=== PATIENT | male | born 1945 | race Two or more races ===

== ENCOUNTER → 2024-06-23 | Outpatient (CLI) | payer MEDICARE, BC, SELFPAY ==
[2024-06-23 14:16] LABS: Collection Type, Urine Clean Catch; Squamous Epithelial Cell,Urine 0 /hpf (0-5)
[2024-06-23 14:31] LABS: Basophils # (Auto) 0.1 Thou/mm3 (0.0-0.2); Basophils % (Auto) 1 % (0-2.5); Eosinophils # (Auto) 0.2 Thou/mm3 (0.0-0.5); Eosinophils % (Auto) 1 % (0-10); Hematocrit 34.7 % (41.0-53.0); Hemoglobin 11.5 g/dL (13.5-16.0); Immature Granulocytes % (Auto) 1 % (0-0); Immature Granulocytes Auto 0.07 Thou/mm3 (0.00-0.00); Lymphocytes # (Auto) 3.7 Thou/mm3 (1.0-4.8); Lymphocytes % (Auto) 26 % (10-50); Mean Corpuscular HGB Conc 33.1 g/dl (31.0-37.0); Mean Corpuscular Hemoglobin 30.4 pg (25.0-35.0); Mean Corpuscular Volume 92 fL (80-100); Monocytes # (Auto) 1.1 Thou/mm3 (0.0-0.8); Monocytes % (Auto) 8 % (0-12); Neutrophils # (Auto) 9.2 Thou/mm3 (1.8-7.7); Neutrophils % (Auto) 65 % (37-80); Nucleated Red Blood Cell % 0 /100 WBC (0); Platelet Count 362 Thou/mm3 (140-440); Red Blood Count 3.78 Miln/mm3 (4.50-5.90); White Blood Count 14.3 Thou/mm3 (3.8-10.6)
[2024-06-23 14:34] LABS: Bilirubin,Urine Negative (Negative); Blood,Urine Negative (Negative); Clarity,Urine Clear (Clear/Hazy); Color,Urine Yellow (Lt Yel-Yel); Glucose, Urine Negative (Negative); Ketones,Urine Negative (Negative); Leukocyte Esterase,Urine Negative (Negative); Nitrite,Urine Negative (Negative); Protein,Urine 1+ (Neg - Trace); RBC,Urine 1 /hpf (0-3); Specific Gravity,Urine 1.018 (1.001-1.035); Urobilinogen,Urine Negative mg/dL (0.0-1.0); WBC,Urine < 1 /hpf (0-5)
[2024-06-23 14:42] LABS: Glucose Estimated Average 114 mg/dL (80-131); Hemoglobin A1C 5.6 % Hgb (4.8-6.0)
[2024-06-23 14:45] LABS: Creatinine MALB Rnd Ur 90 mg/dL (30-125); Microalbumin Creat Ratio 183 mg/gCrea (<30); Microalbumin, Random Urine 165 mg/L (0-300)
[2024-06-23 14:49] LABS: Alanine Aminotransferase 14 U/L (10-49); Albumin, Serum 4.1 gm/dL (3.4-4.8); Alkaline Phosphatase 31 U/L (46-116); Anion Gap 9 (7-16); Aspartate Amino Transferase 19 U/L (0-34); BUN/Creatinine Ratio 21 Ratio (12-20); Blood Urea Nitrogen 38 mg/dL (9-23); Calcium 10.2 mg/dL (8.3-10.6); Calcium (Corrected) 10.2 mg/dL (8.5-10.1); Carbon Dioxide 21.2 mMol/L (20.0-31.0); Chloride 106 mMol/L (98-107); Creatinine (Component) 1.8 mg/dL (0.6-1.3); Glucose 111 mg/dL (74-106); Magnesium 1.5 mg/dL (1.6-2.6); Osmolality,Calculated 281 (275-295); Potassium 4.4 mMol/L (3.4-5.1); Sodium 136 mMol/L (136-145); eGFR 38 See Note
[2024-06-23 15:01] LABS: Albumin/Globulin Ratio 1.6 (1.2-2.2); Bilirubin,Direct 0.1 mg/dL (0.0-0.3); Bilirubin,Total 0.2 mg/dL (0.3-1.2); Cardiac Risk Estimate 2.9 RATIO (4.0-6.7); Cholesterol 93 mg/dL (132-200); Globulin 2.6 gm/dL (2.3-3.5); HDL Cholesterol 32 mg/dL (40-60); LDL Cholesterol,Calculated 48 mg/dL (0-130); Thyroid Stimulating Hormone 3.18 uIU/mL (0.55-4.78); Total Protein 6.7 gm/dL (5.7-8.2); Triglycerides 67 mg/dL (30-150)
[2024-06-23 20:42] LABS: Parathyroid Hormone Intact 17.1 pg/ml (18.5-88.0)
== END | disposition home or self-care (01) ==
LOC: COPL 13:41
PROVIDERS: PCP Internal Medicine; Referring Provider Internal Medicine; Visit Provider Internal Medicine
DX: I12.9 Hypertensive chronic kidney disease with stage 1 through stage 4 chronic kidney disease, or unspecified chronic kidney disease (principal); E11.22 Type 2 diabetes mellitus with diabetic chronic kidney disease; N18.30 Chronic kidney disease, stage 3 unspecified; E78.5 Hyperlipidemia, unspecified
CPT/HCPCS: 36415; 80053; 80061; 81001; 82043; 82248; 82570; 83036; 83735; 83970; 84443; 85025

== ENCOUNTER → 2024-07-14 | Outpatient (CLI) | payer MEDICARE, BC, SELFPAY ==
[2024-07-14 14:40] LABS: Urea Breath Test Negative (Negative)
[2024-07-20 08:48] LABS: Immunoglobulin A 255 mg/dL (70-320); Immunoglobulin G 1148 mg/dL (600-1540)
[2024-07-21 07:04] LABS: Immunoglobulin M 57 mg/dL (50-300)
== END | disposition home or self-care (01) ==
LOC: COPL 13:27
PROVIDERS: PCP Internal Medicine; Referring Provider Nurse Practitioner Family; Visit Provider Nurse Practitioner Family
DX: K21.9 Gastro-esophageal reflux disease without esophagitis (principal); R10.13 Epigastric pain
CPT/HCPCS: 36415; 82784; 83013; 83014

== ENCOUNTER → 2024-08-10 | Outpatient (CLI) | payer MEDICARE, BC, SELFPAY ==
[2024-08-17 06:56] LABS: Helicobacter pylori Ag, Stool* NOT DETECTED (NOT DETECTED)
== END | disposition home or self-care (01) ==
LOC: CDIM 13:44 → SLDO 13:44
PROVIDERS: PCP Nurse Practitioner Family; Referring Provider Nurse Practitioner Family; Visit Provider Nurse Practitioner Family
DX: K21.9 Gastro-esophageal reflux disease without esophagitis (principal); R10.13 Epigastric pain
CPT/HCPCS: 87338

== ENCOUNTER 2024-09-24 12:16 | Inpatient (IN) | payer MEDICARE, BC, SELFPAY ==
[2024-09-24] VITALS (99 sets, daily range): BP systolic 0–182; BP diastolic 0–102; PULSE 0–118; RESP 14–44; TEMP 36–36.4; O2SAT 68–100; BMI 23.3
[2024-09-24] MEDS: EPINEPHrine in NS 4 MG IVPB 4 MG/250 ML BAG 14.203 MG IV (12:31)
[2024-09-24] MEDS: AMIODARONE 360 MG IVPB 360 MG/200 ML BAG 33.333 MG IV (12:37)
--- NOTE | 2024-09-24 12:49 | PD.EDCPR ---
ED CPR RME/HPI General Chief Complaint: General Adult/Misc Complain Stated Complaint: CODE BLUE Time Seen by Provider: 09/24/24 13:19 Arrival date/time: 09/24/24 12:16 RME / HPI RME / HPI narrative: 79 year-old male patient with history of CAD with stents, pacemaker, atrial fibrillation, hypertension, diabetes, hyperlipidemia, pulmonary fibrosis presents to the ED BIBA from home CODE BLUE. Per medics report, arrest was witnessed by family approximately 5 minutes prior to their arrival. Report on scene patient pulseless with PEA on monitor. Received 4 rounds of epinephrine via left tibia IO. Last dose of epinephrine administered en route at 12:13 pm per EMS. Patient ventilated via BVM, and CPR in progress on arrival to ED at 12:15 pm. Prehospital BS 136. Related Data Home Medications ?Medication ?Instructions ?Recorded ?Confirmed atorvastatin 40 mg tablet 40 mg PO QDAY 01/17/23 08/14/23 clopidogrel 75 mg tablet 75 mg PO QDAY 01/17/23 08/14/23 losartan 100 mg tablet 50 mg PO QDAY 01/17/23 08/14/23 megestrol 400 mg/10 mL (40 mg/mL) 400 mg PO QDAY 01/17/23 08/14/23 oral suspension mirtazapine 15 mg tablet 15 mg PO HS 01/17/23 08/14/23 pantoprazole 40 mg tablet,delayed 40 mg PO QDAY 01/17/23 08/14/23 release trazodone 50 mg tablet 50 mg PO QDAY 01/17/23 08/14/23 nintedanib 150 mg capsule (Ofev) 150 mg PO Q12H 08/14/23 08/14/23 Previous Rx's ?Medication ?Instructions ?Recorded promethazine-DM 6.25 mg-15 mg/5 mL 5 ml PO Q6H PRN cough #473 mL 01/23/23 oral syrup azithromycin 250 mg tablet 500 mg (2 x 250 mg) PO QDAY #5 tabs 08/15/23 Allergies Allergy/AdvReac Type Severity Reaction Status Date / Time No Known Allergies Allergy Verified 10/04/21 14:55 Review of Systems Review of Systems ROS Unobtainable: other (Unobtainable, patient presented as a code blue with CPR in progress.) Past Medical History Past Medical History CARDIAC: Positive Cardiac Disorders, Cardiac Arrhythmia, Atrial Fibrillation, Coronary Artery Disease, Hypercholesterolemia and Hypertension RESPIRATORY: Positive Pneumonia and Pulmonary Fibrosis GASTROINTESTINAL: Positive Gastrointestinal Disorders and Gall Bladder Disease GENITOURINARY: Positive Genitourinary Disorders and Renal Disease MUSCULOSKELETAL: Positive Musculoskeletal Disorders ENT: Positive Cataracts ENDOCRINE: Positive Endocrine Disorders OTHER HISTORY: Positive Hospitalization Family History FAMILY HISTORY: Positive Family Cardiac Disorders Surgical History SURGICAL: Positive Coronary Stent, Cardiac Catheterization, Pacemaker, Angiogram, Eye Surgery and Abdominal Surgery Social History SMOKING STATUS: Never smoker ED Exam Narrative Physical exam: GENERAL APPEARANCE: Unresponsive, CPR in progress HEENT: Normocephalic, atraumatic; 2mm and minimally reactive NECK: Supple LUNGS: no spontaneous respirations, ventilated via BVM, breath sounds clear bilaterally with ventilation. HEART: no pulse, no cardiac sounds, palpable pulse with chest compressions ABDOMEN: Mildly distended; soft EXTREMITIES:? atraumatic; no edema NEUROLOGIC: Obtunded, unresponsive, no response to painful stimuli SKIN: Cool, cyanotic Course Course Course Narrative: Please refer to nurse's code sheet for medication administrations. 1215: Patient arrived, CPR in progress by medics 1216: Pulse check, PEA, CPR resumed 1218; Pulse check, PEA, CPR resumed 1220: Patient intubated 1221: Pulse check, PEA, CPR resumed 1223: Pulse check, PEA, CPR resumed 1225: BS 195 1225: Pulse check, +ROSC, NSR 1226: VFib, CPR started, defibrillated at 200 joules, CPR resumed 1228: Pulse check, +ROSC, regular rhythm on telemetry 1229: Right femoral triple lumen central line placed 1241: Patients and daughter at bedside 1246: Daughter at bedside and provided additional history 1250: Patient lost pulses, code blue called overhead 1253: Pulse check, +ROSC, 18F OG tube inserted by me. 1259: Sent EKG images to cable installer repairer Dr. Mathis 1301: Supervisory Examiner Dr. Tyler at bedside. 1304: Gelatin Dynamite Packing Operator Dr. Mathis at bedside. 1308: Patient admitted to ICU. Quality Measures none Orders Category Date Time Status Emergency Titration Protocol Stat Care 09/24/24 13:02 Ordered Emergency Titration Protocol Stat Care 09/24/24 13:09 Ordered Severino [Urinary Catheter] X1 Care 09/24/24 12:48 Completed Insert IV NOW Care 09/24/24 13:15 Completed Intubation NOW Care 09/24/24 12:47 Completed Dietary Misc DAILY Diet 09/25/24 09:00 Active ABG [Arterial Blood Gas] Stat Lab 09/24/24 13:15 Completed CBC [CBC] Stat Lab 09/24/24 12:42 Completed CMP [Comprehensive Metabolic Panel] Stat Lab 09/24/24 12:42 Completed Lactate (Lactic Acid) Stat Lab 09/24/24 12:42 Completed Magnesium Stat Lab 09/24/24 12:42 Completed Procalcitonin Stat Lab 09/24/24 12:42 Completed Sputum Culture and Gram Stain Stat Lab 09/24/24 17:07 Completed Troponin I Stat Lab 09/24/24 12:42 Completed Amiodarone 360 mg Ivpb [Nexterone Ivpb] Med 09/24/24 12:38 Discontinued 360 mg in 200 ml IV 33.333 mls/hr EPINEPHrine in NS 4 MG IVPB [Adrenalin/NS 4 MG IVPB] Med 09/24/24 12:34 Discontinued 4 mg in 250 ml IV 0.05 mcg/kg/min Midazolam/Ns 100 mg Ivpb [Versed Pf Inj in Ns Premix] Med 09/24/24 12:49 Discontinued 100 mg in 100 ml IV 1 mg/hr Sodium Chloride Rt Dominique 10% [NS Rt Dominique 10%] Med 09/24/24 12:47 Discontinued 5 ml INH X1 ONE Mechanical [Volume Ventilator] Stat RT 09/24/24 Active Sputum Induction PRN RT 09/24/24 13:00 Ordered Vital Signs Vital signs: Vital Signs Pulse Rate 105 H 09/24/24 12:19 Respiratory Rate 14 09/24/24 12:19 Pulse Oximetry (%) 86 L 09/24/24 12:19 Procedures -ED Intubation Time out performed: No (Performed emergently during code blue ) sedative: none Laryngoscope: Lopez ET Tube Size: 7.5 ET Tube Uncuffed: No Tube Secured Depth (cm): 25 Tube Secured Location: other (gum) Tube Placement Confirmation: visualized tube passing through cords, equal breath sounds bilaterally, no breath sounds over epigastrium and confirmation by capnometry Patient Tolerated Procedure: well and no complications Intubation Complications: none Additional Comments: Also inserted a 18F OG tube Cardiac Arrest / CPR MDM Narrative MDM Narrative:: I, Vidya Roberts, am scribing for and in the presence of Dr. Young. Patient data External records reviewed:: [facility] previous records (I reviewed admission from 08/14/2023 through 08/15/2023 for acute on chronic renal insufficiency ) Clinical information provided by:: patient Social determinants that could affect healthcare access:: none Patient has the following chronic illnesses:: CAD with stents, s/p pacemaker, AFib, hypertension, diabetes, CKD, hyperlipidemia, pulmonary fibrosis How is presenting disease/condition affected by chronic disease/condition?: exacerbated by Evaluation data The following diagnostics were reviewed and interpreted by me:: lab results, radiology exam(s) and EKG tracing(s) (EKG #1 shows sinus rhythm with frequent PVC's. Second EKG was sinus rhythm with ST depression in V2 V3 V4 V5 V6, no reciprocal elevations. EKG #3 is electronically paced rhythm, rate 69. ) Lab and/or radiology exams considered but not ordered:: None Interpretation Summary: Ordering Physician: Martah Young MD Date of Service: 09/24/24 Procedure(s): XR chest 1V portable Accession Number(s): [id number] cc: Fabián Law MD; Martha Young MD; Amalia Pearson MD~ Examination: AP chest single view Technique one AP portable supine chest single view Exam date and time: September 24, 2024 1343 hrs. Comparison August 06, 2023 Indications: Chest pain today. Hypoxic respiratory failure Findings: Diffuse right lung pneumonia Mild to moderate enlargement left ventricle Endotracheal tube tip 4.6 cm above [place]. Orogastric tube tip in the stomach satisfactory position Prominent vascular congestion Prominent osteopenia Transvenous dual-chamber bipolar cardiac leads satisfactory position Impression: Diffuse right lung pneumonia Mild heart failure Dictated By:Fabián Law MD Signed By:<Electronically signed by Fabián Law MD in OV>09/24/24 1409 Medications / Prescriptions Medications or Prescriptions considered but not ordered:: None Medication administrations:: Medication Administration History Discontinued Medications Albuterol (Albuterol Rt 2.5 Mg/3 Ml Nebu) 2.5 mg INH X1 ONE Stop: 09/27/24 07:03 Albuterol (Albuterol Rt 2.5 Mg/0.5 Ml Nebu) 10 mg INH X1 ONE Stop: 09/27/24 07:26 Last Admin: 04/13/25 07:49 Dose: 10 mg Documented By: EV Albuterol/Ipratropium (Albuterol/Ipratropium (Duoneb) Rt Dominique 3 Ml Nebu) 3 ml INH Q4HRRT [facility] Stop: 10/26/24 22:59 Aspirin (Aspirin 81 Mg Chew) 81 mg NG QDAY [facility] Stop: 10/25/24 10:44 Last Admin: 09/25/24 14:22 Dose: Not Given Documented By: ER Non-Admin Reason: Discontinued Aspirin (Aspirin 81 Mg Chew) 81 mg NG QDAY [facility] Stop: 10/25/24 11:29 Last Admin: 09/26/24 11:11 Dose: 81 mg Documented By: Admin: 09/25/24 13:57 Dose: 81 mg Documented By: ER Comments: patient in CT Clopidogrel Bisulfate (Clopidogrel Bisulfate 75 Mg Tablet) 75 mg NG QDAY [facility] Stop: 10/25/24 10:44 Last Admin: 09/25/24 14:22 Dose: Not Given Documented By: ER Non-Admin Reason: Discontinued Dextrose (Dextrose 50%-Water Inj 50 Ml Syringe) 25 ml IV Q15MIN PRN PRN Reason: BG 50-70 responsive npo pt Stop: 10/25/24 10:26 Last Admin: 09/25/24 14:30 Dose: 25 ml Documented By: ER Dextrose (Dextrose 50%-Water Inj 50 Ml Syringe) 50 ml IV Q15MIN PRN PRN Reason: BG <50 OR BG <70 & pt unresponsive Stop: 10/25/24 10:26 Dextrose (Dextrose 50%-Water Inj 50 Ml Syringe) 50 ml IV Q15MIN PRN PRN Reason: if BG below 70 give full amp Stop: 10/25/24 10:26 Last Admin: 09/26/24 23:45 Dose: 50 ml Documented By: Admin: 09/26/24 20:12 Dose: 50 ml Documented By: Admin: 09/26/24 16:23 Dose: 50 ml Documented By: Admin: 09/26/24 12:16 Dose: 50 ml Documented By: Admin: 09/26/24 08:57 Dose: 50 ml Documented By: POLINA(2) Admin: 09/26/24 02:10 Dose: 50 ml Documented By: Admin: 09/25/24 18:38 Dose: 50 ml Documented By: JUAN Dextrose (Dextrose 50%-Water Inj 50 Ml Syringe) 25 ml IV X1 ONE Stop: 09/26/24 14:35 Last Admin: 09/26/24 14:39 Dose: 25 ml Documented By: POLINA Comments: [address] Fagan and Dr. Forbes Dextrose (Dextrose 50%-Water Inj 50 Ml Syringe) 50 ml IV X1 ONE Stop: 09/27/24 07:03 Last Admin: 09/27/24 07:28 Dose: 50 ml Documented By: POLINA Dextrose (Dextrose 50%-Water Inj 50 Ml Syringe) 50 ml IV X1 ONE Stop: 09/27/24 07:03 Last Admin: 09/27/24 10:56 Dose: Not Given Documented By: POLINA Non-Admin Reason: Cancelled by Provider Glucagon (Glucagon Inj 1 Mg Vial) 1 mg IM Q15MIN PRN PRN Reason: BG <70, and no IV access Heparin Sodium (Porcine) (Heparin Sod Inj 5000 Unit/Ml Vial) 2,000 unit IV X1 ONE; Protocol Stop: 09/24/24 13:25 Last Admin: 09/24/24 18:23 Dose: Not Given Documented By: AUGIE Non-Admin Reason: Per MD Tyler Heparin Sodium (Porcine) (Heparin Sod Inj 5000 Unit/Ml Vial) 4,000 unit IV X1 ONE; Protocol Stop: 09/24/24 19:16 Last Admin: 09/24/24 20:30 Dose: Not Given Documented By: EZEKIEL Non-Admin Reason: Discontinued Heparin Sodium (Porcine) (Heparin Sod Inj 5000 Unit/Ml Vial) 2,000 unit IV X1 ONE; Protocol Stop: 09/24/24 19:16 Last Admin: 09/24/24 21:24 Dose: 2,000 unit Documented By: EZEKIEL Co-signed By: Heparin Sodium (Porcine) (Heparin Sod Inj 5000 Unit/Ml Vial) 2,000 unit IV X1 ONE; Protocol Stop: 09/24/24 20:27 Last Admin: 09/24/24 21:29 Dose: Not Given Documented By: EZEKIEL Non-Admin Reason: Duplicate Medication on eMAR Heparin Sodium (Porcine) (Heparin Sod Inj 1000 Unit/Ml Vial 10 Ml) 3,000 unit INDWELLCAT X1 ONE Stop: 09/26/24 06:31 Last Admin: 09/26/24 06:44 Dose: 3,000 unit Documented By: LINDA Co-signed By: CONRAD Heparin Sodium (Porcine) (Heparin Sod Inj 1000 Unit/Ml Vial 10 Ml) 3,000 unit INDWELLCAT PRN PRN PRN Reason: DIALYSIS Stop: 10/10/24 09:03 Last Admin: 09/27/24 06:45 Dose: 3,000 unit Documented By: LINDA Co-signed By: POLINA Heparin Sodium (Porcine) (Heparin Sod Inj 5000 Unit/Ml Vial) 5,000 unit SC Q8HR SUKUMAR Stop: 10/10/24 21:59 Last Admin: 09/27/24 06:24 Dose: 5,000 unit Documented By: LINDA Co-signed By: CONRAD Admin: 09/26/24 21:13 Dose: 5,000 unit Documented By: LINDA Co-signed By: CONRAD Hydrocortisone Sodium Succinate (Hydrocortisone Sod Succ Inj 100 Mg Vial) 50 mg IV Q6HR [facility] Stop: 09/29/24 11:59 Last Admin: 09/27/24 06:23 Dose: 50 mg Documented By: Admin: 09/26/24 23:35 Dose: 50 mg Documented By: Admin: 09/26/24 17:54 Dose: 50 mg Documented By: Admin: 09/26/24 11:52 Dose: 50 mg Documented By: Admin: 09/26/24 05:33 Dose: 50 mg Documented By: Admin: 09/26/24 00:36 Dose: 50 mg Documented By: Admin: 09/25/24 18:38 Dose: 50 mg Documented By: Admin: 09/25/24 13:58 Dose: 50 mg Documented By: ER Comments: Epinephrine/Sodium Chloride (Adrenalin/Ns 4 Mg Ivpb) 4 mg in 250 mls @ 14.203 mls/hr IV .[id number] PRN; Protocol PRN Reason: per protocol Stop: 10/24/24 12:33 Last Titration: 09/24/24 21:40 Dose: 0.72 mcg/kg/min, 204.525 mls/hr Documented By: Titration: 09/24/24 21:35 Dose: 0.7 mcg/kg/min, 198.844 mls/hr Documented By: Titration: 09/24/24 21:30 Dose: 0.68 mcg/kg/min, 193.163 mls/hr Documented By: Titration: 09/24/24 21:25 Dose: 0.66 mcg/kg/min, 187.481 mls/hr Documented By: Titration: 09/24/24 21:20 Dose: 0.64 mcg/kg/min, 181.8 mls/hr Documented By: Titration: 09/24/24 21:15 Dose: 0.62 mcg/kg/min, 176.119 mls/hr Documented By: Titration: 09/24/24 21:10 Dose: 0.6 mcg/kg/min, 170.438 mls/hr Documented By: Admin: 09/24/24 20:43 Dose: 0.58 mcg/kg/min, 164.756 mls/hr Documented By: Titration: 09/24/24 20:43 Dose: Infused Documented By: Titration: 09/24/24 19:50 Dose: 0.58 mcg/kg/min, 164.756 mls/hr Documented By: Admin: 09/24/24 19:44 Dose: 0.56 mcg/kg/min, 159.075 mls/hr Documented By: Titration: 09/24/24 19:44 Dose: Infused Documented By: Titration: 09/24/24 19:40 Dose: 0.54 mcg/kg/min, 153.394 mls/hr Documented By: Titration: 09/24/24 19:35 Dose: 0.52 mcg/kg/min, 147.713 mls/hr Documented By: Titration: 09/24/24 19:30 Dose: 0.5 mcg/kg/min, 142.031 mls/hr Documented By: Titration: 09/24/24 19:24 Dose: 0.48 mcg/kg/min, 136.35 mls/hr Documented By: Titration: 09/24/24 19:02 Dose: 0.46 mcg/kg/min, 130.669 mls/hr Documented By: Titration: 09/24/24 18:45 Dose: 0.44 mcg/kg/min, 124.988 mls/hr Documented By: Titration: 09/24/24 18:29 Dose: 0.42 mcg/kg/min, 119.306 mls/hr Documented By: Titration: 09/24/24 18:00 Dose: 0.4 mcg/kg/min, 113.625 mls/hr Documented By: Titration: 09/24/24 17:57 Dose: 0.4 mcg/kg/min, 113.625 mls/hr Documented By: Admin: 09/24/24 17:31 Dose: 0.25 mcg/kg/min, 71.016 mls/hr Documented By: Titration: 09/24/24 17:31 Dose: Infused Documented By: Titration: 09/24/24 17:00 Dose: 0.25 mcg/kg/min, 71.016 mls/hr Documented By: Titration: 09/24/24 16:31 Dose: 0.35 mcg/kg/min, 99.422 mls/hr Documented By: Titration: 09/24/24 16:10 Dose: 0.45 mcg/kg/min, 127.828 mls/hr Documented By: Titration: 09/24/24 16:00 Dose: 0.55 mcg/kg/min, 156.234 mls/hr Documented By: Titration: 09/24/24 15:39 Dose: 0.75 mcg/kg/min, 213.047 mls/hr Documented By: Admin: 09/24/24 15:36 Dose: 1 mcg/kg/min, 284.063 mls/hr Documented By: Titration: 09/24/24 15:36 Dose: Infused Documented By: Admin: 09/24/24 14:46 Dose: 1 mcg/kg/min, 284.063 mls/hr Documented By: Titration: 09/24/24 14:46 Dose: Infused Documented By: Titration: 09/24/24 14:33 Dose: 1 mcg/kg/min, 284.063 mls/hr Documented By: Admin: 09/24/24 13:58 Dose: 1 mcg/kg/min, 284.063 mls/hr Documented By: Titration: 09/24/24 13:55 Dose: Infused Documented By: Titration: 09/24/24 13:03 Dose: 1 mcg/kg/min, 284.063 mls/hr Documented By: Admin: 09/24/24 12:31 Dose: 0.05 mcg/kg/min, 14.203 mls/hr Documented By: SHARYN Amiodarone HCl/Dextrose (Nexterone Ivpb) 360 mg in 200 mls @ 33.333 mls/hr IV .Q6H ONE Stop: 09/24/24 18:37 Last Infusion: 09/24/24 18:56 Dose: Infused Documented By: Infusion: 09/24/24 14:33 Dose: 33.333 mls/hr Documented By: Admin: 09/24/24 12:37 Dose: 33.333 mls/hr Documented By: SHARYN Midazolam HCl (Versed Pf Inj In Ns Premix) 100 mg in 100 mls @ 1 mls/hr IV .Q24H PRN; Protocol PRN Reason: PER PROTOCOL Stop: 09/29/24 12:48 Last Titration: 09/24/24 16:31 Dose: 0 mg/hr, 0 mls/hr Documented By: Titration: 09/24/24 14:33 Dose: 1 mg/hr, 1 mls/hr Documented By: Admin: 09/24/24 13:32 Dose: 1 mg/hr, 1 mls/hr Documented By: SHARYN Co-signed By: [facility] Vasopressin/Sodium Chloride (Vasostrict/Ns Ivpb) 20 unit in 100 mls @ 9 mls/hr IV .Q11H7M PRN; Protocol PRN Reason: PER PROTOCOL Stop: 10/24/24 13:16 Last Titration: 09/27/24 09:12 Dose: 0 unit/min, 0 mls/hr Documented By: Admin: 09/27/24 02:25 Dose: 0.03 unit/min, 9 mls/hr Documented By: Titration: 09/27/24 00:44 Dose: Infused Documented By: Admin: 09/26/24 13:37 Dose: 0.03 unit/min, 9 mls/hr Documented By: Titration: 09/26/24 12:56 Dose: Infused Documented By: Admin: 09/26/24 01:49 Dose: 0.03 unit/min, 9 mls/hr Documented By: Titration: 09/26/24 00:17 Dose: Infused Documented By: Admin: 09/25/24 13:10 Dose: 0.03 unit/min, 9 mls/hr Documented By: Titration: 09/25/24 12:05 Dose: Infused Documented By: Admin: 09/25/24 00:58 Dose: 0.03 unit/min, 9 mls/hr Documented By: Titration: 09/25/24 00:58 Dose: Infused Documented By: Admin: 09/24/24 17:45 Dose: 0.03 unit/min, 9 mls/hr Documented By: Titration: 09/24/24 17:45 Dose: Infused Documented By: Titration: 09/24/24 14:33 Dose: 0.03 unit/min, 9 mls/hr Documented By: Admin: 09/24/24 13:37 Dose: 0.03 unit/min, 9 mls/hr Documented By: SHARYN Vasopressin/Sodium Chloride (Vasostrict/Ns Ivpb) 20 unit in 100 mls @ 9 mls/hr IV .Q11H7M PRN; Protocol PRN Reason: PER PROTOCOL Stop: 10/24/24 13:16 Heparin Sodium/Dextrose (Heparin In D5w Ivpb) 25,000 unit in 250 mls @ 9.09 mls/hr IV .Q24H SUKUMAR; Protocol Stop: 10/08/24 13:29 Last Admin: 09/24/24 19:25 Dose: Not Given Documented By: EZEKIEL Non-Admin Reason: Discontinued Sodium Bicarbonate 88.23 meq/ (Dextrose) 588.23 mls @ 100 mls/hr IV .Q5H53M SUKUMAR Stop: 10/24/24 20:07 Last Admin: 09/24/24 21:27 Dose: 100 mls/hr Documented By: EZEKIEL Sodium Bicarbonate 88.23 meq/ (Dextrose) 588.23 mls @ 100 mls/hr IV .Q5H53M ONE Stop: 09/24/24 20:07 Last Admin: 09/24/24 15:00 Dose: 100 mls/hr Documented By: AUGIE Norepinephrine/Dextrose (Levophed In D5w 8mg/250ml) 8 mg in 250 mls @ 7.102 mls/hr IV .Q24H PRN; Protocol PRN Reason: PER PROTOCOL Stop: 10/24/24 14:55 Last Titration: 09/24/24 21:08 Dose: 0 mcg/kg/min, 0 mls/hr Documented By: Titration: 09/24/24 21:06 Dose: 0.01 mcg/kg/min, 1.54 mls/hr Documented By: Titration: 09/24/24 21:00 Dose: 1.52 mcg/kg/min, 215.888 mls/hr Documented By: Titration: 09/24/24 20:55 Dose: 1.5 mcg/kg/min, 213.047 mls/hr Documented By: Titration: 09/24/24 20:50 Dose: 1.48 mcg/kg/min, 210.206 mls/hr Documented By: Titration: 09/24/24 20:45 Dose: 1.46 mcg/kg/min, 207.366 mls/hr Documented By: Titration: 09/24/24 20:30 Dose: 1.44 mcg/kg/min, 204.525 mls/hr Documented By: Titration: 09/24/24 20:25 Dose: 1.4 mcg/kg/min, 198.844 mls/hr Documented By: Titration: 09/24/24 20:20 Dose: 1.35 mcg/kg/min, 191.742 mls/hr Documented By: Titration: 09/24/24 20:16 Dose: 1.3 mcg/kg/min, 184.641 mls/hr Documented By: Titration: 09/24/24 20:10 Dose: 1.2 mcg/kg/min, 170.438 mls/hr Documented By: Titration: 09/24/24 20:05 Dose: 1.1 mcg/kg/min, 156.234 mls/hr Documented By: Titration: 09/24/24 20:00 Dose: 1 mcg/kg/min, 142.031 mls/hr Documented By: Admin: 09/24/24 19:58 Dose: 1 mcg/kg/min, 142.031 mls/hr Documented By: Titration: 09/24/24 19:58 Dose: Infused Documented By: Admin: 09/24/24 19:52 Dose: 1 mcg/kg/min, 142.031 mls/hr Documented By: Titration: 09/24/24 19:18 Dose: Infused Documented By: Titration: 09/24/24 19:00 Dose: 1 mcg/kg/min, 142.031 mls/hr Documented By: Titration: 09/24/24 18:00 Dose: 1 mcg/kg/min, 142.031 mls/hr Documented By: Admin: 09/24/24 17:32 Dose: 1 mcg/kg/min, 142.031 mls/hr Documented By: Titration: 09/24/24 17:32 Dose: Infused Documented By: Titration: 09/24/24 17:00 Dose: 1 mcg/kg/min, 142.031 mls/hr Documented By: Titration: 09/24/24 16:31 Dose: 0.75 mcg/kg/min, 106.523 mls/hr Documented By: Titration: 09/24/24 16:10 Dose: 0.55 mcg/kg/min, 78.117 mls/hr Documented By: Titration: 09/24/24 16:00 Dose: 0.45 mcg/kg/min, 63.914 mls/hr Documented By: Titration: 09/24/24 15:39 Dose: 0.25 mcg/kg/min, 35.508 mls/hr Documented By: Admin: 09/24/24 15:00 Dose: 0.05 mcg/kg/min, 7.102 mls/hr Documented By: GE Norepinephrine/Dextrose (Levophed In D5w 8mg/250ml) Confirm Administered Dose 8 mg in 250 mls @ ud IV .STK-MED ONE Stop: 09/24/24 14:49 Last Admin: 09/24/24 16:46 Dose: Not Given Documented By: GE Non-Admin Reason: Duplicate Medication on eMAR Fentanyl Citrate (Sublimaze Inj 2,500 Mcg/250 Ml Bag) 2,500 mcg in 250 mls @ 2.5 mls/hr IV .Q24H PRN; Protocol PRN Reason: PER PROTOCOL Stop: 09/29/24 15:46 Last Titration: 09/25/24 08:00 Dose: 0 mcg/hr, 0 mls/hr Documented By: Titration: 09/25/24 07:00 Dose: 225 mcg/hr, 22.5 mls/hr Documented By: Titration: 09/25/24 06:00 Dose: 175 mcg/hr, 17.5 mls/hr Documented By: Titration: 09/25/24 05:00 Dose: 175 mcg/hr, 17.5 mls/hr Documented By: Titration: 09/25/24 04:00 Dose: 175 mcg/hr, 17.5 mls/hr Documented By: Titration: 09/25/24 03:00 Dose: 175 mcg/hr, 17.5 mls/hr Documented By: Titration: 09/25/24 02:00 Dose: 175 mcg/hr, 17.5 mls/hr Documented By: Titration: 09/25/24 01:00 Dose: 175 mcg/hr, 17.5 mls/hr Documented By: Titration: 09/25/24 00:47 Dose: 175 mcg/hr, 17.5 mls/hr Documented By: Titration: 09/25/24 00:00 Dose: 125 mcg/hr, 12.5 mls/hr Documented By: Titration: 09/24/24 23:00 Dose: 75 mcg/hr, 7.5 mls/hr Documented By: Titration: 09/24/24 22:00 Dose: 75 mcg/hr, 7.5 mls/hr Documented By: Titration: 09/24/24 21:00 Dose: 25 mcg/hr, 2.5 mls/hr Documented By: Titration: 09/24/24 20:00 Dose: 25 mcg/hr, 2.5 mls/hr Documented By: Titration: 09/24/24 19:00 Dose: 25 mcg/hr, 2.5 mls/hr Documented By: Titration: 09/24/24 18:30 Dose: 25 mcg/hr, 2.5 mls/hr Documented By: Titration: 09/24/24 18:00 Dose: 0 mcg/hr, 0 mls/hr Documented By: Admin: 09/24/24 16:32 Dose: 25 mcg/hr, 2.5 mls/hr Documented By: AUGIE Co-signed By: seven Propofol (Diprivan Ivpb) 1,000 mg in 100 mls @ 2.273 mls/hr IV .Q24H PRN; Protocol PRN Reason: PER PROTOCOL Stop: 10/24/24 15:47 Last Titration: 09/24/24 18:00 Dose: 0 mcg/kg/min, 0 mls/hr Documented By: Admin: 09/24/24 16:31 Dose: 5 mcg/kg/min, 2.273 mls/hr Documented By: AUGIE Co-signed By: seven Sodium Chloride (Ns) 500 mls @ 999 mls/hr IV .Q31M ONE Stop: 09/24/24 16:26 Last Infusion: 09/24/24 18:00 Dose: Infused Documented By: Admin: 09/24/24 16:10 Dose: 999 mls/hr Documented By: AUGIE Ceftriaxone Sodium/Dextrose (Rocephin/D5w 1gm Iv Premix) 1 gm in 50 mls @ 100 mls/hr IV QDAY SUKUMAR Stop: 10/01/24 16:51 Last Infusion: 09/26/24 17:19 Dose: Infused Documented By: Admin: 09/26/24 11:11 Dose: 100 mls/hr Documented By: Infusion: 09/25/24 10:00 Dose: Infused Documented By: Admin: 09/25/24 09:30 Dose: 100 mls/hr Documented By: Infusion: 09/24/24 18:00 Dose: Infused Documented By: Admin: 09/24/24 17:09 Dose: 100 mls/hr Documented By: AUGIE Metronidazole (Flagyl 500 Mg Iv) 500 mg in 100 mls @ 200 mls/hr IV Q8HR SUKUMAR Stop: 10/01/24 16:51 Last Admin: 09/27/24 06:24 Dose: 200 mls/hr Documented By: Infusion: 09/26/24 21:42 Dose: Infused Documented By: Admin: 09/26/24 21:12 Dose: 200 mls/hr Documented By: Infusion: 09/26/24 17:19 Dose: Infused Documented By: Admin: 09/26/24 14:52 Dose: 200 mls/hr Documented By: Infusion: 09/26/24 06:03 Dose: Infused Documented By: Admin: 09/26/24 05:33 Dose: 200 mls/hr Documented By: Infusion: 09/25/24 22:21 Dose: Infused Documented By: Admin: 09/25/24 21:51 Dose: 200 mls/hr Documented By: Infusion: 09/25/24 14:27 Dose: Infused Documented By: Admin: 09/25/24 13:57 Dose: 200 mls/hr Documented By: Infusion: 09/25/24 06:15 Dose: Infused Documented By: Admin: 09/25/24 05:45 Dose: 200 mls/hr Documented By: Infusion: 09/24/24 23:22 Dose: Infused Documented By: Admin: 09/24/24 22:52 Dose: 200 mls/hr Documented By: Infusion: 09/24/24 18:00 Dose: Infused Documented By: Admin: 09/24/24 17:09 Dose: 200 mls/hr Documented By: AUGIE Heparin Sodium/Dextrose (Heparin In D5w Ivpb) 25,000 unit in 250 mls @ 9.09 mls/hr IV .Q24H SUKUMAR; Protocol Stop: 10/08/24 19:14 Last Admin: 09/24/24 20:30 Dose: Not Given Documented By: EZEKIEL Non-Admin Reason: Discontinued Epinephrine/Sodium Chloride (Adrenalin/Ns 4 Mg Ivpb) 4 mg in 250 mls @ 14.203 mls/hr IV .[id number] PRN; Protocol PRN Reason: per protocol Stop: 10/24/24 20:20 Last Titration: 09/27/24 09:12 Dose: 0 mcg/kg/min, 0 mls/hr Documented By: Titration: 09/27/24 08:55 Dose: 1 mcg/kg/min, 284.063 mls/hr Documented By: Titration: 09/27/24 08:48 Dose: 0.5 mcg/kg/min, 142.031 mls/hr Documented By: Titration: 09/27/24 08:45 Dose: 0.15 mcg/kg/min, 42.609 mls/hr Documented By: Titration: 09/27/24 08:39 Dose: 0.13 mcg/kg/min, 36.928 mls/hr Documented By: Titration: 09/27/24 08:32 Dose: 0.11 mcg/kg/min, 31.247 mls/hr Documented By: Titration: 09/27/24 08:27 Dose: 0.09 mcg/kg/min, 25.566 mls/hr Documented By: Titration: 09/27/24 08:22 Dose: 0.07 mcg/kg/min, 19.884 mls/hr Documented By: Admin: 09/27/24 08:17 Dose: 0.05 mcg/kg/min, 14.203 mls/hr Documented By: RM Norepinephrine Bitartrate (Levophed In Ns 16mg/250ml) 16 mg in 250 mls @ 3.551 mls/hr IV .Q24H PRN; Protocol PRN Reason: PER protocol Stop: 10/24/24 20:22 Last Titration: 09/27/24 09:12 Dose: Infused Documented By: Titration: 09/27/24 08:32 Dose: 3 mcg/kg/min, 213.047 mls/hr Documented By: Titration: 09/27/24 08:27 Dose: 2.99 mcg/kg/min, 212.337 mls/hr Documented By: Titration: 09/27/24 08:22 Dose: 2.97 mcg/kg/min, 210.916 mls/hr Documented By: Titration: 09/27/24 08:00 Dose: 2.95 mcg/kg/min, 209.496 mls/hr Documented By: Admin: 09/27/24 07:21 Dose: 2.95 mcg/kg/min, 209.496 mls/hr Documented By: Titration: 09/27/24 07:21 Dose: Infused Documented By: Titration: 09/27/24 07:00 Dose: 2.95 mcg/kg/min, 209.496 mls/hr Documented By: Admin: 09/27/24 06:24 Dose: 2.95 mcg/kg/min, 209.496 mls/hr Documented By: Titration: 09/27/24 06:24 Dose: Infused Documented By: Titration: 09/27/24 06:00 Dose: 2.95 mcg/kg/min, 209.496 mls/hr Documented By: Titration: 09/27/24 05:21 Dose: 0.7 mcg/kg/min, 49.711 mls/hr Documented By: Titration: 09/27/24 05:00 Dose: 0.68 mcg/kg/min, 48.291 mls/hr Documented By: Titration: 09/27/24 04:00 Dose: 0.68 mcg/kg/min, 48.291 mls/hr Documented By: Admin: 09/27/24 03:30 Dose: 0.68 mcg/kg/min, 48.291 mls/hr Documented By: Titration: 09/27/24 03:30 Dose: Infused Documented By: Titration: 09/27/24 03:00 Dose: 0.68 mcg/kg/min, 48.291 mls/hr Documented By: Titration: 09/27/24 02:00 Dose: 0.68 mcg/kg/min, 48.291 mls/hr Documented By: Titration: 09/27/24 01:00 Dose: 0.68 mcg/kg/min, 48.291 mls/hr Documented By: Titration: 09/27/24 00:00 Dose: 0.68 mcg/kg/min, 48.291 mls/hr Documented By: Titration: 09/26/24 23:16 Dose: 0.68 mcg/kg/min, 48.291 mls/hr Documented By: Titration: 09/26/24 23:00 Dose: 0.66 mcg/kg/min, 46.87 mls/hr Documented By: Titration: 09/26/24 22:00 Dose: 0.64 mcg/kg/min, 45.45 mls/hr Documented By: Admin: 09/26/24 21:52 Dose: 0.64 mcg/kg/min, 45.45 mls/hr Documented By: Titration: 09/26/24 21:52 Dose: Infused Documented By: Titration: 09/26/24 21:23 Dose: 0.64 mcg/kg/min, 45.45 mls/hr Documented By: Titration: 09/26/24 21:00 Dose: 0.62 mcg/kg/min, 44.03 mls/hr Documented By: Titration: 09/26/24 20:00 Dose: 0.62 mcg/kg/min, 44.03 mls/hr Documented By: Titration: 09/26/24 19:00 Dose: 0.62 mcg/kg/min, 44.03 mls/hr Documented By: Titration: 09/26/24 18:36 Dose: 0.62 mcg/kg/min, 44.03 mls/hr Documented By: Titration: 09/26/24 18:00 Dose: 0.64 mcg/kg/min, 45.45 mls/hr Documented By: Titration: 09/26/24 17:41 Dose: 0.64 mcg/kg/min, 45.45 mls/hr Documented By: Titration: 09/26/24 17:33 Dose: 0.66 mcg/kg/min, 46.87 mls/hr Documented By: Titration: 09/26/24 17:32 Dose: 0.68 mcg/kg/min, 48.291 mls/hr Documented By: Titration: 09/26/24 17:28 Dose: 0.68 mcg/kg/min, 48.291 mls/hr Documented By: Titration: 09/26/24 17:17 Dose: 0.7 mcg/kg/min, 49.711 mls/hr Documented By: Titration: 09/26/24 17:12 Dose: 0.72 mcg/kg/min, 51.131 mls/hr Documented By: Titration: 09/26/24 17:03 Dose: 0.74 mcg/kg/min, 52.552 mls/hr Documented By: Titration: 09/26/24 17:00 Dose: 0.76 mcg/kg/min, 53.972 mls/hr Documented By: Titration: 09/26/24 16:45 Dose: 0.76 mcg/kg/min, 53.972 mls/hr Documented By: Titration: 09/26/24 16:28 Dose: 0.78 mcg/kg/min, 55.392 mls/hr Documented By: Admin: 09/26/24 16:27 Dose: 0.8 mcg/kg/min, 56.813 mls/hr Documented By: Titration: 09/26/24 16:27 Dose: Infused Documented By: Titration: 09/26/24 16:00 Dose: 0.8 mcg/kg/min, 56.813 mls/hr Documented By: Titration: 09/26/24 15:55 Dose: 0.8 mcg/kg/min, 56.813 mls/hr Documented By: Titration: 09/26/24 15:47 Dose: 0.82 mcg/kg/min, 58.233 mls/hr Documented By: Titration: 09/26/24 15:30 Dose: 0.84 mcg/kg/min, 59.653 mls/hr Documented By: Titration: 09/26/24 15:13 Dose: 0.86 mcg/kg/min, 61.073 mls/hr Documented By: Titration: 09/26/24 15:03 Dose: 0.88 mcg/kg/min, 62.494 mls/hr Documented By: Titration: 09/26/24 14:47 Dose: 0.9 mcg/kg/min, 63.914 mls/hr Documented By: Titration: 09/26/24 14:25 Dose: 0.92 mcg/kg/min, 65.334 mls/hr Documented By: Titration: 09/26/24 14:17 Dose: 0.94 mcg/kg/min, 66.755 mls/hr Documented By: Titration: 09/26/24 14:00 Dose: 0.96 mcg/kg/min, 68.175 mls/hr Documented By: Titration: 09/26/24 13:28 Dose: 0.96 mcg/kg/min, 68.175 mls/hr Documented By: Titration: 09/26/24 13:15 Dose: 0.98 mcg/kg/min, 69.595 mls/hr Documented By: Titration: 09/26/24 13:00 Dose: 1 mcg/kg/min, 71.016 mls/hr Documented By: Admin: 09/26/24 12:58 Dose: 1 mcg/kg/min, 71.016 mls/hr Documented By: Titration: 09/26/24 12:56 Dose: Infused Documented By: Titration: 09/26/24 12:55 Dose: 1.38 mcg/kg/min, 98.002 mls/hr Documented By: Titration: 09/26/24 12:53 Dose: 1.4 mcg/kg/min, 99.422 mls/hr Documented By: Titration: 09/26/24 12:40 Dose: 1.42 mcg/kg/min, 100.842 mls/hr Documented By: Titration: 09/26/24 12:32 Dose: 1.44 mcg/kg/min, 102.263 mls/hr Documented By: Titration: 09/26/24 12:04 Dose: 1.46 mcg/kg/min, 103.683 mls/hr Documented By: Titration: 09/26/24 12:00 Dose: 1.48 mcg/kg/min, 105.103 mls/hr Documented By: Titration: 09/26/24 11:42 Dose: 1.48 mcg/kg/min, 105.103 mls/hr Documented By: Titration: 09/26/24 11:00 Dose: 1.5 mcg/kg/min, 106.523 mls/hr Documented By: Titration: 09/26/24 10:57 Dose: 1.5 mcg/kg/min, 106.523 mls/hr Documented By: Titration: 09/26/24 10:55 Dose: 1 mcg/kg/min, 71.016 mls/hr Documented By: Titration: 09/26/24 10:40 Dose: 0.68 mcg/kg/min, 48.291 mls/hr Documented By: Admin: 09/26/24 10:02 Dose: 0.64 mcg/kg/min, 45.45 mls/hr Documented By: Titration: 09/26/24 09:00 Dose: Infused Documented By: Titration: 09/26/24 08:50 Dose: Infused Documented By: POLINA(2) Titration: 09/26/24 07:36 Dose: 0.66 mcg/kg/min, 46.87 mls/hr Documented By: POLINA(2) Titration: 09/26/24 07:21 Dose: 0.68 mcg/kg/min, 48.291 mls/hr Documented By: POLINA(2) Titration: 09/26/24 07:00 Dose: 0.7 mcg/kg/min, 49.711 mls/hr Documented By: Titration: 09/26/24 06:56 Dose: 0.72 mcg/kg/min, 51.131 mls/hr Documented By: Titration: 09/26/24 06:47 Dose: 0.74 mcg/kg/min, 52.552 mls/hr Documented By: Titration: 09/26/24 06:25 Dose: 0.76 mcg/kg/min, 53.972 mls/hr Documented By: Titration: 09/26/24 06:21 Dose: 0.78 mcg/kg/min, 55.392 mls/hr Documented By: Titration: 09/26/24 06:15 Dose: 0.8 mcg/kg/min, 56.813 mls/hr Documented By: Titration: 09/26/24 06:10 Dose: 0.82 mcg/kg/min, 58.233 mls/hr Documented By: Titration: 09/26/24 06:05 Dose: 0.84 mcg/kg/min, 59.653 mls/hr Documented By: Titration: 09/26/24 06:00 Dose: 0.86 mcg/kg/min, 61.073 mls/hr Documented By: Titration: 09/26/24 05:45 Dose: 0.88 mcg/kg/min, 62.494 mls/hr Documented By: Titration: 09/26/24 05:30 Dose: 0.9 mcg/kg/min, 63.914 mls/hr Documented By: Titration: 09/26/24 05:25 Dose: 0.92 mcg/kg/min, 65.334 mls/hr Documented By: Titration: 09/26/24 05:00 Dose: 0.94 mcg/kg/min, 66.755 mls/hr Documented By: Titration: 09/26/24 04:33 Dose: 0.96 mcg/kg/min, 68.175 mls/hr Documented By: Admin: 09/26/24 04:20 Dose: 0.98 mcg/kg/min, 69.595 mls/hr Documented By: Titration: 09/26/24 04:18 Dose: Infused Documented By: Titration: 09/26/24 04:00 Dose: 0.98 mcg/kg/min, 69.595 mls/hr Documented By: Titration: 09/26/24 03:47 Dose: 1 mcg/kg/min, 71.016 mls/hr Documented By: Titration: 09/26/24 03:32 Dose: 1.02 mcg/kg/min, 72.436 mls/hr Documented By: Titration: 09/26/24 03:17 Dose: 1.04 mcg/kg/min, 73.856 mls/hr Documented By: Titration: 09/26/24 03:00 Dose: 1.06 mcg/kg/min, 75.277 mls/hr Documented By: Titration: 09/26/24 02:46 Dose: 1.08 mcg/kg/min, 76.697 mls/hr Documented By: Titration: 09/26/24 02:00 Dose: 1.1 mcg/kg/min, 78.117 mls/hr Documented By: Admin: 09/26/24 01:00 Dose: 1.1 mcg/kg/min, 78.117 mls/hr Documented By: Titration: 09/26/24 01:00 Dose: Infused Documented By: Titration: 09/26/24 00:00 Dose: 1.1 mcg/kg/min, 78.117 mls/hr Documented By: Titration: 09/25/24 23:47 Dose: 1.1 mcg/kg/min, 78.117 mls/hr Documented By: Titration: 09/25/24 23:32 Dose: 1.12 mcg/kg/min, 79.538 mls/hr Documented By: Titration: 09/25/24 23:16 Dose: 1.14 mcg/kg/min, 80.958 mls/hr Documented By: Titration: 09/25/24 23:00 Dose: 1.16 mcg/kg/min, 82.378 mls/hr Documented By: Admin: 09/25/24 22:00 Dose: 1.18 mcg/kg/min, 83.798 mls/hr Documented By: Titration: 09/25/24 21:58 Dose: Infused Documented By: Titration: 09/25/24 21:32 Dose: 1.2 mcg/kg/min, 85.219 mls/hr Documented By: Titration: 09/25/24 21:00 Dose: 1.22 mcg/kg/min, 86.639 mls/hr Documented By: Titration: 09/25/24 20:34 Dose: 1.22 mcg/kg/min, 86.639 mls/hr Documented By: Titration: 09/25/24 20:00 Dose: 1.24 mcg/kg/min, 88.059 mls/hr Documented By: Admin: 09/25/24 19:06 Dose: 1.26 mcg/kg/min, 89.48 mls/hr Documented By: Titration: 09/25/24 19:06 Dose: Infused Documented By: Titration: 09/25/24 19:00 Dose: 1.26 mcg/kg/min, 89.48 mls/hr Documented By: Titration: 09/25/24 18:00 Dose: 1.26 mcg/kg/min, 89.48 mls/hr Documented By: Titration: 09/25/24 17:00 Dose: 1.26 mcg/kg/min, 89.48 mls/hr Documented By: Titration: 09/25/24 16:45 Dose: 1.24 mcg/kg/min, 88.059 mls/hr Documented By: Titration: 09/25/24 16:31 Dose: 1.22 mcg/kg/min, 86.639 mls/hr Documented By: Admin: 09/25/24 16:17 Dose: 1.2 mcg/kg/min, 85.219 mls/hr Documented By: Titration: 09/25/24 16:12 Dose: Infused Documented By: Titration: 09/25/24 15:00 Dose: 1.2 mcg/kg/min, 85.219 mls/hr Documented By: Titration: 09/25/24 14:00 Dose: 1.2 mcg/kg/min, 85.219 mls/hr Documented By: Admin: 09/25/24 13:15 Dose: 1.2 mcg/kg/min, 85.219 mls/hr Documented By: Titration: 09/25/24 13:13 Dose: Infused Documented By: Titration: 09/25/24 13:00 Dose: 1.2 mcg/kg/min, 85.219 mls/hr Documented By: Titration: 09/25/24 12:07 Dose: 1.2 mcg/kg/min, 85.219 mls/hr Documented By: Titration: 09/25/24 12:00 Dose: 1.18 mcg/kg/min, 83.798 mls/hr Documented By: Titration: 09/25/24 11:00 Dose: 1.18 mcg/kg/min, 83.798 mls/hr Documented By: Titration: 09/25/24 10:45 Dose: 1.16 mcg/kg/min, 82.378 mls/hr Documented By: Titration: 09/25/24 10:40 Dose: 1.18 mcg/kg/min, 83.798 mls/hr Documented By: Admin: 09/25/24 10:15 Dose: 1.2 mcg/kg/min, 85.219 mls/hr Documented By: Titration: 09/25/24 10:10 Dose: Infused Documented By: Titration: 09/25/24 10:05 Dose: Infused Documented By: Titration: 09/25/24 10:00 Dose: 1.22 mcg/kg/min, 86.639 mls/hr Documented By: Titration: 09/25/24 09:55 Dose: 1.24 mcg/kg/min, 88.059 mls/hr Documented By: Titration: 09/25/24 09:50 Dose: 1.26 mcg/kg/min, 89.48 mls/hr Documented By: Titration: 09/25/24 09:45 Dose: 1.28 mcg/kg/min, 90.9 mls/hr Documented By: Titration: 09/25/24 09:40 Dose: 1.3 mcg/kg/min, 92.32 mls/hr Documented By: Titration: 09/25/24 09:36 Dose: 1.52 mcg/kg/min, 107.944 mls/hr Documented By: Titration: 09/25/24 09:35 Dose: 1.54 mcg/kg/min, 109.364 mls/hr Documented By: Titration: 09/25/24 09:30 Dose: 1.56 mcg/kg/min, 110.784 mls/hr Documented By: Titration: 09/25/24 09:25 Dose: 1.58 mcg/kg/min, 112.205 mls/hr Documented By: Titration: 09/25/24 09:20 Dose: 1.6 mcg/kg/min, 113.625 mls/hr Documented By: Titration: 09/25/24 09:15 Dose: 1.62 mcg/kg/min, 115.045 mls/hr Documented By: Titration: 09/25/24 09:10 Dose: 1.64 mcg/kg/min, 116.466 mls/hr Documented By: Titration: 09/25/24 09:05 Dose: 1.66 mcg/kg/min, 117.886 mls/hr Documented By: Titration: 09/25/24 09:00 Dose: 1.68 mcg/kg/min, 119.306 mls/hr Documented By: Titration: 09/25/24 08:55 Dose: 1.7 mcg/kg/min, 120.727 mls/hr Documented By: Titration: 09/25/24 08:50 Dose: 1.72 mcg/kg/min, 122.147 mls/hr Documented By: Titration: 09/25/24 08:45 Dose: 1.74 mcg/kg/min, 123.567 mls/hr Documented By: Titration: 09/25/24 08:45 Dose: 1.76 mcg/kg/min, 124.988 mls/hr Documented By: Titration: 09/25/24 08:40 Dose: 1.78 mcg/kg/min, 126.408 mls/hr Documented By: Titration: 09/25/24 08:35 Dose: 1.8 mcg/kg/min, 127.828 mls/hr Documented By: Titration: 09/25/24 08:30 Dose: 1.82 mcg/kg/min, 129.248 mls/hr Documented By: Titration: 09/25/24 08:25 Dose: 1.84 mcg/kg/min, 130.669 mls/hr Documented By: Titration: 09/25/24 08:20 Dose: 1.86 mcg/kg/min, 132.089 mls/hr Documented By: Titration: 09/25/24 08:15 Dose: 1.88 mcg/kg/min, 133.509 mls/hr Documented By: Titration: 09/25/24 08:10 Dose: 1.9 mcg/kg/min, 134.93 mls/hr Documented By: Titration: 09/25/24 08:05 Dose: 1.94 mcg/kg/min, 137.77 mls/hr Documented By: Admin: 09/25/24 07:57 Dose: 1.96 mcg/kg/min, 139.191 mls/hr Documented By: Titration: 09/25/24 07:41 Dose: Infused Documented By: Titration: 09/25/24 07:00 Dose: 1.98 mcg/kg/min, 140.611 mls/hr Documented By: Admin: 09/25/24 05:55 Dose: 2 mcg/kg/min, 142.031 mls/hr Documented By: Titration: 09/25/24 05:48 Dose: Infused Documented By: Admin: 09/25/24 04:02 Dose: 2 mcg/kg/min, 142.031 mls/hr Documented By: Titration: 09/25/24 04:02 Dose: Infused Documented By: Titration: 09/25/24 03:00 Dose: 2 mcg/kg/min, 142.031 mls/hr Documented By: Titration: 09/25/24 03:00 Dose: 2 mcg/kg/min, 142.031 mls/hr Documented By: Admin: 09/25/24 02:16 Dose: 2 mcg/kg/min, 142.031 mls/hr Documented By: Titration: 09/25/24 02:16 Dose: Infused Documented By: Titration: 09/25/24 02:00 Dose: 2 mcg/kg/min, 142.031 mls/hr Documented By: Titration: 09/25/24 01:00 Dose: 2 mcg/kg/min, 142.031 mls/hr Documented By: Admin: 09/25/24 00:30 Dose: 2 mcg/kg/min, 142.031 mls/hr Documented By: Titration: 09/25/24 00:30 Dose: Infused Documented By: Titration: 09/25/24 00:00 Dose: 2 mcg/kg/min, 142.031 mls/hr Documented By: Admin: 09/24/24 23:10 Dose: 2 mcg/kg/min, 142.031 mls/hr Documented By: Titration: 09/24/24 23:10 Dose: Infused Documented By: Titration: 09/24/24 23:00 Dose: 2 mcg/kg/min, 142.031 mls/hr Documented By: Titration: 09/24/24 22:05 Dose: 2 mcg/kg/min, 142.031 mls/hr Documented By: Titration: 09/24/24 21:45 Dose: 2 mcg/kg/min, 142.031 mls/hr Documented By: Admin: 09/24/24 21:08 Dose: 1.54 mcg/kg/min, 109.364 mls/hr Documented By: EZEKIEL Heparin Sodium/Dextrose (Heparin In D5w Ivpb) 25,000 unit in 250 mls @ 9.09 mls/hr IV .Q24H SUKUMAR; Protocol Stop: 10/08/24 20:29 Last Titration: 09/26/24 11:16 Dose: 0 units/kg/hr, 0 mls/hr Documented By: POLINA Co-signed By: Admin: 09/26/24 08:49 Dose: Not Given Documented By: POLINA(2) Non-Admin Reason: bag hanging Titration: 09/26/24 06:45 Dose: 6 units/kg/hr, 4.545 mls/hr Documented By: [email or web address]) Co-signed By: Titration: 09/25/24 23:30 Dose: 6 units/kg/hr, 4.545 mls/hr Documented By: LINDA Co-signed By: CONRAD Titration: 09/25/24 16:00 Dose: 6 units/kg/hr, 4.545 mls/hr Documented By: ER Co-signed By: seven Titration: 09/25/24 13:00 Dose: 0 units/kg/hr, 0 mls/hr Documented By: ER Co-signed By: seven Titration: 09/25/24 12:00 Dose: 0 units/kg/hr, 0 mls/hr Documented By: ER Co-signed By: seven Titration: 09/25/24 05:06 Dose: 9 units/kg/hr, 6.818 mls/hr Documented By: BB Co-signed By: WB Titration: 09/25/24 04:00 Dose: 0 units/kg/hr, 0 mls/hr Documented By: BB Co-signed By: CMN Admin: 09/24/24 21:26 Dose: 12 units/kg/hr, 9.09 mls/hr Documented By: EZEKIEL Co-signed By: Norepinephrine Bitartrate (Levophed In Ns 16mg/250ml) Confirm Administered Dose 16 mg in 250 mls @ ud IV .STK-MED ONE Stop: 09/24/24 20:19 Last Admin: 09/24/24 21:31 Dose: Not Given Documented By: EZEKIEL Non-Admin Reason: Duplicate Medication on eMAR Epinephrine/Sodium Chloride (Adrenalin/Ns 4 Mg Ivpb) Confirm Administered Dose 4 mg in 250 mls @ ud IV .STK-MED ONE Stop: 09/24/24 20:19 Last Admin: 09/24/24 21:28 Dose: Not Given Documented By: EZEKIEL Non-Admin Reason: Duplicate Medication on eMAR Epinephrine HCl 16 mg/ Sodium (Chloride) 250 mls @ 3.551 mls/hr IV .Q24H PRN; Protocol PRN Reason: per protocol Stop: 10/24/24 20:45 Last Titration: 09/26/24 03:17 Dose: 0 mcg/kg/min, 0 mls/hr Documented By: Titration: 09/26/24 03:00 Dose: 0.02 mcg/kg/min, 1.42 mls/hr Documented By: Titration: 09/26/24 02:46 Dose: 0.04 mcg/kg/min, 2.841 mls/hr Documented By: Titration: 09/26/24 02:31 Dose: 0.06 mcg/kg/min, 4.261 mls/hr Documented By: Titration: 09/26/24 02:17 Dose: 0.08 mcg/kg/min, 5.681 mls/hr Documented By: Titration: 09/26/24 02:00 Dose: 0.1 mcg/kg/min, 7.102 mls/hr Documented By: Titration: 09/26/24 01:46 Dose: 0.12 mcg/kg/min, 8.522 mls/hr Documented By: Titration: 09/26/24 01:17 Dose: 0.14 mcg/kg/min, 9.942 mls/hr Documented By: Titration: 09/26/24 01:00 Dose: 0.16 mcg/kg/min, 11.363 mls/hr Documented By: Titration: 09/26/24 00:31 Dose: 0.18 mcg/kg/min, 12.783 mls/hr Documented By: Titration: 09/26/24 00:00 Dose: 0.2 mcg/kg/min, 14.203 mls/hr Documented By: Titration: 09/25/24 23:00 Dose: 0.2 mcg/kg/min, 14.203 mls/hr Documented By: Titration: 09/25/24 22:39 Dose: 0.2 mcg/kg/min, 14.203 mls/hr Documented By: Titration: 09/25/24 22:00 Dose: 0.2 mcg/kg/min, 14.203 mls/hr Documented By: Titration: 09/25/24 21:00 Dose: 0.2 mcg/kg/min, 14.203 mls/hr Documented By: Titration: 09/25/24 20:00 Dose: 0.2 mcg/kg/min, 14.203 mls/hr Documented By: Titration: 09/25/24 19:00 Dose: 0.2 mcg/kg/min, 14.203 mls/hr Documented By: Titration: 09/25/24 18:00 Dose: 0.2 mcg/kg/min, 14.203 mls/hr Documented By: Titration: 09/25/24 17:00 Dose: 0.2 mcg/kg/min, 14.203 mls/hr Documented By: Titration: 09/25/24 16:00 Dose: 0.2 mcg/kg/min, 14.203 mls/hr Documented By: Titration: 09/25/24 15:00 Dose: 0.2 mcg/kg/min, 14.203 mls/hr Documented By: Titration: 09/25/24 14:00 Dose: 0.2 mcg/kg/min, 14.203 mls/hr Documented By: Titration: 09/25/24 13:00 Dose: 0.2 mcg/kg/min, 14.203 mls/hr Documented By: Titration: 09/25/24 12:00 Dose: 0.2 mcg/kg/min, 14.203 mls/hr Documented By: Admin: 09/25/24 11:25 Dose: 0.2 mcg/kg/min, 14.203 mls/hr Documented By: Titration: 09/25/24 11: Dose: Infused Documented By: Titration: 09/25/24 11:00 Dose: 0.2 mcg/kg/min, 14.203 mls/hr Documented By: Titration: 09/25/24 10:50 Dose: 0.2 mcg/kg/min, 14.203 mls/hr Documented By: Titration: 09/25/24 10:45 Dose: 0.22 mcg/kg/min, 15.623 mls/hr Documented By: Titration: 09/25/24 10:40 Dose: 0.24 mcg/kg/min, 17.044 mls/hr Documented By: Titration: 09/25/24 10:30 Dose: 0.26 mcg/kg/min, 18.464 mls/hr Documented By: Titration: 09/25/24 10:05 Dose: 0.28 mcg/kg/min, 19.884 mls/hr Documented By: Titration: 09/25/24 10:00 Dose: 0.3 mcg/kg/min, 21.305 mls/hr Documented By: Titration: 09/25/24 09:45 Dose: 0.32 mcg/kg/min, 22.725 mls/hr Documented By: Titration: 09/25/24 09:40 Dose: 0.34 mcg/kg/min, 24.145 mls/hr Documented By: Titration: 09/25/24 09:30 Dose: 0.36 mcg/kg/min, 25.566 mls/hr Documented By: Titration: 09/25/24 09:25 Dose: 0.38 mcg/kg/min, 26.986 mls/hr Documented By: Titration: 09/25/24 09:05 Dose: 0.4 mcg/kg/min, 28.406 mls/hr Documented By: Titration: 09/25/24 09:00 Dose: 0.42 mcg/kg/min, 29.827 mls/hr Documented By: Titration: 09/25/24 08:55 Dose: 0.44 mcg/kg/min, 31.247 mls/hr Documented By: Titration: 09/25/24 08:50 Dose: 0.46 mcg/kg/min, 32.667 mls/hr Documented By: Titration: 09/25/24 08:45 Dose: 0.48 mcg/kg/min, 34.088 mls/hr Documented By: Titration: 09/25/24 08:40 Dose: 0.5 mcg/kg/min, 35.508 mls/hr Documented By: Titration: 09/25/24 08:35 Dose: 0.52 mcg/kg/min, 36.928 mls/hr Documented By: Titration: 09/25/24 08:30 Dose: 0.54 mcg/kg/min, 38.348 mls/hr Documented By: Titration: 09/25/24 08:25 Dose: 0.56 mcg/kg/min, 39.769 mls/hr Documented By: Titration: 09/25/24 08:20 Dose: 0.58 mcg/kg/min, 41.189 mls/hr Documented By: Titration: 09/25/24 08:15 Dose: 0.6 mcg/kg/min, 42.609 mls/hr Documented By: Titration: 09/25/24 08:10 Dose: 0.62 mcg/kg/min, 44.03 mls/hr Documented By: Titration: 09/25/24 08:05 Dose: 0.64 mcg/kg/min, 45.45 mls/hr Documented By: Titration: 09/25/24 08:00 Dose: 0.66 mcg/kg/min, 46.87 mls/hr Documented By: Titration: 09/25/24 07:05 Dose: 0.68 mcg/kg/min, 48.291 mls/hr Documented By: Titration: 09/25/24 07:00 Dose: 0.7 mcg/kg/min, 49.711 mls/hr Documented By: Titration: 09/25/24 07:00 Dose: 0.72 mcg/kg/min, 51.131 mls/hr Documented By: Titration: 09/25/24 06:41 Dose: 0.74 mcg/kg/min, 52.552 mls/hr Documented By: Titration: 09/25/24 06:30 Dose: 0.76 mcg/kg/min, 53.972 mls/hr Documented By: Titration: 09/25/24 06:22 Dose: 0.78 mcg/kg/min, 55.392 mls/hr Documented By: Titration: 09/25/24 06:15 Dose: 0.8 mcg/kg/min, 56.813 mls/hr Documented By: Titration: 09/25/24 06:05 Dose: 0.82 mcg/kg/min, 58.233 mls/hr Documented By: Admin: 09/25/24 05:22 Dose: 0.84 mcg/kg/min, 59.653 mls/hr Documented By: Titration: 09/25/24 05:16 Dose: Infused Documented By: Titration: 09/25/24 05:00 Dose: 0.86 mcg/kg/min, 61.073 mls/hr Documented By: Titration: 09/25/24 04:16 Dose: 0.88 mcg/kg/min, 62.494 mls/hr Documented By: Titration: 09/25/24 04:05 Dose: 0.9 mcg/kg/min, 63.914 mls/hr Documented By: Titration: 09/25/24 04:00 Dose: 0.92 mcg/kg/min, 65.334 mls/hr Documented By: Titration: 09/25/24 03:00 Dose: 0.94 mcg/kg/min, 66.755 mls/hr Documented By: Titration: 09/25/24 02:00 Dose: 0.94 mcg/kg/min, 66.755 mls/hr Documented By: Admin: 09/25/24 01:26 Dose: 0.94 mcg/kg/min, 66.755 mls/hr Documented By: Titration: 09/25/24 01:26 Dose: Infused Documented By: Titration: 09/25/24 01:00 Dose: 0.96 mcg/kg/min, 68.175 mls/hr Documented By: Titration: 09/25/24 00:00 Dose: 0.98 mcg/kg/min, 69.595 mls/hr Documented By: Titration: 09/24/24 23:00 Dose: 0.98 mcg/kg/min, 69.595 mls/hr Documented By: Titration: 09/24/24 22:55 Dose: 0.1 mcg/kg/min, 7.102 mls/hr Documented By: Titration: 09/24/24 22:50 Dose: 0.98 mcg/kg/min, 69.595 mls/hr Documented By: Titration: 09/24/24 22:45 Dose: 0.96 mcg/kg/min, 68.175 mls/hr Documented By: Titration: 09/24/24 22:40 Dose: 0.94 mcg/kg/min, 66.755 mls/hr Documented By: Titration: 09/24/24 22:35 Dose: 0.92 mcg/kg/min, 65.334 mls/hr Documented By: Titration: 09/24/24 22:30 Dose: 0.9 mcg/kg/min, 63.914 mls/hr Documented By: Titration: 09/24/24 22:25 Dose: 0.88 mcg/kg/min, 62.494 mls/hr Documented By: Titration: 09/24/24 22:20 Dose: 0.86 mcg/kg/min, 61.073 mls/hr Documented By: Titration: 09/24/24 22:15 Dose: 0.84 mcg/kg/min, 59.653 mls/hr Documented By: Titration: 09/24/24 22:10 Dose: 0.82 mcg/kg/min, 58.233 mls/hr Documented By: Titration: 09/24/24 22:05 Dose: 0.8 mcg/kg/min, 56.813 mls/hr Documented By: Titration: 09/24/24 22:00 Dose: 0.78 mcg/kg/min, 55.392 mls/hr Documented By: Titration: 09/24/24 21:55 Dose: 0.76 mcg/kg/min, 53.972 mls/hr Documented By: Admin: 09/24/24 21:50 Dose: 0.74 mcg/kg/min, 52.552 mls/hr Documented By: EZEKIEL Dopamine HCl/Dextrose (Intropin In D5w Ivpb) 400 mg in 250 mls @ 14.203 mls/hr IV .[id number] [facility]; Protocol Stop: 10/24/24 21:20 Last Admin: 09/27/24 01:22 Dose: Not Given Documented By: LINDA Non-Admin Reason: Pt BP currently maintained on Levo and Vaso Comments: Order may need to be changed to PRN Titration: 09/26/24 17:19 Dose: Infused Documented By: Admin: 09/26/24 10:38 Dose: Not Given Documented By: POLINA Non-Admin Reason: not running Titration: 09/25/24 08:40 Dose: 5 mcg/kg/min, 14.203 mls/hr Documented By: Titration: 09/25/24 08:30 Dose: 7 mcg/kg/min, 19.884 mls/hr Documented By: Titration: 09/25/24 08:20 Dose: 9 mcg/kg/min, 25.566 mls/hr Documented By: Titration: 09/25/24 08:10 Dose: 11 mcg/kg/min, 31.247 mls/hr Documented By: Titration: 09/25/24 08:00 Dose: 13 mcg/kg/min, 36.928 mls/hr Documented By: Titration: 09/25/24 07:45 Dose: 15 mcg/kg/min, 42.609 mls/hr Documented By: Titration: 09/25/24 07:30 Dose: 17 mcg/kg/min, 48.291 mls/hr Documented By: Titration: 09/25/24 07:00 Dose: 19 mcg/kg/min, 53.972 mls/hr Documented By: Titration: 09/25/24 06:00 Dose: 19 mcg/kg/min, 53.972 mls/hr Documented By: Titration: 09/25/24 05:00 Dose: 19 mcg/kg/min, 53.972 mls/hr Documented By: Titration: 09/25/24 04:00 Dose: 19 mcg/kg/min, 53.972 mls/hr Documented By: Admin: 09/25/24 03:42 Dose: 19 mcg/kg/min, 53.972 mls/hr Documented By: Titration: 09/25/24 03:24 Dose: Infused Documented By: Titration: 09/25/24 03:00 Dose: 19 mcg/kg/min, 53.972 mls/hr Documented By: Titration: 09/25/24 02:00 Dose: 19 mcg/kg/min, 53.972 mls/hr Documented By: Titration: 09/25/24 01:00 Dose: 19 mcg/kg/min, 53.972 mls/hr Documented By: Titration: 09/25/24 00:00 Dose: 17 mcg/kg/min, 48.291 mls/hr Documented By: Titration: 09/24/24 23:45 Dose: 17 mcg/kg/min, 48.291 mls/hr Documented By: Titration: 09/24/24 23:26 Dose: 15 mcg/kg/min, 42.609 mls/hr Documented By: Titration: 09/24/24 22:57 Dose: 13 mcg/kg/min, 36.928 mls/hr Documented By: Titration: 09/24/24 22:52 Dose: 11 mcg/kg/min, 31.247 mls/hr Documented By: Titration: 09/24/24 22:30 Dose: 9 mcg/kg/min, 25.566 mls/hr Documented By: Titration: 09/24/24 22:00 Dose: 7 mcg/kg/min, 19.884 mls/hr Documented By: Admin: 09/24/24 21:30 Dose: 5 mcg/kg/min, 14.203 mls/hr Documented By: BB Lactated Ringer's (Lactated Ringers) 500 mls @ 999 mls/hr IV .Q31M ONE Stop: 09/24/24 21:58 Last Admin: 09/24/24 21:30 Dose: 999 mls/hr Documented By: EZEKIEL Dopamine HCl/Dextrose (Intropin In D5w Ivpb) Confirm Administered Dose 400 mg in 250 mls @ ud IV .STK-MED ONE Stop: 09/24/24 21:19 Last Admin: 09/24/24 21:32 Dose: Not Given Documented By: BB Non-Admin Reason: Duplicate Medication on eMAR Sodium Bicarbonate 88.23 meq/ (Dextrose) 588.23 mls @ 50 mls/hr IV .[id number] SUKUMAR Stop: 09/25/24 11:10 Last Admin: 09/25/24 14:28 Dose: Not Given Documented By: ER Non-Admin Reason: Discontinued Sodium Bicarbonate 200 meq/ (Dextrose) 700 mls @ 125 mls/hr IV .Q5H36M SUKUMAR Stop: 10/25/24 00:29 Last Admin: 09/25/24 14:22 Dose: Not Given Documented By: ER Non-Admin Reason: Discontinued Sodium Bicarbonate 200 meq/ (Dextrose) 500 mls @ 125 mls/hr IV .Q4H SUKUMAR Stop: 10/25/24 00:32 Last Admin: 09/25/24 09:22 Dose: Not Given Documented By: ER Non-Admin Reason: Discontinued Infusion: 09/25/24 08:00 Dose: 0 mls/hr Documented By: Admin: 09/25/24 06:12 Dose: 125 mls/hr Documented By: Infusion: 09/25/24 04:53 Dose: Infused Documented By: Admin: 09/25/24 00:53 Dose: 125 mls/hr Documented By: VANNESA Sodium Bicarbonate (Sodium Bicarb 8.4% 50ml Vial*) Confirm Administered Dose 100 mls @ ud .ROUTE .STK-MED ONE Stop: 09/25/24 00:30 Last Admin: 09/25/24 00:54 Dose: Not Given Documented By: CMN Non-Admin Reason: Duplicate Medication on eMAR Potassium Chloride (Kcl Ivpb) 20 meq in 100 mls @ 50 mls/hr IV Q2H SUKUMAR Stop: 09/25/24 06:11 Last Admin: 09/25/24 04:16 Dose: 50 mls/hr Documented By: Infusion: 09/25/24 04:16 Dose: Infused Documented By: Admin: 09/25/24 02:27 Dose: 50 mls/hr Documented By: BB Sodium Bicarbonate (Sodium Bicarb 8.4% 50ml Vial*) Confirm Administered Dose 100 mls @ ud .ROUTE .STK-MED ONE Stop: 09/25/24 05:55 Last Admin: 09/25/24 06:12 Dose: Not Given Documented By: BB Non-Admin Reason: Duplicate Medication on eMAR Vancomycin HCl 1,000 mg/ (Sodium Chloride) 250 mls @ 150 mls/hr IV X1 ONE Stop: 09/25/24 10:38 Last Admin: 09/25/24 14:22 Dose: Not Given Documented By: ER Non-Admin Reason: Discontinued Vancomycin/Sodium Chloride (Vancomycin/Ns 1 Gm Ivpb) 200 mls @ 120 mls/hr IV X1 ONE Stop: 09/25/24 10:39 Last Admin: 09/25/24 09:55 Dose: 120 mls/hr Documented By: ER Calcium Gluconate/Sodium Chloride (Calcium Gluc/Ns 1000mg Ivpb) 1,000 mg in 50 mls @ 50 mls/hr IV X1 ONE Stop: 09/25/24 14:08 Last Admin: 09/25/24 13:57 Dose: 50 mls/hr Documented By: JUAN Magnesium Sulfate (Magnesium Sulfate Ivpb) 2 gm in 50 mls @ 25 mls/hr IV X1 ONE Stop: 09/25/24 22:11 Last Infusion: 09/26/24 17:19 Dose: Infused Documented By: Admin: 09/25/24 21:43 Dose: 25 mls/hr Documented By: LINDA Potassium Chloride (Kcl Ivpb) 10 meq in 100 mls @ 100 mls/hr IV Q1H SUKUMAR Stop: 09/25/24 22:22 Last Infusion: 09/26/24 17:19 Dose: Infused Documented By: Admin: 09/25/24 22:39 Dose: 100 mls/hr Documented By: Infusion: 09/25/24 22:39 Dose: Infused Documented By: Admin: 09/25/24 21:45 Dose: 100 mls/hr Documented By: LINDA Sodium Bicarbonate 88.23 meq/ (Dextrose) 588.23 mls @ 100 mls/hr IV .Q5H53M SUKUMAR Stop: 10/26/24 00:09 Last Infusion: 09/26/24 17:19 Dose: Infused Documented By: Admin: 09/26/24 10:38 Dose: Not Given Documented By: POLINA Non-Admin Reason: not running Admin: 09/26/24 09:12 Dose: Not Given Documented By: Non-Admin Reason: per MD Saldaña hold Admin: 09/26/24 00:37 Dose: 100 mls/hr Documented By: LINDA Albumin Human (Albuminar-25 Ivpb) Confirm Administered Dose 25 gm in 100 mls @ ud IV .STK-MED ONE Stop: 09/26/24 10:50 Last Admin: 09/26/24 11:11 Dose: Not Given Documented By: POLINA Non-Admin Reason: Override Medication Albumin Human (Albuminar-25 Ivpb) 25 gm in 100 mls @ 100 mls/hr IV X1 ONE Stop: 09/26/24 12:03 Last Infusion: 09/26/24 17:27 Dose: Infused Documented By: Admin: 09/26/24 10:51 Dose: 100 mls/hr Documented By: POLINA Micafungin Sodium 100 mg/ (Sodium Chloride) 100 mls @ 100 mls/hr IV QDAY SUKUMAR Stop: 10/11/24 11:46 Last Infusion: 09/26/24 17:19 Dose: Infused Documented By: Admin: 09/26/24 12:59 Dose: 100 mls/hr Documented By: POLINA Dextrose (D10w 1000 Ml) 1,000 mls @ 50 mls/hr IV .Q20H SUKUMAR Stop: 09/27/24 08:17 Last Admin: 09/26/24 13:30 Dose: Not Given Documented By: MR Non-Admin Reason: Discontinued Dextrose (D10w 1000 Ml) 1,000 mls @ 50 mls/hr IV .Q20H SUKUMAR Stop: 09/27/24 09:00 Last Admin: 09/26/24 13:30 Dose: Not Given Documented By: Non-Admin Reason: Discontinued Dextrose (D10w) 500 mls @ 50 mls/hr IV .Q10H SUKUMAR Stop: 09/27/24 09:00 Last Admin: 09/26/24 21:14 Dose: Not Given Documented By: LINDA Non-Admin Reason: Pt currently on D20 gtt Admin: 09/26/24 13:29 Dose: 50 mls/hr Documented By: POLINA Co-signed By: MR Dextrose 187.5 ml/ Dextrose 500 mls @ 50 mls/hr IV .Q10H SUKUMAR Stop: 09/27/24 12:57 Last Infusion: 09/27/24 09:12 Dose: 0 mls/hr Documented By: POLINA Co-signed By: AUGIE Admin: 09/27/24 04:22 Dose: 50 mls/hr Documented By: LINDA Co-signed By: VANNESA Infusion: 09/27/24 03:44 Dose: Infused Documented By: LINDA Co-signed By: VANNESA Admin: 09/26/24 17:44 Dose: 50 mls/hr Documented By: POLINA Co-signed By: ANGELA Calcium Gluconate/Sodium Chloride (Calcium Gluc/Ns 1000mg Ivpb) 1,000 mg in 50 mls @ 50 mls/hr IV X1 ONE Stop: 09/27/24 08:01 Last Infusion: 09/27/24 09:00 Dose: Infused Documented By: Admin: 09/27/24 07:28 Dose: 50 mls/hr Documented By: POLINA Epinephrine/Sodium Chloride (Adrenalin/Ns 4 Mg Ivpb) Confirm Administered Dose 4 mg in 250 mls @ ud IV .STK-MED ONE Stop: 09/27/24 08:05 Last Admin: 09/27/24 11:06 Dose: Not Given Documented By: POLINA Non-Admin Reason: Override Medication Lactated Ringer's (Lactated Ringers) 1,000 mls @ 999 mls/hr IV .Q1H1M ONE Stop: 09/27/24 09:22 Lactated Ringer's (Lactated Ringers) 500 mls @ 999 mls/hr IV .Q31M ONE Stop: 09/27/24 08:52 Last Infusion: 09/27/24 09:12 Dose: Infused Documented By: Admin: 09/27/24 08:40 Dose: 999 mls/hr Documented By: POLINA Insulin Human Lispro (Insulin Lispro (Admelog) 1 Unit/0.01 Ml Unit) 0 unit SC Q4HR SUKUMAR; Protocol Stop: 10/25/24 13:59 Last Admin: 09/26/24 09:17 Dose: Not Given Documented By: Non-Admin Reason: bs was 33, D50 given Admin: 09/26/24 05:24 Dose: Not Given Documented By: LINDA Non-Admin Reason: Per Protocol Admin: 09/26/24 02:23 Dose: Not Given Documented By: LINDA Non-Admin Reason: Per Protocol Admin: 09/25/24 21:38 Dose: Not Given Documented By: LINDA Non-Admin Reason: Per Protocol Admin: 09/25/24 18:02 Dose: Not Given Documented By: ER Non-Admin Reason: prior hypoglycemia event Admin: 09/25/24 15:43 Dose: Not Given Documented By: ER Non-Admin Reason: Contraindicated Insulin Human Regular (Insulin Hum Regular 1 Unit/0.01 Ml (Per Unit)) 10 unit IV X1 ONE Stop: 09/27/24 07:03 Last Admin: 09/27/24 07:28 Dose: 10 unit Documented By: POLINA Co-signed By: AUGIE Pantoprazole Sodium (Pantoprazole Inj 40 Mg Vial) 40 mg IV BID [facility] Stop: 10/24/24 20:59 Pantoprazole Sodium (Pantoprazole Inj 40 Mg Vial) 40 mg IVP Q12H SUKUMAR Stop: 10/24/24 19:14 Last Admin: 09/27/24 10:56 Dose: Not Given Documented By: POLINA Non-Admin Reason: patient Admin: 09/26/24 18:18 Dose: 40 mg Documented By: Admin: 09/26/24 11:11 Dose: 40 mg Documented By: Admin: 09/25/24 18:38 Dose: 40 mg Documented By: Admin: 09/25/24 07:59 Dose: 40 mg Documented By: Admin: 09/24/24 21:26 Dose: 40 mg Documented By: EZEKIEL Sodium Bicarbonate (Sodium Bicarb Inj 8.4% Syr 50 Ml Syringe) 50 ml IV X1 ONE Stop: 09/24/24 14:01 Last Admin: 09/24/24 14:11 Dose: 50 ml Documented By: SHARYN Sodium Bicarbonate (Sodium Bicarb Inj 8.4% Syr 50 Ml Syringe) 50 ml IV X1 ONE Stop: 09/24/24 14:01 Last Admin: 09/24/24 14:11 Dose: 50 ml Documented By: SHARYN Sodium Bicarbonate (Sodium Bicarb Inj 8.4% Syr 50 Ml Syringe) 50 ml IV X1 ONE Stop: 09/24/24 14:01 Last Admin: 09/24/24 14:11 Dose: 50 ml Documented By: SHARYN Sodium Bicarbonate (Sodium Bicarb Inj 8.4% Syr 50 Ml Syringe) Confirm Administered Dose 50 ml IV .STK-MED ONE Stop: 09/24/24 20:59 Last Admin: 09/24/24 21:30 Dose: Not Given Documented By: EZEKIEL Non-Admin Reason: Duplicate Medication on eMAR Sodium Bicarbonate (Sodium Bicarb Inj 8.4% Syr 50 Ml Syringe) 50 ml IV X1 ONE Stop: 09/24/24 21:06 Last Admin: 09/24/24 21:05 Dose: 50 ml Documented By: VANNESA Sodium Bicarbonate (Sodium Bicarb Inj 8.4% Syr 50 Ml Syringe) 50 ml IV X1 ONE Stop: 09/24/24 21:30 Last Admin: 09/24/24 21:54 Dose: 50 ml Documented By: EZEKIEL Sodium Bicarbonate (Sodium Bicarb Inj 8.4% Syr 50 Ml Syringe) 50 ml IV X1 ONE Stop: 09/24/24 21:31 Last Admin: 09/24/24 21:46 Dose: 50 ml Documented By: EZEKIEL Sodium Bicarbonate (Sodium Bicarb Inj 8.4% Syr 50 Ml Syringe) 50 ml IV X1 ONE Stop: 09/25/24 00:06 Last Admin: 09/25/24 00:08 Dose: 50 ml Documented By: VANNESA Sodium Bicarbonate (Sodium Bicarb Inj 8.4% Syr 50 Ml Syringe) Confirm Administered Dose 100 ml IV .STK-MED ONE Stop: 09/25/24 05:51 Last Admin: 09/25/24 06:12 Dose: Not Given Documented By: BB Non-Admin Reason: Duplicate Medication on eMAR Sodium Bicarbonate (Sodium Bicarb Inj 8.4% Syr 50 Ml Syringe) 50 ml IV Q4H SUKUMAR Stop: 10/25/24 08:29 Last Admin: 09/25/24 13:58 Dose: 50 ml Documented By: ER Comments: Patient in [place] Admin: 09/25/24 09:30 Dose: 50 ml Documented By: ER Sodium Bicarbonate (Sodium Bicarb Inj 8.4% 1 Meq/Ml 50 Ml Vial) 50 meq IV X1 ONE Stop: 09/26/24 00:04 Last Admin: 09/26/24 14:11 Dose: Not Given Documented By: MR Non-Admin Reason: Discontinued Sodium Bicarbonate (Sodium Bicarb Inj 8.4% Syr 50 Ml Syringe) 50 ml IV X1 ONE Stop: 09/26/24 01:36 Last Admin: 09/26/24 01:49 Dose: 50 ml Documented By: LINDA Sodium Bicarbonate (Sodium Bicarb Inj 8.4% 1 Meq/Ml 50 Ml Vial) 50 meq IV X1 ONE Stop: 09/26/24 03:31 Last Admin: 09/26/24 03:50 Dose: 50 meq Documented By: LINDA Sodium Bicarbonate (Sodium Bicarb Inj 8.4% 1 Meq/Ml 50 Ml Vial) 50 meq IV X1 ONE Stop: 09/26/24 06:49 Last Admin: 09/26/24 09:15 Dose: Not Given Documented By: Non-Admin Reason: Discontinued Sodium Bicarbonate (Sodium Bicarb Inj 8.4% 1 Meq/Ml 50 Ml Vial) 50 meq IV X1 ONE Stop: 09/27/24 00:36 Last Admin: 09/27/24 01:21 Dose: Not Given Documented By: LINDA Non-Admin Reason: As per MD Saldaña Sodium Bicarbonate (Sodium Bicarb Inj 8.4% Syr 50 Ml Syringe) Confirm Administered Dose 100 ml IV .STK-MED ONE Stop: 09/27/24 05:34 Last Admin: 09/27/24 06:19 Dose: Not Given Documented By: LINDA Non-Admin Reason: Duplicate Medication on eMAR Sodium Bicarbonate (Sodium Bicarb Inj 8.4% Syr 50 Ml Syringe) 100 ml IV X1 ONE Stop: 09/27/24 06:02 Last Admin: 09/27/24 06:24 Dose: 100 ml Documented By: LINDA Sodium Bicarbonate (Sodium Bicarb Inj 8.4% Syr 50 Ml Syringe) Confirm Administered Dose 100 ml IV .STK-MED ONE Stop: 09/27/24 05:57 Last Admin: 09/27/24 06:19 Dose: Not Given Documented By: LINDA Non-Admin Reason: Duplicate Medication on eMAR Sodium Bicarbonate (Sodium Bicarb Inj 8.4% Syr 50 Ml Syringe) Confirm Administered Dose 50 ml IV .STK-MED ONE Stop: 09/27/24 08:33 Last Admin: 09/27/24 11:07 Dose: Not Given Documented By: POLINA Non-Admin Reason: Override Medication Sodium Bicarbonate (Sodium Bicarb Inj 8.4% Syr 50 Ml Syringe) Confirm Administered Dose 50 ml IV .STK-MED ONE Stop: 09/27/24 08:42 Last Admin: 09/27/24 11:07 Dose: Not Given Documented By: POLINA Non-Admin Reason: Override Medication Sodium Bicarbonate (Sodium Bicarb Inj 8.4% Syr 50 Ml Syringe) 50 ml IV X1 ONE Stop: 09/27/24 08:36 Last Admin: 09/27/24 08:40 Dose: 50 ml Documented By: POLINA Sodium Bicarbonate (Sodium Bicarb Inj 8.4% Syr 50 Ml Syringe) 50 ml IV X1 ONE Stop: 09/27/24 08:36 Last Admin: 09/27/24 11:06 Dose: Not Given Documented By: POLINA Non-Admin Reason: pt Sodium Bicarbonate (Sodium Bicarb Inj 8.4% Syr 50 Ml Syringe) 50 ml IV X1 ONE Stop: 09/27/24 08:36 Last Admin: 09/27/24 11:06 Dose: Not Given Documented By: POLINA Non-Admin Reason: pt Sodium Chloride (Sodium Chloride Rt 10% 15 Ml Nebu) 5 ml INH X1 ONE Stop: 09/24/24 12:48 Last Admin: 09/24/24 21:27 Dose: Not Given Documented By: EZEKIEL Non-Admin Reason: previous shift See above Consultations Consultation(s) initiated? (list below): Yes Consultation #1 (Physician, Specialty, Details): I spoke with cable installer repairer Dr. Mathis. Discussed todays HPI, ED course, EKG findings. He agrees to consult. Consultation #2 (Physician, Specialty, Details): I spoke with hand icer Dr. Tyler. Discussed patients PMHx, HPI, ED course, exam findings, labs, and radiology results. He accepts the patient for admission. Diagnosis Cardiac arrest differential diagnosis: acute massive pulmonary embolism, acute respiratory failure, acute myocardial infarction and cardiac arrest Most likely diagnosis given after review of the tests above:: Cardiopulmonary arrest Admission Indicated Admission indicated?: indicated Admission Request Was there a request for admission?: Yes Admission Attestation Admission request attestation: Discussed case with [] from Hospitalist service regarding admission. Discussed patients ED course, exam findings, labs, and radiology results. The Hospitalist [agrees,declines] to accept the patient for admission. Disposition Plan Disposition Plan: Admit Critical Care Time Critical Care Time Critical Care Time: Yes Total Critical Care Time (min.): 45 Attestation: The high probability of sudden, clinically significant deterioration in the patient's condition required the highest level of my preparedness to intervene urgently. The services I provided to this patient were to treat and/or prevent clinically significant deterioration. Services included the following: chart data review, reviewing nursing notes and/or old charts, documentation time, platform consultant collaboration regarding findings and treatment options, medication orders and management, direct patient care, vital sign assessments and ordering, interpreting and reviewing diagnostic studies and lab tests. Aggregate critical care time includes only time during which I was engaged in work directly related to the patient's care, as described above, whether at bedside or elsewhere in the Emergency Department. It did not include time spent performing other reported procedures or the services of residents, students, nurses or physician assistants. Discharge Plan Plan Patient Disposition: Admit Acute Care w/in Hospital Problem List Clinical Impression: Cardiopulmonary arrest
--- NOTE | 2024-09-24 12:56 | ESOP_ITS ---
Procedures Procedure Date / Time 09/24/24 1230 Central Line Placement Right Femoral: Indication(s): shock Informed consent obtained: procedure done urgently Time out done, and the following verified: correct patient, side and site, procedure, patient position and implants and/or equipment Patient placed on monitor/pulse ox: Yes Hand Hygiene: scrub, soap & water and alcohol-based hand rub Max Sterile Barrier Techniques used: sterile gown and sterile gloves Central line prep: Povidone-Iodine 1% and Chlorhexidine scrub Ultrasound used for placement: No Sterile Technique if Ultrasound used, including sterile gel: n/a Central line lumen inserted: triple Post procedure: sutured in place, good blood return, all ports aspirated, flushed, capped and sterile dressing applied EBL(ml): 10 Complications: none Procedure comment: Procedure performed under supervision of Dr. Young. Scooby Crowe MD, PGY 2. Disclaimer: This note was dictated by speech recognition. Minor errors in commercial real estate appraiser may be present due to voice recognition software.
[2024-09-24 13:15] LABS: Basophils # (Auto) 0.1 Thou/mm3 (0.0-0.2); Basophils % (Auto) 0 % (0-2.5); Eosinophils # (Auto) 0.2 Thou/mm3 (0.0-0.5); Eosinophils % (Auto) 1 % (0-10); Hematocrit 39.7 % (41.0-53.0); Hemoglobin 12.4 g/dL (13.5-16.0); Immature Granulocytes % (Auto) 4 % (0-0); Immature Granulocytes Auto 0.75 Thou/mm3 (0.00-0.00); Lymphocytes # (Auto) 7.6 Thou/mm3 (1.0-4.8); Lymphocytes % (Auto) 42 % (10-50); Mean Corpuscular HGB Conc 31.2 g/dl (31.0-37.0); Mean Corpuscular Hemoglobin 31.6 pg (25.0-35.0); Mean Corpuscular Volume 101 fL (80-100); Monocytes # (Auto) 0.8 Thou/mm3 (0.0-0.8); Monocytes % (Auto) 4 % (0-12); Neutrophils # (Auto) 8.9 Thou/mm3 (1.8-7.7); Neutrophils % (Auto) 49 % (37-80); Nucleated Red Blood Cell # 0.06 Thou/mm3 (0.00-0.00); Nucleated Red Blood Cell % 0 /100 WBC (0); Platelet Count 277 Thou/mm3 (140-440); RDW Standard Deviation 56.9 fL (35.1-43.9); Red Blood Count 3.92 Miln/mm3 (4.50-5.90); White Blood Count 18.3 Thou/mm3 (3.8-10.6)
[2024-09-24 13:16] LABS: Lactate (Lactic Acid) 7.5 mMol/L (0.4-2.0)
[2024-09-24 13:19] LABS: Base Excess -19 (-3-3); HCO3 13 mEq/L (20-26); Inspired Oxygen, FIO2 100 %; O2 Saturation 97 % (91-98); PCO2 56 mmHg (32.0-48.0); PO2 126 mmHg (83-108)
[2024-09-24 13:22] LABS: Puncture Site Right Radial; pH, Arterial 6.97 (7.35-7.45)
--- NOTE | 2024-09-24 13:22 | XR_ITS ---
Examination: AP chest single view Technique one AP portable supine chest single view Exam date and time: September 24, 2024 1343 hrs. Comparison August 06, 2023 Indications: Chest pain today. Hypoxic respiratory failure Findings: Diffuse right lung pneumonia Mild to moderate enlargement left ventricle Endotracheal tube tip 4.6 cm above [place]. Orogastric tube tip in the stomach satisfactory position Prominent vascular congestion Prominent osteopenia Transvenous dual-chamber bipolar cardiac leads satisfactory position Impression: Diffuse right lung pneumonia Mild heart failure
[2024-09-24 13:23] LABS: Allen Test Not Performed
--- NOTE | 2024-09-24 13:23 | EKG_ITS ---
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
[2024-09-24] MEDS: MIDAZOLAM/NS 100 MG IVPB 100 MG/100 ML BAG IV (13:32)
[2024-09-24] MEDS: VASOPRESSIN IN NS IVPB 20 UNIT/100 ML BAG 9 UNIT IV ×2 (13:37→17:45)
[2024-09-24 13:51] LABS: Alanine Aminotransferase 27 U/L (10-49); Albumin, Serum 3.8 gm/dL (3.4-4.8); Albumin/Globulin Ratio 1.5 (1.2-2.2); Alkaline Phosphatase 36 U/L (46-116); Anion Gap 17 (7-16); Aspartate Amino Transferase 40 U/L (0-34); BUN/Creatinine Ratio 14 Ratio (12-20); Bilirubin,Total 0.2 mg/dL (0.3-1.2); Blood Urea Nitrogen 33 mg/dL (9-23); Calcium 9.4 mg/dL (8.3-10.6); Calcium (Corrected) 9.6 mg/dL (8.5-10.1); Chloride 109 mMol/L (98-107); Creatinine (Component) 2.4 mg/dL (0.6-1.3); Estimated Creatinine Clearance 26.6 mL/min (>60); Globulin 2.6 gm/dL (2.3-3.5); Glucose 199 mg/dL (74-106); Osmolality,Calculated 285 (275-295); Potassium 4.3 mMol/L (3.4-5.1); Sodium 136 mMol/L (136-145); Total Protein 6.4 gm/dL (5.7-8.2); eGFR 27 See Note
[2024-09-24 13:54] LABS: Carbon Dioxide < 10.0 mMol/L (20.0-31.0); Partial Thromboplastin Time 46.9 Seconds (22.0-36.0); Troponin I 0.058 ng/mL (0.0-0.045)
[2024-09-24 13:55] LABS: Procalcitonin 0.24 ng/ml (0.0-0.49)
[2024-09-24] MEDS: EPINEPHrine in NS 4 MG IVPB 4 MG/250 ML BAG 284.063 MG IV ×3 (13:58→15:36)
[2024-09-24 14:02] LABS: Magnesium 1.7 mg/dL (1.6-2.6)
[2024-09-24] MEDS: Sodium Bicarb Inj 8.4% SYR 50 ML SYRINGE IV ×6 (14:11→21:54)
[2024-09-24] MEDS: Norepinephrine/D5W 8mg/250ml 8 MG/250 ML BAG 7.102 MG IV (15:00)
[2024-09-24] MEDS: Sodium Bicarb 8.4% 50ml Vial* 88.23 MEQ in DEXTROSE 5%-WATER 500 ML 100 MEQ IV ×2 (15:00→21:27)
--- NOTE | 2024-09-24 15:52 | XR_ITS ---
Examination: AP chest single view Technique: AP portable semiupright chest single view Exam date and time: September 24, 2024 1612 hrs. Comparison September 24, 2024 1343 hrs. Indications: Post central line placement Findings: Right internal jugular central line tip SVC satisfactory position, no pneumothorax Diffuse right lung pneumonia Mild heart failure Air density beneath right hemidiaphragm which may be in colon but clinical correlation advised Orogastric tube satisfactory position Impression: Interval right internal jugular central line tip SVC satisfactory position Air density beneath right hemidiaphragm, clinical correlation advised Recommend right side up decubitus film to exclude free air as clinically warranted
--- NOTE | 2024-09-24 16:04 | PD.RESPROC ---
Procedures Procedure Date / Time 09/24/24 1604 Procedure Narrative Procedure Narrative: Attending attestation: I was present for entire procedure. Patient Toller procedure well with no immediate complications. Follow-up chest x-ray shows adequate placement of the tip of the catheter with no postprocedural pneumothorax. Central Line Placement Right IJ: Indication(s): shock Informed consent obtained: obtained from surrogate decision maker Time out done, and the following verified: correct patient, side and site, procedure, patient position and implants and/or equipment Patient placed on monitor/pulse ox: Yes Hand Hygiene: soap & water Max Sterile Barrier Techniques used: cap, mask, sterile gown, sterile gloves and sterile full body drape Central line prep: Chlorhexidine scrub Local anesthesia used: lidocaine 2% Amount of anesthesia used (mL): 5 Ultrasound used for placement: Yes Sterile Technique if Ultrasound used, including sterile gel: yes Central line lumen inserted: triple Post procedure: sutured in place, good blood return, all ports aspirated, flushed, capped and sterile dressing applied Post procedure x-ray: tip of catheter in good position and no pneumothorax seen Patient tolerated procedure: well and no complications Procedure comment: The patient was placed in Trendelenburg position. The Right neck was prepped using chlorhexidine scrub and draped in sterile fashion. Using real-time ultrasound, with sterile probe cover and sterile gel, the introducer needle was inserted into the vein under direct ultrasound visualization. Venous blood was withdrawn. The syringe was removed and a guidewire was advanced into the introducer needle. The guidewire was visualized in the appropriate vein by ultrasound. A small incision was made at the skin surface with a scalpel and the introducer needle was exchanged for a dilator over the guidewire. After appropriate dilation was obtained, the dilator was exchanged over the wire for a central venous catheter. The wire was removed and the catheter was sutured in place. A biopatch was placed at the insertion site. A sterile op-site was placed over the catheter and biopatch. The patient tolerated the procedure without any hemodynamic compromise. At time of procedure completion, all ports aspirated and flushed properly. Chest X Ray afterwards, catheter in good position. Patient's care discussed with attending physician, Dr Nayeli Carias MD PGY3
[2024-09-24 16:10] LABS: Reflex Lactate? Y
[2024-09-24] MEDS: SODIUM CHLORIDE 0.9% 500 ML 500 ML 999 ML IV (16:10)
[2024-09-24 16:19] LABS: INR 1.3 (0.9-1.3)
[2024-09-24] MEDS: PROPOFOL 1,000 MG IVPB 1,000 MG/100 ML VIAL 2.273 MG IV (16:31)
[2024-09-24] MEDS: fentaNYL 2,500 MCG/250 ML BAG 2,500 MCG/250 ML BAG IV (16:32)
[2024-09-24] MEDS: cefTRIAXone/D5w 1gm IV premix 1 GM/50 ML BAG IV (17:09)
[2024-09-24] MEDS: metroNIDAZOLE/NS 500 MG IVPB 500 MG/100 ML BAG 200 MG IV ×2 (17:09→22:52)
[2024-09-24] MEDS: EPINEPHrine in NS 4 MG IVPB 4 MG/250 ML BAG 71.016 MG IV (17:31)
[2024-09-24] MEDS: Norepinephrine/D5W 8mg/250ml 8 MG/250 ML BAG 142.031 MG IV ×3 (17:32→19:58)
[2024-09-24 17:36] LABS: Lactic Acid, 3 HR 9.3 mMol/L (0.4-2.0)
--- NOTE | 2024-09-24 17:36 | ESCONSULT_ITS ---
<Statement entered by Steph Mathis MD - 09/26/24 13:31> I personally I personally examined the patient in the emergency room patient was brought to the hospital [id number] cardiac arrest successful resuscitation ROSC was obtained after patient came to the emergency room apparently the family witnessed the arrest initiated CPR quickly ambulance arrived immediately within 11 minutes patient was here patient had a PEA arrest at home and in the emergency room around 1220 had a ventricular fibrillation requiring defibrillation 5 rounds of epi was given ROSC was achieved continue to have hypotension requiring high-dose epinephrine. EKG showed right bundle branch block marked ST depression precordial leads suspicious for LAD ischemia. Patient had multiple PCI stent placement 2021 LAD circumflex artery right coronary artery subsequently apparently had occlusion of the left and descending artery a year later chronically occluded with extensive thrombosis could not have a PCI but RCA was stented again subsequently apparently did well with ejection fraction 50% patient went on to have A-fib ablation and subsequently Watchman device was placed and FACING SLITTER pacemaker was also inserted by Dr. Sanders in [place] Clinically patient is acutely ill critical condition intensive care unit on ventilator support multiple vasopressors possibly suffered NSTEMI with cardiac arrest continue supportive care with ventilator support vasopressors patient also with chronic kidney disease stage III now with no urine output. I evaluated the patient with resident physician I also discussed with family and coordinated with intensive care physician time spent with the patient is more than 2 hours of critical care time during the 24-hour. Manage in the intensive care and as well as advising resident physicians Agree with the treatment plan recommendation as documented by Dr. Indigo Oconnor, PGY 2 HPI Data of Consult Requesting Physician: Eyal Tyler MD Admitting Provider: Eyal Tyler MD Attending Provider: Eyal Tyler MD Primary Care Provider: Amalia Pearson MD Consult Narrative Reason for consult: Cardiac arrest History of present illness: Patient is a 79-year-old male with past medical history of afib s/p ablation and Watchman (not on anticoagulation due to GI bleed), multivessel CAD s/p multiple stents, pacemaker 2022, CKD stage 4, type 2 diabetes, hypertension, hyperlipidemia, and pulmonary fibrosis who was brought in by ambulance to the ED as a CODE BLUE on 09/24/2024 due to cardiopulmonary arrest. Patient apparently was at home coming out of the bathroom and syncopized onto the bed. who witnessed the event started CPR right away. When medics arrived, patient found in PEA, given 4 rounds of epinephrine via left IO line, intubated with i-gel and bagged via BVM, CPR in progress on arrival to ED at 12:15 pm. Patient was intubated by ED physician at 12:20, ROSC was achieved at 12:25. Patient went into Vfib at 12:26, pulse lost and CPR was restarted, patient was then shocked at 200 J. At 12:28 ROSC was achieved again showing sinus rhythm. At 12:50 pulse was lost and again CPR was restarted, ROSC was achieved finally at 12:53. Cardiology was consulted in the setting of cardiopulmonary arrest. Dr. Michaels, [employer] Machine Operator in [place] who follows the patient's care reveals that the patient was recently started on PO antibiotics including amoxicillin and metronidazole for a possible GI infection. Patient also had recent cardiac stents placed in [address] Virgen at [place] and Dr. Travis Staining Machine Operator in [place]. Review of Systems Review of systems unable to be obtained due to patient mental status. cc:: cc: Eyal Tyler MD Past Medical History Past Medical History CARDIAC: Positive Cardiac Disorders, Cardiac Arrhythmia, Atrial Fibrillation, Coronary Artery Disease, Hypercholesterolemia and Hypertension RESPIRATORY: Positive Pneumonia and Pulmonary Fibrosis GASTROINTESTINAL: Positive Gastrointestinal Disorders and Gall Bladder Disease GENITOURINARY: Positive Genitourinary Disorders and Renal Disease MUSCULOSKELETAL: Positive Musculoskeletal Disorders ENT: Positive Cataracts ENDOCRINE: Positive Endocrine Disorders OTHER HISTORY: Positive Hospitalization Family History FAMILY HISTORY: Positive Family Cardiac Disorders Surgical History SURGICAL: Positive Coronary Stent, Cardiac Catheterization, Pacemaker, Angiogram, Eye Surgery and Abdominal Surgery Social History SMOKING STATUS: Never smoker Exam Vital Signs Temp Pulse Resp BP Pulse Ox O2 Del Method FiO2 97.5 F 71 20 141/76 H 100 Mechanical Ventilation 100 09/24/24 13:52 09/24/24 15:36 09/24/24 13:52 09/24/24 15:36 09/24/24 15:06 09/24/24 13:52 09/24/24 15:06 Narrative Exam Physical Exam General: Intubated and sedated. HEENT: Normocephalic, atraumatic, mucous membranes moist. Heart: Regular rate and rhythm, normal S1 and S2, no murmurs. Lungs: Bilateral wheezing on auscultation. Abdomen: Soft, nondistended, nontender, positive bowel sounds. ?No guarding or rebound tenderness. Neurologic: Pupils are equal, about 3 mm and reactive to light. Eyes fixed in upward gaze. Patient noted to have mild head movement when sedation is minimal. Extremities: No edema. Cold lower bilateral extremities. Skin: Chronic venous stasis skin changes bilateral lower extremities. Results Labs 09/24/24 20:34 09/24/24 15:34 Labs: Short CBC 09/24/24 Range/Units 12:42 WBC 18.3 H (3.8-10.6) Thou/mm3 Hgb 12.4 L (13.5-16.0) g/dL Hct 39.7 L (41.0-53.0) % Plt Count 277 (140-440) Thou/mm3 BMP 09/24/24 12:42 Sodium 136 Potassium 4.3 Chloride 109 H Carbon Dioxide < 10.0 L* BUN 33 H Creatinine 2.4 H Glucose 199 H Calcium 9.4 Cardiac Enzymes 09/24/24 Range/Units 12:42 Troponin I 0.058 H* (0.0-0.045) ng/mL Liver Function 09/24/24 Range/Units 12:42 Total Bilirubin 0.2 L (0.3-1.2) mg/dL AST 40 H (0-34) U/L ALT 27 (10-49) U/L Alkaline Phosphatase 36 L (46-116) U/L Albumin 3.8 (3.4-4.8) gm/dL ABG Interpretation ABG results: 09/24/24 13:15 ABG pH 6.97 L* ABG pCO2 56 H ABG pO2 126 H ABG HCO3 13 L ABG O2 Saturation 97 ABG Base Excess -19 L Quality Measures Quality Measures none Advance care planning discussed with:: child and other Medications Home Medications and Allergies Home Medications ?Medication ?Instructions ?Recorded ?Confirmed ?Type atorvastatin 40 mg tablet 40 mg PO QDAY 01/17/2308/14 History clopidogrel 75 mg tablet 75 mg PO QDAY 01/17/2308/14 History losartan 100 mg tablet 50 mg PO QDAY 01/17/2308/14 History megestrol 400 mg/10 mL (40 mg/mL) 400 mg PO QDAY 01/1708/14/23 History oral suspension mirtazapine 15 mg tablet 15 mg PO HS 01/17/23 4 History pantoprazole 40 mg tablet,delayed 40 mg PO QDAY 08/14/23 History release trazodone 50 mg tablet 50 mg PO QDAY 01/17/2308/14 History nintedanib 150 mg capsule (Ofev) 150 mg PO Q12H 08/14/23 History Allergies Allergy/AdvReac Type Severity Reaction Status Date / Time No Known Allergies Allergy Verified 10/04/21 14:55 Visit Medications Epinephrine/Sodium Chloride (Adrenalin/Ns 4 Mg Ivpb) 4 mg in 250 mls @ 14.203 mls/hr IV .[id number] PRN; Protocol PRN Reason: per protocol Stop: 10/24/24 12:33 Last Titration: 09/24/24 17:00 Dose: 0.25 mcg/kg/min, 71.016 mls/hr Amiodarone HCl/Dextrose (Nexterone Ivpb) 360 mg in 200 mls @ 33.333 mls/hr IV .Q6H ONE Stop: 09/24/24 18:37 Last Infusion: 09/24/24 14:33 Dose: 33.333 mls/hr Vasopressin/Sodium Chloride (Vasostrict/Ns Ivpb) 20 unit in 100 mls @ 9 mls/hr IV .Q11H7M PRN; Protocol PRN Reason: PER PROTOCOL Stop: 10/24/24 13:16 Last Titration: 09/24/24 14:33 Dose: 0.03 unit/min, 9 mls/hr Sodium Bicarbonate 88.23 meq/ (Dextrose) 588.23 mls @ 100 mls/hr IV .Q5H53M SUKUMAR Stop: 10/24/24 20:07 Sodium Bicarbonate 88.23 meq/ (Dextrose) 588.23 mls @ 100 mls/hr IV .Q5H53M ONE Stop: 09/24/24 20:07 Last Admin: 09/24/24 15:00 Dose: 100 mls/hr Norepinephrine/Dextrose (Levophed In D5w 8mg/250ml) 8 mg in 250 mls @ 7.102 mls/hr IV .Q24H PRN; Protocol PRN Reason: PER PROTOCOL Stop: 10/24/24 14:55 Last Titration: 09/24/24 17:00 Dose: 1 mcg/kg/min, 142.031 mls/hr Fentanyl Citrate (Sublimaze Inj 2,500 Mcg/250 Ml Bag) 2,500 mcg in 250 mls @ 2.5 mls/hr IV .Q24H PRN; Protocol PRN Reason: PER PROTOCOL Stop: 09/29/24 15:46 Last Admin: 09/24/24 16:32 Dose: 25 mcg/hr, 2.5 mls/hr Propofol (Diprivan Ivpb) 1,000 mg in 100 mls @ 2.273 mls/hr IV .Q24H PRN; Protocol PRN Reason: PER PROTOCOL Stop: 10/24/24 15:47 Last Admin: 09/24/24 16:31 Dose: 5 mcg/kg/min, 2.273 mls/hr Ceftriaxone Sodium/Dextrose (Rocephin/D5w 1gm Iv Premix) 1 gm in 50 mls @ 100 mls/hr IV QDAY SUKUMAR Stop: 10/01/24 16:51 Last Admin: 09/24/24 17:09 Dose: 100 mls/hr Metronidazole (Flagyl 500 Mg Iv) 500 mg in 100 mls @ 200 mls/hr IV Q8HR SUKUMAR Stop: 10/01/24 16:51 Last Admin: 09/24/24 17:09 Dose: 200 mls/hr Discontinued Medications Heparin Sodium (Porcine) (Heparin Sod Inj 5000 Unit/Ml Vial) 2,000 unit IV X1 ONE; Protocol Stop: 09/24/24 13:25 Midazolam HCl (Versed Pf Inj In Ns Premix) 100 mg in 100 mls @ 1 mls/hr IV .Q24H PRN; Protocol PRN Reason: PER PROTOCOL Stop: 09/29/24 12:48 Last Titration: 09/24/24 16:31 Dose: 0 mg/hr, 0 mls/hr Vasopressin/Sodium Chloride (Vasostrict/Ns Ivpb) 20 unit in 100 mls @ 9 mls/hr IV .Q11H7M PRN; Protocol PRN Reason: PER PROTOCOL Stop: 10/24/24 13:16 Heparin Sodium/Dextrose (Heparin In D5w Ivpb) 25,000 unit in 250 mls @ 9.09 mls/hr IV .Q24H SUKUMAR; Protocol Stop: 10/08/24 13:29 Sodium Chloride (Ns) 500 mls @ 999 mls/hr IV .Q31M ONE Stop: 09/24/24 16:26 Last Admin: 09/24/24 16:10 Dose: 999 mls/hr Sodium Bicarbonate (Sodium Bicarb Inj 8.4% Syr 50 Ml Syringe) 50 ml IV X1 ONE Stop: 09/24/24 14:01 Last Admin: 09/24/24 14:11 Dose: 50 ml Sodium Bicarbonate (Sodium Bicarb Inj 8.4% Syr 50 Ml Syringe) 50 ml IV X1 ONE Stop: 09/24/24 14:01 Last Admin: 09/24/24 14:11 Dose: 50 ml Sodium Bicarbonate (Sodium Bicarb Inj 8.4% Syr 50 Ml Syringe) 50 ml IV X1 ONE Stop: 09/24/24 14:01 Last Admin: 09/24/24 14:11 Dose: 50 ml Sodium Chloride (Sodium Chloride Rt 10% 15 Ml Nebu) 5 ml INH X1 ONE Stop: 09/24/24 12:48 Assessment & Plan Plan 79-year-old male with past medical history of afib s/p ablation and Watchman (not on anticoagulation due to GI bleed), multivessel CAD s/p multiple stents, pacemaker 2022, CKD stage 4, type 2 diabetes, hypertension, hyperlipidemia, and pulmonary fibrosis who was brought in by ambulance to the ED as a CODE BLUE on 09/24/2024 due to cardiopulmonary arrest. #Cardiogenic shock s/p cardiac arrest #Likely NSTEMI type 1 #Elevated troponin Patient currently too unstable to undergo cath but if he improves will likely require cardiac catheterization to investigate for obstructive disease contributing to ischemia. Review of the EKGs show ST depressions in the precordial leads V2, V3, V4, V5, and V6. -Trend troponin -Continue resuscitation -Obtain official TTE Rest of conditions to continue current management per primary team: #Acidemia #Anion gap acidosis #Lactic acidosis #Acute hypoxic respiratory failure #Leukocytosis #Anemia of chronic disease #PAMELA on CKD stage 4 #GI infection possible colitis versus gastroenteritis Patient was discussed with the Cardiology attending, Dr. Mathis. Thank you for allowing us to participate in the care of this patient. Shawanda Oconnor, PGY-2
--- NOTE | 2024-09-24 17:46 | PD.RESPROC ---
Procedures Procedure Date / Time 09/24/24 16:04 Procedural Time Out Time out performed: yes Procedure Narrative Procedure Narrative: Attending Attestation: I was present for entire procedure. Minimal blood loss. Patient tolerated procedure well with no immediate complication. Arterial Line Indication(s): frequent arterial line sampling and shock Informed consent obtained: obtained from surrogate decision maker Time out done, and the following verified: correct patient, side and site, procedure, patient position and implants and/or equipment Size (Gauge): 14 Technique used: guide wire technique Post-Procedure: line sutured into place and dry sterile dressing placed Patient tolerated procedure: well EBL(ml): 10 Complications: none Site: right
--- NOTE | 2024-09-24 17:48 | PD.RESHP ---
Documentation for date of: 09/24/24 [facility] History of Present Illness History of present illness: 79-year-old male with past medical history of CKD stage III, DM 2, hypertension, hyperlipidemia, A-fib, CAD status post stents, pacemaker, Watchman, and pulmonary fibrosis was admitted to the ICU on 09/24/2024 after coming to the ED as a CODE BLUE due to PEA. Most of the history was taken from chart review, prior medics, and family. Patient was in his normal state of health this morning when he went to the bathroom and when he was coming back from the bathroom he lost consciousness. At this time per family the patient's did not feel pulse and started CPR while EMS arrived. EMS arrived and the patient was found to have PEA and he was given 4 rounds of epi via left IO line and was intubated with i-gel and bagged via BVM. During the time of transport CPR was continued and when patient arrived ED physician intubated the patient and ROSC was achieved briefly at 12: 25 before patient went into an episode of V-fib and pulse was lost again therefore CPR was restarted. ROSC was achieved again around 12: 53 in ICU was consulted to admit the patient. Per patient's family patient had a fall yesterday where he hit his head on the carpet, but still was hard surface, but he was not taken to the hospital during this time. As per patient's daughter patient he did loose consciousness at this time, but woke up shortly after. Yesterday patient even went to his physical therapy with no problems afterwards. Patient is on aspirin and Plavix as well as Bumex which last dose was given yesterday. ED course: Patient came in cardiac arrest due to PEA. Patient was intubated and right femoral central line was placed in the ED. Patient received epinephrine, sodium bicarb, magnesium, and was placed on amiodarone and Versed drip. Initial labs showed leukocytosis (18.3), low hemoglobin (12.4), metabolic acidosis (bicarb less than 10), azotemia (BUN 33 and creatinine 2.4), lactic acid was 7.5 and up trended to 9.3, troponin EMEA (0.058), and ABG showed pH 6.97, PCO2 of 56, and PO2 of 126. Review of Systems Review of Systems ROS Unobtainable: unobtainable due to medical condition Past Medical History Past Medical History CARDIAC: Positive Cardiac Disorders, Cardiac Arrhythmia, Atrial Fibrillation, Coronary Artery Disease, Hypercholesterolemia and Hypertension RESPIRATORY: Positive Pneumonia and Pulmonary Fibrosis GASTROINTESTINAL: Positive Gastrointestinal Disorders and Gall Bladder Disease GENITOURINARY: Positive Genitourinary Disorders and Renal Disease MUSCULOSKELETAL: Positive Musculoskeletal Disorders ENT: Positive Cataracts ENDOCRINE: Positive Endocrine Disorders OTHER HISTORY: Positive Hospitalization Family History FAMILY HISTORY: Positive Family Cardiac Disorders Surgical History SURGICAL: Positive Coronary Stent, Cardiac Catheterization, Pacemaker, Angiogram, Eye Surgery and Abdominal Surgery Social History SMOKING STATUS: Never smoker Exam Vital Signs Temp Pulse Resp BP Pulse Ox O2 Del Method FiO2 97.5 F 69 20 105/63 100 Mechanical Ventilation 100 09/24/24 13:52 09/24/24 17:32 09/24/24 13:52 09/24/24 17:32 09/24/24 15:06 09/24/24 13:52 09/24/24 15:06 Narrative Exam General: Sedated and mechanically ventilated Eyes: Pupils are still reactive bilateral and patient opens eyes from time to time Ears: No visible ear discharge Nose: No nasal discharge. Mouth/Throat: Dry mucous membranes, no redness, no lesions. Neck: Neck supple, no cervical lymphadenopathy appreciated Lungs: Mechanically ventilated, some mild expiratory wheezing bilaterally appreciated Cardio: Normal S1/S2, regular rhythm, no murmurs, JVD appreciated Abdomen: Soft, but distended, no palpable masses, peristalsis present, no guarding or rebound. Extremities: Symmetrical, no significant deformities, 2+ pitting edema, peripheral pulses cannot be palpated Skin: Bilateral hands and feet cold and mildly cyanotic Neuro: Pupils are still reactive bilaterally, negative Babinski Results: Labs 09/25/24 03:15 09/25/24 03:15 Labs: Short CBC 09/24/24 Range/Units 12:42 WBC 18.3 H (3.8-10.6) Thou/mm3 Hgb 12.4 L (13.5-16.0) g/dL Hct 39.7 L (41.0-53.0) % Plt Count 277 (140-440) Thou/mm3 BMP 09/24/24 12:42 Sodium 136 Potassium 4.3 Chloride 109 H Carbon Dioxide < 10.0 L* BUN 33 H Creatinine 2.4 H Glucose 199 H Calcium 9.4 Cardiac Enzymes 09/24/24 Range/Units 12:42 Troponin I 0.058 H* (0.0-0.045) ng/mL Liver Function 09/24/24 Range/Units 12:42 Total Bilirubin 0.2 L (0.3-1.2) mg/dL AST 40 H (0-34) U/L ALT 27 (10-49) U/L Alkaline Phosphatase 36 L (46-116) U/L Albumin 3.8 (3.4-4.8) gm/dL ABG Interpretation ABG results: 09/24/24 13:15 ABG pH 6.97 L* ABG pCO2 56 H ABG pO2 126 H ABG HCO3 13 L ABG O2 Saturation 97 ABG Base Excess -19 L Quality Measures Quality Measures none Advance care planning discussed with:: child and legal surragate Medications Home Medications and Allergies Home Medications ?Medication ?Instructions ?Recorded ?Confirmed ?Type atorvastatin 40 mg tablet 40 mg PO QDAY 01/17/23 08/14/23 History clopidogrel 75 mg tablet 75 mg PO QDAY 01/17/23 08/14/23 History losartan 100 mg tablet 50 mg PO QDAY 01/17/23 08/14/23 History megestrol 400 mg/10 mL (40 mg/mL) 400 mg PO QDAY 01/17/23 08/14/23 History oral suspension mirtazapine 15 mg tablet 15 mg PO HS 01/17/23 08/14/23 History pantoprazole 40 mg tablet,delayed 40 mg PO QDAY 01/17/23 08/14/23 History release trazodone 50 mg tablet 50 mg PO QDAY 01/17/23 08/14/23 History nintedanib 150 mg capsule (Ofev) 150 mg PO Q12H 08/14/23 08/14/23 History Allergies Allergy/AdvReac Type Severity Reaction Status Date / Time No Known Allergies Allergy Verified 10/04/21 14:55 Visit Medications Epinephrine/Sodium Chloride (Adrenalin/Ns 4 Mg Ivpb) 4 mg in 250 mls @ 14.203 mls/hr IV .B92H82S PRN; Protocol PRN Reason: per protocol Stop: 10/24/24 12:33 Last Admin: 09/24/24 17:31 Dose: 0.25 mcg/kg/min, 71.016 mls/hr Amiodarone HCl/Dextrose (Nexterone Ivpb) 360 mg in 200 mls @ 33.333 mls/hr IV .Q6H ONE Stop: 09/24/24 18:37 Last Infusion: 09/24/24 14:33 Dose: 33.333 mls/hr Vasopressin/Sodium Chloride (Vasostrict/Ns Ivpb) 20 unit in 100 mls @ 9 mls/hr IV .Q11H7M PRN; Protocol PRN Reason: PER PROTOCOL Stop: 10/24/24 13:16 Last Admin: 09/24/24 17:45 Dose: 0.03 unit/min, 9 mls/hr Sodium Bicarbonate 88.23 meq/ (Dextrose) 588.23 mls @ 100 mls/hr IV .Q5H53M SUKUMAR Stop: 10/24/24 20:07 Sodium Bicarbonate 88.23 meq/ (Dextrose) 588.23 mls @ 100 mls/hr IV .Q5H53M ONE Stop: 09/24/24 20:07 Last Admin: 09/24/24 15:00 Dose: 100 mls/hr Norepinephrine/Dextrose (Levophed In D5w 8mg/250ml) 8 mg in 250 mls @ 7.102 mls/hr IV .Q24H PRN; Protocol PRN Reason: PER PROTOCOL Stop: 10/24/24 14:55 Last Admin: 09/24/24 17:32 Dose: 1 mcg/kg/min, 142.031 mls/hr Fentanyl Citrate (Sublimaze Inj 2,500 Mcg/250 Ml Bag) 2,500 mcg in 250 mls @ 2.5 mls/hr IV .Q24H PRN; Protocol PRN Reason: PER PROTOCOL Stop: 09/29/24 15:46 Last Admin: 09/24/24 16:32 Dose: 25 mcg/hr, 2.5 mls/hr Propofol (Diprivan Ivpb) 1,000 mg in 100 mls @ 2.273 mls/hr IV .Q24H PRN; Protocol PRN Reason: PER PROTOCOL Stop: 10/24/24 15:47 Last Admin: 09/24/24 16:31 Dose: 5 mcg/kg/min, 2.273 mls/hr Ceftriaxone Sodium/Dextrose (Rocephin/D5w 1gm Iv Premix) 1 gm in 50 mls @ 100 mls/hr IV QDAY SUKUMAR Stop: 10/01/24 16:51 Last Admin: 09/24/24 17:09 Dose: 100 mls/hr Metronidazole (Flagyl 500 Mg Iv) 500 mg in 100 mls @ 200 mls/hr IV Q8HR SUKUMAR Stop: 10/01/24 16:51 Last Admin: 09/24/24 17:09 Dose: 200 mls/hr Discontinued Medications Heparin Sodium (Porcine) (Heparin Sod Inj 5000 Unit/Ml Vial) 2,000 unit IV X1 ONE; Protocol Stop: 09/24/24 13:25 Midazolam HCl (Versed Pf Inj In Ns Premix) 100 mg in 100 mls @ 1 mls/hr IV .Q24H PRN; Protocol PRN Reason: PER PROTOCOL Stop: 09/29/24 12:48 Last Titration: 09/24/24 16:31 Dose: 0 mg/hr, 0 mls/hr Vasopressin/Sodium Chloride (Vasostrict/Ns Ivpb) 20 unit in 100 mls @ 9 mls/hr IV .Q11H7M PRN; Protocol PRN Reason: PER PROTOCOL Stop: 10/24/24 13:16 Heparin Sodium/Dextrose (Heparin In D5w Ivpb) 25,000 unit in 250 mls @ 9.09 mls/hr IV .Q24H SUKUMAR; Protocol Stop: 10/08/24 13:29 Sodium Chloride (Ns) 500 mls @ 999 mls/hr IV .Q31M ONE Stop: 09/24/24 16:26 Last Admin: 09/24/24 16:10 Dose: 999 mls/hr Sodium Bicarbonate (Sodium Bicarb Inj 8.4% Syr 50 Ml Syringe) 50 ml IV X1 ONE Stop: 09/24/24 14:01 Last Admin: 09/24/24 14:11 Dose: 50 ml Sodium Bicarbonate (Sodium Bicarb Inj 8.4% Syr 50 Ml Syringe) 50 ml IV X1 ONE Stop: 09/24/24 14:01 Last Admin: 09/24/24 14:11 Dose: 50 ml Sodium Bicarbonate (Sodium Bicarb Inj 8.4% Syr 50 Ml Syringe) 50 ml IV X1 ONE Stop: 09/24/24 14:01 Last Admin: 09/24/24 14:11 Dose: 50 ml Sodium Chloride (Sodium Chloride Rt 10% 15 Ml Nebu) 5 ml INH X1 ONE Stop: 09/24/24 12:48 Assessment & Plan Plan 79-year-old male with past medical history of CKD stage III, DM 2, hypertension, hyperlipidemia, A-fib, CAD status post stents, pacemaker, Watchman, and pulmonary fibrosis was admitted to the ICU on 09/24/2024 postcardiac arrest. 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 ROSC was achieved at 1225 before patient went back into V-fib and coded again. ROSC was achieved at 1253. Hypoxia given patient's history of pulmonary fibrosis could have been precipitating factor Will continue vasopressors, currently on Levophed, epinephrine, and vasopressin Will continue sodium bicarb drip and amiodarone CT was ordered to assess for intracranial bleed as possible cause and to assess for cerebral edema #CAD s/p stents, pacemaker, and watchman #Troponinemia Patient has a history of CAD status post stents and was on Plavix and aspirin Per patient's family patient has more than 90% blockage of the LAD Troponins elevated at 0.058 EKG that shows some ST depressions Most likely due to ischemia Will continue to trend troponins Cardiology consulted #Hx of A-fib Continue on amiodarone drip Respiratory: #Acute hypoxic respiratory failure #Mechanically ventilated Secondary to cardiac arrest Patient intubated on 09/24/2024 #Hx of pulmonary fibrosis Patient does have a history of pulmonary fibrosis, but was stable as per patient's family Pulmonary fibrosis could have exacerbated patient's hypoxia which could have precipitated patient's cardiac arrest. Renal: #Hx of CKD stage III Patient came in with creatinine of 2.4 and BUN of 33 Previous creatinine was 1.8 on 06/23/2023 Patient could have an PAMELA given cardiac arrest Avoid nephrotoxic agent Renally dose medications #High anion gap metabolic acidosis #Lactic acidosis Patient came in with lactic acid of 7.5 which up trended to 9.3 Most likely due to ischemia from cardiac arrest Will trend lactic acid GI: #Possible colitis #Abdominal distention Patient's abdomen seems to be distended on physical exam, but is still soft Per patient's family he did have a course of 2 antibiotics in the past including Flagyl Started rocephin anf flagyl Will get abdomen/pelvis CT to see assess for any possible colitis versus perforation. Heme: #Macrocytic normochromic anemia Patient came in with hemoglobin of 12.4 MCV of 101 Patient is baseline hemoglobin is around 11-12 Will transfuse if hemoglobin less than 7 Hospital Maintenance: Diet: NPO DVT ppx: held until imaging comes back GI ppx: Protonix IV lines: PIV, CIV Sanders: sanders cath Code status: Full code Dispo: ICU post cardiac arrest Case disclosed with Attending Dr. Nayeli Castillo PGY1 Attending Provider Attestation/Addendum Patient seen and examined with the above resident, Vernon Castillo MD. I agree with the findings, assessment, and plan of care as documented except for any differences below. Patient post OOH cardiac arrest, Initial rhythm was PEA, able to convert to Vfib with shock delivered and ROSC achieved. Repeat event with PEA while in the ED. Patient with significant history of severe CAD, most recent cath with 98% stenosis of the LAD which was not intervened upon due to multiple comorbidities with preserved LVEF. Patient with advanced pulmonary fibrosis, unchanged per family and remained off of O2. Patient with recent dental infection and abdominal pain- started on augmentin/ flagyl. Suspect GI and loss with diuretics ongoing. Hypotenison lead to collapse after going to bathroom, hx of vasovagal syncope as well. Suspect that this precipitated ischemic event that lead to CV collapse. Patient with GLF the day prior as well but no neurological sequalae. Post arrest off sedation CN intact, responds to pain though some myoclonus jerks noted potentially. Will start on heparin gtt, continue DAPT, and statin therapy based on LFTs. Serial troponin to be followed. 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 Echo at bedside with underfilled LV and global hypokinesis likely stunning form epinepherine during arrest. Cardiology following and agreeable to cardiac catheterization if in future neurologic recovery does occur. 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 Patient with risk of ICH but family understands this risk and were willing to forgo CT at this time though some level of stability achieved with fluids and pressors despite my recommendations. I agree this will still need to be done at a later date to exclude irrecoverable neurologic outcome especially if clinically during SAT he sanchez snot improve. Will stop NaHCO3 gtt once pH begins to recover. Fear he will get volume overloaded overnight with PAMELA on CKD and shock liver likely to complicate his course. Hemoglobin elevated from baseline, consistent with dehydration/ hemoconcentration likely. Expet a decline with volume from resuscitation and supportive care. Continue on rocephin and flagyl for now. Prognosis remaiins guarded. WIll work toward neurologic recovery and elucidating potential underlying etiology of arrest. Maintain normothermia, too high pressor requirements to consider therapeutic hypothermia at this time even with limited data in OOH PEA arrest. Total critical care time: I personally spent 50 minutes for review of physiologic parameters, directing plan of care, coordination of care with other specialists, and counselling patients family at bedside. This is exclusive of time spent teaching housestaff or performing any separate billable procedures. Patient continues to require critical care services for acute respiratory failure, cardiac arrest due to underlying cardiac disease, anoxic encephalopathy, and cardiogenic shock. Patient remains at high risk for further morbidity and mortality warranting close monitoring and care only available in the ICU.
--- NOTE | 2024-09-24 18:22 | PC.NURSE ---
Addendum entered by Elliott Jaramillo RN 09/24/24 18:37: 1254: EPINEPHRINE 0.5MG IV PUSH 1255: EPINEPHRINE 0.5MG IV PUSH 1303: EPINEPHRINE 1MG IV PUSH Original Note: LATE ENTRY: VERBAL ORDERS GIVEN BY DR. CASTELLANOS ONCE ROSC WAS ACHIEVE 1229: EPINEPHRINE 0.5MG IV PUSH 1231: EPINEPHRINE 0.5MG IV PUSH 1232: EPINEPHRINE 0.5MG IV PUSH 1234: EPINEPHRINE 0.5MG IV PUSH 1235: EPINEPHRINE 0.5MG IV PUSH/ 0.5MG ATROPINE IV PUSH 1237: EPINEPHRINE 0.5MG IV PUSH 1243: EPINEPHRINE 0.5MG IV PUSH
[2024-09-24 18:27] LABS: Basophils % (Auto) 0 % (0-2.5); Eosinophils # (Auto) 0.5 Thou/mm3 (0.0-0.5); Eosinophils % (Auto) 3 % (0-10); Hematocrit 35.7 % (41.0-53.0); Hemoglobin 11.4 g/dL (13.5-16.0); Immature Granulocytes % (Auto) 2 % (0-0); Immature Granulocytes Auto 0.27 Thou/mm3 (0.00-0.00); Lymphocytes # (Auto) 2.3 Thou/mm3 (1.0-4.8); Lymphocytes % (Auto) 15 % (10-50); Mean Corpuscular HGB Conc 31.9 g/dl (31.0-37.0); Mean Corpuscular Hemoglobin 31.8 pg (25.0-35.0); Mean Corpuscular Volume 99 fL (80-100); Monocytes # (Auto) 0.8 Thou/mm3 (0.0-0.8); Monocytes % (Auto) 6 % (0-12); Neutrophils # (Auto) 11.4 Thou/mm3 (1.8-7.7); Neutrophils % (Auto) 74 % (37-80); Nucleated Red Blood Cell # 0.02 Thou/mm3 (0.00-0.00); Nucleated Red Blood Cell % 0 /100 WBC (0); Platelet Count 253 Thou/mm3 (140-440); RDW Standard Deviation 56.4 fL (35.1-43.9); Red Blood Count 3.59 Miln/mm3 (4.50-5.90); White Blood Count 15.3 Thou/mm3 (3.8-10.6)
[2024-09-24 18:58] LABS: Alanine Aminotransferase 43 U/L (10-49); Albumin, Serum 2.7 gm/dL (3.4-4.8); Albumin/Globulin Ratio 1.3 (1.2-2.2); Alkaline Phosphatase 55 U/L (46-116); Anion Gap 22 (7-16); Aspartate Amino Transferase 88 U/L (0-34); BUN/Creatinine Ratio 15 Ratio (12-20); Bilirubin,Total 0.4 mg/dL (0.3-1.2); Blood Urea Nitrogen 35 mg/dL (9-23); Calcium 8.2 mg/dL (8.3-10.6); Calcium (Corrected) 9.2 mg/dL (8.5-10.1); Chloride 109 mMol/L (98-107); Creatinine (Component) 2.4 mg/dL (0.6-1.3); Estimated Creatinine Clearance 26.6 mL/min (>60); Globulin 2.1 gm/dL (2.3-3.5); Glucose 217 mg/dL (74-106); Osmolality,Calculated 296 (275-295); Potassium 3.8 mMol/L (3.4-5.1); Sodium 141 mMol/L (136-145); Total Protein 4.8 gm/dL (5.7-8.2); eGFR 27 See Note
[2024-09-24 19:02] LABS: Carbon Dioxide < 10.0 mMol/L (20.0-31.0)
[2024-09-24 19:03] LABS: Troponin I 6.822 ng/mL (0.0-0.045)
[2024-09-24 19:33] LABS: Partial Thromboplastin Time 45.7 Seconds (22.0-36.0)
[2024-09-24] MEDS: EPINEPHrine in NS 4 MG IVPB 4 MG/250 ML BAG 159.075 MG IV (19:44)
[2024-09-24] MEDS: EPINEPHrine in NS 4 MG IVPB 4 MG/250 ML BAG 164.756 MG IV (20:43)
[2024-09-24 20:50] LABS: Hematocrit 37.7 % (41.0-53.0); Hemoglobin 11.5 g/dL (13.5-16.0)
[2024-09-24 21:01] LABS: Base Excess -24 (-3-3); HCO3 7 mEq/L (20-26); Inspired Oxygen, FIO2 21 %; O2 Saturation 93 % (91-98); PCO2 29 mmHg (32.0-48.0); PO2 85 mmHg (83-108)
[2024-09-24 21:02] LABS: Puncture Site Right Radial
[2024-09-24 21:03] LABS: Allen Test Not Performed
[2024-09-24 21:04] LABS: pH, Arterial 6.98 (7.35-7.45)
[2024-09-24] MEDS: Norepinephrine/NS 16mg/250ml 16 MG/250 ML BAG 109.364 MG IV (21:08)
[2024-09-24] MEDS: HEPARIN SOD INJ 5000 UNIT/ML VIAL 2000 UNIT IV (21:24)
[2024-09-24] MEDS: Heparin/D5w 25K 250 ML Ivpb 25,000 UNIT/250 ML BAG 9.09 UNIT IV (21:26)
[2024-09-24] MEDS: PANTOPRAZOLE INJ 40 MG VIAL IVP (21:26)
[2024-09-24] MEDS: RINGERS LACTATED 500 ML 500 ML 999 ML IV (21:30)
[2024-09-24] MEDS: DOPamine/D5w 400 MG IVPB 400 MG/250 ML BAG 14.203 MG IV (21:30)
[2024-09-24] MEDS: EPINEPHrine Inj 16 MG in SODIUM CHLORIDE 0.9% 250 ML 234 ML 52.552 MG IV (21:50)
[2024-09-24 22:17] LABS: Base Excess -18 (-3-3); HCO3 12 mEq/L (20-26); Inspired Oxygen, FIO2 21 %; O2 Saturation 91 % (91-98); PCO2 42 mmHg (32.0-48.0); PO2 71 mmHg (83-108)
[2024-09-24 22:18] LABS: Allen Test Not Performed; Puncture Site Arterial Line
[2024-09-24 22:19] LABS: pH, Arterial 7.06 (7.35-7.45)
[2024-09-24] MEDS: Norepinephrine/NS 16mg/250ml 16 MG/250 ML BAG 142.031 MG IV (23:10)
[2024-09-24 23:43] LABS: Reflex Lactate? Y
[2024-09-25] VITALS (208 sets, daily range): BP systolic 1–276; BP diastolic 0–252; PULSE 51–85; RESP 18–33; TEMP 35.6–36.1; O2SAT 64–100; BMI 26.7; BMI 28.4
[2024-09-25] LABS: Allen Test Not Performed; Base Excess -21 (-3-3); HCO3 9 mEq/L (20-26); Inspired Oxygen, FIO2 50 %; O2 Saturation 99 % (91-98); PCO2 38 mmHg (32.0-48.0); PO2 143 mmHg (83-108); Puncture Site Right Radial
[2024-09-25] MEDS: Sodium Bicarb Inj 8.4% SYR 50 ML SYRINGE IV ×3 (00:08→13:58)
[2024-09-25] MEDS: Norepinephrine/NS 16mg/250ml 16 MG/250 ML BAG 142.031 MG IV ×4 (00:30→05:55)
[2024-09-25 00:49] LABS: Basophils % (Auto) 0 % (0-2.5); Eosinophils % (Auto) 0 % (0-10); Hemoglobin 10.8 g/dL (13.5-16.0); Immature Granulocytes % (Auto) 1 % (0-0); Immature Granulocytes Auto 0.08 Thou/mm3 (0.00-0.00); Lymphocytes # (Auto) 1.3 Thou/mm3 (1.0-4.8); Lymphocytes % (Auto) 11 % (10-50); Mean Corpuscular HGB Conc 30.9 g/dl (31.0-37.0); Mean Corpuscular Hemoglobin 31.7 pg (25.0-35.0); Mean Corpuscular Volume 103 fL (80-100); Monocytes # (Auto) 0.6 Thou/mm3 (0.0-0.8); Monocytes % (Auto) 5 % (0-12); Neutrophils # (Auto) 10.4 Thou/mm3 (1.8-7.7); Neutrophils % (Auto) 83 % (37-80); Nucleated Red Blood Cell # 0.02 Thou/mm3 (0.00-0.00); Nucleated Red Blood Cell % 0 /100 WBC (0); Platelet Count 191 Thou/mm3 (140-440); RDW Standard Deviation 58.7 fL (35.1-43.9); Red Blood Count 3.41 Miln/mm3 (4.50-5.90); White Blood Count 12.4 Thou/mm3 (3.8-10.6)
[2024-09-25] MEDS: DEXTROSE 5% IV ×2 (00:53→06:12)
[2024-09-25] MEDS: WATER IV ×2 (00:53→06:12)
[2024-09-25] MEDS: SODIUM BICARB IV ×2 (00:53→06:12)
[2024-09-25] MEDS: VASOPRESSIN IN NS IVPB 20 UNIT/100 ML BAG 9 UNIT IV ×2 (00:58→13:10)
[2024-09-25 01:13] LABS: Alanine Aminotransferase 442 U/L (10-49); Albumin, Serum 2.5 gm/dL (3.4-4.8); Albumin/Globulin Ratio 1.3 (1.2-2.2); Alkaline Phosphatase 51 U/L (46-116); Anion Gap 28 (7-16); Aspartate Amino Transferase 521 U/L (0-34); BUN/Creatinine Ratio 15 Ratio (12-20); Bilirubin,Total 0.6 mg/dL (0.3-1.2); Blood Urea Nitrogen 37 mg/dL (9-23); Calcium 7.7 mg/dL (8.3-10.6); Calcium (Corrected) 8.9 mg/dL (8.5-10.1); Chloride 107 mMol/L (98-107); Creatine Kinase 678 U/L (34-171); Creatinine (Component) 2.5 mg/dL (0.6-1.3); Estimated Creatinine Clearance 25.5 mL/min (>60); Globulin 1.9 gm/dL (2.3-3.5); Glucose 137 mg/dL (74-106); Osmolality,Calculated 303 (275-295); Phosphorous 7.5 mg/dL (2.4-5.1); Potassium 3.1 mMol/L (3.4-5.1); Sodium 147 mMol/L (136-145); Total Protein 4.4 gm/dL (5.7-8.2); eGFR 25 See Note
[2024-09-25 01:17] LABS: Carbon Dioxide 12.4 mMol/L (20.0-31.0)
[2024-09-25] MEDS: EPINEPHrine Inj 16 MG in SODIUM CHLORIDE 0.9% 250 ML 234 ML 66.755 MG IV (01:26)
[2024-09-25] MEDS: POTASSIUM CHL 20 mEq IVPB 20 MEQ/100 ML BAG 50 MEQ IV ×2 (02:27→04:16)
[2024-09-25 03:35] LABS: Basophils % (Auto) 0 % (0-2.5); Eosinophils % (Auto) 0 % (0-10); Hematocrit 33.7 % (41.0-53.0); Hemoglobin 10.6 g/dL (13.5-16.0); Immature Granulocytes % (Auto) 0 % (0-0); Immature Granulocytes Auto 0.05 Thou/mm3 (0.00-0.00); Lymphocytes # (Auto) 1.2 Thou/mm3 (1.0-4.8); Lymphocytes % (Auto) 11 % (10-50); Mean Corpuscular HGB Conc 31.5 g/dl (31.0-37.0); Mean Corpuscular Hemoglobin 31.6 pg (25.0-35.0); Mean Corpuscular Volume 101 fL (80-100); Monocytes # (Auto) 0.4 Thou/mm3 (0.0-0.8); Monocytes % (Auto) 4 % (0-12); Neutrophils # (Auto) 9.6 Thou/mm3 (1.8-7.7); Neutrophils % (Auto) 85 % (37-80); Nucleated Red Blood Cell # 0.02 Thou/mm3 (0.00-0.00); Nucleated Red Blood Cell % 0 /100 WBC (0); Platelet Count 188 Thou/mm3 (140-440); RDW Standard Deviation 57.2 fL (35.1-43.9); Red Blood Count 3.35 Miln/mm3 (4.50-5.90); White Blood Count 11.3 Thou/mm3 (3.8-10.6)
[2024-09-25 03:40] LABS: Base Excess -16 (-3-3); HCO3 14 mEq/L (20-26); O2 Saturation 94 % (91-98); PCO2 48 mmHg (32.0-48.0); PO2 81 mmHg (83-108)
[2024-09-25 03:41] LABS: Allen Test Not Performed; Inspired Oxygen, FIO2 50 %; Puncture Site Arterial Line
[2024-09-25 03:42] LABS: pH, Arterial 7.06 (7.35-7.45)
[2024-09-25] MEDS: DOPamine/D5w 400 MG IVPB 400 MG/250 ML BAG 53.972 MG IV (03:42)
[2024-09-25 03:53] LABS: Alanine Aminotransferase 1005 U/L (10-49); Albumin, Serum 2.5 gm/dL (3.4-4.8); Albumin/Globulin Ratio 1.4 (1.2-2.2); Alkaline Phosphatase 47 U/L (46-116); Anion Gap 26 (7-16); Aspartate Amino Transferase > 1000 U/L (0-34); BUN/Creatinine Ratio 15 Ratio (12-20); Bilirubin,Total 0.7 mg/dL (0.3-1.2); Blood Urea Nitrogen 39 mg/dL (9-23); Calcium 7.7 mg/dL (8.3-10.6); Calcium (Corrected) 8.9 mg/dL (8.5-10.1); Chloride 107 mMol/L (98-107); Creatinine (Component) 2.6 mg/dL (0.6-1.3); Estimated Creatinine Clearance 24.5 mL/min (>60); Globulin 1.8 gm/dL (2.3-3.5); Glucose 142 mg/dL (74-106); Osmolality,Calculated 303 (275-295); Potassium 3.8 mMol/L (3.4-5.1); Sodium 147 mMol/L (136-145); Total Protein 4.3 gm/dL (5.7-8.2); eGFR 24 See Note
[2024-09-25 03:54] LABS: Carbon Dioxide 13.6 mMol/L (20.0-31.0); Troponin I 11.284 ng/mL (0.0-0.045)
[2024-09-25 03:58] LABS: Partial Thromboplastin Time 138.5 Seconds (22.0-36.0)
[2024-09-25] MEDS: EPINEPHrine Inj 16 MG in SODIUM CHLORIDE 0.9% 250 ML 234 ML 59.653 MG IV (05:22)
[2024-09-25] MEDS: metroNIDAZOLE/NS 500 MG IVPB 500 MG/100 ML BAG 200 MG IV ×3 (05:45→21:51)
[2024-09-25 05:50] LABS: Base Excess -14 (-3-3); HCO3 15 mEq/L (20-26); O2 Saturation 99 % (91-98); PCO2 46 mmHg (32.0-48.0); PO2 137 mmHg (83-108)
[2024-09-25 05:56] LABS: Allen Test Not Performed; Inspired Oxygen, FIO2 50 %; Puncture Site Arterial Line; pH, Arterial 7.12 (7.35-7.45)
--- NOTE | 2024-09-25 06:00 | XR_ITS ---
Exam: Chest 1 view, AP Date and time of exam: 09/25/2024, 5:19 AM Comparison: 09/24/2024 INDICATION: Follow-up exam. Findings: ET, NG and right IJ central venous catheter unchanged in position. Lung volumes are low. Diffuse ill-defined areas of opacification seen bilaterally without significant interval change. No pneumothorax. Impression: Stable tubes and lines. Diffuse bilateral infiltrates.
[2024-09-25 06:23] LABS: Reflex Lactate? Y
[2024-09-25] MEDS: Norepinephrine/NS 16mg/250ml 16 MG/250 ML BAG 139.191 MG IV (07:57)
[2024-09-25] MEDS: PANTOPRAZOLE INJ 40 MG VIAL IVP ×2 (07:59→18:38)
--- NOTE | 2024-09-25 09:09 | ECHO_ITS ---
Transthoracic Echo Report Ht (in): 69 Wt (lb): 192 Exam Location: [facility] Status: Inpatient Dietary Service Aide: JERRY Bryant^^^^ Indications: Procedure Performed: BP: 140 / 68 HR: 70 Technical Quality: Fair MEASUREMENTS (Male / Female) Normal Values 2D ECHO LV Diastolic Diameter PLAX 3.5 cm 4.2 - 5.9 / 3.9 - 5.3 cm LV Systolic Diameter PLAX 2.5 cm IVS Diastolic Thickness 1.1 cm 0.6 - 1.0 / 0.6 - 0.9 cm LVPW Diastolic Thickness 0.9 cm 0.6 - 1.0 / 0.6 - 0.9 cm LV Relative Wall Thickness 0.6 LVOT Diameter 1.7 cm Aortic Root Diameter 3.7 cm LA Systolic Diameter LX 3.7 cm 3.0 - 4.0 / 2.7 - 3.8 cm LA Volume Index 38.3 cm?/m? 16 - 28 cm?/m? Ascending Aorta Diameter 3.4 cm DOPPLER AV Peak Velocity 152.3 cm/s AV Peak Gradient 9.3 mmHg AV Mean Gradient 5.0 mmHg AV Velocity Time Integral 25.1 cm LVOT Peak Velocity 93.8 cm/s LVOT Peak Gradient 3.5 mmHg LVOT Velocity Time Integral 18.0 cm LVOT Cardiac Index 1376.2 cm?/min?m? AV Area Cont Eq vti 1.6 cm? AV Area Cont Eq pk 1.4 cm? MV Area PHT 3.7 cm? MR Peak Velocity 386.0 cm/s MR Peak Gradient 59.6 mmHg Mitral E Point Velocity 63.2 cm/s Mitral A Point Velocity 50.1 cm/s Mitral E to A Ratio 1.3 TR Peak Velocity 307.7 cm/s TR Peak Gradient 37.9 mmHg PV Peak Velocity 102.0 cm/s PV Peak Gradient 4.2 mmHg RVOT Peak Velocity 52.5 cm/s FINDINGS Left Ventricle Regional wall motion abnormalities are present septal and apical hypokinesis . The left ventricular ejection fraction is mildly decreased, estimated at 40-45%. There is grade II diastolic dysfunction of the left ventricle (pseudonormal filling pattern). Right Ventricle The right ventricle is normal in size and systolic function. The estimated right ventricular systolic pressure, 45 mmHg. Left Atrium The left atrial cavity size is mildly increased. Right Atrium The right atrium is normal by two-dimensional imaging, color flow and Doppler imaging with no structural abnormalities, no thrombus formation present. Atrial Septum The interatrial septum appears normal with no evidence of a shunt. Aorta The aorta is normal by two-dimensional, color flow and Doppler interrogation. Mitral Valve [id number] mitral regurgitation. Mild mitral annular calcification. Aortic Valve Aortic valve sclerosis. Diffuse calcification of the aortic valve. Tricuspid Valve There is mild tricuspid valve regurgitation. Pulmonic Valve Trivial pulmonic valve regurgitation. Vessels The pulmonary artery appears normal. The inferior vena cava pulmonary and hepatic veins appear normal. Pericardium The pericardium is normal by two-dimensional imaging. There is no significant pericardial effusion. CONCLUSIONS indication: s/p Cardiac arrest Normal size left ventricle with apical septal hypokinesis LVEF 40-45%. Right atrium and right ventricle normal size with normal function MIldly dilated LA Mild t moderate tricuspid regurgitation with PAP 47 mm Hg est Mild MAC with mild mitral regurgitation Aortic valve sclerosis with no stenosi Yodit Pizarro (Electronically Signed) Final Date: 25 September 2024 11:24
[2024-09-25] MEDS: cefTRIAXone/D5w 1gm IV premix 1 GM/50 ML BAG IV (09:30)
[2024-09-25] MEDS: VANCOMYCIN/NS 1 GM IVPB 200 ML IV (09:55)
--- NOTE | 2024-09-25 10:01 | PD.INTPROG ---
Documentation for date of: 09/25/24 Subjective Subjective Interval history: 79-year-old male with past medical history of CKD stage III, DM 2, hypertension, hyperlipidemia, A-fib, CAD status post stents, pacemaker, Watchman, and pulmonary fibrosis was admitted to the ICU on 09/24/2024 after coming to the ED as a CODE BLUE due to PEA. Most of the history was taken from chart review, prior medics, and family. Patient was in his normal state of health this morning when he went to the bathroom and when he was coming back from the bathroom he lost consciousness. At this time per family the patient's did not feel pulse and started CPR while EMS arrived. EMS arrived and the patient was found to have PEA and he was given 4 rounds of epi via left IO line and was intubated with i-gel and bagged via BVM. During the time of transport CPR was continued and when patient arrived ED physician intubated the patient and ROSC was achieved briefly at 12: 25 before patient went into an episode of V-fib and pulse was lost again therefore CPR was restarted. ROSC was achieved again around 12: 53 in ICU was consulted to admit the patient. Per patient's family patient had a fall yesterday where he hit his head on the carpet, but still was hard surface, but he was not taken to the hospital during this time. As per patient's daughter patient he did loose consciousness at this time, but woke up shortly after. Yesterday patient even went to his physical therapy with no problems afterwards. Patient is on aspirin and Plavix as well as Bumex which last dose was given yesterday. 09/25 - pt is s/p 3 cardiac arrests, overnight started on levo/epi/vaso/dopamine, has been placed on HCO3 gtt and fentanyl gtt, 0 UOP since arrival , afebrile Critical Care Note Critical care time (min.): 55 Exam Vital Signs Temp Pulse Resp BP Pulse Ox O2 Del Method FiO2 97.0 F 68 28 H 128/63 92 L Mechanical Ventilation 50 09/25/24 04:00 09/25/24 09:45 09/25/24 09:45 09/25/24 09:45 09/25/24 09:45 09/24/24 16:00 09/25/24 06:24 Narrative Exam Gen- intubated, sedated, GCS 5T (V1, M1, E3) HEENT- NC/AT, mucosa hydrated, ETT/OGT in place with minimal secretions, pupils R>L dilated and minimally reactive Chest- crackles on post de paz, clear anterior, diminished on R Abd- distended , minimal bowel sounds, no rebound, no palp organomegaly Ext- mottling over b/l knees, feet cold to touch, pedal pulses palp b/l, UE with edema and bruising, L leg with some purplish discoloration near site of IO where epi had been infused Vent AC VC Drips levo vaso epi dopa HCO3 gtt fentanyl gtt Physical Exam Completion Physical Exam Complete?: Yes 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 09/26/24 05:17 09/26/24 05:17 Labs: Laboratory Results - last 24 hr 09/24/24 09/24/24 09/24/24 12:42 13:15 15:34 WBC 18.3 H 15.3 H RBC 3.92 L 3.59 L Hgb 12.4 L 11.4 L Hct 39.7 L 35.7 L MCV 101 H 99 MCH 31.6 31.8 MCHC 31.2 31.9 RDW Std Deviation 56.9 H 56.4 H Plt Count 277 253 Neut % (Auto) 49 74 Lymph % (Auto) 42 15 Banks % (Auto) 4 6 Eos % (Auto) 1 3 Baso % (Auto) 0 0 Neut # (Auto) 8.9 H 11.4 H Lymph # (Auto) 7.6 H 2.3 Banks # (Auto) 0.8 0.8 Eos # (Auto) 0.2 0.5 Baso # (Auto) 0.1 0.0 Immature Gran # (Auto) 0.75 H 0.27 H Absolute Nucleated RBC 0.06 H 0.02 H Immature Gran % 4 H 2 H Nucleated RBC % 0 0 PT 14.0 H INR 1.3 APTT 46.9 H 45.7 H Puncture Site Right Radial ABG pH 6.97 L* ABG pCO2 56 H ABG pO2 126 H ABG HCO3 13 L ABG O2 Saturation 97 ABG Base Excess -19 L FiO2 100 Sodium 136 141 Potassium 4.3 3.8 D Chloride 109 H 109 H Carbon Dioxide < 10.0 L* < 10.0 L* Anion Gap 17 H 22 H BUN 33 H 35 H Creatinine 2.4 H 2.4 H Estim Creat Clear Calc 26.6 L 26.6 L eGFR 27 L 27 L BUN/Creatinine Ratio 14 15 Glucose 199 H 217 H Calculated Osmolality 285 296 H Lactic Acid 7.5 H* Calcium 9.4 8.2 L Corrected Calcium 9.6 9.2 Phosphorus Magnesium 1.7 Total Bilirubin 0.2 L 0.4 AST 40 H 88 H ALT 27 43 Alkaline Phosphatase 36 L 55 D Total Creatine Kinase Troponin I 0.058 H* 6.822 H* D Total Protein 6.4 4.8 L Albumin 3.8 2.7 L D Globulin 2.6 2.1 L Albumin/Globulin Ratio 1.5 1.3 Procalcitonin 0.24 09/24/24 09/24/24 09/24/24 16:41 20:34 20:49 WBC RBC Hgb 11.5 L Hct 37.7 L MCV MCH MCHC RDW Std Deviation Plt Count Neut % (Auto) Lymph % (Auto) Banks % (Auto) Eos % (Auto) Baso % (Auto) Neut # (Auto) Lymph # (Auto) Banks # (Auto) Eos # (Auto) Baso # (Auto) Immature Gran # (Auto) Absolute Nucleated RBC Immature Gran % Nucleated RBC % PT INR APTT Puncture Site Right Radial ABG pH 6.98 L* ABG pCO2 29 L D ABG pO2 85 D ABG HCO3 7 L* ABG O2 Saturation 93 ABG Base Excess -24 L FiO2 21 Sodium Potassium Chloride Carbon Dioxide Anion Gap BUN Creatinine Estim Creat Clear Calc eGFR BUN/Creatinine Ratio Glucose Calculated Osmolality Lactic Acid 9.3 H* 15.0 H* Calcium Corrected Calcium Phosphorus Magnesium Total Bilirubin AST ALT Alkaline Phosphatase Total Creatine Kinase Troponin I Total Protein Albumin Globulin Albumin/Globulin Ratio Procalcitonin 09/24/24 09/24/24 09/24/24 22:07 23:31 23:43 WBC RBC Hgb Hct MCV MCH MCHC RDW Std Deviation Plt Count Neut % (Auto) Lymph % (Auto) Banks % (Auto) Eos % (Auto) Baso % (Auto) Neut # (Auto) Lymph # (Auto) Banks # (Auto) Eos # (Auto) Baso # (Auto) Immature Gran # (Auto) Absolute Nucleated RBC Immature Gran % Nucleated RBC % PT INR APTT Puncture Site Arterial Line Right Radial ABG pH 7.06 L* 7.00 L* ABG pCO2 42 D 38 ABG pO2 71 L 143 H D ABG HCO3 12 L 9 L* ABG O2 Saturation 91 99 H ABG Base Excess -18 L -21 L FiO2 21 50 Sodium Potassium Chloride Carbon Dioxide Anion Gap BUN Creatinine Estim Creat Clear Calc eGFR BUN/Creatinine Ratio Glucose Calculated Osmolality Lactic Acid 18.0 H* Calcium Corrected Calcium Phosphorus Magnesium Total Bilirubin AST ALT Alkaline Phosphatase Total Creatine Kinase Troponin I Total Protein Albumin Globulin Albumin/Globulin Ratio Procalcitonin 09/25/24 09/25/24 09/25/24 00:32 03:15 03:22 WBC 12.4 H 11.3 H RBC 3.41 L 3.35 L Hgb 10.8 L 10.6 L Hct 35.0 L 33.7 L MCV 103 H 101 H MCH 31.7 31.6 MCHC 30.9 L 31.5 RDW Std Deviation 58.7 H 57.2 H Plt Count 191 D 188 Neut % (Auto) 83 H 85 H Lymph % (Auto) 11 11 Banks % (Auto) 5 4 Eos % (Auto) 0 0 Baso % (Auto) 0 0 Neut # (Auto) 10.4 H 9.6 H Lymph # (Auto) 1.3 1.2 Banks # (Auto) 0.6 0.4 Eos # (Auto) 0.0 0.0 Baso # (Auto) 0.0 0.0 Immature Gran # (Auto) 0.08 H 0.05 H Absolute Nucleated RBC 0.02 H 0.02 H Immature Gran % 1 H 0 Nucleated RBC % 0 0 PT INR APTT 138.5 H* D Puncture Site Arterial Line ABG pH 7.06 L* ABG pCO2 48 D ABG pO2 81 L D ABG HCO3 14 L ABG O2 Saturation 94 ABG Base Excess -16 L FiO2 50 Sodium 147 H 147 H Potassium 3.1 L D 3.8 D Chloride 107 107 Carbon Dioxide 12.4 L* 13.6 L* Anion Gap 28 H 26 H BUN 37 H 39 H Creatinine 2.5 H 2.6 H Estim Creat Clear Calc 25.5 L 24.5 L eGFR 25 L 24 L BUN/Creatinine Ratio 15 15 Glucose 137 H D 142 H Calculated Osmolality 303 H 303 H Lactic Acid 17.0 H* Calcium 7.7 L 7.7 L Corrected Calcium 8.9 8.9 Phosphorus 7.5 H Magnesium 2.0 Total Bilirubin 0.6 0.7 AST 521 H* > 1000 H* ALT 442 H 1005 H* Alkaline Phosphatase 51 47 Total Creatine Kinase 678 H Troponin I 12.230 H* D 11.284 H* D Total Protein 4.4 L 4.3 L Albumin 2.5 L 2.5 L Globulin 1.9 L 1.8 L Albumin/Globulin Ratio 1.3 1.4 Procalcitonin 09/25/24 09/25/24 05:41 06:50 WBC RBC Hgb Hct MCV MCH MCHC RDW Std Deviation Plt Count Neut % (Auto) Lymph % (Auto) Banks % (Auto) Eos % (Auto) Baso % (Auto) Neut # (Auto) Lymph # (Auto) Banks # (Auto) Eos # (Auto) Baso # (Auto) Immature Gran # (Auto) Absolute Nucleated RBC Immature Gran % Nucleated RBC % PT INR APTT Puncture Site Arterial Line ABG pH 7.12 L* ABG pCO2 46 ABG pO2 137 H D ABG HCO3 15 L ABG O2 Saturation 99 H ABG Base Excess -14 L FiO2 50 Sodium Potassium Chloride Carbon Dioxide Anion Gap BUN Creatinine Estim Creat Clear Calc eGFR BUN/Creatinine Ratio Glucose Calculated Osmolality Lactic Acid 16.0 H* Calcium Corrected Calcium Phosphorus Magnesium Total Bilirubin AST ALT Alkaline Phosphatase Total Creatine Kinase Troponin I Total Protein Albumin Globulin Albumin/Globulin Ratio Procalcitonin Assessment & Plan Additional Plan Additional Plan: In summary this is a 79yo M admitted to the ICU for refractory shock s/p cardiac arrest with h/o IPF, CKD and CHF 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 Acute encephalopathy- 2/2 anoxic injury, HCT obtained and no acute changes CV PEA and VT arrest- myocardial stunning was noticed yesterday on bedside echo, had 3 episodes of arrest with total downtime of ~20min - maintain euthermia h/o CHF- last known EF of 50% per daughter at bedside and follows with cards as outpt h/o Afib s/p ablation with PPM and watchman device- pacemaker Tropinemia- felt to be 2/2 Type I VA given his extensive coronary hx and known LAD dz - on heparin gtt - bedside echo done this AM and no large WMA immediately noticed , official echo done and read pending - will be started on ASA - cards eval appreciated and recs noted Shock- At this point pt has refractory shock on 4 vasopressors however has a SBP in the 130s and 140s with a MAP of >75. No signs of obstructive etiology and a Cheeta was placed for PLR and does not appear volume responsive therefore no active hypovolemic component. SVR calculated at 1500s this AM on 4 vasopressors. ? cardiogenic component with distributive component, bcx ordered and UA ordered. will fu on procal and SvO2, on abx Resp Acute Resp Failure- currently intubated and on MV, fu with ABG and CXR. - initial Vt of 550 however Pplat was 35-40 this AM therefore changes maded and Vt decreased to 470 with an increase in RR - ABG shows a mixed acidosis with respiratory component present - fu on repeat ABGs IPF- on nintedanib at home - hold for now - on hydrocortisone PNA- on ceftri and flaygly - sputum cx shows GPC - given a dose of Vanc and if MRSA swab is pos will start vanc with pharmacy to follow Renal A/CKD- zero UOP since arrival , sanders in place - avoid nephrotoxins - family has their own medical service technician who is peripherally involved AG Acidosis- both metabolic with LA and respiratory component (expected pCO2 of 30 +/- 2) - LA peaked at 18 overnight -> 16 this AM - currently with shock liver and anuric -> slow to clear - ? if LA coming from bowel ischemia considering his significant vasc dz and 4 vasopressors - now that he is down on vasopressors anticipate improvement in LA HyperNa- minimal, monitor GI Shock liver/ischemic hepatitis- fu on repeat labs, Hypoalbuminemia- POA, will need workup with Upr however currently anuric GI proph- PPI NPO for now Endo DM- SSI FS q4hrs Heme Leukocytosis- in the setting of arrest, reactive v infectious Anemia- chronic and near baseline - no active bleeding noted DVT proph- on heparin gtt ID no clear source of infection ? underlying PNA on abx and cx pending case d/w ICU team and cards d/w family extensively at bedside d/w family friend medical service technician labs, imaging, records reviewed ~55ccmin required for eval, exam, review, intervention, discussion and formulation of POC for this critically ill pt s/p arrest with shock at high risk for further and ongoing decompensation Provider Notation Provider Notation: Although this document has been carefully reviewed, there may still be some phonetic and other typographical errors. These errors are purely grammatical due to imperfections in the software program and should not be construed in any way to compromise the substance of the patient's medical care during this visit. Thank you for the opportunity and privilege in assisting you with this patient's care and management.
[2024-09-25] MEDS: Norepinephrine/NS 16mg/250ml 16 MG/250 ML BAG 85.219 MG IV ×3 (10:15→16:17)
[2024-09-25 10:32] LABS: Base Excess -11 (-3-3); HCO3 16 mEq/L (20-26); Inspired Oxygen, FIO2 45 %; O2 Saturation 90 % (91-98); PCO2 41 mmHg (32.0-48.0); pH, Arterial 7.21 (7.35-7.45)
[2024-09-25 10:36] LABS: Allen Test Not Performed; PO2 59 mmHg (83-108); Puncture Site Site Not Noted
--- NOTE | 2024-09-25 11:21 | XR_ITS ---
Examination: CT chest, without intravenous contrast. CT abdomen, without intravenous contrast. CT pelvis, without intravenous contrast. 2-D sagittal and coronal reconstructions. 3-D reconstructions. Date and time of exam:September 25, 2024 1143 hrs. Indications: Status post cardiopulmonary arrest with abdominal distention CTDI vol (mgy) 27.1 DLP (MGycm)146 Technique: Multiple CT images, 3.0 mm slice thickness, obtained chest, abdomen, pelvis, with the high-resolution 64 slice scanner.. Sagittal and coronal 2-D reconstructions are obtained. 3-D reconstructions Low dose protocols were performed. One or more of the following dose reduction techniques were used; automated exposure control, adjustment of the mA and/or KV according to patient size, use of iterative reconstruction technique. Findings: Calcification thoracic aorta no thoracic aortic aneurysm No paratracheal tracheobronchial or bronchopulmonary adenopathy. Mild enlargement cardiac contour Coronary artery calcification Right internal jugular central line satisfactory position Endotracheal tube tip projects satisfactory position above the felton Orogastric tube in the stomach Mild septal edema Absent gallbladder No focal liver or splenic lesion No hydronephrosis No bowel obstruction Abundant stool in colon No pericecal inflammatory change Aorta is not enlarged Urinary Severino catheter in the bladder Mild free fluid in the pelvis L2 vertebral body fracture which may be subacute Pneumoperitoneum, clinical correlation advised Fractures right sixth and seventh ribs anteriorly without significant displacement Fracture left fifth rib anteriorly as well as left sixth and seventh ribs Impression: Suspicious for mild heart failure with pulmonary edema Mild ascites Pneumoperitoneum, consider bowel perforation, recommend surgical consultation Bilateral acute rib fractures as above
--- NOTE | 2024-09-25 11:21 | XR_ITS ---
Examination: CT brain head without contrast. 2-D sagittal coronal reconstructions Date and time of exam:09/25/2024, 11:40 AM Patient: Cardiac arrest CTDI: vol (mGy):55.3 DLP: (mGycm):1200 COMPARISON: August 14, 2023 Technique: Multiple CT axial sections of the brain have been obtained, 5 mm slice thickness. Contrast has not been administered. 2-D sagittal, coronal reconstructions have been obtained Low dose protocols were performed. One or more of the following dose reduction techniques were used; automated exposure control, adjustment of the mA and/or KV according to patient size, use of iterative reconstruction technique. Findings: Moderate symmetric ventricular enlargement and cortical atrophy consistent with age. Periventricular low density white matter changes consistent with chronic small vessel disease. Intra-axial or extra-axial hemorrhage density is not seen. No mass effect or midline shift Basal cisterns are not remarkable. Fourth ventricle is midline. Cranial vault intact. Impression: Negative for acute hemorrhage, mass effect or midline shift. No significant interval change noted.
[2024-09-25] MEDS: EPINEPHrine Inj 16 MG in SODIUM CHLORIDE 0.9% 250 ML 234 ML 14.203 MG IV (11:25)
[2024-09-25 11:53] LABS: Procalcitonin 71.02 ng/ml (0.0-0.49)
[2024-09-25 11:55] LABS: Partial Thromboplastin Time > 139.0 Seconds (22.0-36.0)
[2024-09-25 12:12] LABS: Troponin I 9.975 ng/mL (0.0-0.045)
[2024-09-25 12:20] LABS: Base Excess, Venous -12 (-3-3); O2 Saturation, Venous 75 % (96-97); PCO2, Venous 52 mmHg (36-56); PO2, Venous 45 mmHg (15-58); pH, Venous 7.12 (7.33-7.66)
[2024-09-25 12:40] LABS: Base Excess -12 (-3-3); HCO3 15 mEq/L (20-26); Inspired Oxygen, FIO2 50 %; O2 Saturation 94 % (91-98); PCO2 37 mmHg (32.0-48.0); PO2 73 mmHg (83-108); pH, Arterial 7.21 (7.35-7.45)
[2024-09-25 12:41] LABS: Allen Test Not Performed; Puncture Site Arterial Line
[2024-09-25 13:05] LABS: Alanine Aminotransferase > 3300 U/L (10-49); Albumin, Serum 2.5 gm/dL (3.4-4.8); Albumin/Globulin Ratio 1.3 (1.2-2.2); Alkaline Phosphatase 52 U/L (46-116); Anion Gap 25 (7-16); Aspartate Amino Transferase 5100 U/L (0-34); BUN/Creatinine Ratio 16 Ratio (12-20); Bilirubin,Total 0.6 mg/dL (0.3-1.2); Blood Urea Nitrogen 42 mg/dL (9-23); Carbon Dioxide 17.5 mMol/L (20.0-31.0); Chloride 108 mMol/L (98-107); Creatinine (Component) 2.6 mg/dL (0.6-1.3); Estimated Creatinine Clearance 25.2 mL/min (>60); Globulin 1.9 gm/dL (2.3-3.5); Glucose 78 mg/dL (74-106); Magnesium 1.7 mg/dL (1.6-2.6); Osmolality,Calculated 307 (275-295); Potassium 3.2 mMol/L (3.4-5.1); Sodium 150 mMol/L (136-145); Total Protein 4.4 gm/dL (5.7-8.2); eGFR 24 See Note
[2024-09-25 13:06] LABS: Calcium 6.8 mg/dL (8.3-10.6)
--- NOTE | 2024-09-25 13:11 | ESPR_ITS ---
Documentation for date of: 09/25/24 Subjective Subjective Interval history: Dopamine gtt started overnight apparently for bradycardia, epinephrine and levophed majorly titrated up as well. Fentanyl gtt started. Patient's pupils are dilated and nonreactive overnight. Last normal pupillary exam charted at 0400. Exam Vital Signs Temp Pulse Resp BP Pulse Ox O2 Del Method FiO2 97.0 F 71 31 H 113/55 L 96 Mechanical Ventilation 45 09/25/24 04:00 09/25/24 10:50 09/25/24 10:50 09/25/24 10:50 09/25/24 10:50 09/24/24 16:00 09/25/24 12:00 Constitutional Constitutional: obese, chronically ill appearing and obtunded Routine HEENT Exam Head: Present normocephalic and atraumatic Eye: Absent EOMI or PERRL (pupils dilated and not resposive) ENT: Present oropharynx clear and nares patent Routine Neck Exam Neck: Present trachea midline; Absent JVD Routine Respiratory Exam Respiratory: Present crackles (posterior lung de paz) and patient mechanically ventilated Routine Cardiovascular Exam Cardiovascular: Present irregularly irregular; Absent JVD Routine Abdominal Exam Abdominal: Present distended and firm Routine Extremities Exam Extremities: Present edema and pulses intact Routine Skin Exam Skin: Present dry; Absent warm Routine Neurological Exam Comments: opens eyes to noxious stimuli. hands twitch to painful stimuli upon nailbed pressure Objective Labs 09/25/24 03:15 09/25/24 12:05 Labs: Laboratory Results - last 24 hr 09/24/24 09/24/24 09/24/24 12:42 13:15 15:34 WBC 18.3 H 15.3 H RBC 3.92 L 3.59 L Hgb 12.4 L 11.4 L Hct 39.7 L 35.7 L MCV 101 H 99 MCH 31.6 31.8 MCHC 31.2 31.9 RDW Std Deviation 56.9 H 56.4 H Plt Count 277 253 Neut % (Auto) 49 74 Lymph % (Auto) 42 15 [place] % (Auto) 4 6 Eos % (Auto) 1 3 Baso % (Auto) 0 0 Neut # (Auto) 8.9 H 11.4 H Lymph # (Auto) 7.6 H 2.3 [place] # (Auto) 0.8 0.8 Eos # (Auto) 0.2 0.5 Baso # (Auto) 0.1 0.0 Immature Gran # (Auto) 0.75 H 0.27 H Absolute Nucleated RBC 0.06 H 0.02 H Immature Gran % 4 H 2 H Nucleated RBC % 0 0 PT 14.0 H INR 1.3 APTT 46.9 H 45.7 H Puncture Site Right Radial ABG pH 6.97 L* ABG pCO2 56 H ABG pO2 126 H ABG HCO3 13 L ABG O2 Saturation 97 ABG Base Excess -19 L VBG pH VBG pCO2 VBG pO2 VBG O2 Sat (Haresh) VBG Base Excess FiO2 100 Sodium 136 141 Potassium 4.3 3.8 D Chloride 109 H 109 H Carbon Dioxide < 10.0 L* < 10.0 L* Anion Gap 17 H 22 H BUN 33 H 35 H Creatinine 2.4 H 2.4 H Estim Creat Clear Calc 26.6 L 26.6 L eGFR 27 L 27 L BUN/Creatinine Ratio 14 15 Glucose 199 H 217 H Calculated Osmolality 285 296 H Lactic Acid 7.5 H* Calcium 9.4 8.2 L Corrected Calcium 9.6 9.2 Phosphorus Magnesium 1.7 Total Bilirubin 0.2 L 0.4 AST 40 H 88 H ALT 27 43 Alkaline Phosphatase 36 L 55 D Total Creatine Kinase Troponin I 0.058 H* 6.822 H* D Total Protein 6.4 4.8 L Albumin 3.8 2.7 L D Globulin 2.6 2.1 L Albumin/Globulin Ratio 1.5 1.3 Procalcitonin 0.24 09/24/24 09/24/24 09/24/24 16:41 20:34 20:49 WBC RBC Hgb 11.5 L Hct 37.7 L MCV MCH MCHC RDW Std Deviation Plt Count Neut % (Auto) Lymph % (Auto) [place] % (Auto) Eos % (Auto) Baso % (Auto) Neut # (Auto) Lymph # (Auto) [place] # (Auto) Eos # (Auto) Baso # (Auto) Immature Gran # (Auto) Absolute Nucleated RBC Immature Gran % Nucleated RBC % PT INR APTT Puncture Site Right Radial ABG pH 6.98 L* ABG pCO2 29 L D ABG pO2 85 D ABG HCO3 7 L* ABG O2 Saturation 93 ABG Base Excess -24 L VBG pH VBG pCO2 VBG pO2 VBG O2 Sat (Haresh) VBG Base Excess FiO2 21 Sodium Potassium Chloride Carbon Dioxide Anion Gap BUN Creatinine Estim Creat Clear Calc eGFR BUN/Creatinine Ratio Glucose Calculated Osmolality Lactic Acid 9.3 H* 15.0 H* Calcium Corrected Calcium Phosphorus Magnesium Total Bilirubin AST ALT Alkaline Phosphatase Total Creatine Kinase Troponin I Total Protein Albumin Globulin Albumin/Globulin Ratio Procalcitonin 09/24/24 09/24/24 09/24/24 22:07 23:31 23:43 WBC RBC Hgb Hct MCV MCH MCHC RDW Std Deviation Plt Count Neut % (Auto) Lymph % (Auto) [place] % (Auto) Eos % (Auto) Baso % (Auto) Neut # (Auto) Lymph # (Auto) [place] # (Auto) Eos # (Auto) Baso # (Auto) Immature Gran # (Auto) Absolute Nucleated RBC Immature Gran % Nucleated RBC % PT INR APTT Puncture Site Arterial Line Right Radial ABG pH 7.06 L* 7.00 L* ABG pCO2 42 D 38 ABG pO2 71 L 143 H D ABG HCO3 12 L 9 L* ABG O2 Saturation 91 99 H ABG Base Excess -18 L -21 L VBG pH VBG pCO2 VBG pO2 VBG O2 Sat (Haresh) VBG Base Excess FiO2 21 50 Sodium Potassium Chloride Carbon Dioxide Anion Gap BUN Creatinine Estim Creat Clear Calc eGFR BUN/Creatinine Ratio Glucose Calculated Osmolality Lactic Acid 18.0 H* Calcium Corrected Calcium Phosphorus Magnesium Total Bilirubin AST ALT Alkaline Phosphatase Total Creatine Kinase Troponin I Total Protein Albumin Globulin Albumin/Globulin Ratio Procalcitonin 09/25/24 09/25/24 09/25/24 00:32 03:15 03:22 WBC 12.4 H 11.3 H RBC 3.41 L 3.35 L Hgb 10.8 L 10.6 L Hct 35.0 L 33.7 L MCV 103 H 101 H MCH 31.7 31.6 MCHC 30.9 L 31.5 RDW Std Deviation 58.7 H 57.2 H Plt Count 191 D 188 Neut % (Auto) 83 H 85 H Lymph % (Auto) 11 11 [place] % (Auto) 5 4 Eos % (Auto) 0 0 Baso % (Auto) 0 0 Neut # (Auto) 10.4 H 9.6 H Lymph # (Auto) 1.3 1.2 [place] # (Auto) 0.6 0.4 Eos # (Auto) 0.0 0.0 Baso # (Auto) 0.0 0.0 Immature Gran # (Auto) 0.08 H 0.05 H Absolute Nucleated RBC 0.02 H 0.02 H Immature Gran % 1 H 0 Nucleated RBC % 0 0 PT INR APTT 138.5 H* D Puncture Site Arterial Line ABG pH 7.06 L* ABG pCO2 48 D ABG pO2 81 L D ABG HCO3 14 L ABG O2 Saturation 94 ABG Base Excess -16 L VBG pH VBG pCO2 VBG pO2 VBG O2 Sat (Haresh) VBG Base Excess FiO2 50 Sodium 147 H 147 H Potassium 3.1 L D 3.8 D Chloride 107 107 Carbon Dioxide 12.4 L* 13.6 L* Anion Gap 28 H 26 H BUN 37 H 39 H Creatinine 2.5 H 2.6 H Estim Creat Clear Calc 25.5 L 24.5 L eGFR 25 L 24 L BUN/Creatinine Ratio 15 15 Glucose 137 H D 142 H Calculated Osmolality 303 H 303 H Lactic Acid 17.0 H* Calcium 7.7 L 7.7 L Corrected Calcium 8.9 8.9 Phosphorus 7.5 H Magnesium 2.0 Total Bilirubin 0.6 0.7 AST 521 H* > 1000 H* ALT 442 H 1005 H* Alkaline Phosphatase 51 47 Total Creatine Kinase 678 H Troponin I 12.230 H* D 11.284 H* D Total Protein 4.4 L 4.3 L Albumin 2.5 L 2.5 L Globulin 1.9 L 1.8 L Albumin/Globulin Ratio 1.3 1.4 Procalcitonin 09/25/24 09/25/24 09/25/24 05:41 06:50 10:24 WBC RBC Hgb Hct MCV MCH MCHC RDW Std Deviation Plt Count Neut % (Auto) Lymph % (Auto) [place] % (Auto) Eos % (Auto) Baso % (Auto) Neut # (Auto) Lymph # (Auto) [place] # (Auto) Eos # (Auto) Baso # (Auto) Immature Gran # (Auto) Absolute Nucleated RBC Immature Gran % Nucleated RBC % PT INR APTT Puncture Site Arterial Line Site Not Noted ABG pH 7.12 L* 7.21 L ABG pCO2 46 41 ABG pO2 137 H D 59 L* D ABG HCO3 15 L 16 L ABG O2 Saturation 99 H 90 L ABG Base Excess -14 L -11 L VBG pH VBG pCO2 VBG pO2 VBG O2 Sat (Haresh) VBG Base Excess FiO2 50 45 Sodium Potassium Chloride Carbon Dioxide Anion Gap BUN Creatinine Estim Creat Clear Calc eGFR BUN/Creatinine Ratio Glucose Calculated Osmolality Lactic Acid 16.0 H* Calcium Corrected Calcium Phosphorus Magnesium Total Bilirubin AST ALT Alkaline Phosphatase Total Creatine Kinase Troponin I Total Protein Albumin Globulin Albumin/Globulin Ratio Procalcitonin 09/25/24 09/25/24 09/25/24 10:55 12:05 12:34 WBC RBC Hgb Hct MCV MCH MCHC RDW Std Deviation Plt Count Neut % (Auto) Lymph % (Auto) [place] % (Auto) Eos % (Auto) Baso % (Auto) Neut # (Auto) Lymph # (Auto) [place] # (Auto) Eos # (Auto) Baso # (Auto) Immature Gran # (Auto) Absolute Nucleated RBC Immature Gran % Nucleated RBC % PT INR APTT > 139.0 H* Puncture Site Arterial Line ABG pH 7.21 L ABG pCO2 37 ABG pO2 73 L ABG HCO3 15 L ABG O2 Saturation 94 ABG Base Excess -12 L VBG pH 7.12 L VBG pCO2 52 VBG pO2 45 VBG O2 Sat (Haresh) 75 L VBG Base Excess -12 L FiO2 50 Sodium 150 H Potassium 3.2 L D Chloride 108 H Carbon Dioxide 17.5 L Anion Gap 25 H BUN 42 H Creatinine 2.6 H Estim Creat Clear Calc 25.2 L eGFR 24 L BUN/Creatinine Ratio 16 Glucose 78 D Calculated Osmolality 307 H Lactic Acid 15.0 H* Calcium 6.8 L* Corrected Calcium 8.0 L Phosphorus Magnesium 1.7 Total Bilirubin 0.6 AST 5100 H* ALT > 3300 H* Alkaline Phosphatase 52 Total Creatine Kinase Troponin I 9.975 H* D Total Protein 4.4 L Albumin 2.5 L Globulin 1.9 L Albumin/Globulin Ratio 1.3 Procalcitonin 71.02 H ABG Interpretation ABG results: 09/24/24 09/24/24 09/24/24 13:15 20:49 22:07 ABG pH 6.97 L* 6.98 L* 7.06 L* ABG pCO2 56 H 29 L D 42 D ABG pO2 126 H 85 D 71 L ABG HCO3 13 L 7 L* 12 L ABG O2 Saturation 97 93 91 ABG Base Excess -19 L -24 L -18 L VBG pH VBG pCO2 VBG pO2 VBG Base Excess 09/24/24 09/25/24 09/25/24 23:31 03:22 05:41 ABG pH 7.00 L* 7.06 L* 7.12 L* ABG pCO2 38 48 D 46 ABG pO2 143 H D 81 L D 137 H D ABG HCO3 9 L* 14 L 15 L ABG O2 Saturation 99 H 94 99 H ABG Base Excess -21 L -16 L -14 L VBG pH VBG pCO2 VBG pO2 VBG Base Excess 09/25/24 09/25/24 09/25/24 10:24 12:05 12:34 ABG pH 7.21 L 7.21 L ABG pCO2 41 37 ABG pO2 59 L* D 73 L ABG HCO3 16 L 15 L ABG O2 Saturation 90 L 94 ABG Base Excess -11 L -12 L VBG pH 7.12 L VBG pCO2 52 VBG pO2 45 VBG Base Excess -12 L Quality Measures Quality Measures none Advance care planning discussed with:: child Assessment & Plan Assessment Current Active Medications: Generic Name Dose Route Start Last Admin Trade Name Freq PRN Reason Stop Dose Admin Aspirin 81 mg 09/25/24 11:30 Aspirin 81 Mg Chew NG 10/25/24 11:29 QDAY SUKUMAR Dextrose 25 ml 09/25/24 10:27 Dextrose 50%-Water Inj 50 Ml Syringe IV 10/25/24 10:26 Q15MIN PRN BG 50-70 responsive npo pt Dextrose 50 ml 09/25/24 10:27 Dextrose 50%-Water Inj 50 Ml Syringe IV 10/25/24 10:26 Q15MIN PRN BG <50 OR BG <70 & pt unresponsive Glucagon 1 mg 09/25/24 10:27 Glucagon Inj 1 Mg Vial IM Q15MIN PRN BG <70, and no IV access Hydrocortisone Sodium Succinate 50 mg 09/25/24 12:00 Hydrocortisone Sod Succ Inj 100 Mg Vial IV 09/29/24 11:59 Q6HR SUKUMAR Vasopressin/Sodium Chloride 20 unit in 100 mls @ 9 mls/hr 09/24/24 13:17 09/25/24 00:58 Vasostrict/Ns Ivpb IV 10/24/24 13:16 0.03 unit/min .Q11H7M PRN 9 mls/hr PER PROTOCOL Administration Protocol 0.03 UNIT/MIN Fentanyl Citrate 2,500 mcg in 250 mls @ 2.5 mls/hr 09/24/24 15:47 09/25/24 08:00 Sublimaze Inj 2,500 Mcg/250 Ml Bag IV 09/29/24 15:46 0 mcg/hr .Q24H PRN 0 mls/hr PER PROTOCOL Titration Protocol 25 MCG/HR Propofol 1,000 mg in 100 mls @ 2.273 mls/hr 09/24/24 15:48 09/24/24 18:00 Diprivan Ivpb IV 10/24/24 15:47 0 mcg/kg/min .Q24H PRN 0 mls/hr PER PROTOCOL Titration Protocol 5 MCG/KG/MIN Ceftriaxone Sodium/Dextrose 1 gm in 50 mls @ 100 mls/hr 09/24/24 16:52 09/25/24 09:30 Rocephin/D5w 1gm Iv Premix IV 10/01/24 16:51 100 mls/hr QDAY SUKUMAR Administration Metronidazole 500 mg in 100 mls @ 200 mls/hr 09/24/24 16:52 09/25/24 05:45 Flagyl 500 Mg Iv IV 10/01/24 16:51 200 mls/hr Q8HR SUKUMAR Administration Epinephrine/Sodium Chloride 4 mg in 250 mls @ 14.203 mls/hr 09/24/24 20:21 Adrenalin/Ns 4 Mg Ivpb IV 10/24/24 20:20 .[id number] PRN per protocol Protocol 0.05 MCG/KG/MIN Norepinephrine Bitartrate 16 mg in 250 mls @ 3.551 mls/hr 09/24/24 20:23 09/25/24 10:45 Levophed In Ns 16mg/250ml IV 10/24/24 20:22 1.16 mcg/kg/min .Q24H PRN 82.378 mls/hr PER protocol Titration Protocol 0.05 MCG/KG/MIN Heparin Sodium/Dextrose 25,000 unit in 250 mls @ 9.09 mls/hr 09/24/24 20:30 09/25/24 05:06 Heparin In D5w Ivpb IV 10/08/24 20:29 9 units/kg/hr .Q24H SUKUMAR 6.818 mls/hr Titration Protocol 12 UNITS/KG/HR Epinephrine HCl 16 mg/ Sodium 250 mls @ 3.551 mls/hr 09/24/24 20:46 09/25/24 10:50 Chloride IV 10/24/24 20:45 0.2 mcg/kg/min .Q24H PRN 14.203 mls/hr per protocol Titration Protocol 0.05 MCG/KG/MIN Dopamine HCl/Dextrose 400 mg in 250 mls @ 14.203 mls/hr 09/24/24 21:21 09/25/24 08:40 Intropin In D5w Ivpb IV 10/24/24 21:20 5 mcg/kg/min .[id number] SUKUMAR 14.203 mls/hr Titration Protocol 5 MCG/KG/MIN Calcium Chloride 10 ml/ Sodium 110 mls @ 110 mls/hr 09/25/24 13:09 Chloride IV 09/25/24 13:10 X1 ONE Insulin Human Lispro 0 unit 09/25/24 14:00 Insulin Lispro (Admelog) 1 Unit/0.01 Ml Unit SC 10/25/24 13:59 Q4HR SUKUMAR Protocol Pantoprazole Sodium 40 mg 09/24/24 19:15 09/25/24 07:59 Pantoprazole Inj 40 Mg Vial IVP 10/24/24 19:14 40 mg Q12H SUKUMAR Administration Sodium Bicarbonate 50 ml 09/25/24 08:30 09/25/24 09:30 Sodium Bicarb Inj 8.4% Syr 50 Ml Syringe IV 10/25/24 08:29 50 ml Q4H SUKUMAR Administration Plan 79-year-old male with past medical history of CKD stage III, DM 2, hypertension, hyperlipidemia, A-fib s/p ablation, Watchman, and pacemaker, CAD status post stents, and pulmonary fibrosis was admitted to the ICU on 09/24/2024 postcardiac arrest. Patient on high dose vasopressor and intrope therapy. 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 No improvement in neurologic status. Opens eyes to painful stimuli and will very slightly move fingers to painful stimuli, no purposeful movements Pupils became dilated this morning at unknown time, last charted reactive pupils were at 0400 however when we arrived at 0645, pupils were dilated CVS: #s/p cardiac arrest #s/p PEA #s/p Ventricullar fibrillation #Hx Afib #Shock Patient came in via EMS and was found to have PEA by EMS staff. Was administed 4mg of epinephrine through left tibial IO. ROSC ultimately obtained however patient converted back into v-fib and was shocked. Total code time around 30 minutes. Patient was on Levophed at 2mcg/kg/min, epinephrine at .72mcg/kg/min, dopamine at .19mcg/kg/min, and vasopressin 0.03U/min, MAPs in high 70s-low 80s - Dopamine apparently for bradycardia overnight, will titrate dopamine off first and titrate other pressors to a MAP goal of 60 Bicarbonate drip discontinued, will proceed with bicarbonate pushes as needed until CRRT can begin - TTE revealed EF 40-45%, no focal hypokinesis. Shock- Unlikey to be obstructive 2/2 imaging findings, patient non responsive to PLR unlikely hypovolemic. He is on large dose vasopressor therapy, suspect some cardiogenic contribution and likely distributive from infectious source. SVR 1500. #CAD s/p stents, pacemaker, and watchman #Troponinemia Patient has a history of CAD status post stents and was on Plavix and aspirin, however was apparently held due to suspected GI bleed Per patient's family patient has more than 90% blockage of the LAD Troponin peaked at 12.2 at midnight 09/25/24 Cardiology consulted - Restart [id number] per NG tube - Recommended heparin gtt for acute LA, will continue with heparin gtt protocol Respiratory: #Acute hypoxic respiratory failure #Mechanically ventilated Secondary to cardiac arrest Patient intubated on 09/24/2024 Initial ventilator settings were TV550, PEEP 5, FiO2 45%, adjusted to more lung protective settings with TV 470, PEEP 5, FiO2 45%, RR 22 ABG with these settings 7.21/37/73/15 - which is an improvement from overnight gasses in terms of acid-base status. Oxygenation is worsening #Pneumonia Currently being treated with vancomycin, Rocephin, and Flagyl. Will discontinue vancomycin if MRSA nares is negative, otherwise will continue #Hx of IPF On nintedanib at home, hold for now Start hydrocortisone 50mg q6hr Renal: #Hx of CKD stage III #High anion gap metabolic acidosis 2/2 lactic acidosis Patient came in with creatinine of 2.4 and BUN of 33 Will check CK Patient has been anuric since admission to ICU Avoid nephrotoxic agent Renally dose medications Lactate remains elevated around 16. Patient will need CRRT to clear lactate Nephrology (Dr. Pearson) consulted and ordered CRRT R femoral line placed in ED during code was placed in non-sterile conditions. Line to be removed L IJ TriFlow line placed for CRRT GI: #Shock liver #Pneumoperitoneum AST/ALT severely elevated consistent with shock liver Patient was on Flagyl outpatient for suspected GI infxn CT today revealed moderate free air in abdomen Surgery (Dr. Yusuf) consulted, nothing to do from a surgical standpoint given patient's current vasopressor requirements Endo: #Hx DM2 ISS with q4hr BS checks Heme/ID #Macrocytic normochromic anemia Patient came in with hemoglobin of 12.4 MCV of 101 Patient is baseline hemoglobin is around 11-12 Will transfuse if hemoglobin less than 7 - Blood cultures collected today 09/25 - UCx to be collected if patient produces urine - Broad spectrum therapy with vancomycin, Rocephin, Flagyl, pending nasal MRSA screen with vanc to be dc'd if negative Hospital Maintenance: Diet: NPO DVT ppx: therapeutic heparin gtt GI ppx: Protonix IV IV lines: PIV, CIV Sanders: sanders cath Code status: Full code Dispo: ICU post cardiac arrest
--- NOTE | 2024-09-25 13:24 | PRELIM_ITS ---
CT scan of the head without intravenous contrast (axial sections with sagittal and coronal reformats) September 25, 2024 1140 hours Clinical history: s/p cardiac arrest, cerebral edema assessment No prior study is available for comparison. Findings: There is no evidence of intracranial hemorrhage, mass effect or midline shift. There are periventricular white matter hypodensities, compatible with chronic small vessel ischemia. The CSF spaces are prominent consistent with volume loss. The calvarium is unremarkable. There is mild mucosal thickening in the bilateral ethmoid sinuses. The mastoid air cells and the visualized paranasal sinuses are clear. There are age indeterminate bilateral nasal bone fractures. There is a 8 x 3 mm lipoma in the midline occipital scalp. Impression: No evidence of intracranial hemorrhage, mass effect or midline shift. Chronic small vessel ischemia and volume loss. Other findings as described above. Report Electronically Signed By: Chencho Horn 09/25/2024 1:23:37 PM [EST]
--- NOTE | 2024-09-25 13:32 | ESPR_ITS ---
<Statement entered by Steph Mathis MD - 09/26/24 13:28> I personally examined the patient in intensive care unit spent more than 2 hours evaluated the patient and management of critical care because of multiple complex medical issues patient was in cardiogenic shock left ventricle function improved to 45% but patient has severe metabolic acidosis secondary to lactic acidosis due to many factors including liver disease shock liver from prolonged hypotension and also due to possible intra-abdominal pathology patient has free air pneumoperitoneum seen by general surgery Dr. Yusuf and also Dr. Albert progressive assembler and fitter who also felt that the patient has free air possibly perforation from duodenal ulcer more likely but there is no rebound tenderness and no other findings of acute abdomen. Patient is critically ill not responsive on still multiple vasopressors including norepinephrine and epinephrine as well as vasopressin still on the ventilator. The patient remains deeply comatose not responding appears to have severe hypoxic encephalopathy there is also some metabolic component. At this point is felt is too risky for the patient to be taken to the operating room after prolonged discussion and consultation with multiple specialties we decided to continue sled dialysis overnight and the metabolic acidosis does not improve we will consider reevaluation the morning. Patient also has severe hypoxic encephalopathy which will be assessed tomorrow again possibly neurology consult. Condition remain critical prognosis poor spent more than 120 minutes critical care time I evaluated the patient with resident physician agree with assessment treatment plan recommendations as documented by PGY 2 Dr. Indigo Oconnor MD Documentation for date of: 09/25/24 Subjective Subjective Interval history: Patient continues to remain on pressor support and required dopamine overnight but had been weaned off as of this morning, remains on 3 pressors, norepi, epi, and vaso. He has improvement of acidemia with pH on ABG up to 7.21 but continues to have high lactic acidosis at 16.0, peaked at 18.0 overnight. CRRT dialysis was started. CT chest/abdomen/pelvis revealed a pneumoperitoneum and surgery was consulted, case was discussed with Dr. Yusuf who felt that the patient is too unstable to undergo surgical exploration at this time and would likely not survive. Goal is to have acidemia corrected or improved first hopefully with CRRT and continued resuscitation. If it does not improve then there is likely a bowel source. Troponin peaked at 12.230 last night. Echo showed fairly good EF of 40-45% despite apical hypokinesis. Patient remains on heparin drip and aspirin 81 mg qday was recommended as well. No current clinical signs of bleeding. Neurological status seems guarded as the patient's pupils have become fixed. Review of systems otherwise negative except what is mentioned above. Exam Vital Signs Temp Pulse Resp BP Pulse Ox O2 Del Method FiO2 97.0 F 70 31 H 103/57 L 99 Mechanical Ventilation 45 09/25/24 04:00 09/25/24 13:16 09/25/24 13:16 09/25/24 13:16 09/25/24 13:16 09/24/24 16:00 09/25/24 12:00 Narrative Exam Physical Exam General: Intubated and sedated. HEENT: Normocephalic, atraumatic, ET tube in place. Pupils are 4 mm and fixed, eyes in upward gaze. Heart: Regular rate and rhythm, normal S1 and S2, no murmurs. No JVD seen. Lungs: Clear to auscultation bilaterally. Abdomen: Diffusely distended abdomen, slightly firm, no bowel sounds heard. No guarding. Unable to assess for tenderness. Neurologic: Unable to fully assess. Patient is non-reactive to painful stimuli. Extremities: No edema. Cold lower bilateral extremities. Capillary refill 5 sec. Skin: Chronic venous stasis skin changes bilateral lower extremities. Objective Labs 09/25/24 22:10 09/25/24 22:10 Labs: Laboratory Results - last 24 hr 09/24/24 09/24/24 09/24/24 12:42 15:34 16:41 WBC 15.3 H RBC 3.59 L Hgb 11.4 L Hct 35.7 L MCV 99 MCH 31.8 MCHC 31.9 RDW Std Deviation 56.4 H Plt Count 253 Neut % (Auto) 74 Lymph % (Auto) 15 Calloway % (Auto) 6 Eos % (Auto) 3 Baso % (Auto) 0 Neut # (Auto) 11.4 H Lymph # (Auto) 2.3 Calloway # (Auto) 0.8 Eos # (Auto) 0.5 Baso # (Auto) 0.0 Immature Gran # (Auto) 0.27 H Absolute Nucleated RBC 0.02 H Immature Gran % 2 H Nucleated RBC % 0 PT 14.0 H INR 1.3 APTT 46.9 H 45.7 H Puncture Site ABG pH ABG pCO2 ABG pO2 ABG HCO3 ABG O2 Saturation ABG Base Excess VBG pH VBG pCO2 VBG pO2 VBG O2 Sat (Haresh) VBG Base Excess FiO2 Sodium 136 141 Potassium 4.3 3.8 D Chloride 109 H 109 H Carbon Dioxide < 10.0 L* < 10.0 L* Anion Gap 17 H 22 H BUN 33 H 35 H Creatinine 2.4 H 2.4 H Estim Creat Clear Calc 26.6 L 26.6 L eGFR 27 L 27 L BUN/Creatinine Ratio 14 15 Glucose 199 H 217 H Calculated Osmolality 285 296 H Lactic Acid 9.3 H* Calcium 9.4 8.2 L Corrected Calcium 9.6 9.2 Phosphorus Magnesium 1.7 Total Bilirubin 0.2 L 0.4 AST 40 H 88 H ALT 27 43 Alkaline Phosphatase 36 L 55 D Total Creatine Kinase Troponin I 0.058 H* 6.822 H* D Total Protein 6.4 4.8 L Albumin 3.8 2.7 L D Globulin 2.6 2.1 L Albumin/Globulin Ratio 1.5 1.3 Procalcitonin 0.24 09/24/24 09/24/24 09/24/24 20:34 20:49 22:07 WBC RBC Hgb 11.5 L Hct 37.7 L MCV MCH MCHC RDW Std Deviation Plt Count Neut % (Auto) Lymph % (Auto) Calloway % (Auto) Eos % (Auto) Baso % (Auto) Neut # (Auto) Lymph # (Auto) Calloway # (Auto) Eos # (Auto) Baso # (Auto) Immature Gran # (Auto) Absolute Nucleated RBC Immature Gran % Nucleated RBC % PT INR APTT Puncture Site Right Radial Arterial Line ABG pH 6.98 L* 7.06 L* ABG pCO2 29 L D 42 D ABG pO2 85 D 71 L ABG HCO3 7 L* 12 L ABG O2 Saturation 93 91 ABG Base Excess -24 L -18 L VBG pH VBG pCO2 VBG pO2 VBG O2 Sat (Haresh) VBG Base Excess FiO2 21 21 Sodium Potassium Chloride Carbon Dioxide Anion Gap BUN Creatinine Estim Creat Clear Calc eGFR BUN/Creatinine Ratio Glucose Calculated Osmolality Lactic Acid 15.0 H* Calcium Corrected Calcium Phosphorus Magnesium Total Bilirubin AST ALT Alkaline Phosphatase Total Creatine Kinase Troponin I Total Protein Albumin Globulin Albumin/Globulin Ratio Procalcitonin 09/24/24 09/24/24 09/25/24 23:31 23:43 00:32 WBC 12.4 H RBC 3.41 L Hgb 10.8 L Hct 35.0 L MCV 103 H MCH 31.7 MCHC 30.9 L RDW Std Deviation 58.7 H Plt Count 191 D Neut % (Auto) 83 H Lymph % (Auto) 11 Calloway % (Auto) 5 Eos % (Auto) 0 Baso % (Auto) 0 Neut # (Auto) 10.4 H Lymph # (Auto) 1.3 Calloway # (Auto) 0.6 Eos # (Auto) 0.0 Baso # (Auto) 0.0 Immature Gran # (Auto) 0.08 H Absolute Nucleated RBC 0.02 H Immature Gran % 1 H Nucleated RBC % 0 PT INR APTT Puncture Site Right Radial ABG pH 7.00 L* ABG pCO2 38 ABG pO2 143 H D ABG HCO3 9 L* ABG O2 Saturation 99 H ABG Base Excess -21 L VBG pH VBG pCO2 VBG pO2 VBG O2 Sat (Haresh) VBG Base Excess FiO2 50 Sodium 147 H Potassium 3.1 L D Chloride 107 Carbon Dioxide 12.4 L* Anion Gap 28 H BUN 37 H Creatinine 2.5 H Estim Creat Clear Calc 25.5 L eGFR 25 L BUN/Creatinine Ratio 15 Glucose 137 H D Calculated Osmolality 303 H Lactic Acid 18.0 H* Calcium 7.7 L Corrected Calcium 8.9 Phosphorus 7.5 H Magnesium 2.0 Total Bilirubin 0.6 AST 521 H* ALT 442 H Alkaline Phosphatase 51 Total Creatine Kinase 678 H Troponin I 12.230 H* D Total Protein 4.4 L Albumin 2.5 L Globulin 1.9 L Albumin/Globulin Ratio 1.3 Procalcitonin 09/25/24 09/25/24 09/25/24 03:15 03:22 05:41 WBC 11.3 H RBC 3.35 L Hgb 10.6 L Hct 33.7 L MCV 101 H MCH 31.6 MCHC 31.5 RDW Std Deviation 57.2 H Plt Count 188 Neut % (Auto) 85 H Lymph % (Auto) 11 Calloway % (Auto) 4 Eos % (Auto) 0 Baso % (Auto) 0 Neut # (Auto) 9.6 H Lymph # (Auto) 1.2 Calloway # (Auto) 0.4 Eos # (Auto) 0.0 Baso # (Auto) 0.0 Immature Gran # (Auto) 0.05 H Absolute Nucleated RBC 0.02 H Immature Gran % 0 Nucleated RBC % 0 PT INR APTT 138.5 H* D Puncture Site Arterial Line Arterial Line ABG pH 7.06 L* 7.12 L* ABG pCO2 48 D 46 ABG pO2 81 L D 137 H D ABG HCO3 14 L 15 L ABG O2 Saturation 94 99 H ABG Base Excess -16 L -14 L VBG pH VBG pCO2 VBG pO2 VBG O2 Sat (Haresh) VBG Base Excess FiO2 50 50 Sodium 147 H Potassium 3.8 D Chloride 107 Carbon Dioxide 13.6 L* Anion Gap 26 H BUN 39 H Creatinine 2.6 H Estim Creat Clear Calc 24.5 L eGFR 24 L BUN/Creatinine Ratio 15 Glucose 142 H Calculated Osmolality 303 H Lactic Acid 17.0 H* Calcium 7.7 L Corrected Calcium 8.9 Phosphorus Magnesium Total Bilirubin 0.7 AST > 1000 H* ALT 1005 H* Alkaline Phosphatase 47 Total Creatine Kinase Troponin I 11.284 H* D Total Protein 4.3 L Albumin 2.5 L Globulin 1.8 L Albumin/Globulin Ratio 1.4 Procalcitonin 09/25/24 09/25/24 09/25/24 06:50 10:24 10:55 WBC RBC Hgb Hct MCV MCH MCHC RDW Std Deviation Plt Count Neut % (Auto) Lymph % (Auto) Calloway % (Auto) Eos % (Auto) Baso % (Auto) Neut # (Auto) Lymph # (Auto) Calloway # (Auto) Eos # (Auto) Baso # (Auto) Immature Gran # (Auto) Absolute Nucleated RBC Immature Gran % Nucleated RBC % PT INR APTT > 139.0 H* Puncture Site Site Not Noted ABG pH 7.21 L ABG pCO2 41 ABG pO2 59 L* D ABG HCO3 16 L ABG O2 Saturation 90 L ABG Base Excess -11 L VBG pH VBG pCO2 VBG pO2 VBG O2 Sat (Haresh) VBG Base Excess FiO2 45 Sodium Potassium Chloride Carbon Dioxide Anion Gap BUN Creatinine Estim Creat Clear Calc eGFR BUN/Creatinine Ratio Glucose Calculated Osmolality Lactic Acid 16.0 H* Calcium Corrected Calcium Phosphorus Magnesium Total Bilirubin AST ALT Alkaline Phosphatase Total Creatine Kinase Troponin I 9.975 H* D Total Protein Albumin Globulin Albumin/Globulin Ratio Procalcitonin 71.02 H 09/25/24 09/25/24 12:05 12:34 WBC RBC Hgb Hct MCV MCH MCHC RDW Std Deviation Plt Count Neut % (Auto) Lymph % (Auto) Calloway % (Auto) Eos % (Auto) Baso % (Auto) Neut # (Auto) Lymph # (Auto) Calloway # (Auto) Eos # (Auto) Baso # (Auto) Immature Gran # (Auto) Absolute Nucleated RBC Immature Gran % Nucleated RBC % PT INR APTT Puncture Site Arterial Line ABG pH 7.21 L ABG pCO2 37 ABG pO2 73 L ABG HCO3 15 L ABG O2 Saturation 94 ABG Base Excess -12 L VBG pH 7.12 L VBG pCO2 52 VBG pO2 45 VBG O2 Sat (Haresh) 75 L VBG Base Excess -12 L FiO2 50 Sodium 150 H Potassium 3.2 L D Chloride 108 H Carbon Dioxide 17.5 L Anion Gap 25 H BUN 42 H Creatinine 2.6 H Estim Creat Clear Calc 25.2 L eGFR 24 L BUN/Creatinine Ratio 16 Glucose 78 D Calculated Osmolality 307 H Lactic Acid 15.0 H* Calcium 6.8 L* Corrected Calcium 8.0 L Phosphorus Magnesium 1.7 Total Bilirubin 0.6 AST 5100 H* ALT > 3300 H* Alkaline Phosphatase 52 Total Creatine Kinase Troponin I Total Protein 4.4 L Albumin 2.5 L Globulin 1.9 L Albumin/Globulin Ratio 1.3 Procalcitonin ABG Interpretation ABG results: 09/24/24 09/24/24 09/24/24 13:15 20:49 22:07 ABG pH 6.97 L* 6.98 L* 7.06 L* ABG pCO2 56 H 29 L D 42 D ABG pO2 126 H 85 D 71 L ABG HCO3 13 L 7 L* 12 L ABG O2 Saturation 97 93 91 ABG Base Excess -19 L -24 L -18 L VBG pH VBG pCO2 VBG pO2 VBG Base Excess 09/24/24 09/25/24 09/25/24 23:31 03:22 05:41 ABG pH 7.00 L* 7.06 L* 7.12 L* ABG pCO2 38 48 D 46 ABG pO2 143 H D 81 L D 137 H D ABG HCO3 9 L* 14 L 15 L ABG O2 Saturation 99 H 94 99 H ABG Base Excess -21 L -16 L -14 L VBG pH VBG pCO2 VBG pO2 VBG Base Excess 09/25/24 09/25/24 09/25/24 10:24 12:05 12:34 ABG pH 7.21 L 7.21 L ABG pCO2 41 37 ABG pO2 59 L* D 73 L ABG HCO3 16 L 15 L ABG O2 Saturation 90 L 94 ABG Base Excess -11 L -12 L VBG pH 7.12 L VBG pCO2 52 VBG pO2 45 VBG Base Excess -12 L Quality Measures Quality Measures none Advance care planning discussed with:: patient Assessment & Plan Assessment Current Active Medications: Generic Name Dose Route Start Last Admin Trade Name Freq PRN Reason Stop Dose Admin Aspirin 81 mg 09/25/24 11:30 Aspirin 81 Mg Chew NG 10/25/24 11:29 QDAY SUKUMAR Dextrose 25 ml 09/25/24 10:27 Dextrose 50%-Water Inj 50 Ml Syringe IV 10/25/24 10:26 Q15MIN PRN BG 50-70 responsive npo pt Dextrose 50 ml 09/25/24 10:27 Dextrose 50%-Water Inj 50 Ml Syringe IV 10/25/24 10:26 Q15MIN PRN BG <50 OR BG <70 & pt unresponsive Glucagon 1 mg 09/25/24 10:27 Glucagon Inj 1 Mg Vial IM Q15MIN PRN BG <70, and no IV access Hydrocortisone Sodium Succinate 50 mg 09/25/24 12:00 Hydrocortisone Sod Succ Inj 100 Mg Vial IV 09/29/24 11:59 Q6HR SUKUMAR Vasopressin/Sodium Chloride 20 unit in 100 mls @ 9 mls/hr 09/24/24 13:17 09/25/24 13:10 Vasostrict/Ns Ivpb IV 10/24/24 13:16 0.03 unit/min .[id number] PRN 9 mls/hr PER PROTOCOL Administration Protocol 0.03 UNIT/MIN Fentanyl Citrate 2,500 mcg in 250 mls @ 2.5 mls/hr 09/24/24 15:47 09/25/24 08:00 Sublimaze Inj 2,500 Mcg/250 Ml Bag IV 09/29/24 15:46 0 mcg/hr .Q24H PRN 0 mls/hr PER PROTOCOL Titration Protocol 25 MCG/HR Propofol 1,000 mg in 100 mls @ 2.273 mls/hr 09/24/24 15:48 09/24/24 18:00 Diprivan Ivpb IV 10/24/24 15:47 0 mcg/kg/min .Q24H PRN 0 mls/hr PER PROTOCOL Titration Protocol 5 MCG/KG/MIN Ceftriaxone Sodium/Dextrose 1 gm in 50 mls @ 100 mls/hr 09/24/24 16:52 09/25/24 09:30 Rocephin/D5w 1gm Iv Premix IV 10/01/24 16:51 100 mls/hr QDAY SUKUMAR Administration Metronidazole 500 mg in 100 mls @ 200 mls/hr 09/24/24 16:52 09/25/24 05:45 Flagyl 500 Mg Iv IV 10/01/24 16:51 200 mls/hr Q8HR SUKUMAR Administration Epinephrine/Sodium Chloride 4 mg in 250 mls @ 14.203 mls/hr 09/24/24 20:21 Adrenalin/Ns 4 Mg Ivpb IV 10/24/24 20:20 .[id number] PRN per protocol Protocol 0.05 MCG/KG/MIN Norepinephrine Bitartrate 16 mg in 250 mls @ 3.551 mls/hr 09/24/24 20:23 09/25/24 13:15 Levophed In Ns 16mg/250ml IV 10/24/24 20:22 1.2 mcg/kg/min .Q24H PRN 85.219 mls/hr PER protocol Administration Protocol 0.05 MCG/KG/MIN Heparin Sodium/Dextrose 25,000 unit in 250 mls @ 9.09 mls/hr 09/24/24 20:30 09/25/24 13:00 Heparin In D5w Ivpb IV 10/08/24 20:29 0 units/kg/hr .Q24H SUKUMAR 0 mls/hr Titration Protocol 12 UNITS/KG/HR Epinephrine HCl 16 mg/ Sodium 250 mls @ 3.551 mls/hr 09/24/24 20:46 09/25/24 13:00 Chloride IV 10/24/24 20:45 0.2 mcg/kg/min .Q24H PRN 14.203 mls/hr per protocol Titration Protocol 0.05 MCG/KG/MIN Dopamine HCl/Dextrose 400 mg in 250 mls @ 14.203 mls/hr 09/24/24 21:21 09/25/24 08:40 Intropin In D5w Ivpb IV 10/24/24 21:20 5 mcg/kg/min .[id number] SUKUMAR 14.203 mls/hr Titration Protocol 5 MCG/KG/MIN Calcium Gluconate/Sodium Chloride 1,000 mg in 50 mls @ 50 mls/hr 09/25/24 13:09 Calcium Gluc/Ns 1000mg Ivpb IV 09/25/24 14:08 X1 ONE Insulin Human Lispro 0 unit 09/25/24 14:00 Insulin Lispro (Admelog) 1 Unit/0.01 Ml Unit SC 10/25/24 13:59 Q4HR SUKUMAR Protocol Pantoprazole Sodium 40 mg 09/24/24 19:15 09/25/24 07:59 Pantoprazole Inj 40 Mg Vial IVP 10/24/24 19:14 40 mg Q12H SUKUMAR Administration Sodium Bicarbonate 50 ml 09/25/24 08:30 09/25/24 09:30 Sodium Bicarb Inj 8.4% Syr 50 Ml Syringe IV 10/25/24 08:29 50 ml Q4H SUKUMAR Administration Plan 79-year-old male with past medical history of afib s/p ablation and Watchman (not on anticoagulation due to GI bleed), multivessel CAD s/p multiple stents, pacemaker 2022, CKD stage 4, type 2 diabetes, hypertension, hyperlipidemia, and pulmonary fibrosis who was brought in by ambulance to the ED as a CODE BLUE on 09/24/2024 due to cardiopulmonary arrest. #Cardiogenic shock s/p cardiac arrest #Likely NSTEMI type 1 #History of multivessel CAD s/p stents #History of afib s/p ablation and Watchman #Elevated troponin - peaked Patient currently too unstable to undergo cath but if he improves will likely require cardiac catheterization to investigate for obstructive disease contributing to ischemia. Review of the EKGs show ST depressions in the precordial leads V2, V3, V4, V5, and V6. Troponin level peaked at 12.230. 09/25/2024 Echo showed normal size left ventricle with apical septal hypokinesis, LVEF 40-45%. Right atrium and right ventricle normal size with normal function Mildly dilated LA Mild to moderate tricuspid regurgitation with PAP 47 mm Hg est Mild MAC with mild mitral regurgitation Aortic valve sclerosis with no stenosis -Continue resuscitation, attempt to wean pressor support -No need to continue trending troponin -Continue with PIRRT/CRRT for acidemia -Continue heparin IV drip ACS protocol -Continue aspirin 81 mg via NG qday -Continuous reassessment of neurologic status Rest of conditions to continue current management per primary team: #Acidemia #Anion gap acidosis #Lactic acidosis #Acute hypoxic respiratory failure #Leukocytosis #Anemia of chronic disease #PAMELA on CKD stage 4 #GI infection possible colitis versus gastroenteritis #Pneumoperitoneum #History of gastric ulcers and GI bleed #Shock liver #Electrolyte imbalance Cardiology will continue to follow. Patient was discussed with the attending, Dr. Mathis. Thank you for allowing us to participate in the care of this patient. Shawanda Oconnor, PGY-2
--- NOTE | 2024-09-25 13:48 | PRELIM_ITS ---
Radiograph of the chest (single view). September 25, 2024 0519 hours Clinical history: mechanical ventilation Comparison: No prior study is available for comparison at the time of interpretation Findings: The aorta is ectatic with atheromatous calcification of the aortic arch. The heart size is within normal limits. A cardiac pacemaker is identified in the left chest wall with its lead tips in the right atrium and ventricle respectively. Prominent interstitial lung markings are noted. There are small bi lateral pleural effusions with underlying atelectasis/consolidation. Degenerative changes are identified in the spine. There is a right internal jugular central venous catheter with its tip in the right atrium. An endotracheal tube is in satisfactory position with its tip 2.3 cm above the felton. An endogastric catheter is seen with its tip below the diaphragm but not included in the field of view, side hole is distal to the gastroesophageal junction. Impression: Small bilateral pleural effusions with underlying atelectasis/consolidation. Interstitial pulmonary edema. Lines and tubes as described. Report Electronically Signed By: Chencho Horn 09/25/2024 1:47:30 PM [EST]
[2024-09-25] MEDS: ASPIRIN 81 MG CHEW NG (13:57)
[2024-09-25] MEDS: CALCIUM GLUC/NS 1000MG IVPB 1,000 MG/50 ML BAG 50 MG IV (13:57)
[2024-09-25] MEDS: HYDROCORTISONE SOD SUCC INJ 100 MG VIAL 50 MG IV ×2 (13:58→18:38)
--- NOTE | 2024-09-25 14:14 | ESCONSULT_ITS ---
HPI Data of Consult Consult date: 09/25/24 Requesting Physician: Fe Saldaña MD Admitting Provider: Eyal Tyler MD Attending Provider: Fe Saldaña MD Primary Care Provider: Amalia Pearson MD Consult Narrative Reason for consult: PAMELA, intractable metabolic acidosis History of present illness: Patient currently intubated-chart review done. Mr. Rapp is a 79-year-old male with a medical history of CKD stage III, type 2 diabetes, hypertension, hyperlipidemia, atrial fibrillation, coronary artery disease status post stents, pacemaker, Watchman, and pulmonary fibrosis, was admitted to the ICU on 09/24/2024 following a CODE BLUE in the ED due to PEA. The patient was in his usual state of health this morning but lost consciousness after returning from the bathroom. His started CPR, and EMS arrived to find PEA. Four rounds of epinephrine were administered via left IO line, and he was intubated. CPR continued en route, and ROSC was achieved briefly at 12:25 PM, followed by V-fib and loss of pulse again. ROSC was regained at 12:53 PM upon arrival to the ICU. The patient's family reported a fall yesterday with a brief loss of consciousness but no subsequent medical evaluation. The patient had a physical therapy session yesterday with no issues. The patient is on aspirin, Plavix, and Bumex, with the last dose of Bumex given yesterday. In the ED, he received epinephrine, sodium bicarb, magnesium, and was placed on amiodarone and Versed drip. Labs showed leukocytosis, low hemoglobin, metabolic acidosis, azotemia, elevated lactic acid, and elevated troponin. The patient is sedated, mechanically ventilated, and continues on vasopressors. A CT is being done to evaluate for possible intracranial bleed. Elevated creatinine and BUN, possible acute kidney injury due to cardiac arrest. Nephrology consult was requested for evaluation and potential hemodialysis, given concerns about worsening renal function and the risk of fluid overload due to the patient?s CKD. Currently on 3 VASOPRESSORS, MAP 61. Afebrile, HR 70s, RR 31, on mechanical ventilation. Labs showing sodium 150, potassium 3.2, chloride 108, CO2 17.5, anion gap 25, BUN 42, CR 2.6, EGFR 24, GLUCOSE 78, serum osmole 307, lactic acid 15, calcium corrected 8.0, AST 5100, ALT greater than 3300, ALBUMIN 2.5. WBC 11.3, Hgb 10.6, PLT 188. aPTT greater than 139. ABG showing pH 7.21, pCO2 37, PaO2 73, bicarb 15. Head CT was negative for acute hemorrhage, mass effect or midline shift. CT Pending final read. Echo showed apical septal hypokinesis with LVEF 40-45%, among other findings. Blood cultures are pending. Nephrology was consulted for CCRT. Recommendations as below. cc:: cc: Fe Saldaña MD Review of Systems Review of Systems ROS Unobtainable: due to endotracheal tube Exam Vital Signs Temp Pulse Resp BP Pulse Ox O2 Del Method FiO2 97.0 F 70 31 H 103/57 L 99 Mechanical Ventilation 45 09/25/24 04:00 09/25/24 13:16 09/25/24 13:16 09/25/24 13:16 09/25/24 13:16 09/24/24 16:00 09/25/24 12:00 Narrative Exam General: Sedated and mechanically ventilated. Eyes: Pupils reactive bilaterally; patient intermittently opens eyes. Ears: No visible discharge noted. Nose: No nasal discharge. Mouth/Throat: Dry mucous membranes, no redness or lesions observed. Neck: Neck supple; no cervical lymphadenopathy detected. Lungs: Mechanically ventilated; mild expiratory wheezing noted bilaterally. Cardiovascular: Normal S1/S2, regular rhythm, no murmurs, jugular venous distension (JVD) present. Abdomen: Soft but distended, no palpable masses, peristalsis present, no guarding or rebound tenderness. Extremities: Symmetrical, no significant deformities, 2+ pitting edema, peripheral pulses not palpable. Skin: Bilateral hands and feet are cold and mildly cyanotic. Neurological: Pupils reactive bilaterally, negative Babinski reflex. Results Labs 09/26/24 05:17 09/26/24 05:17 Labs: Short CBC 09/24/24 09/24/24 09/25/24 Range/Units 15:34 20:34 00:32 WBC 15.3 H 12.4 H (3.8-10.6) Thou/mm3 Hgb 11.4 L 11.5 L 10.8 L (13.5-16.0) g/dL Hct 35.7 L 37.7 L 35.0 L (41.0-53.0) % Plt Count 253 191 D (140-440) Thou/mm3 09/25/24 Range/Units 03:15 WBC 11.3 H (3.8-10.6) Thou/mm3 Hgb 10.6 L (13.5-16.0) g/dL Hct 33.7 L (41.0-53.0) % Plt Count 188 (140-440) Thou/mm3 BMP 09/24/24 09/25/24 09/25/24 15:34 00:32 03:15 Sodium 141 147 H 147 H Potassium 3.8 D 3.1 L D 3.8 D Chloride 109 H 107 107 Carbon Dioxide < 10.0 L* 12.4 L* 13.6 L* BUN 35 H 37 H 39 H Creatinine 2.4 H 2.5 H 2.6 H Glucose 217 H 137 H D 142 H Calcium 8.2 L 7.7 L 7.7 L 09/25/24 12:05 Sodium 150 H Potassium 3.2 L D Chloride 108 H Carbon Dioxide 17.5 L BUN 42 H Creatinine 2.6 H Glucose 78 D Calcium 6.8 L* Cardiac Enzymes 09/24/24 09/25/24 09/25/24 Range/Units 15:34 00:32 03:15 Total Creatine Kinase 678 H (34-171) U/L Troponin I 6.822 H* D 12.230 H* D 11.284 H* D (0.0-0.045) ng/mL 09/25/24 Range/Units 10:55 Total Creatine Kinase (34-171) U/L Troponin I 9.975 H* D (0.0-0.045) ng/mL Liver Function 09/24/24 09/25/24 09/25/24 Range/Units 15:34 00:32 03:15 Total Bilirubin 0.4 0.6 0.7 (0.3-1.2) mg/dL AST 88 H 521 H* > 1000 H* (0-34) U/L ALT 43 442 H 1005 H* (10-49) U/L Alkaline Phosphatase 55 D 51 47 (46-116) U/L Albumin 2.7 L D 2.5 L 2.5 L (3.4-4.8) gm/dL 09/25/24 Range/Units 12:05 Total Bilirubin 0.6 (0.3-1.2) mg/dL AST 5100 H* (0-34) U/L ALT > 3300 H* (10-49) U/L Alkaline Phosphatase 52 (46-116) U/L Albumin 2.5 L (3.4-4.8) gm/dL ABG Interpretation ABG results: 09/24/24 09/24/24 09/24/24 13:15 20:49 22:07 ABG pH 6.97 L* 6.98 L* 7.06 L* ABG pCO2 56 H 29 L D 42 D ABG pO2 126 H 85 D 71 L ABG HCO3 13 L 7 L* 12 L ABG O2 Saturation 97 93 91 ABG Base Excess -19 L -24 L -18 L VBG pH VBG pCO2 VBG pO2 VBG Base Excess 09/24/24 09/25/24 09/25/24 23:31 03:22 05:41 ABG pH 7.00 L* 7.06 L* 7.12 L* ABG pCO2 38 48 D 46 ABG pO2 143 H D 81 L D 137 H D ABG HCO3 9 L* 14 L 15 L ABG O2 Saturation 99 H 94 99 H ABG Base Excess -21 L -16 L -14 L VBG pH VBG pCO2 VBG pO2 VBG Base Excess 09/25/24 09/25/24 09/25/24 10:24 12:05 12:34 ABG pH 7.21 L 7.21 L ABG pCO2 41 37 ABG pO2 59 L* D 73 L ABG HCO3 16 L 15 L ABG O2 Saturation 90 L 94 ABG Base Excess -11 L -12 L VBG pH 7.12 L VBG pCO2 52 VBG pO2 45 VBG Base Excess -12 L Quality Measures Quality Measures none Advance care planning discussed with:: patient Medications Home Medications and Allergies Home Medications ?Medication ?Instructions ?Recorded ?Confirmed ?Type atorvastatin 40 mg tablet 40 mg PO QDAY 01/17/2308/14 History clopidogrel 75 mg tablet 75 mg PO QDAY 01/17/2308/14 History losartan 100 mg tablet 50 mg PO QDAY 01/17/2308/14 History megestrol 400 mg/10 mL (40 mg/mL) 400 mg PO QDAY 01/1708/14/23 History oral suspension mirtazapine 15 mg tablet 15 mg PO HS 01/17/23 4 History pantoprazole 40 mg tablet,delayed 40 mg PO QDAY 08/14/23 History release trazodone 50 mg tablet 50 mg PO QDAY 01/17/2308/14 History nintedanib 150 mg capsule (Ofev) 150 mg PO Q12H 08/14/23 History Allergies Allergy/AdvReac Type Severity Reaction Status Date / Time No Known Allergies Allergy Verified 10/04/21 14:55 Visit Medications Aspirin (Aspirin 81 Mg Chew) 81 mg NG QDAY [facility] Stop: 10/25/24 11:29 Last Admin: 09/25/24 13:57 Dose: 81 mg Dextrose (Dextrose 50%-Water Inj 50 Ml Syringe) 25 ml IV Q15MIN PRN PRN Reason: BG 50-70 responsive npo pt Stop: 10/25/24 10:26 Dextrose (Dextrose 50%-Water Inj 50 Ml Syringe) 50 ml IV Q15MIN PRN PRN Reason: BG <50 OR BG <70 & pt unresponsive Stop: 10/25/24 10:26 Glucagon (Glucagon Inj 1 Mg Vial) 1 mg IM Q15MIN PRN PRN Reason: BG <70, and no IV access Hydrocortisone Sodium Succinate (Hydrocortisone Sod Succ Inj 100 Mg Vial) 50 mg IV Q6HR [facility] Stop: 09/29/24 11:59 Last Admin: 09/25/24 13:58 Dose: 50 mg Vasopressin/Sodium Chloride (Vasostrict/Ns Ivpb) 20 unit in 100 mls @ 9 mls/hr IV .Q11H7M PRN; Protocol PRN Reason: PER PROTOCOL Stop: 10/24/24 13:16 Last Admin: 09/25/24 13:10 Dose: 0.03 unit/min, 9 mls/hr Fentanyl Citrate (Sublimaze Inj 2,500 Mcg/250 Ml Bag) 2,500 mcg in 250 mls @ 2.5 mls/hr IV .Q24H PRN; Protocol PRN Reason: PER PROTOCOL Stop: 09/29/24 15:46 Last Titration: 09/25/24 08:00 Dose: 0 mcg/hr, 0 mls/hr Propofol (Diprivan Ivpb) 1,000 mg in 100 mls @ 2.273 mls/hr IV .Q24H PRN; Protocol PRN Reason: PER PROTOCOL Stop: 10/24/24 15:47 Last Titration: 09/24/24 18:00 Dose: 0 mcg/kg/min, 0 mls/hr Ceftriaxone Sodium/Dextrose (Rocephin/D5w 1gm Iv Premix) 1 gm in 50 mls @ 100 mls/hr IV QDAY SUKUMAR Stop: 10/01/24 16:51 Last Admin: 09/25/24 09:30 Dose: 100 mls/hr Metronidazole (Flagyl 500 Mg Iv) 500 mg in 100 mls @ 200 mls/hr IV Q8HR [facility] Stop: 10/01/24 16:51 Last Admin: 09/25/24 13:57 Dose: 200 mls/hr Epinephrine/Sodium Chloride (Adrenalin/Ns 4 Mg Ivpb) 4 mg in 250 mls @ 14.203 mls/hr IV .[id number] PRN; Protocol PRN Reason: per protocol Stop: 10/24/24 20:20 Norepinephrine Bitartrate (Levophed In Ns 16mg/250ml) 16 mg in 250 mls @ 3.551 mls/hr IV .Q24H PRN; Protocol PRN Reason: PER protocol Stop: 10/24/24 20:22 Last Admin: 09/25/24 13:15 Dose: 1.2 mcg/kg/min, 85.219 mls/hr Heparin Sodium/Dextrose (Heparin In D5w Ivpb) 25,000 unit in 250 mls @ 9.09 mls/hr IV .Q24H SUKUMAR; Protocol Stop: 10/08/24 20:29 Last Titration: 09/25/24 13:00 Dose: 0 units/kg/hr, 0 mls/hr Epinephrine HCl 16 mg/ Sodium (Chloride) 250 mls @ 3.551 mls/hr IV .Q24H PRN; Protocol PRN Reason: per protocol Stop: 10/24/24 20:45 Last Titration: 09/25/24 13:00 Dose: 0.2 mcg/kg/min, 14.203 mls/hr Dopamine HCl/Dextrose (Intropin In D5w Ivpb) 400 mg in 250 mls @ 14.203 mls/hr IV .[id number] SUKUMAR; Protocol Stop: 10/24/24 21:20 Last Titration: 09/25/24 08:40 Dose: 5 mcg/kg/min, 14.203 mls/hr Insulin Human Lispro (Insulin Lispro (Admelog) 1 Unit/0.01 Ml Unit) 0 unit SC Q4HR [facility]; Protocol Stop: 10/25/24 13:59 Pantoprazole Sodium (Pantoprazole Inj 40 Mg Vial) 40 mg IVP Q12H [facility] Stop: 10/24/24 19:14 Last Admin: 09/25/24 07:59 Dose: 40 mg Sodium Bicarbonate (Sodium Bicarb Inj 8.4% Syr 50 Ml Syringe) 50 ml IV Q4H [facility] Stop: 10/25/24 08:29 Last Admin: 09/25/24 13:58 Dose: 50 ml Discontinued Medications Aspirin (Aspirin 81 Mg Chew) 81 mg NG QDAY [facility] Stop: 10/25/24 10:44 Clopidogrel Bisulfate (Clopidogrel Bisulfate 75 Mg Tablet) 75 mg NG QDAY [facility] Stop: 10/25/24 10:44 Heparin Sodium (Porcine) (Heparin Sod Inj 5000 Unit/Ml Vial) 2,000 unit IV X1 ONE; Protocol Stop: 09/24/24 13:25 Last Admin: 09/24/24 18:23 Dose: Not Given Heparin Sodium (Porcine) (Heparin Sod Inj 5000 Unit/Ml Vial) 4,000 unit IV X1 ONE; Protocol Stop: 09/24/24 19:16 Last Admin: 09/24/24 20:30 Dose: Not Given Heparin Sodium (Porcine) (Heparin Sod Inj 5000 Unit/Ml Vial) 2,000 unit IV X1 ONE; Protocol Stop: 09/24/24 19:16 Last Admin: 09/24/24 21:24 Dose: 2,000 unit Heparin Sodium (Porcine) (Heparin Sod Inj 5000 Unit/Ml Vial) 2,000 unit IV X1 ONE; Protocol Stop: 09/24/24 20:27 Last Admin: 09/24/24 21:29 Dose: Not Given Epinephrine/Sodium Chloride (Adrenalin/Ns 4 Mg Ivpb) 4 mg in 250 mls @ 14.203 mls/hr IV .[id number] PRN; Protocol PRN Reason: per protocol Stop: 10/24/24 12:33 Last Titration: 09/24/24 21:40 Dose: 0.72 mcg/kg/min, 204.525 mls/hr Amiodarone HCl/Dextrose (Nexterone Ivpb) 360 mg in 200 mls @ 33.333 mls/hr IV .Q6H ONE Stop: 09/24/24 18:37 Last Infusion: 09/24/24 18:56 Dose: Infused Midazolam HCl (Versed Pf Inj In Ns Premix) 100 mg in 100 mls @ 1 mls/hr IV .Q24H PRN; Protocol PRN Reason: PER PROTOCOL Stop: 09/29/24 12:48 Last Titration: 09/24/24 16:31 Dose: 0 mg/hr, 0 mls/hr Vasopressin/Sodium Chloride (Vasostrict/Ns Ivpb) 20 unit in 100 mls @ 9 mls/hr IV .Q11H7M PRN; Protocol PRN Reason: PER PROTOCOL Stop: 10/24/24 13:16 Heparin Sodium/Dextrose (Heparin In D5w Ivpb) 25,000 unit in 250 mls @ 9.09 mls/hr IV .Q24H SUKUMAR; Protocol Stop: 10/08/24 13:29 Last Admin: 09/24/24 19:25 Dose: Not Given Sodium Bicarbonate 88.23 meq/ (Dextrose) 588.23 mls @ 100 mls/hr IV .Q5H53M SUKUMAR Stop: 10/24/24 20:07 Last Admin: 09/24/24 21:27 Dose: 100 mls/hr Sodium Bicarbonate 88.23 meq/ (Dextrose) 588.23 mls @ 100 mls/hr IV .Q5H53M ONE Stop: 09/24/24 20:07 Last Admin: 09/24/24 15:00 Dose: 100 mls/hr Norepinephrine/Dextrose (Levophed In D5w 8mg/250ml) 8 mg in 250 mls @ 7.102 mls/hr IV .Q24H PRN; Protocol PRN Reason: PER PROTOCOL Stop: 10/24/24 14:55 Last Titration: 09/24/24 21:08 Dose: 0 mcg/kg/min, 0 mls/hr Sodium Chloride (Ns) 500 mls @ 999 mls/hr IV .Q31M ONE Stop: 09/24/24 16:26 Last Infusion: 09/24/24 18:00 Dose: Infused Heparin Sodium/Dextrose (Heparin In D5w Ivpb) 25,000 unit in 250 mls @ 9.09 mls/hr IV .Q24H [facility]; Protocol Stop: 10/08/24 19:14 Last Admin: 09/24/24 20:30 Dose: Not Given Lactated Ringer's (Lactated Ringers) 500 mls @ 999 mls/hr IV .Q31M ONE Stop: 09/24/24 21:58 Last Admin: 09/24/24 21:30 Dose: 999 mls/hr Sodium Bicarbonate 88.23 meq/ (Dextrose) 588.23 mls @ 50 mls/hr IV .[id number] [facility] Stop: 09/25/24 11:10 Sodium Bicarbonate 200 meq/ (Dextrose) 700 mls @ 125 mls/hr IV .Q5H36M [facility] Stop: 10/25/24 00:29 Sodium Bicarbonate 200 meq/ (Dextrose) 500 mls @ 125 mls/hr IV .Q4H [facility] Stop: 10/25/24 00:32 Last Admin: 09/25/24 09:22 Dose: Not Given Potassium Chloride (Kcl Ivpb) 20 meq in 100 mls @ 50 mls/hr IV Q2H [facility] Stop: 09/25/24 06:11 Last Admin: 09/25/24 04:16 Dose: 50 mls/hr Vancomycin HCl 1,000 mg/ (Sodium Chloride) 250 mls @ 150 mls/hr IV X1 ONE Stop: 09/25/24 10:38 Vancomycin/Sodium Chloride (Vancomycin/Ns 1 Gm Ivpb) 200 mls @ 120 mls/hr IV X1 ONE Stop: 09/25/24 10:39 Last Admin: 09/25/24 09:55 Dose: 120 mls/hr Calcium Gluconate/Sodium Chloride (Calcium Gluc/Ns 1000mg Ivpb) 1,000 mg in 50 mls @ 50 mls/hr IV X1 ONE Stop: 09/25/24 14:08 Last Admin: 09/25/24 13:57 Dose: 50 mls/hr Pantoprazole Sodium (Pantoprazole Inj 40 Mg Vial) 40 mg IV BID [facility] Stop: 10/24/24 20:59 Sodium Bicarbonate (Sodium Bicarb Inj 8.4% Syr 50 Ml Syringe) 50 ml IV X1 ONE Stop: 09/24/24 14:01 Last Admin: 09/24/24 14:11 Dose: 50 ml Sodium Bicarbonate (Sodium Bicarb Inj 8.4% Syr 50 Ml Syringe) 50 ml IV X1 ONE Stop: 09/24/24 14:01 Last Admin: 09/24/24 14:11 Dose: 50 ml Sodium Bicarbonate (Sodium Bicarb Inj 8.4% Syr 50 Ml Syringe) 50 ml IV X1 ONE Stop: 09/24/24 14:01 Last Admin: 09/24/24 14:11 Dose: 50 ml Sodium Bicarbonate (Sodium Bicarb Inj 8.4% Syr 50 Ml Syringe) 50 ml IV X1 ONE Stop: 09/24/24 21:06 Last Admin: 09/24/24 21:05 Dose: 50 ml Sodium Bicarbonate (Sodium Bicarb Inj 8.4% Syr 50 Ml Syringe) 50 ml IV X1 ONE Stop: 09/24/24 21:30 Last Admin: 09/24/24 21:54 Dose: 50 ml Sodium Bicarbonate (Sodium Bicarb Inj 8.4% Syr 50 Ml Syringe) 50 ml IV X1 ONE Stop: 09/24/24 21:31 Last Admin: 09/24/24 21:46 Dose: 50 ml Sodium Bicarbonate (Sodium Bicarb Inj 8.4% Syr 50 Ml Syringe) 50 ml IV X1 ONE Stop: 09/25/24 00:06 Last Admin: 09/25/24 00:08 Dose: 50 ml Sodium Chloride (Sodium Chloride Rt 10% 15 Ml Nebu) 5 ml INH X1 ONE Stop: 09/24/24 12:48 Last Admin: 09/24/24 21:27 Dose: Not Given Assessment & Plan Plan In summary: 75-year-old male with PMHx of CKD stage III, DM 2, HTN, HLD, A-fib, CAD s/p stents, pacemaker, watchman, and PAF, s/p cardiac arrest on. Currently in ICU, sedated and mechanically ventilated, on multiple pressors. Nephrology was consulted for CRRT. S/p cardiac arrest PEA Anion gap metabolic acidosis Lactic acidosis CKD stage III Mulitple electrolyte abnormalities PAMELA on CKD II insetting of cardiac arrest. Labs showing: sodium 150, potassium 3.2, chloride 108, CO2 17.5, anion gap 25, BUN 42, CR 2.6, EGFR 24, GLUCOSE 78, serum osmole 307, lactic acid 15, calcium corrected 8.0. ABG showing pH 7.21, pCO2 37, PaO2 73, bicarb 15. Fluid balance 7.5L positive, urine output 0. Will proceed with CCRT as long BP tolerates ? CCRT without fluid removal ? Renal panel Q6H Remainder medical problems are managed by survey manager team: #Syncopal episode #Sedated #Cardiac arrest #PEA #CAD s/p stents, pacemaker, and watchman #Troponinemia #Hx of A-fib #Acute hypoxic respiratory failure #Mechanically ventilated #Hx of pulmonary fibrosis #Hx of CKD stage III #High anion gap metabolic acidosis #Lactic acidosis #Possible colitis #Abdominal distention Thank you for the opportunity to participate in the patient's care. Case was discussed with attending, Dr. Pearson. Guille Ortgea DO PGYI Attending Provider Attestation/Addendum Patient seen and examined with resident physician Dr. Han. Note reviewed, agree with findings and recommendations. Patient currently seen in ICU. Well-known to me from my clinic for the last few years. Admitted with cardiac arrest. S/p resuscitation. Noted to have PAMELA, electrolyte imbalance with intractable metabolic acidosis. Entire family at bedside. Agreed to continue with all aggressive measures including dialysis. Spoke to his chemical processing technician Dr. Michaels, Dr. Pizarro-decided to proceed with CRRT. CRRT for 12 hours, QB 100-150, Qd 100, saline flush 50, Citrasate, ultrafiltration none, 2K, 3.5 calcium, 35 bicarbonate Renal panel every 6 hours while on CRRT. Plan of care discussed with Dr. Saldaña. Critical care time spent more than 45 minutes regarding plan of care and disease management. Thank you Dr. Saldaña for allowing me to participate in the care of Mr. Tierney.
--- NOTE | 2024-09-25 14:26 | XR_ITS ---
Examination: Chest, AP, portable, single view post procedure. Technique: Chest, AP upright, portable, single view Date and time: 09/25/2024, 2:33 PM COMPARISON: Earlier today INDICATION: Status post left IJ placement. FINDINGS: Interval placement of left IJ central venous catheter with distal tip at the junction of the brachiocephalic veins and SVC. Tubes and lines are otherwise unchanged. No pneumothorax. Bilateral infiltrates persist without significant interval change. IMPRESSION: Interval placement of left IJ central venous catheter. No pneumothorax. Persistent bilateral infiltrates.
--- NOTE | 2024-09-25 14:28 | PRELIM_ITS ---
CT scan of the chest, abdomen and pelvis without intravenous contrast (axial sections with sagittal and coronal reformats) September 25, 2024 1143 hours Clinical History: abdominal distention, s/p cardiac arrest Comparison: No prior study is available for comparison at the time of interpretation Findings: There are small bilateral pleural effusions with underlying atelectasis. There is bibasilar dependent consolidation. There is diffuse interstitial septal thickening.There is no pneumothorax. The thoracic aorta demonstrates atheromatous calcification without evidence of aneurysm. No evidence of medias tinal mass or lymphadenopathy. There is mild cardiomegaly. There is no pericardial effusion. Coronary artery calcification is noted. There is a right internal jugular central venous catheter with its tip in the superior vena cava. Endotracheal tube and nasogastric catheter are in expected location. A cardiac pacemaker is identified in the left chest wall with its lead tips in the right atrium and ventricle respectively. The gallbladder is surgically absent. The liver, spleen, pancreas, adrenals and kidneys are unremarkable on this noncontrast study. No evidence of bowel obstruction. There is fecal loading of colon. There is diffuse circumferential wall thickening of the small and large bowel loops. The appendix is not visualized. The abdominal aorta and its branches demonstrate atheromatous calcification without evidence of aneurysm. Right femoral catheter is noted. A Severino catheter is seen in the urinary bladder. There is mild ascites. There is pneumoperitoneum. Degenerative changes are identified in the spine. There is age indeterminate wedge compression fracture of the superior endplate of L2 vertebra. There are acute non-displaced fractures of right 6th and 7th ribs anteriorly. There is acute mildly displaced fracture of left fifth rib anteriorly. There are acute non-displaced fractures of left 6th and 7th ribs anteriorly. Impression: Small bilateral pleural effusions. Bibasilar dependent consolidation of concern for aspiration pneumonia. Recommend clinical correlation. Mild interstitial pulmonary edema. Diffuse circumferential wall thickening of small or large bowel loops suggestive of enterocolitis. No evidence of bowel obstruction. Mild ascites and pneumoperitoneum of concern for bowel perforation. The exact site of perforation is unclear. Age indeterminate wedge compression fracture of the superior endplate of L2 vertebra. Recommend further evaluation with MRI, as clinically indicated. Acute non-displaced fractures of right 6th and 7th ribs anteriorly. Acute mildly displaced fracture of left fifth rib anteriorly. Acute non-displaced fractures of left 6th and 7th ribs anteriorly. Other findings as described above. Discussion Details: Results discussed with Charles Brittan, RN at 17.21 PM ET on 09/25/2024. A call back number is provided to facilitate direct Physician to Physician communication Report Electronically Signed By: Chencho Horn 09/25/2024 2:27:27 PM [EST]
[2024-09-25] MEDS: DEXTROSE 50%-WATER INJ 50 ML SYRINGE 25 ML IV (14:30)
--- NOTE | 2024-09-25 14:38 | PD.RESPROC ---
Procedures Procedure Date / Time 09/25/24 1438 Procedural Time Out Time out performed: 1415 Arterial Line Size (Gauge): 14 Central Line Placement Left IJ: Indication(s): other (acute HD) Informed consent obtained: obtained from surrogate decision maker Time out done, and the following verified: correct patient, side and site, procedure, patient position and implants and/or equipment Patient placed on monitor/pulse ox: Yes Hand Hygiene: scrub, soap & water and alcohol-based hand rub Max Sterile Barrier Techniques used: cap, mask, sterile gown, sterile gloves and sterile full body drape Central line prep: Chlorhexidine scrub and sterile drapes applied Local anesthesia used: lidocaine 1% Amount of anesthesia used (mL): 2 Ultrasound used for placement: Yes Sterile Technique if Ultrasound used, including sterile gel: yes Central line lumen inserted: triple Post procedure: sutured in place, good blood return (no return from middle port), all ports aspirated, flushed, capped and sterile dressing applied Post procedure x-ray: tip of catheter in good position and no pneumothorax seen Patient tolerated procedure: well EBL(ml): 10 (patient on heparin gtt) Complications: none Procedure comment: Attending note: I was present for procedure and assisted in langley aspects. L IJ placed for HD
--- NOTE | 2024-09-25 15:05 | PC.SS ---
CARPENTRY INSTRUCTOR conducted bedside contact with the patient conduct initial assessment.? Patient admitted to ICU after coming to the ED as a Code Blue due to PEA.? Assessment information obtained from the patient?s daughter, Jose Rapp .? Patient currently on mechanical ventilation.? Patient does not utilize DME to assist with a ambulation. Patient does not use home oxygen. ?Patient independent with ambulation.? Patient?s medical surrogate decision maker is daughter, Jose Rapp.? In addition, daughter possesses POA medical on behalf of the patient.? Patient?s PCP is Dr. Pearson. ?Patient does not participate with dialysis. Patient?s flight surveyor is Layne Schreiber. ?director of medical services will discuss discharge needs at an appropriate future time.? No further intervention required at this time, psychologist social will be available to address any further concerns.? Next of Kin: Jose Rapp D/C Plan: Pending
--- NOTE | 2024-09-25 15:27 | PC.SS ---
Patient receiving emergent dialysis today.
[2024-09-25 15:49] LABS: Reflex Lactate? Y
--- NOTE | 2024-09-25 16:02 | PD.SURCONS ---
HPI Consult details Consult date: 09/25/24 Reason for consultation narrative: Pneumoperitoneum History of present illness: Patient is intubated and sedated. History is obtained from medical record and patient's family. This is a 79-year-old male with history of hypertension, hypercholesterolemia, chronic kidney disease, CAD status post multiple stent placement on Plavix was admitted with cardiac arrest due to PEA. Patient has remained hypotensive requiring high-dose pressors. He has significant lactic acidosis, worsening renal function, extreme elevation of transaminases and cardiac enzymes. He has history of gastric ulcers requiring EGD and he has had colonoscopy in 2019 that revealed diverticular disease. A CT scan of chest abdomen pelvis revealed significant pneumoperitoneum and I was asked to evaluate. Meds Home Medications and Allergies Home Medications ?Medication ?Instructions ?Recorded ?Confirmed ?Type atorvastatin 40 mg tablet 40 mg PO QDAY 01/17/23 08/14/23 History clopidogrel 75 mg tablet 75 mg PO QDAY 01/17/23 08/14/23 History losartan 100 mg tablet 50 mg PO QDAY 01/17/23 08/14/23 History megestrol 400 mg/10 mL (40 mg/mL) 400 mg PO QDAY 01/17/23 08/14/23 History oral suspension mirtazapine 15 mg tablet 15 mg PO HS 01/17/23 08/14/23 History pantoprazole 40 mg tablet,delayed 40 mg PO QDAY 01/17/23 08/14/23 History release trazodone 50 mg tablet 50 mg PO QDAY 01/17/23 08/14/23 History nintedanib 150 mg capsule (Ofev) 150 mg PO Q12H 08/14/23 08/14/23 History Allergies Allergy/AdvReac Type Severity Reaction Status Date / Time No Known Allergies Allergy Verified 10/04/21 14:55 Exam Vital Signs Temp Pulse Resp BP Pulse Ox O2 Del Method FiO2 96.0 F L 75 31 H 109/54 L 99 Mechanical Ventilation 40 09/25/24 15:45 09/25/24 15:46 09/25/24 15:46 09/25/24 15:46 09/25/24 15:46 09/24/24 16:00 09/25/24 15:45 Constitutional Constitutional: no acute distress Routine Abdominal Exam Abdominal: Present firm Results Results: Laboratory Laboratory results: results reviewed Results: Imaging Imaging narrative: CT scan of chest, abdomen and pelvis images reviewed, radiologist interpretation pending Assessment & Plan Additional Assessment Additional comments: Pneumoperitoneum. Patient has significant lactic acidosis, worsening renal function, significantly elevated transaminases and cardiac enzymes, hypercoagulable and on high-dose pressors Plan I had a lengthy discussion with patient's family and explained to them that patient is not a candidate for surgical intervention at this time. I also explained to them that because of his pneumoperitoneum his clinical course may continue to deteriorate. Family wishes to continue with medical management and dialysis in hopes that his clinical course improve
--- NOTE | 2024-09-25 16:06 | PC.DIETICIAN ---
Nutrition prescription If vasopressor needs decrease, consider: Trophic feeds of Vital 1.2 at 20 ml/hr via OG tube. Water flushes of 30ml every 4hrs. Once more stable: Advance 10 ml every 8 hrs to goal rate of 65ml/hr x 24 hrs. If no IV fluids, water flushes of 25 ml/hr (or per MD).
[2024-09-25 16:25] LABS: Creatine Kinase 1077 U/L (34-171)
[2024-09-25] MEDS: DEXTROSE 50%-WATER INJ 50 ML SYRINGE IV (18:38)
[2024-09-25] MEDS: Norepinephrine/NS 16mg/250ml 16 MG/250 ML BAG 89.48 MG IV (19:06)
--- NOTE | 2024-09-25 20:58 | PD.IMCONS ---
HPI Data of Consult Requesting Physician: Fe Saldaña MD Primary Care Provider: Amalia Pearson MD Consult Narrative Reason for consult: Pneumoperitoneum History of present illness: 79 years old male I been asked by Dr. Sruthi Mathis to evaluate him in the ICU Patient had a sudden cardiac arrest resuscitated and dropped to the hospital after epinephrine endotracheal intubation and mechanical ventilation CT scan imaging of the Abdomen pelvis showed pneumoperitoneum Patient is also having lactic acidosis with a lactic acid level at 16.0 and a CO2 of 17.5 Patient has a history of atrial fibrillation hypertension diabetes mellitus hyperlipidemia pulmonary fibrosis coronary artery disease status post multiple stents as well as placement of a permanent cardiac pacemaker cc:: cc: Fe Saldaña MD Review of Systems Review of Systems ROS Unobtainable: unobtainable due to medical condition Past Medical History Surgical History OTHER SURGICAL HX: As in the history of present illness Meds Home Medications and Allergies Home Medications ?Medication ?Instructions ?Recorded ?Confirmed ?Type atorvastatin 40 mg tablet 40 mg PO QDAY 01/17/23 08/14/23 History clopidogrel 75 mg tablet 75 mg PO QDAY 01/17/23 08/14/23 History losartan 100 mg tablet 50 mg PO QDAY 01/17/23 08/14/23 History megestrol 400 mg/10 mL (40 mg/mL) 400 mg PO QDAY 01/17/23 08/14/23 History oral suspension mirtazapine 15 mg tablet 15 mg PO HS 01/17/23 08/14/23 History pantoprazole 40 mg tablet,delayed 40 mg PO QDAY 01/17/23 08/14/23 History release trazodone 50 mg tablet 50 mg PO QDAY 01/17/23 08/14/23 History nintedanib 150 mg capsule (Ofev) 150 mg PO Q12H 08/14/23 08/14/23 History Allergies Allergy/AdvReac Type Severity Reaction Status Date / Time No Known Allergies Allergy Verified 10/04/21 14:55 Exam Vital Signs Temp Pulse Resp BP Pulse Ox O2 Del Method FiO2 96.0 F L 73 31 H 118/69 100 Mechanical Ventilation 50 09/25/24 18:01 09/25/24 20:45 09/25/24 19:30 09/25/24 20:45 09/25/24 19:30 09/25/24 18:01 09/25/24 20:00 Routine Respiratory Exam Comments: Mechanically ventilated Routine Abdominal Exam Comments: Somewhat distended tender no bowel sounds Results Labs 09/25/24 03:15 09/25/24 12:05 Labs: Short CBC 09/25/24 09/25/24 Range/Units 00:32 03:15 WBC 12.4 H 11.3 H (3.8-10.6) Thou/mm3 Hgb 10.8 L 10.6 L (13.5-16.0) g/dL Hct 35.0 L 33.7 L (41.0-53.0) % Plt Count 191 D 188 (140-440) Thou/mm3 BMP 09/25/24 09/25/24 09/25/24 00:32 03:15 12:05 Sodium 147 H 147 H 150 H Potassium 3.1 L D 3.8 D 3.2 L D Chloride 107 107 108 H Carbon Dioxide 12.4 L* 13.6 L* 17.5 L BUN 37 H 39 H 42 H Creatinine 2.5 H 2.6 H 2.6 H Glucose 137 H D 142 H 78 D Calcium 7.7 L 7.7 L 6.8 L* Cardiac Enzymes 09/25/24 09/25/24 09/25/24 Range/Units 00:32 03:15 10:55 Total Creatine Kinase 678 H (34-171) U/L Troponin I 12.230 H* D 11.284 H* D 9.975 H* D (0.0-0.045) ng/mL 09/25/24 Range/Units 12:05 Total Creatine Kinase 1077 H D (34-171) U/L Troponin I (0.0-0.045) ng/mL Liver Function 09/25/24 09/25/24 09/25/24 Range/Units 00:32 03:15 12:05 Total Bilirubin 0.6 0.7 0.6 (0.3-1.2) mg/dL AST 521 H* > 1000 H* 5100 H* (0-34) U/L ALT 442 H 1005 H* > 3300 H* (10-49) U/L Alkaline Phosphatase 51 47 52 (46-116) U/L Albumin 2.5 L 2.5 L 2.5 L (3.4-4.8) gm/dL ABG Interpretation ABG results: 09/24/24 09/24/24 09/24/24 13:15 20:49 22:07 ABG pH 6.97 L* 6.98 L* 7.06 L* ABG pCO2 56 H 29 L D 42 D ABG pO2 126 H 85 D 71 L ABG HCO3 13 L 7 L* 12 L ABG O2 Saturation 97 93 91 ABG Base Excess -19 L -24 L -18 L VBG pH VBG pCO2 VBG pO2 VBG Base Excess 09/24/24 09/25/24 09/25/24 23:31 03:22 05:41 ABG pH 7.00 L* 7.06 L* 7.12 L* ABG pCO2 38 48 D 46 ABG pO2 143 H D 81 L D 137 H D ABG HCO3 9 L* 14 L 15 L ABG O2 Saturation 99 H 94 99 H ABG Base Excess -21 L -16 L -14 L VBG pH VBG pCO2 VBG pO2 VBG Base Excess 09/25/24 09/25/24 09/25/24 10:24 12:05 12:34 ABG pH 7.21 L 7.21 L ABG pCO2 41 37 ABG pO2 59 L* D 73 L ABG HCO3 16 L 15 L ABG O2 Saturation 90 L 94 ABG Base Excess -11 L -12 L VBG pH 7.12 L VBG pCO2 52 VBG pO2 45 VBG Base Excess -12 L Assessment and Plan Additional Assessment & Plan Additional Plan: Pneumoperitoneum most likely either microperforation of the duodenal bulb ulcer the patient has history of all may be diverticular source Other possibilities include ischemic bowel and perforation however patient has multiple pressors And not a candidate at the moment for surgical intervention I had a long discussion with Dr. Sruthi Mathis the manager medicare marketing present at the time of my consultation along with the patient's daughter Yessica Will give him 24 hours and reevaluate At this moment I recommend conservative management Thank you very much for the opportunity to participate in care of this patient Procedures Arterial Line Size (Gauge): 14
[2024-09-25] MEDS: Magnesium Sulfate 2 GM Ivpb 2 GM/50 ML BAG IV (21:43)
[2024-09-25] MEDS: POTASSIUM CHL 10 mEq IVPB 10 MEQ/100 ML BAG 100 MEQ IV ×2 (21:45→22:39)
[2024-09-25] MEDS: Norepinephrine/NS 16mg/250ml 16 MG/250 ML BAG 83.798 MG IV (22:00)
[2024-09-25 22:31] LABS: Basophils % (Auto) 0 % (0-2.5); Eosinophils % (Auto) 0 % (0-10); Hematocrit 32.1 % (41.0-53.0); Hemoglobin 10.1 g/dL (13.5-16.0); Immature Granulocytes % (Auto) 2 % (0-0); Immature Granulocytes Auto 0.22 Thou/mm3 (0.00-0.00); Lymphocytes # (Auto) 1.2 Thou/mm3 (1.0-4.8); Lymphocytes % (Auto) 9 % (10-50); Mean Corpuscular HGB Conc 31.5 g/dl (31.0-37.0); Mean Corpuscular Hemoglobin 31.9 pg (25.0-35.0); Mean Corpuscular Volume 101 fL (80-100); Monocytes # (Auto) 0.7 Thou/mm3 (0.0-0.8); Monocytes % (Auto) 5 % (0-12); Neutrophils # (Auto) 11.1 Thou/mm3 (1.8-7.7); Neutrophils % (Auto) 84 % (37-80); Nucleated Red Blood Cell # 0.04 Thou/mm3 (0.00-0.00); Nucleated Red Blood Cell % 0 /100 WBC (0); Platelet Count 93 Thou/mm3 (140-440); Red Blood Count 3.17 Miln/mm3 (4.50-5.90); White Blood Count 13.3 Thou/mm3 (3.8-10.6)
[2024-09-25 23:11] LABS: Partial Thromboplastin Time 66.3 Seconds (22.0-36.0)
[2024-09-25 23:22] LABS: Alanine Aminotransferase > 3300 U/L (10-49); Albumin, Serum 2.5 gm/dL (3.4-4.8); Albumin/Globulin Ratio 1.5 (1.2-2.2); Alkaline Phosphatase 62 U/L (46-116); Anion Gap 28 (7-16); Aspartate Amino Transferase > 6000 U/L (0-34); BUN/Creatinine Ratio 16 Ratio (12-20); Bilirubin,Total 0.8 mg/dL (0.3-1.2); Blood Urea Nitrogen 46 mg/dL (9-23); Calcium (Corrected) 7.8 mg/dL (8.5-10.1); Chloride 110 mMol/L (98-107); Creatinine (Component) 2.8 mg/dL (0.6-1.3); Globulin 1.7 gm/dL (2.3-3.5); Glucose 70 mg/dL (74-106); Osmolality,Calculated 304 (275-295); Phosphorous 7.4 mg/dL (2.4-5.1); Potassium 4.3 mMol/L (3.4-5.1); Sodium 148 mMol/L (136-145); Total Protein 4.2 gm/dL (5.7-8.2); eGFR 22 See Note
[2024-09-25 23:34] LABS: Calcium 6.6 mg/dL (8.3-10.6); Carbon Dioxide < 10.0 mMol/L (20.0-31.0)
[2024-09-26] VITALS (187 sets, daily range): BP systolic 51–189; BP diastolic 34–105; PULSE 57–87; RESP 12–34; TEMP 35.3–36.3; O2SAT 54–100
[2024-09-26] MEDS: HYDROCORTISONE SOD SUCC INJ 100 MG VIAL 50 MG IV ×5 (00:36→23:35)
[2024-09-26] MEDS: Sodium Bicarb 8.4% 50ml Vial* 88.23 MEQ in DEXTROSE 5%-WATER 500 ML 100 MEQ IV (00:37)
[2024-09-26] MEDS: Norepinephrine/NS 16mg/250ml 16 MG/250 ML BAG 78.117 MG IV (01:00)
[2024-09-26] MEDS: VASOPRESSIN IN NS IVPB 20 UNIT/100 ML BAG 9 UNIT IV ×2 (01:49→13:37)
[2024-09-26] MEDS: Sodium Bicarb Inj 8.4% SYR 50 ML SYRINGE IV (01:49)
[2024-09-26 01:51] LABS: Base Excess -18 (-3-3); HCO3 10 mEq/L (20-26); Inspired Oxygen, FIO2 50 %; O2 Saturation 99 % (91-98); PCO2 28 mmHg (32.0-48.0); PO2 133 mmHg (83-108)
[2024-09-26 01:53] LABS: Collection Type, Urine Catheter
[2024-09-26 01:55] LABS: pH, Arterial 7.15 (7.35-7.45)
[2024-09-26 01:56] LABS: Allen Test Not Performed; Puncture Site Arterial Line
[2024-09-26 02:01] LABS: Bilirubin,Urine Negative (Negative); Blood,Urine Negative (Negative); Clarity,Urine Clear (Clear/Hazy); Color,Urine Colorless (Lt Yel-Yel); Culture Indicated,Urine Not Indicated; Glucose, Urine Negative (Negative); Ketones,Urine Negative (Negative); Leukocyte Esterase,Urine Negative (Negative); Nitrite,Urine Negative (Negative); Protein,Urine Negative (Neg - Trace); RBC,Urine 1 /hpf (0-3); Specific Gravity,Urine 1.005 (1.001-1.035); Squamous Epithelial Cell,Urine < 1 /hpf (0-5); Urobilinogen,Urine Negative mg/dL (0.0-1.0); WBC,Urine < 1 /hpf (0-5)
[2024-09-26] MEDS: DEXTROSE 50%-WATER INJ 50 ML SYRINGE IV ×6 (02:10→23:45)
[2024-09-26 02:23] LABS: Reflex Lactate? Y
[2024-09-26] MEDS: SODIUM BICARB INJ 8.4% 1 mEq/ML 50 ML VIAL 50 MEQ IV (03:50)
[2024-09-26] MEDS: Norepinephrine/NS 16mg/250ml 16 MG/250 ML BAG 69.595 MG IV (04:20)
[2024-09-26 04:28] LABS: Base Excess -13 (-3-3); HCO3 13 mEq/L (20-26); Inspired Oxygen, FIO2 50 %; O2 Saturation 99 % (91-98); PCO2 30 mmHg (32.0-48.0); PO2 125 mmHg (83-108); pH, Arterial 7.24 (7.35-7.45)
[2024-09-26 04:34] LABS: Allen Test Not Performed; Puncture Site Arterial Line
[2024-09-26 05:33] LABS: Basophils # (Auto) 0.1 Thou/mm3 (0.0-0.2); Basophils % (Auto) 0 % (0-2.5); Eosinophils % (Auto) 0 % (0-10); Hematocrit 32.1 % (41.0-53.0); Hemoglobin 10.5 g/dL (13.5-16.0); Immature Granulocytes % (Auto) 4 % (0-0); Immature Granulocytes Auto 0.64 Thou/mm3 (0.00-0.00); Lymphocytes # (Auto) 0.8 Thou/mm3 (1.0-4.8); Lymphocytes % (Auto) 5 % (10-50); Mean Corpuscular HGB Conc 32.7 g/dl (31.0-37.0); Mean Corpuscular Hemoglobin 32.9 pg (25.0-35.0); Mean Corpuscular Volume 101 fL (80-100); Monocytes # (Auto) 0.6 Thou/mm3 (0.0-0.8); Monocytes % (Auto) 3 % (0-12); Neutrophils # (Auto) 15.9 Thou/mm3 (1.8-7.7); Neutrophils % (Auto) 88 % (37-80); Nucleated Red Blood Cell # 0.08 Thou/mm3 (0.00-0.00); Nucleated Red Blood Cell % 0 /100 WBC (0); Platelet Count 100 Thou/mm3 (140-440); RDW Standard Deviation 57.9 fL (35.1-43.9); Red Blood Count 3.19 Miln/mm3 (4.50-5.90)
[2024-09-26] MEDS: metroNIDAZOLE/NS 500 MG IVPB 500 MG/100 ML BAG 200 MG IV ×3 (05:33→21:12)
--- NOTE | 2024-09-26 06:00 | XR_ITS ---
Examination: AP chest single view Technique AP portable semiupright chest single view Exam date and time: September 26, 2024 0546 hrs. Comparison September 25, 2024 Indications: Hypoxic respiratory failure, postintubation, pneumonia or heart failure on earlier chest imaging Findings: Mild enlargement cardiac contour Moderate vascular congestion Bibasilar pneumonia Right internal jugular central line tip SVC satisfactory position Tracheal tube tip 4.1 above felton Orogastric tube in stomach, the tip is below the level film Impression: Bilateral perihilar bibasilar pneumonia Tracheal tube tip 4.1 (of Suspicious for mild associated heart failure
[2024-09-26 06:22] LABS: Alanine Aminotransferase > 3300 U/L (10-49); Albumin, Serum 2.4 gm/dL (3.4-4.8); Albumin/Globulin Ratio 1.3 (1.2-2.2); Alkaline Phosphatase 80 U/L (46-116); Anion Gap 30 (7-16); Aspartate Amino Transferase > 6000 U/L (0-34); BUN/Creatinine Ratio 16 Ratio (12-20); Bilirubin,Total 1.1 mg/dL (0.3-1.2); Blood Urea Nitrogen 49 mg/dL (9-23); Calcium (Corrected) 7.8 mg/dL (8.5-10.1); Chloride 107 mMol/L (98-107); Estimated Creatinine Clearance 22.3 mL/min (>60); Globulin 1.8 gm/dL (2.3-3.5); Glucose 100 mg/dL (74-106); Magnesium 1.9 mg/dL (1.6-2.6); Osmolality,Calculated 311 (275-295); Phosphorous 8.1 mg/dL (2.4-5.1); Potassium 4.7 mMol/L (3.4-5.1); Sodium 150 mMol/L (136-145); Total Protein 4.2 gm/dL (5.7-8.2); eGFR 20 See Note
[2024-09-26 06:25] LABS: Calcium 6.5 mg/dL (8.3-10.6); Carbon Dioxide 12.9 mMol/L (20.0-31.0)
[2024-09-26 06:27] LABS: INR 3.1 (0.9-1.3)
[2024-09-26] MEDS: HEPARIN SOD INJ 1000 UNIT/ML VIAL 10 ML 3000 UNIT INDWELLCAT (06:44)
[2024-09-26 06:50] LABS: Prothrombin Time 31.2 Seconds (9.0-12.2)
--- NOTE | 2024-09-26 08:37 | ESPR_ITS ---
Documentation for date of: 09/26/24 Subjective Subjective Interval history: 79-year-old male with past medical history of CKD stage III, DM 2, hypertension, hyperlipidemia, A-fib, CAD status post stents, pacemaker, Watchman, and pulmonary fibrosis was admitted to the ICU on 09/24/2024 after coming to the ED as a CODE BLUE due to PEA. Most of the history was taken from chart review, prior medics, and family. Patient was in his normal state of health this morning when he went to the bathroom and when he was coming back from the bathroom he lost consciousness. At this time per family the patient's did not feel pulse and started CPR while EMS arrived. EMS arrived and the patient was found to have PEA and he was given 4 rounds of epi via left IO line and was intubated with i-gel and bagged via BVM. During the time of transport CPR was continued and when patient arrived ED physician intubated the patient and ROSC was achieved briefly at 12: 25 before patient went into an episode of V-fib and pulse was lost again therefore CPR was restarted. ROSC was achieved again around 12: 53 in ICU was consulted to admit the patient. Per patient's family patient had a fall yesterday where he hit his head on the carpet, but still was hard surface, but he was not taken to the hospital during this time. As per patient's daughter patient he did loose consciousness at this time, but woke up shortly after. Yesterday patient even went to his physical therapy with no problems afterwards. Patient is on aspirin and Plavix as well as Bumex which last dose was given yesterday. 09/25 - pt is s/p 3 cardiac arrests, overnight started on levo/epi/vaso/dopamine, has been placed on HCO3 gtt and fentanyl gtt, 0 UOP since arrival , afebrile 09/26- yesterday pt had CT chest/abd/pelvis done which showed pneumoperitoneum and both GI and surgery were consulted. pt was started on CRRT for assistance with LA clearance, minimal neuro recovery as of yet. does open eyes spontaneously but does not track or follow commands. he was hypothermic overnight and started on a bare hugger Critical Care Note Critical care time (min.): 50 Exam Vital Signs Temp Pulse Resp BP Pulse Ox O2 Del Method FiO2 97.1 F 82 31 H 144/67 H 100 Mechanical Ventilation 50 09/26/24 04:01 09/26/24 06:17 09/26/24 06:10 09/26/24 06:10 09/26/24 06:17 09/25/24 18:01 09/26/24 06:17 Narrative Exam Gen- intubated, off sedation since yesterday morning, GCS 6T (M1, V1, E4) HEENT- NC/AT, mucosa hydrated, sclera anicteric, PERRL ~3mm, ETT/OGT in place Chest- crackles post field, clear anterior, HRRR, no increase in WOB Abd- distended, firm, absent bowel sounds, no palp organomegaly Ext- min edema of LE and significant edema of b/l UE, mottling over b/l knees and dusky toes, increasing size of ischemic lesion on LLE at IO site, pedal pulses palp, Vent AC VC Drips levo vaso heparin Physical Exam Completion Physical Exam Complete?: Yes 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 09/26/24 09:30 09/26/24 05:17 Labs: Laboratory Results - last 24 hr 09/25/24 09/25/24 09/25/24 10:24 10:55 12:05 WBC RBC Hgb Hct MCV MCH MCHC RDW Std Deviation Plt Count Neut % (Auto) Lymph % (Auto) [place] % (Auto) Eos % (Auto) Baso % (Auto) Neut # (Auto) Lymph # (Auto) [place] # (Auto) Eos # (Auto) Baso # (Auto) Immature Gran # (Auto) Absolute Nucleated RBC Immature Gran % Nucleated RBC % PT INR APTT > 139.0 H* Puncture Site Site Not Noted ABG pH 7.21 L ABG pCO2 41 ABG pO2 59 L* D ABG HCO3 16 L ABG O2 Saturation 90 L ABG Base Excess -11 L VBG pH 7.12 L VBG pCO2 52 VBG pO2 45 VBG O2 Sat (Haresh) 75 L VBG Base Excess -12 L FiO2 45 Sodium 150 H Potassium 3.2 L D Chloride 108 H Carbon Dioxide 17.5 L Anion Gap 25 H BUN 42 H Creatinine 2.6 H Estim Creat Clear Calc 25.2 L eGFR 24 L BUN/Creatinine Ratio 16 Glucose 78 D Calculated Osmolality 307 H Lactic Acid 15.0 H* Calcium 6.8 L* Corrected Calcium 8.0 L Phosphorus Magnesium 1.7 Total Bilirubin 0.6 AST 5100 H* ALT > 3300 H* Alkaline Phosphatase 52 Total Creatine Kinase 1077 H D Troponin I 9.975 H* D Total Protein 4.4 L Albumin 2.5 L Globulin 1.9 L Albumin/Globulin Ratio 1.3 Procalcitonin 71.02 H Ur Collection Type Urine Color Urine Clarity Urine pH Ur Specific [place] Urine Protein Urine Glucose (UA) Urine Ketones Urine Blood Urine Nitrite Urine Bilirubin Urine Urobilinogen (Auto) Ur Leukocyte Esterase Urine RBC Urine WBC Ur Squamous Epith Cells Urine Bacteria Ur Culture Indicated? 09/25/24 09/25/24 09/25/24 12:34 16:03 22:10 WBC 13.3 H RBC 3.17 L Hgb 10.1 L Hct 32.1 L MCV 101 H MCH 31.9 MCHC 31.5 RDW Std Deviation 58.0 H Plt Count 93 L D Neut % (Auto) 84 H Lymph % (Auto) 9 L [place] % (Auto) 5 Eos % (Auto) 0 Baso % (Auto) 0 Neut # (Auto) 11.1 H Lymph # (Auto) 1.2 [place] # (Auto) 0.7 Eos # (Auto) 0.0 Baso # (Auto) 0.0 Immature Gran # (Auto) 0.22 H Absolute Nucleated RBC 0.04 H Immature Gran % 2 H Nucleated RBC % 0 PT INR APTT 66.3 H D Puncture Site Arterial Line ABG pH 7.21 L ABG pCO2 37 ABG pO2 73 L ABG HCO3 15 L ABG O2 Saturation 94 ABG Base Excess -12 L VBG pH VBG pCO2 VBG pO2 VBG O2 Sat (Haresh) VBG Base Excess FiO2 50 Sodium 148 H Potassium 4.3 D Chloride 110 H Carbon Dioxide < 10.0 L* Anion Gap 28 H BUN 46 H Creatinine 2.8 H Estim Creat Clear Calc 23.0 L eGFR 22 L BUN/Creatinine Ratio 16 Glucose 70 L Calculated Osmolality 304 H Lactic Acid 16.0 H* Calcium 6.6 L* Corrected Calcium 7.8 L Phosphorus 7.4 H Magnesium Total Bilirubin 0.8 AST > 6000 H* ALT > 3300 H* Alkaline Phosphatase 62 Total Creatine Kinase Troponin I Total Protein 4.2 L Albumin 2.5 L Globulin 1.7 L Albumin/Globulin Ratio 1.5 Procalcitonin Ur Collection Type Urine Color Urine Clarity Urine pH Ur Specific [place] Urine Protein Urine Glucose (UA) Urine Ketones Urine Blood Urine Nitrite Urine Bilirubin Urine Urobilinogen (Auto) Ur Leukocyte Esterase Urine RBC Urine WBC Ur Squamous Epith Cells Urine Bacteria Ur Culture Indicated? 09/25/24 09/26/24 09/26/24 23:00 01:35 01:40 WBC RBC Hgb Hct MCV MCH MCHC RDW Std Deviation Plt Count Neut % (Auto) Lymph % (Auto) [place] % (Auto) Eos % (Auto) Baso % (Auto) Neut # (Auto) Lymph # (Auto) [place] # (Auto) Eos # (Auto) Baso # (Auto) Immature Gran # (Auto) Absolute Nucleated RBC Immature Gran % Nucleated RBC % PT INR APTT Puncture Site Arterial Line ABG pH 7.15 L* ABG pCO2 28 L ABG pO2 133 H D ABG HCO3 10 L ABG O2 Saturation 99 H ABG Base Excess -18 L VBG pH VBG pCO2 VBG pO2 VBG O2 Sat (Haresh) VBG Base Excess FiO2 50 Sodium Potassium Chloride Carbon Dioxide Anion Gap BUN Creatinine Estim Creat Clear Calc eGFR BUN/Creatinine Ratio Glucose Calculated Osmolality Lactic Acid 18.0 H* Calcium Corrected Calcium Phosphorus Magnesium Total Bilirubin AST ALT Alkaline Phosphatase Total Creatine Kinase Troponin I Total Protein Albumin Globulin Albumin/Globulin Ratio Procalcitonin Ur Collection Type Catheter Urine Color Colorless A Urine Clarity Clear Urine pH 5.0 Ur Specific [place] 1.005 Urine Protein Negative Urine Glucose (UA) Negative Urine Ketones Negative Urine Blood Negative Urine Nitrite Negative Urine Bilirubin Negative Urine Urobilinogen (Auto) Negative Ur Leukocyte Esterase Negative Urine RBC 1 Urine WBC < 1 Ur Squamous Epith Cells < 1 Urine Bacteria None Ur Culture Indicated? Not Indicated 09/26/24 09/26/24 04:18 05:17 WBC 18.0 H RBC 3.19 L Hgb 10.5 L Hct 32.1 L MCV 101 H MCH 32.9 MCHC 32.7 RDW Std Deviation 57.9 H Plt Count 100 L Neut % (Auto) 88 H Lymph % (Auto) 5 L [place] % (Auto) 3 Eos % (Auto) 0 Baso % (Auto) 0 Neut # (Auto) 15.9 H Lymph # (Auto) 0.8 L [place] # (Auto) 0.6 Eos # (Auto) 0.0 Baso # (Auto) 0.1 Immature Gran # (Auto) 0.64 H Absolute Nucleated RBC 0.08 H Immature Gran % 4 H Nucleated RBC % 0 PT 31.2 H* D INR 3.1 H APTT 64.0 H Puncture Site Arterial Line ABG pH 7.24 L ABG pCO2 30 L ABG pO2 125 H ABG HCO3 13 L ABG O2 Saturation 99 H ABG Base Excess -13 L VBG pH VBG pCO2 VBG pO2 VBG O2 Sat (Haresh) VBG Base Excess FiO2 50 Sodium 150 H Potassium 4.7 Chloride 107 Carbon Dioxide 12.9 L* Anion Gap 30 H BUN 49 H Creatinine 3.0 H Estim Creat Clear Calc 22.3 L eGFR 20 L BUN/Creatinine Ratio 16 Glucose 100 Calculated Osmolality 311 H Lactic Acid 19.0 H* Calcium 6.5 L* Corrected Calcium 7.8 L Phosphorus 8.1 H Magnesium 1.9 Total Bilirubin 1.1 AST > 6000 H* ALT > 3300 H* Alkaline Phosphatase 80 D Total Creatine Kinase Troponin I Total Protein 4.2 L Albumin 2.4 L Globulin 1.8 L Albumin/Globulin Ratio 1.3 Procalcitonin Ur Collection Type Urine Color Urine Clarity Urine pH Ur Specific [place] Urine Protein Urine Glucose (UA) Urine Ketones Urine Blood Urine Nitrite Urine Bilirubin Urine Urobilinogen (Auto) Ur Leukocyte Esterase Urine RBC Urine WBC Ur Squamous Epith Cells Urine Bacteria Ur Culture Indicated? 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 Acute encephalopathy- 2/2 anoxic injury, HCT obtained and no acute changes - GCS of 6T today without significant improvement - has h/o dementia at baseline - neurology consulted and EEG ordered by cards CV PEA and VT arrest- myocardial stunning was noticed yesterday on bedside echo, had 3 episodes of arrest with total downtime of ~20min - maintain euthermia - not a candidate for cath h/o CHF- last known EF of 50% per daughter at bedside and follows with cards as outpt - signs of volume overload today h/o Afib s/p ablation with PPM and watchman device- pacemaker Tropinemia- felt to be 2/2 Type I IL given his extensive coronary hx and known LAD dz - on heparin gtt-> d/w cards and ok to stop today - bedside echo done this AM and no large WMA immediately noticed , official echo done and read appreciated - on ASA - cards eval appreciated and recs noted Shock- At this point pt has refractory shock on 4 vasopressors however has a SBP in the 130s and 140s with a MAP of >75. No signs of obstructive etiology and a [place] was placed for PLR and does not appear volume responsive therefore no active hypovolemic component. SVR calculated at 1500s this AM on 4 vasopressors. ? cardiogenic component with distributive component, bcx ordered and UA ordered. will fu on procal and SvO2, on abx - has improved today 09/26 and is on 2 vasopressors - on hydrocortisone - at this time being driven by intraabdominal source - will add on micafungin Resp Acute Resp Failure- currently intubated and on MV, fu with ABG and CXR. - initial Vt of 550 however Pplat was 35-40 this AM therefore changes maded and Vt decreased to 470 with an increase in RR - ABG shows a mixed acidosis with respiratory component present - fu on repeat ABGs - today respiratory component has improved but still present - Ve of 14 IPF- on nintedanib at home - hold for now - on hydrocortisone PNA- on ceftri and flaygly - sputum cx shows GPC - given a dose of Vanc and if MRSA swab is pos will start vanc with pharmacy to follow -> MRSA neg and will not cont vanc Rib Fx- mult and due to CPR Renal A/CKD- remains anuric - sanders in place - avoid nephrotoxins - 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 - pt started on CRRT - Nephrology consulted in house and recs appreciated AG Acidosis- both metabolic with LA and respiratory component (expected pCO2 of 27 +/- 2) - LA peaked at 18 overnight -> 16 this AM - currently with shock liver and anuric -> slow to clear - felt to have bowel ischemia - ongoing vasopressor use will not improve bowel ischemia - restarted on CRRT this AM HyperNa- minimal, monitor HypoCa- replete GI Shock liver/ischemic hepatitis- fu on repeat labs, - #s cont to worsen - coagulopathic today - hypoglycemic and given D50 Hypoalbuminemia- POA, will need workup with Upr however currently anuric GI proph- PPI NPO for now Pneumoperitoneum- 2/2 bowel perf - noted on CT - surgery consulted and recs appreciated - not a surgical candidate at this time - GI consulted and no intervention indicated - likely underlying bowel ischemia present Endo DM- SSI FS q4hrs Heme Leukocytosis- in the setting of arrest, reactive v infectious Anemia- chronic and near baseline - no active bleeding noted DVT proph- on heparin gtt ID Sepsis- 2/2 intra abdominal source, on abx, cx NTD case d/w ICU team, cards, nephrology d/w family extensively at bedside GOC discussion held and at this time they would like to continue with full code and fu with EEG, neuro and GI labs, imaging, records reviewed ~50ccmin required for eval, exam, review, intervention, discussion and formulation of POC for this critically ill pt s/p arrest with shock at high risk for further and ongoing decompensation Provider Notation Provider Notation: Although this document has been carefully reviewed, there may still be some phonetic and other typographical errors. These errors are purely grammatical due to imperfections in the software program and should not be construed in any way to compromise the substance of the patient's medical care during this visit. Thank you for the opportunity and privilege in assisting you with this patient's care and management.
[2024-09-26 09:52] LABS: Basophils # (Auto) 0.1 Thou/mm3 (0.0-0.2); Basophils % (Auto) 0 % (0-2.5); Eosinophils # (Auto) 0.6 Thou/mm3 (0.0-0.5); Eosinophils % (Auto) 3 % (0-10); Hematocrit 30.8 % (41.0-53.0); Hemoglobin 9.9 g/dL (13.5-16.0); Immature Granulocytes % (Auto) 7 % (0-0); Immature Granulocytes Auto 1.39 Thou/mm3 (0.00-0.00); Lymphocytes # (Auto) 0.9 Thou/mm3 (1.0-4.8); Lymphocytes % (Auto) 4 % (10-50); Mean Corpuscular HGB Conc 32.1 g/dl (31.0-37.0); Mean Corpuscular Hemoglobin 31.9 pg (25.0-35.0); Mean Corpuscular Volume 99 fL (80-100); Monocytes # (Auto) 0.8 Thou/mm3 (0.0-0.8); Monocytes % (Auto) 4 % (0-12); Neutrophils # (Auto) 17.5 Thou/mm3 (1.8-7.7); Neutrophils % (Auto) 83 % (37-80); Nucleated Red Blood Cell # 0.16 Thou/mm3 (0.00-0.00); Nucleated Red Blood Cell % 1 /100 WBC (0); Platelet Count 81 Thou/mm3 (140-440); RDW Standard Deviation 58.7 fL (35.1-43.9); White Blood Count 21.2 Thou/mm3 (3.8-10.6)
[2024-09-26] MEDS: Norepinephrine/NS 16mg/250ml 16 MG/250 ML BAG 45.45 MG IV ×2 (10:02→21:52)
[2024-09-26 10:20] LABS: D-Dimer 3580 ng/mL (<600)
--- NOTE | 2024-09-26 10:26 | PD.RESPRO ---
Documentation for date of: 09/26/24 Subjective Subjective Interval history: 79-year-old male with past medical history of CKD stage III, DM 2, hypertension, hyperlipidemia, A-fib, CAD status post stents, pacemaker, Watchman, and pulmonary fibrosis was admitted to the ICU on 09/24/2024 after coming to the ED as a CODE BLUE due to PEA. Most of the history was taken from chart review, prior medics, and family. Patient was in his normal state of health this morning when he went to the bathroom and when he was coming back from the bathroom he lost consciousness. At this time per family the patient's did not feel pulse and started CPR while EMS arrived. EMS arrived and the patient was found to have PEA and he was given 4 rounds of epi via left IO line and was intubated with i-gel and bagged via BVM. During the time of transport CPR was continued and when patient arrived ED physician intubated the patient and ROSC was achieved briefly at 12: 25 before patient went into an episode of V-fib and pulse was lost again therefore CPR was restarted. ROSC was achieved again around 12: 53 in ICU was consulted to admit the patient. Per patient's family patient had a fall yesterday where he hit his head on the carpet, but still was hard surface, but he was not taken to the hospital during this time. As per patient's daughter patient he did loose consciousness at this time, but woke up shortly after. Yesterday patient even went to his physical therapy with no problems afterwards. Patient is on aspirin and Plavix as well as Bumex which last dose was given yesterday. 09/25/2024: Dopamine gtt started overnight apparently for bradycardia, epinephrine and levophed majorly titrated up as well. Fentanyl gtt started. Patient's pupils are dilated and nonreactive overnight. Last normal pupillary exam charted at 0400. 09/26/2024: Patient was seen and examined at bedside this morning. Overnight patient got 3 episodes bicarb and then was placed on bicarb drip after bicarb on, she was less than 10. Patient underwent CRRT yesterday for lactic acid clearance without any fluid removal, but lactic acid increased today to 19. Overnight patient became hypothermic and he was placed on a Sea hugger. Today his pupils were nondilated and were reactive to light, even though there was a large. GCS of 6 today, but no significant neurological changes other than spontaneous eye opening, but unable to trace. Yesterday patient had a chest/abdomen/pelvis CT which did show some pneumoperitoneum for which surgery was consulted as well as GI, but patient is not a surgical candidate at this time. Spoke with mechanical engineering technician who stated that it was okay to start heparin as patient read 48 hours of heparin drip as per ACS protocol. Patient will go hemodialysis today with fluid removal. Patient is currently off sedation and will getting hemodialysis his Levophed had to go up to 1.5. Will get EEG and neuroconsult. Exam Vital Signs Temp Pulse Resp BP Pulse Ox O2 Del Method FiO2 97.3 F 72 31 H 83/55 L 100 Mechanical Ventilation 50 09/26/24 10:18 09/26/24 10:21 09/26/24 10:18 09/26/24 10:18 09/26/24 10:21 09/25/24 18:01 09/26/24 10:21 Narrative Exam General: Mechanically ventilated, GCS 6 Eyes: Pupils are reactive today, but are sluggish more on the left than on the right Ears: No visible ear discharge Nose: No nasal discharge. Mouth/Throat: Dry mucous membranes, no redness, no lesions. Neck: Neck supple, no cervical lymphadenopathy appreciated Lungs: Mechanically ventilated, clearer today, with no increased work of breathing Cardio: Normal S1/S2, regular rhythm, no murmurs, JVD appreciated Abdomen: Firmer today, but distended, no palpable masses, peristalsis present, no guarding or rebound. Extremities: Symmetrical, no significant deformities, 1+ pitting edema, edema of bilateral lower extremities, ecchymosis below left knee, pedal pulses present Skin: Bilateral hands and feet cold and mildly cyanotic Neuro: Pupils are still reactive bilaterally, negative Babinski Objective Labs 09/26/24 14:13 09/26/24 17:25 Labs: Laboratory Results - last 24 hr 09/25/24 09/25/24 09/25/24 10:24 10:55 12:05 WBC RBC Hgb Hct MCV MCH MCHC RDW Std Deviation Plt Count Neut % (Auto) Lymph % (Auto) [place] % (Auto) Eos % (Auto) Baso % (Auto) Neut # (Auto) Lymph # (Auto) [place] # (Auto) Eos # (Auto) Baso # (Auto) Immature Gran # (Auto) Absolute Nucleated RBC Immature Gran % Nucleated RBC % PT INR APTT > 139.0 H* D-Dimer Puncture Site Site Not Noted ABG pH 7.21 L ABG pCO2 41 ABG pO2 59 L* D ABG HCO3 16 L ABG O2 Saturation 90 L ABG Base Excess -11 L VBG pH 7.12 L VBG pCO2 52 VBG pO2 45 VBG O2 Sat (Haresh) 75 L VBG Base Excess -12 L FiO2 45 Sodium 150 H Potassium 3.2 L D Chloride 108 H Carbon Dioxide 17.5 L Anion Gap 25 H BUN 42 H Creatinine 2.6 H Estim Creat Clear Calc 25.2 L eGFR 24 L BUN/Creatinine Ratio 16 Glucose 78 D Calculated Osmolality 307 H Lactic Acid 15.0 H* Calcium 6.8 L* Corrected Calcium 8.0 L Phosphorus Magnesium 1.7 Total Bilirubin 0.6 AST 5100 H* ALT > 3300 H* Alkaline Phosphatase 52 Total Creatine Kinase 1077 H D Troponin I 9.975 H* D Total Protein 4.4 L Albumin 2.5 L Globulin 1.9 L Albumin/Globulin Ratio 1.3 Procalcitonin 71.02 H Ur Collection Type Urine Color Urine Clarity Urine pH Ur Specific [place] Urine Protein Urine Glucose (UA) Urine Ketones Urine Blood Urine Nitrite Urine Bilirubin Urine Urobilinogen (Auto) Ur Leukocyte Esterase Urine RBC Urine WBC Ur Squamous Epith Cells Urine Bacteria Ur Culture Indicated? 09/25/24 09/25/24 09/25/24 12:34 16:03 22:10 WBC 13.3 H RBC 3.17 L Hgb 10.1 L Hct 32.1 L MCV 101 H MCH 31.9 MCHC 31.5 RDW Std Deviation 58.0 H Plt Count 93 L D Neut % (Auto) 84 H Lymph % (Auto) 9 L [place] % (Auto) 5 Eos % (Auto) 0 Baso % (Auto) 0 Neut # (Auto) 11.1 H Lymph # (Auto) 1.2 [place] # (Auto) 0.7 Eos # (Auto) 0.0 Baso # (Auto) 0.0 Immature Gran # (Auto) 0.22 H Absolute Nucleated RBC 0.04 H Immature Gran % 2 H Nucleated RBC % 0 PT INR APTT 66.3 H D D-Dimer Puncture Site Arterial Line ABG pH 7.21 L ABG pCO2 37 ABG pO2 73 L ABG HCO3 15 L ABG O2 Saturation 94 ABG Base Excess -12 L VBG pH VBG pCO2 VBG pO2 VBG O2 Sat (Haresh) VBG Base Excess FiO2 50 Sodium 148 H Potassium 4.3 D Chloride 110 H Carbon Dioxide < 10.0 L* Anion Gap 28 H BUN 46 H Creatinine 2.8 H Estim Creat Clear Calc 23.0 L eGFR 22 L BUN/Creatinine Ratio 16 Glucose 70 L Calculated Osmolality 304 H Lactic Acid 16.0 H* Calcium 6.6 L* Corrected Calcium 7.8 L Phosphorus 7.4 H Magnesium Total Bilirubin 0.8 AST > 6000 H* ALT > 3300 H* Alkaline Phosphatase 62 Total Creatine Kinase Troponin I Total Protein 4.2 L Albumin 2.5 L Globulin 1.7 L Albumin/Globulin Ratio 1.5 Procalcitonin Ur Collection Type Urine Color Urine Clarity Urine pH Ur Specific [place] Urine Protein Urine Glucose (UA) Urine Ketones Urine Blood Urine Nitrite Urine Bilirubin Urine Urobilinogen (Auto) Ur Leukocyte Esterase Urine RBC Urine WBC Ur Squamous Epith Cells Urine Bacteria Ur Culture Indicated? 09/25/24 09/26/24 09/26/24 23:00 01:35 01:40 WBC RBC Hgb Hct MCV MCH MCHC RDW Std Deviation Plt Count Neut % (Auto) Lymph % (Auto) [place] % (Auto) Eos % (Auto) Baso % (Auto) Neut # (Auto) Lymph # (Auto) [place] # (Auto) Eos # (Auto) Baso # (Auto) Immature Gran # (Auto) Absolute Nucleated RBC Immature Gran % Nucleated RBC % PT INR APTT D-Dimer Puncture Site Arterial Line ABG pH 7.15 L* ABG pCO2 28 L ABG pO2 133 H D ABG HCO3 10 L ABG O2 Saturation 99 H ABG Base Excess -18 L VBG pH VBG pCO2 VBG pO2 VBG O2 Sat (Haresh) VBG Base Excess FiO2 50 Sodium Potassium Chloride Carbon Dioxide Anion Gap BUN Creatinine Estim Creat Clear Calc eGFR BUN/Creatinine Ratio Glucose Calculated Osmolality Lactic Acid 18.0 H* Calcium Corrected Calcium Phosphorus Magnesium Total Bilirubin AST ALT Alkaline Phosphatase Total Creatine Kinase Troponin I Total Protein Albumin Globulin Albumin/Globulin Ratio Procalcitonin Ur Collection Type Catheter Urine Color Colorless A Urine Clarity Clear Urine pH 5.0 Ur Specific [place] 1.005 Urine Protein Negative Urine Glucose (UA) Negative Urine Ketones Negative Urine Blood Negative Urine Nitrite Negative Urine Bilirubin Negative Urine Urobilinogen (Auto) Negative Ur Leukocyte Esterase Negative Urine RBC 1 Urine WBC < 1 Ur Squamous Epith Cells < 1 Urine Bacteria None Ur Culture Indicated? Not Indicated 09/26/24 09/26/24 09/26/24 04:18 05:17 09:30 WBC 18.0 H 21.2 H RBC 3.19 L 3.10 L Hgb 10.5 L 9.9 L Hct 32.1 L 30.8 L MCV 101 H 99 MCH 32.9 31.9 MCHC 32.7 32.1 RDW Std Deviation 57.9 H 58.7 H Plt Count 100 L 81 L Neut % (Auto) 88 H 83 H Lymph % (Auto) 5 L 4 L [place] % (Auto) 3 4 Eos % (Auto) 0 3 Baso % (Auto) 0 0 Neut # (Auto) 15.9 H 17.5 H Lymph # (Auto) 0.8 L 0.9 L [place] # (Auto) 0.6 0.8 Eos # (Auto) 0.0 0.6 H Baso # (Auto) 0.1 0.1 Immature Gran # (Auto) 0.64 H 1.39 H Absolute Nucleated RBC 0.08 H 0.16 H Immature Gran % 4 H 7 H Nucleated RBC % 0 1 H PT 31.2 H* D INR 3.1 H APTT 64.0 H D-Dimer 3580 H Puncture Site Arterial Line ABG pH 7.24 L ABG pCO2 30 L ABG pO2 125 H ABG HCO3 13 L ABG O2 Saturation 99 H ABG Base Excess -13 L VBG pH VBG pCO2 VBG pO2 VBG O2 Sat (Haresh) VBG Base Excess FiO2 50 Sodium 150 H Potassium 4.7 Chloride 107 Carbon Dioxide 12.9 L* Anion Gap 30 H BUN 49 H Creatinine 3.0 H Estim Creat Clear Calc 22.3 L eGFR 20 L BUN/Creatinine Ratio 16 Glucose 100 Calculated Osmolality 311 H Lactic Acid 19.0 H* Calcium 6.5 L* Corrected Calcium 7.8 L Phosphorus 8.1 H Magnesium 1.9 Total Bilirubin 1.1 AST > 6000 H* ALT > 3300 H* Alkaline Phosphatase 80 D Total Creatine Kinase Troponin I Total Protein 4.2 L Albumin 2.4 L Globulin 1.8 L Albumin/Globulin Ratio 1.3 Procalcitonin Ur Collection Type Urine Color Urine Clarity Urine pH Ur Specific [place] Urine Protein Urine Glucose (UA) Urine Ketones Urine Blood Urine Nitrite Urine Bilirubin Urine Urobilinogen (Auto) Ur Leukocyte Esterase Urine RBC Urine WBC Ur Squamous Epith Cells Urine Bacteria Ur Culture Indicated? ABG Interpretation ABG results: 09/24/24 09/24/24 09/24/24 13:15 20:49 22:07 ABG pH 6.97 L* 6.98 L* 7.06 L* ABG pCO2 56 H 29 L D 42 D ABG pO2 126 H 85 D 71 L ABG HCO3 13 L 7 L* 12 L ABG O2 Saturation 97 93 91 ABG Base Excess -19 L -24 L -18 L VBG pH VBG pCO2 VBG pO2 VBG Base Excess 09/24/24 09/25/24 09/25/24 23:31 03:22 05:41 ABG pH 7.00 L* 7.06 L* 7.12 L* ABG pCO2 38 48 D 46 ABG pO2 143 H D 81 L D 137 H D ABG HCO3 9 L* 14 L 15 L ABG O2 Saturation 99 H 94 99 H ABG Base Excess -21 L -16 L -14 L VBG pH VBG pCO2 VBG pO2 VBG Base Excess 09/25/24 09/25/24 09/25/24 10:24 12:05 12:34 ABG pH 7.21 L 7.21 L ABG pCO2 41 37 ABG pO2 59 L* D 73 L ABG HCO3 16 L 15 L ABG O2 Saturation 90 L 94 ABG Base Excess -11 L -12 L VBG pH 7.12 L VBG pCO2 52 VBG pO2 45 VBG Base Excess -12 L 09/26/24 09/26/24 01:35 04:18 ABG pH 7.15 L* 7.24 L ABG pCO2 28 L 30 L ABG pO2 133 H D 125 H ABG HCO3 10 L 13 L ABG O2 Saturation 99 H 99 H ABG Base Excess -18 L -13 L VBG pH VBG pCO2 VBG pO2 VBG Base Excess Quality Measures Quality Measures none Advance care planning discussed with:: child and legal surragate Assessment & Plan Assessment Current Active Medications: Generic Name Dose Route Start Last Admin Trade Name Freq PRN Reason Stop Dose Admin Aspirin 81 mg 09/25/24 11:30 04/11/25 13:57 Aspirin 81 Mg Chew NG 10/25/24 11:29 81 mg QDAY SUKUMAR Administration Dextrose 50 ml 09/25/24 18:30 09/26/24 08:57 Dextrose 50%-Water Inj 50 Ml Syringe IV 10/25/24 10:26 50 ml Q15MIN PRN Administration if BG below 70 give full amp Glucagon 1 mg 09/25/24 10:27 Glucagon Inj 1 Mg Vial IM Q15MIN PRN BG <70, and no IV access Heparin Sodium (Porcine) 3,000 unit 09/26/24 09:04 Heparin Sod Inj 1000 Unit/Ml Vial 10 Ml INDWELLCAT 10/10/24 09:03 PRN PRN DIALYSIS Hydrocortisone Sodium Succinate 50 mg 09/25/24 12:00 09/26/24 05:33 Hydrocortisone Sod Succ Inj 100 Mg Vial IV 09/29/24 11:59 50 mg Q6HR SUKUMAR Administration Vasopressin/Sodium Chloride 20 unit in 100 mls @ 9 mls/hr 09/24/24 13:17 09/26/24 01:49 Vasostrict/Ns Ivpb IV 10/24/24 13:16 0.03 unit/min .Q11H7M PRN 9 mls/hr PER PROTOCOL Administration Protocol 0.03 UNIT/MIN Fentanyl Citrate 2,500 mcg in 250 mls @ 2.5 mls/hr 09/24/24 15:47 09/25/24 08:00 Sublimaze Inj 2,500 Mcg/250 Ml Bag IV 09/29/24 15:46 0 mcg/hr .Q24H PRN 0 mls/hr PER PROTOCOL Titration Protocol 25 MCG/HR Propofol 1,000 mg in 100 mls @ 2.273 mls/hr 09/24/24 15:48 09/24/24 18:00 Diprivan Ivpb IV 10/24/24 15:47 0 mcg/kg/min .Q24H PRN 0 mls/hr PER PROTOCOL Titration Protocol 5 MCG/KG/MIN Ceftriaxone Sodium/Dextrose 1 gm in 50 mls @ 100 mls/hr 09/24/24 16:52 09/25/24 09:30 Rocephin/D5w 1gm Iv Premix IV 10/01/24 16:51 100 mls/hr QDAY SUKUMAR Administration Metronidazole 500 mg in 100 mls @ 200 mls/hr 09/24/24 16:52 09/26/24 05:33 Flagyl 500 Mg Iv IV 10/01/24 16:51 200 mls/hr Q8HR SUKUMAR Administration Epinephrine/Sodium Chloride 4 mg in 250 mls @ 14.203 mls/hr 09/24/24 20:21 Adrenalin/Ns 4 Mg Ivpb IV 10/24/24 20:20 .[id number] PRN per protocol Protocol 0.05 MCG/KG/MIN Norepinephrine Bitartrate 16 mg in 250 mls @ 3.551 mls/hr 09/24/24 20:23 09/26/24 09:00 Levophed In Ns 16mg/250ml IV 10/24/24 20:22 Infused .Q24H PRN Titration PER protocol Protocol 0.05 MCG/KG/MIN Heparin Sodium/Dextrose 25,000 unit in 250 mls @ 9.09 mls/hr 09/24/24 20:30 09/26/24 08:49 Heparin In D5w Ivpb IV 10/08/24 20:29 Not Given .Q24H SUKUMAR Protocol 12 UNITS/KG/HR Epinephrine HCl 16 mg/ Sodium 250 mls @ 3.551 mls/hr 09/24/24 20:46 09/26/24 03:17 Chloride IV 10/24/24 20:45 0 mcg/kg/min .Q24H PRN 0 mls/hr per protocol Titration Protocol 0.05 MCG/KG/MIN Dopamine HCl/Dextrose 400 mg in 250 mls @ 14.203 mls/hr 09/24/24 21:21 09/25/24 08:40 Intropin In D5w Ivpb IV 10/24/24 21:20 5 mcg/kg/min .[id number] SUKUMAR 14.203 mls/hr Titration Protocol 5 MCG/KG/MIN Sodium Bicarbonate 88.23 meq/ 588.23 mls @ 100 mls/hr 09/26/24 00:10 09/26/24 09:12 Dextrose IV 10/26/24 00:09 Not Given .Q5H53M SUKUMAR Insulin Human Lispro 0 unit 09/25/24 14:00 09/26/24 09:17 Insulin Lispro (Admelog) 1 Unit/0.01 Ml Unit SC 10/25/24 13:59 Not Given Q4HR SUKUMAR Protocol Pantoprazole Sodium 40 mg 09/24/24 19:15 09/25/24 18:38 Pantoprazole Inj 40 Mg Vial IVP 10/24/24 19:14 40 mg Q12H SUKUMAR Administration Plan 79-year-old male with past medical history of CKD stage III, DM 2, hypertension, hyperlipidemia, A-fib s/p ablation, Watchman, and pacemaker, CAD status post stents, and pulmonary fibrosis was admitted to the ICU on 09/24/2024 postcardiac arrest. Patient on high dose vasopressor and intrope therapy. 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 Consider goal-directed medical therapy (beta-adriano, MRA, SGLT2, MELLISSA or ARB) once patient is more stable Will take out 1 L fluid with hemodialysis today if blood pressure allows Respiratory: #Acute hypoxic respiratory failure #Mechanically ventilated Secondary to cardiac arrest Patient intubated on 09/24/2024 ABG this morning was pH 7.24, PCO2 of 30, and PO2 of 125 Still some respiratory acidosis component present given Guerrier formula showed expected pCO2 of 26-29 Will follow-up on ABG #Pneumonia Continue Rocephin, and Flagyl. MRSA nares was negative therefore will discontinue vancomycin #Hx of IPF On nintedanib at home, currently holding Continue hydrocortisone 50mg q6hr Renal: #Hx of CKD stage III #High anion gap metabolic acidosis 2/2 lactic acidosis Patient came in with creatinine of 2.4 and BUN of 33 #Mild most likely in the setting of lactic acidosis with respiratory component suspected pCO2 of 26-29 Patient has been anuric since admission to ICU Avoid nephrotoxic agent Renally dose medications Lactate remain elevated today at 19 this a.m. even after CRRT was done yesterday. Patient will undergo hemodialysis today with fluid removal. Will continue to trend lactic acid GI: #Shock liver #Pneumoperitoneum SCLC still in the thousands CT abdomen/pelvis on 09/25/2024 revealed moderate free air in abdomen Surgery was consulted, and deemed that patient was not a surgical candidate GI was consulted overnight by mechanical engineering technician and also stated patient not a surgical candidate at this time We will continue with Flagyl and Rocephin and added micafungin as well Endo: #Hx DM2 #Hypoglycemia Patient became hypoglycemic today most likely a component of shock liver Start D10 at 50 cc Blood sugar checks every 2 hours Heme #Macrocytic normochromic anemia Patient came in with hemoglobin of 12.4 MCV of 101 Patient is baseline hemoglobin is around 11-12 Will transfuse if hemoglobin less than 7 Blood cultures collected 09/25 ID: #Sepsis likely secondary to intra-abdominal source versus pneumonia #Pneumoperitoneum #Pneumonia Will continue with Rocephin and Flagyl for now Blood cultures have been negative since 09/25/2024 Sputum cultures have been negative since 09/24/2024 Hospital Maintenance: Diet: NPO DVT ppx: Heparin subcu GI ppx: Protonix IV IV lines: PIV, CIV Sanders: sanders cath Code status: Full code Dispo: ICU post cardiac arrest Case disclosed with Attending Dr. Piotr Castillo PGY1
[2024-09-26 10:29] LABS: Fibrinogen 174 mg/dL (175-375); INR 3.2 (0.9-1.3); Partial Thromboplastin Time 76.3 Seconds (22.0-36.0)
[2024-09-26 10:37] LABS: Prothrombin Time 32.2 Seconds (9.0-12.2)
[2024-09-26] MEDS: ALBUMIN HUMAN 25% IVPB 25 GM/100 ML BTL IV (10:51)
[2024-09-26] MEDS: cefTRIAXone/D5w 1gm IV premix 1 GM/50 ML BAG IV (11:11)
[2024-09-26] MEDS: PANTOPRAZOLE INJ 40 MG VIAL IVP ×2 (11:11→18:18)
[2024-09-26] MEDS: ASPIRIN 81 MG CHEW NG (11:11)
[2024-09-26] MEDS: Norepinephrine/NS 16mg/250ml 16 MG/250 ML BAG 71.016 MG IV (12:58)
[2024-09-26] MEDS: MICAFUNGIN SODIUM INJ 100 MG in SODIUM CHLORIDE 0.9% 100 ML IV (12:59)
--- NOTE | 2024-09-26 13:15 | ESOP_ITS ---
Procedures Procedure Date / Time 09/26/24 12:51 Procedural Time Out Time out performed: yes Procedure Narrative Procedure Narrative: A time out was performed. My hands were washed immediately prior to the procedure. I wore a surgical cap, mask, sterile gown and sterile gloves throughout the procedure.The Left groin was prepped using chlorhexidine scrub and draped in sterile fashion. The femoral pulse was identified and the Left leg was positioned in the usual fashion. The guide needle was inserted into the femoral artery. Arterial blood was seen to pulsate in the flash chamber. The internal guidewire was advanced easily into the femoral artery. The catheter was then advanced over the wire and the needle and wire were withdrawn. The catheter was sutured in place. A sterile opsite was placed over the catheter at the insertion site. The patient tolerated the procedure without any hemodynamic compromise. At the time of procedure completion, the catheter was connected to the community recreation programmer and calibrated. Appropriate waveform and blood pressure tracing was observed. Case discussed and supervised by attending Dr. Piotr Castillo MD PGY1 Arterial Line Indication(s): frequent arterial line sampling and shock Informed consent obtained: obtained from surrogate decision maker Time out done, and the following verified: correct patient, side and site, procedure, patient position and implants and/or equipment Size (Gauge): 16 Technique used: direct puncture technique Post-Procedure: line sutured into place and dry sterile dressing placed Patient tolerated procedure: well EBL(ml): 8 Complications: none Site: left and femoral
[2024-09-26] MEDS: DEXTROSE 10%-WATER 500 ML 50 ML IV (13:29)
--- NOTE | 2024-09-26 14:03 | PD.RESPRO ---
Documentation for date of: 09/26/24 Subjective Subjective Interval history: Mr. Rapp is a 79-year-old male with a medical history of CKD stage III, type 2 diabetes, hypertension, hyperlipidemia, atrial fibrillation, coronary artery disease status post stents, pacemaker, Watchman, and pulmonary fibrosis, was admitted to the ICU on 09/24/2024 following a CODE BLUE in the ED due to PEA. The patient was in his usual state of health this morning but lost consciousness after returning from the bathroom. His started CPR, and EMS arrived to find PEA. Four rounds of epinephrine were administered via left IO line, and he was intubated. CPR continued en route, and ROSC was achieved briefly at 12:25 PM, followed by V-fib and loss of pulse again. ROSC was regained at 12:53 PM upon arrival to the ICU. The patient's family reported a fall yesterday with a brief loss of consciousness but no subsequent medical evaluation. The patient had a physical therapy session yesterday with no issues. The patient is on aspirin, Plavix, and Bumex, with the last dose of Bumex given yesterday. In the ED, he received epinephrine, sodium bicarb, magnesium, and was placed on amiodarone and Versed drip. Labs showed leukocytosis, low hemoglobin, metabolic acidosis, azotemia, elevated lactic acid, and elevated troponin. The patient is sedated, mechanically ventilated, and continues on vasopressors. A CT is being done to evaluate for possible intracranial bleed. Elevated creatinine and BUN, possible acute kidney injury due to cardiac arrest. Nephrology consult was requested for evaluation and potential hemodialysis, given concerns about worsening renal function and the risk of fluid overload due to the patient?s CKD. Currently on 3 VASOPRESSORS, MAP 61. Afebrile, HR 70s, RR 31, on mechanical ventilation. Labs showing sodium 150, potassium 3.2, chloride 108, CO2 17.5, anion gap 25, BUN 42, CR 2.6, EGFR 24, GLUCOSE 78, serum osmole 307, lactic acid 15, calcium corrected 8.0, AST 5100, ALT greater than 3300, ALBUMIN 2.5. WBC 11.3, Hgb 10.6, PLT 188. aPTT greater than 139. ABG showing pH 7.21, pCO2 37, PaO2 73, bicarb 15. Head CT was negative for acute hemorrhage, mass effect or midline shift. CT Pending final read. Echo showed apical septal hypokinesis with LVEF 40-45%, among other findings. Blood cultures are pending. Nephrology was consulted for CCRT. Recommendations as below. 09/26/2024 examined at bedside, in ICU. Sedated and mechanically ventilated. Appears comfortable. No signs of agitation. Overall no significant improvement in GCS. CCRT was done yesterday. A.m. labs today showing sodium 150, potassium 4.7, CO2 12.9, gap 30, BUN 49, CR 3.0, EGFR 20, GLUCOSE 100, lactic acid 19.0, calcium 6.5, phosphorus 8.1, AST >6K, ALT >3.3K, ALBUMIN 2.4, WBC 21.2, Hgb 9.9, PLT 81. ABGs from this morning 4 AM showing pH 7.24, pCO2 30, pO2 125, bicarb 13. 24-hour blood culture no growth. Exam Vital Signs Temp Pulse Resp BP Pulse Ox O2 Del Method FiO2 97.3 F 69 31 H 132/52 H 100 Mechanical Ventilation 50 09/26/24 10:18 09/26/24 14:00 09/26/24 10:18 09/26/24 14:00 09/26/24 10:21 09/25/24 18:01 09/26/24 10:21 Narrative Exam General: Sedated and mechanically ventilated. Eyes: Pupils reactive bilaterally; patient intermittently opens eyes. Ears: No visible discharge noted. Nose: No nasal discharge. Mouth/Throat: Dry mucous membranes, no redness or lesions observed. Neck: Neck supple; no cervical lymphadenopathy detected. Lungs: Mechanically ventilated; mild expiratory wheezing noted bilaterally. Cardiovascular: Normal S1/S2, regular rhythm, no murmurs, jugular venous distension (JVD) present. Abdomen: Soft but distended, no palpable masses, peristalsis present, no guarding or rebound tenderness. Extremities: Symmetrical, no significant deformities, 2+ pitting edema, peripheral pulses not palpable. Skin: Bilateral hands and feet are cold and mildly cyanotic. Mottling over bilateral knees noted. Neurological: Pupils reactive bilaterally, negative Babinski reflex. Objective Labs 09/27/24 05:54 09/27/24 08:36 Labs: Laboratory Results - last 24 hr 09/25/24 09/25/24 09/25/24 12:05 16:03 22:10 WBC 13.3 H RBC 3.17 L Hgb 10.1 L Hct 32.1 L MCV 101 H MCH 31.9 MCHC 31.5 RDW Std Deviation 58.0 H Plt Count 93 L D Neut % (Auto) 84 H Lymph % (Auto) 9 L [place] % (Auto) 5 Eos % (Auto) 0 Baso % (Auto) 0 Neut # (Auto) 11.1 H Lymph # (Auto) 1.2 [place] # (Auto) 0.7 Eos # (Auto) 0.0 Baso # (Auto) 0.0 Immature Gran # (Auto) 0.22 H Absolute Nucleated RBC 0.04 H Immature Gran % 2 H Nucleated RBC % 0 PT INR APTT 66.3 H D Fibrinogen D-Dimer Puncture Site ABG pH ABG pCO2 ABG pO2 ABG HCO3 ABG O2 Saturation ABG Base Excess FiO2 Sodium 148 H Potassium 4.3 D Chloride 110 H Carbon Dioxide < 10.0 L* Anion Gap 28 H BUN 46 H Creatinine 2.8 H Estim Creat Clear Calc 23.0 L eGFR 22 L BUN/Creatinine Ratio 16 Glucose 70 L Calculated Osmolality 304 H Lactic Acid 16.0 H* Calcium 6.6 L* Corrected Calcium 7.8 L Phosphorus 7.4 H Magnesium Total Bilirubin 0.8 AST > 6000 H* ALT > 3300 H* Alkaline Phosphatase 62 Total Creatine Kinase 1077 H D Total Protein 4.2 L Albumin 2.5 L Globulin 1.7 L Albumin/Globulin Ratio 1.5 Ur Collection Type Urine Color Urine Clarity Urine pH Ur Specific [place] Urine Protein Urine Glucose (UA) Urine Ketones Urine Blood Urine Nitrite Urine Bilirubin Urine Urobilinogen (Auto) Ur Leukocyte Esterase Urine RBC Urine WBC Ur Squamous Epith Cells Urine Bacteria Ur Culture Indicated? 09/25/24 09/26/24 09/26/24 23:00 01:35 01:40 WBC RBC Hgb Hct MCV MCH MCHC RDW Std Deviation Plt Count Neut % (Auto) Lymph % (Auto) [place] % (Auto) Eos % (Auto) Baso % (Auto) Neut # (Auto) Lymph # (Auto) [place] # (Auto) Eos # (Auto) Baso # (Auto) Immature Gran # (Auto) Absolute Nucleated RBC Immature Gran % Nucleated RBC % PT INR APTT Fibrinogen D-Dimer Puncture Site Arterial Line ABG pH 7.15 L* ABG pCO2 28 L ABG pO2 133 H D ABG HCO3 10 L ABG O2 Saturation 99 H ABG Base Excess -18 L FiO2 50 Sodium Potassium Chloride Carbon Dioxide Anion Gap BUN Creatinine Estim Creat Clear Calc eGFR BUN/Creatinine Ratio Glucose Calculated Osmolality Lactic Acid 18.0 H* Calcium Corrected Calcium Phosphorus Magnesium Total Bilirubin AST ALT Alkaline Phosphatase Total Creatine Kinase Total Protein Albumin Globulin Albumin/Globulin Ratio Ur Collection Type Catheter Urine Color Colorless A Urine Clarity Clear Urine pH 5.0 Ur Specific [place] 1.005 Urine Protein Negative Urine Glucose (UA) Negative Urine Ketones Negative Urine Blood Negative Urine Nitrite Negative Urine Bilirubin Negative Urine Urobilinogen (Auto) Negative Ur Leukocyte Esterase Negative Urine RBC 1 Urine WBC < 1 Ur Squamous Epith Cells < 1 Urine Bacteria None Ur Culture Indicated? Not Indicated 09/26/24 09/26/24 09/26/24 04:18 05:17 09:30 WBC 18.0 H 21.2 H RBC 3.19 L 3.10 L Hgb 10.5 L 9.9 L Hct 32.1 L 30.8 L MCV 101 H 99 MCH 32.9 31.9 MCHC 32.7 32.1 RDW Std Deviation 57.9 H 58.7 H Plt Count 100 L 81 L Neut % (Auto) 88 H 83 H Lymph % (Auto) 5 L 4 L [place] % (Auto) 3 4 Eos % (Auto) 0 3 Baso % (Auto) 0 0 Neut # (Auto) 15.9 H 17.5 H Lymph # (Auto) 0.8 L 0.9 L [place] # (Auto) 0.6 0.8 Eos # (Auto) 0.0 0.6 H Baso # (Auto) 0.1 0.1 Immature Gran # (Auto) 0.64 H 1.39 H Absolute Nucleated RBC 0.08 H 0.16 H Immature Gran % 4 H 7 H Nucleated RBC % 0 1 H PT 31.2 H* D 32.2 H* INR 3.1 H 3.2 H APTT 64.0 H 76.3 H D Fibrinogen 174 L D-Dimer 3580 H Puncture Site Arterial Line ABG pH 7.24 L ABG pCO2 30 L ABG pO2 125 H ABG HCO3 13 L ABG O2 Saturation 99 H ABG Base Excess -13 L FiO2 50 Sodium 150 H Potassium 4.7 Chloride 107 Carbon Dioxide 12.9 L* Anion Gap 30 H BUN 49 H Creatinine 3.0 H Estim Creat Clear Calc 22.3 L eGFR 20 L BUN/Creatinine Ratio 16 Glucose 100 Calculated Osmolality 311 H Lactic Acid 19.0 H* Calcium 6.5 L* Corrected Calcium 7.8 L Phosphorus 8.1 H Magnesium 1.9 Total Bilirubin 1.1 AST > 6000 H* ALT > 3300 H* Alkaline Phosphatase 80 D Total Creatine Kinase Total Protein 4.2 L Albumin 2.4 L Globulin 1.8 L Albumin/Globulin Ratio 1.3 Ur Collection Type Urine Color Urine Clarity Urine pH Ur Specific [place] Urine Protein Urine Glucose (UA) Urine Ketones Urine Blood Urine Nitrite Urine Bilirubin Urine Urobilinogen (Auto) Ur Leukocyte Esterase Urine RBC Urine WBC Ur Squamous Epith Cells Urine Bacteria Ur Culture Indicated? 09/26/24 11:20 WBC RBC Hgb Hct MCV MCH MCHC RDW Std Deviation Plt Count Neut % (Auto) Lymph % (Auto) [place] % (Auto) Eos % (Auto) Baso % (Auto) Neut # (Auto) Lymph # (Auto) [place] # (Auto) Eos # (Auto) Baso # (Auto) Immature Gran # (Auto) Absolute Nucleated RBC Immature Gran % Nucleated RBC % PT INR APTT 78.0 H Fibrinogen D-Dimer Puncture Site ABG pH ABG pCO2 ABG pO2 ABG HCO3 ABG O2 Saturation ABG Base Excess FiO2 Sodium Potassium Chloride Carbon Dioxide Anion Gap BUN Creatinine Estim Creat Clear Calc eGFR BUN/Creatinine Ratio Glucose Calculated Osmolality Lactic Acid Calcium Corrected Calcium Phosphorus Magnesium Total Bilirubin AST ALT Alkaline Phosphatase Total Creatine Kinase Total Protein Albumin Globulin Albumin/Globulin Ratio Ur Collection Type Urine Color Urine Clarity Urine pH Ur Specific [place] Urine Protein Urine Glucose (UA) Urine Ketones Urine Blood Urine Nitrite Urine Bilirubin Urine Urobilinogen (Auto) Ur Leukocyte Esterase Urine RBC Urine WBC Ur Squamous Epith Cells Urine Bacteria Ur Culture Indicated? ABG Interpretation ABG results: 09/24/24 09/24/24 09/24/24 13:15 20:49 22:07 ABG pH 6.97 L* 6.98 L* 7.06 L* ABG pCO2 56 H 29 L D 42 D ABG pO2 126 H 85 D 71 L ABG HCO3 13 L 7 L* 12 L ABG O2 Saturation 97 93 91 ABG Base Excess -19 L -24 L -18 L VBG pH VBG pCO2 VBG pO2 VBG Base Excess 09/24/24 09/25/2409/25/25 23:31 03:22 05:41 ABG pH 7.00 L* 7.06 L* 7.12 L* ABG pCO2 38 48 D 46 ABG pO2 143 H D 81 L D 137 H D ABG HCO3 9 L* 14 L 15 L ABG O2 Saturation 99 H 94 99 H ABG Base Excess -21 L -16 L -14 L VBG pH VBG pCO2 VBG pO2 VBG Base Excess 09/25/24 09/25/24 09/25/24 10:24 12:05 12:34 ABG pH 7.21 L 7.21 L ABG pCO2 41 37 ABG pO2 59 L* D 73 L ABG HCO3 16 L 15 L ABG O2 Saturation 90 L 94 ABG Base Excess -11 L -12 L VBG pH 7.12 L VBG pCO2 52 VBG pO2 45 VBG Base Excess -12 L 09/26/24 09/26/24 01:35 04:18 ABG pH 7.15 L* 7.24 L ABG pCO2 28 L 30 L ABG pO2 133 H D 125 H ABG HCO3 10 L 13 L ABG O2 Saturation 99 H 99 H ABG Base Excess -18 L -13 L VBG pH VBG pCO2 VBG pO2 VBG Base Excess Quality Measures Quality Measures none Advance care planning discussed with:: patient Assessment & Plan Assessment Current Active Medications: Generic Name Dose Route Start Last Admin Trade Name Freq PRN Reason Stop Dose Admin Aspirin 81 mg 09/25/24 11:30 09/26/24 11:11 Aspirin 81 Mg Chew NG 10/25/24 11:29 81 mg QDAY SUKUMAR Administration Dextrose 50 ml 09/25/24 18:30 09/26/24 12:16 Dextrose 50%-Water Inj 50 Ml Syringe IV 10/25/24 10:26 50 ml Q15MIN PRN Administration if BG below 70 give full amp Glucagon 1 mg 09/25/24 10:27 Glucagon Inj 1 Mg Vial IM Q15MIN PRN BG <70, and no IV access Heparin Sodium (Porcine) 3,000 unit 09/26/24 09:04 Heparin Sod Inj 1000 Unit/Ml Vial 10 Ml INDWELLCAT 10/10/24 09:03 PRN PRN DIALYSIS Hydrocortisone Sodium Succinate 50 mg 09/25/24 12:00 09/26/24 11:52 Hydrocortisone Sod Succ Inj 100 Mg Vial IV 09/29/24 11:59 50 mg Q6HR SUKUMAR Administration Vasopressin/Sodium Chloride 20 unit in 100 mls @ 9 mls/hr 09/24/24 13:17 09/26/24 13:37 Vasostrict/Ns Ivpb IV 10/24/24 13:16 0.03 unit/min .Q11H7M PRN 9 mls/hr PER PROTOCOL Administration Protocol 0.03 UNIT/MIN Fentanyl Citrate 2,500 mcg in 250 mls @ 2.5 mls/hr 09/24/24 15:47 09/25/24 08:00 Sublimaze Inj 2,500 Mcg/250 Ml Bag IV 09/29/24 15:46 0 mcg/hr .Q24H PRN 0 mls/hr PER PROTOCOL Titration Protocol 25 MCG/HR Propofol 1,000 mg in 100 mls @ 2.273 mls/hr 09/24/24 15:48 09/24/24 18:00 Diprivan Ivpb IV 10/24/24 15:47 0 mcg/kg/min .Q24H PRN 0 mls/hr PER PROTOCOL Titration Protocol 5 MCG/KG/MIN Ceftriaxone Sodium/Dextrose 1 gm in 50 mls @ 100 mls/hr 09/24/24 16:52 09/26/24 11:11 Rocephin/D5w 1gm Iv Premix IV 10/01/24 16:51 100 mls/hr QDAY SUKUMAR Administration Metronidazole 500 mg in 100 mls @ 200 mls/hr 09/24/24 16:52 09/26/24 05:33 Flagyl 500 Mg Iv IV 10/01/24 16:51 200 mls/hr Q8HR SUKUMAR Administration Epinephrine/Sodium Chloride 4 mg in 250 mls @ 14.203 mls/hr 09/24/24 20:21 Adrenalin/Ns 4 Mg Ivpb IV 10/24/24 20:20 .[id number] PRN per protocol Protocol 0.05 MCG/KG/MIN Norepinephrine Bitartrate 16 mg in 250 mls @ 3.551 mls/hr 09/24/24 20:23 09/26/24 13:28 Levophed In Ns 16mg/250ml IV 10/24/24 20:22 0.96 mcg/kg/min .Q24H PRN 68.175 mls/hr PER protocol Titration Protocol 0.05 MCG/KG/MIN Epinephrine HCl 16 mg/ Sodium 250 mls @ 3.551 mls/hr 09/24/24 20:46 09/26/24 03:17 Chloride IV 10/24/24 20:45 0 mcg/kg/min .Q24H PRN 0 mls/hr per protocol Titration Protocol 0.05 MCG/KG/MIN Dopamine HCl/Dextrose 400 mg in 250 mls @ 14.203 mls/hr 09/24/24 21:21 09/26/24 10:38 Intropin In D5w Ivpb IV 10/24/24 21:20 Not Given .[id number] SUKUMAR Protocol 5 MCG/KG/MIN Micafungin Sodium 100 mg/ 100 mls @ 100 mls/hr 09/26/24 11:47 09/26/24 12:59 Sodium Chloride IV 10/11/24 11:46 100 mls/hr QDAY SUKUMAR Administration Dextrose 500 mls @ 50 mls/hr 09/26/24 13:30 09/26/24 13:29 D10w IV 09/27/24 09:00 50 mls/hr .Q10H SUKUMAR Administration Pantoprazole Sodium 40 mg 09/24/24 19:15 09/26/24 11:11 Pantoprazole Inj 40 Mg Vial IVP 10/24/24 19:14 40 mg Q12H SUKUMAR Administration Plan In summary: 75-year-old male with PMHx of CKD stage III, DM 2, HTN, HLD, A-fib, CAD s/p stents, pacemaker, watchman, and PAF, s/p cardiac arrest on. Currently in ICU, sedated and mechanically ventilated, on multiple pressors. Nephrology was consulted for CRRT. S/p cardiac arrest PEA Anion gap metabolic acidosis Lactic acidosis CKD stage III Mulitple electrolyte abnormalities PAMELA on CKD II insetting of cardiac arrest. Completed CRRT yesterday. Labs showing: sodium 150, potassium 4.7, CO2 12.9, gap 30, BUN 49, CR 3.0, EGFR 20, GLUCOSE 100, lactic acid 19.0, calcium 6.5, phosphorus 8.1, AST >6K, ALT >3.3K. Total urine output 30 cc, balance 2.4 L. Currently on 2 pressors, with adequate MAP. Will proceed with CCRT as long BP tolerates. ? CCRT today, plan to remove 1 L ? Renal panel Q6H Acute encephalopathy PEA and VT arrest CHF Afib s/p ablation with PPM and watchman device Tropinemia Shock Acute Resp Failure IPF PNA Rib Fracture PAMELA A/CKD- remains anuric AG Combined Acidosis Shock liver/ischemic hepatitis Pneumoperitoneum DM Leukocytosis Anemia Sepsis ? Managed by air hoist operator team Thank you for the opportunity to participate in the patient's care. Case was discussed with attending, Dr. Pearson. Guille Ortega DO PGYI Attending Provider Attestation/Addendum Patient seen and examined with resident physician Dr. Han. Note reviewed, agree with findings and recommendations. Patient currently seen in ICU. Well-known to me from my clinic for the last few years. Admitted with cardiac arrest. S/p resuscitation. Noted to have PAMELA, electrolyte imbalance with intractable metabolic acidosis. Entire family at bedside. Agreed to continue with all aggressive measures including dialysis. Care coordinated with his food service assistant Dr. Michaels over the phone. Dr. Pizarro. Patient in multisystem organ failure with poor prognosis. However family still undecided and requesting all aggressive measures including dialysis. Decided to proceed with continuous dialysis. Currently on 2 pressors. Also noted to have ischemic bowel with a significant lactic acidosis, hyperkalemia and unable to do surgery due to hemodynamic instability-Dr Yusuf on the case. Patient being supported by multiple disciplines. CRRT for 12 hours, QB 100-150, Qd 100, saline flush 50, Citrasate, ultrafiltration none, 2K, 3.5 calcium, 35 bicarbonate Renal panel, ABG every 4-6 hours while on CRRT. Plan of care discussed with Dr. Saldaña. Critical care time spent more than 45 minutes regarding plan of care and disease management. Today I had made several rounds and multiple phone calls made regarding dialysis prescription changes.
[2024-09-26 14:12] LABS: Inspired Oxygen, FIO2 100 %
[2024-09-26 14:13] LABS: Base Excess -14 (-3-3); HCO3 12 mEq/L (20-26); O2 Saturation 100 % (91-98); PCO2 27 mmHg (32.0-48.0); PO2 288 mmHg (83-108); pH, Arterial 7.24 (7.35-7.45)
[2024-09-26 14:14] LABS: Allen Test Not Performed; Puncture Site Left Femoral
[2024-09-26] MEDS: DEXTROSE 50%-WATER INJ 50 ML SYRINGE 25 ML IV (14:39)
[2024-09-26 14:45] LABS: Basophils # (Auto) 0.1 Thou/mm3 (0.0-0.2); Basophils % (Auto) 1 % (0-2.5); Eosinophils % (Auto) 0 % (0-10); Hematocrit 30.3 % (41.0-53.0); Hemoglobin 9.9 g/dL (13.5-16.0); Immature Granulocytes % (Auto) 8 % (0-0); Lymphocytes # (Auto) 1.2 Thou/mm3 (1.0-4.8); Lymphocytes % (Auto) 5 % (10-50); Mean Corpuscular HGB Conc 32.7 g/dl (31.0-37.0); Mean Corpuscular Volume 98 fL (80-100); Monocytes # (Auto) 0.9 Thou/mm3 (0.0-0.8); Monocytes % (Auto) 4 % (0-12); Neutrophils # (Auto) 20.1 Thou/mm3 (1.8-7.7); Neutrophils % (Auto) 83 % (37-80); Nucleated Red Blood Cell # 0.38 Thou/mm3 (0.00-0.00); Nucleated Red Blood Cell % 2 /100 WBC (0); RDW Standard Deviation 59.4 fL (35.1-43.9); Red Blood Count 3.09 Miln/mm3 (4.50-5.90); White Blood Count 24.2 Thou/mm3 (3.8-10.6)
[2024-09-26 14:50] LABS: Platelet Count 53 Thou/mm3 (140-440)
[2024-09-26 15:15] LABS: Alanine Aminotransferase > 3300 U/L (10-49); Albumin/Globulin Ratio 1.7 (1.2-2.2); Alkaline Phosphatase 148 U/L (46-116); Anion Gap 25 (7-16); Aspartate Amino Transferase > 1000 U/L (0-34); BUN/Creatinine Ratio 14 Ratio (12-20); Bilirubin,Total 1.7 mg/dL (0.3-1.2); Blood Urea Nitrogen 33 mg/dL (9-23); Calcium (Corrected) 7.8 mg/dL (8.5-10.1); Chloride 106 mMol/L (98-107); Creatinine (Component) 2.3 mg/dL (0.6-1.3); Estimated Creatinine Clearance 29.1 mL/min (>60); Globulin 1.8 gm/dL (2.3-3.5); Glucose 65 mg/dL (74-106); Osmolality,Calculated 288 (275-295); Sodium 142 mMol/L (136-145); Total Protein 4.8 gm/dL (5.7-8.2); eGFR 28 See Note
[2024-09-26 15:17] LABS: Carbon Dioxide 10.7 mMol/L (20.0-31.0); Potassium 6.5 mMol/L (3.4-5.1)
[2024-09-26 15:25] LABS: Path Review Blood Smear Sent to Pathologist; Slide Review Platelets confirmed
[2024-09-26] MEDS: Norepinephrine/NS 16mg/250ml 16 MG/250 ML BAG 56.813 MG IV (16:27)
[2024-09-26 16:53] LABS: Creatine Kinase 6840 U/L (34-171)
--- NOTE | 2024-09-26 17:27 | ESPR_ITS ---
<Statement entered by Steph Mathis MD - 09/27/24 16:29> I personally examined the patient evaluated the patient spent more than 90 minutes critical care time in the ICU with the patient coordination of care with nursing staff as well as family members coordinated between the teams patient is critically ill appears to have definitely intra-abdominal pathology with possible duodenal ulcer perforation or visceral perforation and possible ischemic bowel causing severe metabolic acidosis tolerated the slow slightly dialysis reasonably well but still on vasopressors. Neurological status definitely not improving discussed with the neurologist EEG performed showed diffuse slowing consistent with hypoxic encephalopathy GCS scale is still between 5 and 6 quite unresponsive to painful stimuli minimal reflexes. Discussed x-rays with the family her CODE STATUS at this time like to keep him full code but again explained the patient is not expected to survive this episode considering the patient may have intra-abdominal pathology too risky to operate this patient also possibly futility. Evaluated patient and monitor the patient closely critical care unit I and I agree with the treatment plan recommendation as documented by Indigo Oconnor MD, PGY 2 will continue to monitor the patient closely possibly discuss CODE STATUS tomorrow after 72 hours from admission. I explained to the family about extremely poor prognosis at this point Documentation for date of: 09/26/24 Subjective Subjective Interval history: Overnight, the patient completed 12 hours of CRRT, tolerated well. He was able to come off of epi and 2 remaining pressors norepi and vaso are being weaned down today. Despite this, lactic acidosis persists, 19.0 this morning. ABG showed pH 7.24 which was a slight improvement. Because of the persisting lactic acidosis there is concern for bowel ischemia. General surgery and GI are following closely but the patient is not a candidate for procedure at this time. Neurologically, the patient has been completely off sedation and there appears to be some movement of the eyes but not purposeful. He is not able to follow any commands. Heparin was stopped today. Telemetry was reviewed and the patient has maintained paced rhythm at 70. Exam Vital Signs Temp Pulse Resp BP Pulse Ox O2 Del Method FiO2 96.3 F L 70 31 H 146/72 H 97 Mechanical Ventilation 100 09/26/24 16:00 09/26/24 17:15 09/26/24 17:10 09/26/24 17:15 09/26/24 16:40 09/25/24 18:01 09/26/24 16:00 Narrative Exam Physical Exam General: Intubated and sedated. Patient is under a Sea Hugger. HEENT: Normocephalic, atraumatic, ET tube in place. Pupils are 3 mm, reactive to light. Heart: Regular rate and rhythm, normal S1 and S2, no murmurs. No JVD seen. Lungs: Clear to auscultation bilaterally. Abdomen: Diffusely distended abdomen, slightly firm, no bowel sounds heard. No guarding. Unable to assess for tenderness. Neurologic: Unable to fully assess. Patient is non-reactive to painful stimuli. Extremities: No edema. Warm lower bilateral extremities. Capillary refill 3 sec. Skin: Chronic venous stasis skin changes bilateral lower extremities. Objective Labs 09/26/24 14:13 09/26/24 20:20 Labs: Laboratory Results - last 24 hr 09/25/24 09/25/24 09/26/24 22:10 23:00 01:35 WBC 13.3 H RBC 3.17 L Hgb 10.1 L Hct 32.1 L MCV 101 H MCH 31.9 MCHC 31.5 RDW Std Deviation 58.0 H Plt Count 93 L D Neut % (Auto) 84 H Lymph % (Auto) 9 L [place] % (Auto) 5 Eos % (Auto) 0 Baso % (Auto) 0 Neut # (Auto) 11.1 H Lymph # (Auto) 1.2 [place] # (Auto) 0.7 Eos # (Auto) 0.0 Baso # (Auto) 0.0 Immature Gran # (Auto) 0.22 H Absolute Nucleated RBC 0.04 H Immature Gran % 2 H Nucleated RBC % 0 Smear Path Review PT INR APTT 66.3 H D Fibrinogen D-Dimer Puncture Site Arterial Line ABG pH 7.15 L* ABG pCO2 28 L ABG pO2 133 H D ABG HCO3 10 L ABG O2 Saturation 99 H ABG Base Excess -18 L FiO2 50 Sodium 148 H Potassium 4.3 D Chloride 110 H Carbon Dioxide < 10.0 L* Anion Gap 28 H BUN 46 H Creatinine 2.8 H Estim Creat Clear Calc 23.0 L eGFR 22 L BUN/Creatinine Ratio 16 Glucose 70 L Calculated Osmolality 304 H Lactic Acid 18.0 H* Calcium 6.6 L* Corrected Calcium 7.8 L Phosphorus 7.4 H Magnesium Total Bilirubin 0.8 AST > 6000 H* ALT > 3300 H* Alkaline Phosphatase 62 Total Creatine Kinase Total Protein 4.2 L Albumin 2.5 L Globulin 1.7 L Albumin/Globulin Ratio 1.5 Ur Collection Type Urine Color Urine Clarity Urine pH Ur Specific [place] Urine Protein Urine Glucose (UA) Urine Ketones Urine Blood Urine Nitrite Urine Bilirubin Urine Urobilinogen (Auto) Ur Leukocyte Esterase Urine RBC Urine WBC Ur Squamous Epith Cells Urine Bacteria Ur Culture Indicated? Misc Test Result 09/26/24 09/26/24 09/26/24 01:40 04:18 05:17 WBC 18.0 H RBC 3.19 L Hgb 10.5 L Hct 32.1 L MCV 101 H MCH 32.9 MCHC 32.7 RDW Std Deviation 57.9 H Plt Count 100 L Neut % (Auto) 88 H Lymph % (Auto) 5 L [place] % (Auto) 3 Eos % (Auto) 0 Baso % (Auto) 0 Neut # (Auto) 15.9 H Lymph # (Auto) 0.8 L [place] # (Auto) 0.6 Eos # (Auto) 0.0 Baso # (Auto) 0.1 Immature Gran # (Auto) 0.64 H Absolute Nucleated RBC 0.08 H Immature Gran % 4 H Nucleated RBC % 0 Smear Path Review PT 31.2 H* D INR 3.1 H APTT 64.0 H Fibrinogen D-Dimer Puncture Site Arterial Line ABG pH 7.24 L ABG pCO2 30 L ABG pO2 125 H ABG HCO3 13 L ABG O2 Saturation 99 H ABG Base Excess -13 L FiO2 50 Sodium 150 H Potassium 4.7 Chloride 107 Carbon Dioxide 12.9 L* Anion Gap 30 H BUN 49 H Creatinine 3.0 H Estim Creat Clear Calc 22.3 L eGFR 20 L BUN/Creatinine Ratio 16 Glucose 100 Calculated Osmolality 311 H Lactic Acid 19.0 H* Calcium 6.5 L* Corrected Calcium 7.8 L Phosphorus 8.1 H Magnesium 1.9 Total Bilirubin 1.1 AST > 6000 H* ALT > 3300 H* Alkaline Phosphatase 80 D Total Creatine Kinase Total Protein 4.2 L Albumin 2.4 L Globulin 1.8 L Albumin/Globulin Ratio 1.3 Ur Collection Type Catheter Urine Color Colorless A Urine Clarity Clear Urine pH 5.0 Ur Specific [place] 1.005 Urine Protein Negative Urine Glucose (UA) Negative Urine Ketones Negative Urine Blood Negative Urine Nitrite Negative Urine Bilirubin Negative Urine Urobilinogen (Auto) Negative Ur Leukocyte Esterase Negative Urine RBC 1 Urine WBC < 1 Ur Squamous Epith Cells < 1 Urine Bacteria None Ur Culture Indicated? Not Indicated Misc Test Result 09/26/24 09/26/24 09/26/24 09:30 11:20 14:06 WBC 21.2 H RBC 3.10 L Hgb 9.9 L Hct 30.8 L MCV 99 MCH 31.9 MCHC 32.1 RDW Std Deviation 58.7 H Plt Count 81 L Neut % (Auto) 83 H Lymph % (Auto) 4 L [place] % (Auto) 4 Eos % (Auto) 3 Baso % (Auto) 0 Neut # (Auto) 17.5 H Lymph # (Auto) 0.9 L [place] # (Auto) 0.8 Eos # (Auto) 0.6 H Baso # (Auto) 0.1 Immature Gran # (Auto) 1.39 H Absolute Nucleated RBC 0.16 H Immature Gran % 7 H Nucleated RBC % 1 H Smear Path Review PT 32.2 H* INR 3.2 H APTT 76.3 H D 78.0 H Fibrinogen 174 L D-Dimer 3580 H Puncture Site Left Femoral ABG pH 7.24 L ABG pCO2 27 L ABG pO2 288 H D ABG HCO3 12 L ABG O2 Saturation 100 H ABG Base Excess -14 L FiO2 100 Sodium Potassium Chloride Carbon Dioxide Anion Gap BUN Creatinine Estim Creat Clear Calc eGFR BUN/Creatinine Ratio Glucose Calculated Osmolality Lactic Acid Calcium Corrected Calcium Phosphorus Magnesium Total Bilirubin AST ALT Alkaline Phosphatase Total Creatine Kinase Total Protein Albumin Globulin Albumin/Globulin Ratio Ur Collection Type Urine Color Urine Clarity Urine pH Ur Specific [place] Urine Protein Urine Glucose (UA) Urine Ketones Urine Blood Urine Nitrite Urine Bilirubin Urine Urobilinogen (Auto) Ur Leukocyte Esterase Urine RBC Urine WBC Ur Squamous Epith Cells Urine Bacteria Ur Culture Indicated? Misc Test Result 09/26/24 14:13 WBC 24.2 H RBC 3.09 L Hgb 9.9 L Hct 30.3 L MCV 98 MCH 32.0 MCHC 32.7 RDW Std Deviation 59.4 H Plt Count 53 L D Neut % (Auto) 83 H Lymph % (Auto) 5 L [place] % (Auto) 4 Eos % (Auto) 0 Baso % (Auto) 1 Neut # (Auto) 20.1 H Lymph # (Auto) 1.2 [place] # (Auto) 0.9 H Eos # (Auto) 0.0 Baso # (Auto) 0.1 Immature Gran # (Auto) 1.90 H Absolute Nucleated RBC 0.38 H Immature Gran % 8 H Nucleated RBC % 2 H Smear Path Review Sent to Pathologist PT INR APTT Fibrinogen D-Dimer Puncture Site ABG pH ABG pCO2 ABG pO2 ABG HCO3 ABG O2 Saturation ABG Base Excess FiO2 Sodium 142 Potassium 6.5 H* D Chloride 106 Carbon Dioxide 10.7 L* Anion Gap 25 H BUN 33 H Creatinine 2.3 H D Estim Creat Clear Calc 29.1 L eGFR 28 L BUN/Creatinine Ratio 14 Glucose 65 L Calculated Osmolality 288 Lactic Acid 17.0 H* Calcium 7.0 L Corrected Calcium 7.8 L Phosphorus Magnesium Total Bilirubin 1.7 H D AST > 1000 H* ALT > 3300 H* Alkaline Phosphatase 148 H D Total Creatine Kinase 6840 H D Total Protein 4.8 L Albumin 3.0 L D Globulin 1.8 L Albumin/Globulin Ratio 1.7 Ur Collection Type Urine Color Urine Clarity Urine pH Ur Specific [place] Urine Protein Urine Glucose (UA) Urine Ketones Urine Blood Urine Nitrite Urine Bilirubin Urine Urobilinogen (Auto) Ur Leukocyte Esterase Urine RBC Urine WBC Ur Squamous Epith Cells Urine Bacteria Ur Culture Indicated? Misc Test Result Platelets confirmed ABG Interpretation ABG results: 09/24/24 09/24/24 09/24/24 13:15 20:49 22:07 ABG pH 6.97 L* 6.98 L* 7.06 L* ABG pCO2 56 H 29 L D 42 D ABG pO2 126 H 85 D 71 L ABG HCO3 13 L 7 L* 12 L ABG O2 Saturation 97 93 91 ABG Base Excess -19 L -24 L -18 L VBG pH VBG pCO2 VBG pO2 VBG Base Excess 09/24/24 09/25/24 09/25/24 23:31 03:22 05:41 ABG pH 7.00 L* 7.06 L* 7.12 L* ABG pCO2 38 48 D 46 ABG pO2 143 H D 81 L D 137 H D ABG HCO3 9 L* 14 L 15 L ABG O2 Saturation 99 H 94 99 H ABG Base Excess -21 L -16 L -14 L VBG pH VBG pCO2 VBG pO2 VBG Base Excess 09/25/24 09/25/24 09/25/24 10:24 12:05 12:34 ABG pH 7.21 L 7.21 L ABG pCO2 41 37 ABG pO2 59 L* D 73 L ABG HCO3 16 L 15 L ABG O2 Saturation 90 L 94 ABG Base Excess -11 L -12 L VBG pH 7.12 L VBG pCO2 52 VBG pO2 45 VBG Base Excess -12 L 09/26/24 09/26/24 09/26/24 01:35 04:18 14:06 ABG pH 7.15 L* 7.24 L 7.24 L ABG pCO2 28 L 30 L 27 L ABG pO2 133 H D 125 H 288 H D ABG HCO3 10 L 13 L 12 L ABG O2 Saturation 99 H 99 H 100 H ABG Base Excess -18 L -13 L -14 L VBG pH VBG pCO2 VBG pO2 VBG Base Excess Quality Measures Quality Measures none Advance care planning discussed with:: patient and child Assessment & Plan Assessment Current Active Medications: Generic Name Dose Route Start Last Admin Trade Name Freq PRN Reason Stop Dose Admin Aspirin 81 mg 09/25/24 11:30 09/26/24 11:11 Aspirin 81 Mg Chew NG 10/25/24 11:29 81 mg QDAY SUKUMAR Administration Dextrose 50 ml 09/25/24 18:30 09/26/24 16:23 Dextrose 50%-Water Inj 50 Ml Syringe IV 10/25/24 10:26 50 ml Q15MIN PRN Administration if BG below 70 give full amp Glucagon 1 mg 09/25/24 10:27 Glucagon Inj 1 Mg Vial IM Q15MIN PRN BG <70, and no IV access Heparin Sodium (Porcine) 3,000 unit 09/26/24 09:04 Heparin Sod Inj 1000 Unit/Ml Vial 10 Ml INDWELLCAT 10/10/24 09:03 PRN PRN DIALYSIS Hydrocortisone Sodium Succinate 50 mg 09/25/24 12:00 09/26/24 11:52 Hydrocortisone Sod Succ Inj 100 Mg Vial IV 09/29/24 11:59 50 mg Q6HR SUKUMAR Administration Vasopressin/Sodium Chloride 20 unit in 100 mls @ 9 mls/hr 09/24/24 13:17 09/26/24 13:37 Vasostrict/Ns Ivpb IV 10/24/24 13:16 0.03 unit/min .[id number] PRN 9 mls/hr PER PROTOCOL Administration Protocol 0.03 UNIT/MIN Fentanyl Citrate 2,500 mcg in 250 mls @ 2.5 mls/hr 09/24/24 15:47 09/25/24 08:00 Sublimaze Inj 2,500 Mcg/250 Ml Bag IV 09/29/24 15:46 0 mcg/hr .Q24H PRN 0 mls/hr PER PROTOCOL Titration Protocol 25 MCG/HR Propofol 1,000 mg in 100 mls @ 2.273 mls/hr 09/24/24 15:48 09/24/24 18:00 Diprivan Ivpb IV 10/24/24 15:47 0 mcg/kg/min .Q24H PRN 0 mls/hr PER PROTOCOL Titration Protocol 5 MCG/KG/MIN Ceftriaxone Sodium/Dextrose 1 gm in 50 mls @ 100 mls/hr 09/24/24 16:52 09/26/24 17:19 Rocephin/D5w 1gm Iv Premix IV 10/01/24 16:51 Infused QDAY SUKUMAR Infusion Metronidazole 500 mg in 100 mls @ 200 mls/hr 09/24/24 16:52 09/26/24 17:19 Flagyl 500 Mg Iv IV 10/01/24 16:51 Infused Q8HR USKUMAR Infusion Epinephrine/Sodium Chloride 4 mg in 250 mls @ 14.203 mls/hr 09/24/24 20:21 Adrenalin/Ns 4 Mg Ivpb IV 10/24/24 20:20 .[id number] PRN per protocol Protocol 0.05 MCG/KG/MIN Norepinephrine Bitartrate 16 mg in 250 mls @ 3.551 mls/hr 09/24/24 20:23 09/26/24 17:17 Levophed In Ns 16mg/250ml IV 10/24/24 20:22 0.7 mcg/kg/min .Q24H PRN 49.711 mls/hr PER protocol Titration Protocol 0.05 MCG/KG/MIN Epinephrine HCl 16 mg/ Sodium 250 mls @ 3.551 mls/hr 09/24/24 20:46 09/26/24 03:17 Chloride IV 10/24/24 20:45 0 mcg/kg/min .Q24H PRN 0 mls/hr per protocol Titration Protocol 0.05 MCG/KG/MIN Dopamine HCl/Dextrose 400 mg in 250 mls @ 14.203 mls/hr 09/24/24 21:21 09/26/24 17:19 Intropin In D5w Ivpb IV 10/24/24 21:20 Infused .[id number] SUKUMAR Titration Protocol 5 MCG/KG/MIN Micafungin Sodium 100 mg/ 100 mls @ 100 mls/hr 09/26/24 11:47 09/26/24 17:19 Sodium Chloride IV 10/11/24 11:46 Infused QDAY SUKUMAR Infusion Dextrose 500 mls @ 50 mls/hr 09/26/24 13:30 09/26/24 13:29 D10w IV 09/27/24 09:00 50 mls/hr .Q10H SUKUMAR Administration Dextrose 187.5 ml/ Dextrose 500 mls @ 50 mls/hr 09/26/24 16:58 IV 09/27/24 12:57 .Q10H SUKUMAR Pantoprazole Sodium 40 mg 09/24/24 19:15 09/26/24 11:11 Pantoprazole Inj 40 Mg Vial IVP 10/24/24 19:14 40 mg Q12H SUKUMAR Administration Plan 79-year-old male with past medical history of afib s/p ablation and Watchman (not on anticoagulation due to GI bleed), multivessel CAD s/p multiple stents, pacemaker 2022, CKD stage 4, type 2 diabetes, hypertension, hyperlipidemia, and pulmonary fibrosis who was brought in by ambulance to the ED as a CODE BLUE on 09/24/2024 due to cardiopulmonary arrest. #Shock s/p cardiac arrest with PEA and vfib #Likely NSTEMI type 1 #History of multivessel CAD s/p stents #History of afib s/p ablation and Watchman #Elevated troponin - peaked Shock likely cardiogenic and now distributive component following the cardiac arrest and s/p ROSC. Patient currently too unstable to undergo cath but if he improves will likely require cardiac catheterization to investigate for obstructive disease contributing to ischemia. Review of the EKGs show ST depressions in the precordial leads V2, V3, V4, V5, and V6. Troponin level peaked at 12.230. 09/25/2024 Echo showed normal size left ventricle with apical septal hypokinesis, LVEF 40-45%. Right atrium and right ventricle normal size with normal function Mildly dilated LA Mild to moderate tricuspid regurgitation with PAP 47 mm Hg est Mild MAC with mild mitral regurgitation Aortic valve sclerosis with no stenosis At this point the lactic acidosis likely has a GI etiology however patient still not stable to undergo surgical intervention. Neurologic status is also to be determined. -Continue resuscitation, attempt to wean pressor support -Heparin discontinued, completed 48 hours therapy per ACS protocol -Continue with PIRRT/CRRT for acidemia, 1L will be removed with next session today -Continue aspirin 81 mg via NG qday -Continuous reassessment of neurologic status Rest of conditions to continue current management per primary team: #Acidemia #Anion gap acidosis #Lactic acidosis #Acute hypoxic respiratory failure #Leukocytosis #Anemia of chronic disease #PAMELA on CKD stage 4 #GI infection possible colitis versus gastroenteritis #Pneumoperitoneum #History of gastric ulcers and GI bleed #Shock liver #Electrolyte imbalance #Hypoglycemic episodes Cardiology will continue to follow. Patient was discussed with the attending, Dr. Mathis. Thank you for allowing us to participate in the care of this patient. Shawanda Oconnor, PGY-2
--- NOTE | 2024-09-26 17:27 | ESPR_ITS ---
Documentation for date of: 09/26/24 Subjective Subjective Interval history: Patient evaluated WBC count is trending upwards to 24.2 Some improvement in the lactic acid to 17.0 Remains profound metabolic acidosis with a CO2 of 10.7 Currently dialyzed Abdomen less distended no bowel sounds Called the patient's daughter and discussed case in detail If patient's lactic acid does not improve significantly by tomorrow and the WBC count does not drop significantly although the LFTs have improved A serious consideration should be given to the exploration as the leading diagnosis would be ischemic bowel Exam Vital Signs Temp Pulse Resp BP Pulse Ox O2 Del Method FiO2 96.3 F L 70 31 H 146/72 H 97 Mechanical Ventilation 100 09/26/24 16:00 09/26/24 17:15 09/26/24 17:10 09/26/24 17:15 09/26/24 16:40 09/25/24 18:01 09/26/24 16:00 Objective Labs 09/26/24 14:13 09/26/24 14:13 Labs: Laboratory Results - last 24 hr 09/25/24 09/25/24 09/26/24 22:10 23:00 01:35 WBC 13.3 H RBC 3.17 L Hgb 10.1 L Hct 32.1 L MCV 101 H MCH 31.9 MCHC 31.5 RDW Std Deviation 58.0 H Plt Count 93 L D Neut % (Auto) 84 H Lymph % (Auto) 9 L [place] % (Auto) 5 Eos % (Auto) 0 Baso % (Auto) 0 Neut # (Auto) 11.1 H Lymph # (Auto) 1.2 [place] # (Auto) 0.7 Eos # (Auto) 0.0 Baso # (Auto) 0.0 Immature Gran # (Auto) 0.22 H Absolute Nucleated RBC 0.04 H Immature Gran % 2 H Nucleated RBC % 0 Smear Path Review PT INR APTT 66.3 H D Fibrinogen D-Dimer Puncture Site Arterial Line ABG pH 7.15 L* ABG pCO2 28 L ABG pO2 133 H D ABG HCO3 10 L ABG O2 Saturation 99 H ABG Base Excess -18 L FiO2 50 Sodium 148 H Potassium 4.3 D Chloride 110 H Carbon Dioxide < 10.0 L* Anion Gap 28 H BUN 46 H Creatinine 2.8 H Estim Creat Clear Calc 23.0 L eGFR 22 L BUN/Creatinine Ratio 16 Glucose 70 L Calculated Osmolality 304 H Lactic Acid 18.0 H* Calcium 6.6 L* Corrected Calcium 7.8 L Phosphorus 7.4 H Magnesium Total Bilirubin 0.8 AST > 6000 H* ALT > 3300 H* Alkaline Phosphatase 62 Total Creatine Kinase Total Protein 4.2 L Albumin 2.5 L Globulin 1.7 L Albumin/Globulin Ratio 1.5 Ur Collection Type Urine Color Urine Clarity Urine pH Ur Specific [place] Urine Protein Urine Glucose (UA) Urine Ketones Urine Blood Urine Nitrite Urine Bilirubin Urine Urobilinogen (Auto) Ur Leukocyte Esterase Urine RBC Urine WBC Ur Squamous Epith Cells Urine Bacteria Ur Culture Indicated? [facility] [place] Test Result 09/26/24 09/26/24 09/26/24 01:40 04:18 05:17 WBC 18.0 H RBC 3.19 L Hgb 10.5 L Hct 32.1 L MCV 101 H MCH 32.9 MCHC 32.7 RDW Std Deviation 57.9 H Plt Count 100 L Neut % (Auto) 88 H Lymph % (Auto) 5 L [place] % (Auto) 3 Eos % (Auto) 0 Baso % (Auto) 0 Neut # (Auto) 15.9 H Lymph # (Auto) 0.8 L [place] # (Auto) 0.6 Eos # (Auto) 0.0 Baso # (Auto) 0.1 Immature Gran # (Auto) 0.64 H Absolute Nucleated RBC 0.08 H Immature Gran % 4 H Nucleated RBC % 0 Smear Path Review PT 31.2 H* D INR 3.1 H APTT 64.0 H Fibrinogen D-Dimer Puncture Site Arterial Line ABG pH 7.24 L ABG pCO2 30 L ABG pO2 125 H ABG HCO3 13 L ABG O2 Saturation 99 H ABG Base Excess -13 L FiO2 50 Sodium 150 H Potassium 4.7 Chloride 107 Carbon Dioxide 12.9 L* Anion Gap 30 H BUN 49 H Creatinine 3.0 H Estim Creat Clear Calc 22.3 L eGFR 20 L BUN/Creatinine Ratio 16 Glucose 100 Calculated Osmolality 311 H Lactic Acid 19.0 H* Calcium 6.5 L* Corrected Calcium 7.8 L Phosphorus 8.1 H Magnesium 1.9 Total Bilirubin 1.1 AST > 6000 H* ALT > 3300 H* Alkaline Phosphatase 80 D Total Creatine Kinase Total Protein 4.2 L Albumin 2.4 L Globulin 1.8 L Albumin/Globulin Ratio 1.3 Ur Collection Type Catheter Urine Color Colorless A Urine Clarity Clear Urine pH 5.0 Ur Specific [place] 1.005 Urine Protein Negative Urine Glucose (UA) Negative Urine Ketones Negative Urine Blood Negative Urine Nitrite Negative Urine Bilirubin Negative Urine Urobilinogen (Auto) Negative Ur Leukocyte Esterase Negative Urine RBC 1 Urine WBC < 1 Ur Squamous Epith Cells < 1 Urine Bacteria None Ur Culture Indicated? Not Indicated Misc Test Result 09/26/24 09/26/24 09/26/24 09:30 11:20 14:06 WBC 21.2 H RBC 3.10 L Hgb 9.9 L Hct 30.8 L MCV 99 MCH 31.9 MCHC 32.1 RDW Std Deviation 58.7 H Plt Count 81 L Neut % (Auto) 83 H Lymph % (Auto) 4 L [place] % (Auto) 4 Eos % (Auto) 3 Baso % (Auto) 0 Neut # (Auto) 17.5 H Lymph # (Auto) 0.9 L [place] # (Auto) 0.8 Eos # (Auto) 0.6 H Baso # (Auto) 0.1 Immature Gran # (Auto) 1.39 H Absolute Nucleated RBC 0.16 H Immature Gran % 7 H Nucleated RBC % 1 H Smear Path Review PT 32.2 H* INR 3.2 H APTT 76.3 H D 78.0 H Fibrinogen 174 L D-Dimer 3580 H Puncture Site Left Femoral ABG pH 7.24 L ABG pCO2 27 L ABG pO2 288 H D ABG HCO3 12 L ABG O2 Saturation 100 H ABG Base Excess -14 L FiO2 100 Sodium Potassium Chloride Carbon Dioxide Anion Gap BUN Creatinine Estim Creat Clear Calc eGFR BUN/Creatinine Ratio Glucose Calculated Osmolality Lactic Acid Calcium Corrected Calcium Phosphorus Magnesium Total Bilirubin AST ALT Alkaline Phosphatase Total Creatine Kinase Total Protein Albumin Globulin Albumin/Globulin Ratio Ur Collection Type Urine Color Urine Clarity Urine pH Ur Specific [place] Urine Protein Urine Glucose (UA) Urine Ketones Urine Blood Urine Nitrite Urine Bilirubin Urine Urobilinogen (Auto) Ur Leukocyte Esterase Urine RBC Urine WBC Ur Squamous Epith Cells Urine Bacteria Ur Culture Indicated? Misc Test Result 09/26/24 14:13 WBC 24.2 H RBC 3.09 L Hgb 9.9 L Hct 30.3 L MCV 98 MCH 32.0 MCHC 32.7 RDW Std Deviation 59.4 H Plt Count 53 L D Neut % (Auto) 83 H Lymph % (Auto) 5 L [place] % (Auto) 4 Eos % (Auto) 0 Baso % (Auto) 1 Neut # (Auto) 20.1 H Lymph # (Auto) 1.2 [place] # (Auto) 0.9 H Eos # (Auto) 0.0 Baso # (Auto) 0.1 Immature Gran # (Auto) 1.90 H Absolute Nucleated RBC 0.38 H Immature Gran % 8 H Nucleated RBC % 2 H Smear Path Review Sent to Pathologist PT INR APTT Fibrinogen D-Dimer Puncture Site ABG pH ABG pCO2 ABG pO2 ABG HCO3 ABG O2 Saturation ABG Base Excess FiO2 Sodium 142 Potassium 6.5 H* D Chloride 106 Carbon Dioxide 10.7 L* Anion Gap 25 H BUN 33 H Creatinine 2.3 H D Estim Creat Clear Calc 29.1 L eGFR 28 L BUN/Creatinine Ratio 14 Glucose 65 L Calculated Osmolality 288 Lactic Acid 17.0 H* Calcium 7.0 L Corrected Calcium 7.8 L Phosphorus Magnesium Total Bilirubin 1.7 H D AST > 1000 H* ALT > 3300 H* Alkaline Phosphatase 148 H D Total Creatine Kinase 6840 H D Total Protein 4.8 L Albumin 3.0 L D Globulin 1.8 L Albumin/Globulin Ratio 1.7 Ur Collection Type Urine Color Urine Clarity Urine pH Ur Specific [place] Urine Protein Urine Glucose (UA) Urine Ketones Urine Blood Urine Nitrite Urine Bilirubin Urine Urobilinogen (Auto) Ur Leukocyte Esterase Urine RBC Urine WBC Ur Squamous Epith Cells Urine Bacteria Ur Culture Indicated? Misc Test Result Platelets confirmed Impressions Impression: Pneumoperitoneum Leukocytosis Lactic acidosis Metabolic acidosis Renal failure on hemodialysis Plan As in the HPI ABG Interpretation ABG results: 09/24/24 09/24/24 09/24/24 13:15 20:49 22:07 ABG pH 6.97 L* 6.98 L* 7.06 L* ABG pCO2 56 H 29 L D 42 D ABG pO2 126 H 85 D 71 L ABG HCO3 13 L 7 L* 12 L ABG O2 Saturation 97 93 91 ABG Base Excess -19 L -24 L -18 L VBG pH VBG pCO2 VBG pO2 VBG Base Excess 09/24/24 09/25/24 09/25/24 23:31 03:22 05:41 ABG pH 7.00 L* 7.06 L* 7.12 L* ABG pCO2 38 48 D 46 ABG pO2 143 H D 81 L D 137 H D ABG HCO3 9 L* 14 L 15 L ABG O2 Saturation 99 H 94 99 H ABG Base Excess -21 L -16 L -14 L VBG pH VBG pCO2 VBG pO2 VBG Base Excess 09/25/24 09/25/24 09/25/24 10:24 12:05 12:34 ABG pH 7.21 L 7.21 L ABG pCO2 41 37 ABG pO2 59 L* D 73 L ABG HCO3 16 L 15 L ABG O2 Saturation 90 L 94 ABG Base Excess -11 L -12 L VBG pH 7.12 L VBG pCO2 52 VBG pO2 45 VBG Base Excess -12 L 09/26/24 09/26/24 09/26/24 01:35 04:18 14:06 ABG pH 7.15 L* 7.24 L 7.24 L ABG pCO2 28 L 30 L 27 L ABG pO2 133 H D 125 H 288 H D ABG HCO3 10 L 13 L 12 L ABG O2 Saturation 99 H 99 H 100 H ABG Base Excess -18 L -13 L -14 L VBG pH VBG pCO2 VBG pO2 VBG Base Excess Assessment & Plan A&P Narrative Pneumoperitoneum most likely either microperforation of the duodenal bulb ulcer the patient has history of all may be diverticular source Other possibilities include ischemic bowel and perforation however patient has multiple pressors And not a candidate at the moment for surgical intervention I had a long discussion with Dr. Sruthi Mathis the scrap metal burner present at the time of my consultation along with the patient's daughter Yessica Will give him 24 hours and reevaluate At this moment I recommend conservative management Thank you very much for the opportunity to participate in care of this patient Time Spent With Patient Time: Total time spent is greater than 50% in coordination of care (as documented) at patient's floor/unit and/or counseling patient: Procedures Arterial Line Size (Gauge): 16
[2024-09-26 17:35] LABS: Reflex Lactate? Y
[2024-09-26] MEDS: DEXTROSE 50% SYR 187.5 ML in DEXTROSE 10%-WATER 312.5 ML 50 ML IV (17:44)
[2024-09-26 17:57] LABS: Potassium 6.4 mMol/L (3.4-5.1)
[2024-09-26 18:41] LABS: Allen Test Not Performed; Base Excess -14 (-3-3); HCO3 12 mEq/L (20-26); Inspired Oxygen, FIO2 100 %; O2 Saturation 100 % (91-98); PCO2 28 mmHg (32.0-48.0); PO2 298 mmHg (83-108); Puncture Site Arterial Line; pH, Arterial 7.25 (7.35-7.45)
[2024-09-26 20:49] LABS: Potassium 5.9 mMol/L (3.4-5.1)
[2024-09-26] MEDS: HEPARIN SOD INJ 5000 UNIT/ML VIAL SC (21:13)
--- NOTE | 2024-09-26 22:13 | PD.VCONSULT1 ---
Telemedicine visit statement This visit was conducted with the use of interactive audio and video telecommunications system that permits real time communication between the patient and the provider. Patient's verbal consent for virtual visit was obtained on 09/26/24 at 2213. History of Present Illness History of Present Illness History of present illness: Mr. Rapp is a 79-year-old male with CKD stage III, type 2 diabetes, hypertension, hyperlipidemia, atrial fibrillation, coronary artery disease status post stents, pacemaker, Watchman, and pulmonary fibrosis, was admitted to the ICU on 09/24/2024 following a CODE BLUE in the ED due to PEA. The patient was in his usual state of health until the morning of 09/24/2024 but lost consciousness after returning from the bathroom. His started CPR, and EMS arrived and found PEA. Four rounds of epinephrine were administered and he was intubated. CPR continued en route, and ROSC was achieved briefly at 12:25 PM, followed by V-fib and loss of pulse again. ROSC was regained at 12:53 PM upon arrival to the ICU. The patient's family reported a fall yesterday with a brief loss of consciousness but no subsequent immediate medical evaluation. The patient attended physical therapy session yesterday with no issues. He is on aspirin, Plavix, and Bumex as an outpatient. In the ER he received epinephrine and sodium bicarbonate magnesium and was placed on Versed and amiodarone infusion. Workup in the ER: Labs showed leukocytosis, low hemoglobin, metabolic acidosis, azotemia, elevated lactic acid, and elevated troponin. CT head: Negative for acute intracranial abnormality. Echo cardiogram showed apical septal hypokinesis with ejection fraction of 40 to 45%. He is currently on 3 vasopressors intubated and on mechanical ventilatory support. Neurology was consulted to evaluate for persistent mental status changes following cardiorespiratory arrest. Patient is in ICU Past Medical History Surgical History OTHER SURGICAL HX: As in the history of present illness TeleMedicine ROS Pertinent Review of Systems ROS Unobtainable: unobtainable due to mental status Meds Home Medications and Allergies Home Medications ?Medication ?Instructions ?Recorded ?Confirmed ?Type atorvastatin 40 mg tablet 40 mg PO QDAY 01/17/23 08/14/23 History clopidogrel 75 mg tablet 75 mg PO QDAY 01/17/23 08/14/23 History losartan 100 mg tablet 50 mg PO QDAY 01/17/23 08/14/23 History megestrol 400 mg/10 mL (40 mg/mL) 400 mg PO QDAY 01/17/23 08/14/23 History oral suspension mirtazapine 15 mg tablet 15 mg PO HS 01/17/23 08/14/23 History pantoprazole 40 mg tablet,delayed 40 mg PO QDAY 01/17/23 08/14/23 History release trazodone 50 mg tablet 50 mg PO QDAY 01/17/23 08/14/23 History nintedanib 150 mg capsule (Ofev) 150 mg PO Q12H 08/14/23 08/14/23 History Allergies Allergy/AdvReac Type Severity Reaction Status Date / Time No Known Allergies Allergy Verified 10/04/21 14:55 Virtual exam Vital Signs Temp Pulse Resp BP Pulse Ox O2 Del Method FiO2 96.4 F L 68 31 H 104/58 L 100 Mechanical Ventilation 50 09/26/24 20:00 09/26/24 22:00 09/26/24 21:00 09/26/24 22:00 09/26/24 21:00 09/25/24 18:01 09/26/24 19:34 Results Labs 09/27/24 05:54 09/27/24 08:36 Labs: Short CBC 09/25/24 09/26/24 09/26/24 Range/Units 22:10 05:17 09:30 WBC 13.3 H 18.0 H 21.2 H (3.8-10.6) Thou/mm3 Hgb 10.1 L 10.5 L 9.9 L (13.5-16.0) g/dL Hct 32.1 L 32.1 L 30.8 L (41.0-53.0) % Plt Count 93 L D 100 L 81 L (140-440) Thou/mm3 09/26/24 Range/Units 14:13 WBC 24.2 H (3.8-10.6) Thou/mm3 Hgb 9.9 L (13.5-16.0) g/dL Hct 30.3 L (41.0-53.0) % Plt Count 53 L D (140-440) Thou/mm3 BMP 09/25/24 09/26/24 09/26/24 22:10 05:17 14:13 Sodium 148 H 150 H 142 Potassium 4.3 D 4.7 6.5 H* D Chloride 110 H 107 106 Carbon Dioxide < 10.0 L* 12.9 L* 10.7 L* BUN 46 H 49 H 33 H Creatinine 2.8 H 3.0 H 2.3 H D Glucose 70 L 100 65 L Calcium 6.6 L* 6.5 L* 7.0 L 09/26/24 09/26/24 17:25 20:20 Sodium Potassium 6.4 H* 5.9 H D Chloride Carbon Dioxide BUN Creatinine Glucose Calcium Cardiac Enzymes 09/26/24 Range/Units 14:13 Total Creatine Kinase 6840 H D (34-171) U/L Liver Function 09/25/24 09/26/24 09/26/24 Range/Units 22:10 05:17 14:13 Total Bilirubin 0.8 1.1 1.7 H D (0.3-1.2) mg/dL AST > 6000 H* > 6000 H* > 1000 H* (0-34) U/L ALT > 3300 H* > 3300 H* > 3300 H* (10-49) U/L Alkaline Phosphatase 62 80 D 148 H D (46-116) U/L Albumin 2.5 L 2.4 L 3.0 L D (3.4-4.8) gm/dL Urine 09/26/24 Range/Units 01:40 Urine Color Colorless A (Lt Yel-Yel) Urine Clarity Clear (Clear/Hazy) Urine pH 5.0 (5.0-7.0) Ur Specific Burt 1.005 (1.001-1.035) Urine Protein Negative (Neg - Trace) Urine Glucose (UA) Negative (Negative) ABG Interpretation ABG results: 09/24/24 09/24/24 09/24/24 13:15 20:49 22:07 ABG pH 6.97 L* 6.98 L* 7.06 L* ABG pCO2 56 H 29 L D 42 D ABG pO2 126 H 85 D 71 L ABG HCO3 13 L 7 L* 12 L ABG O2 Saturation 97 93 91 ABG Base Excess -19 L -24 L -18 L VBG pH VBG pCO2 VBG pO2 VBG Base Excess 09/24/24 09/25/24 09/25/24 23:31 03:22 05:41 ABG pH 7.00 L* 7.06 L* 7.12 L* ABG pCO2 38 48 D 46 ABG pO2 143 H D 81 L D 137 H D ABG HCO3 9 L* 14 L 15 L ABG O2 Saturation 99 H 94 99 H ABG Base Excess -21 L -16 L -14 L VBG pH VBG pCO2 VBG pO2 VBG Base Excess 09/25/24 09/25/24 09/25/24 10:24 12:05 12:34 ABG pH 7.21 L 7.21 L ABG pCO2 41 37 ABG pO2 59 L* D 73 L ABG HCO3 16 L 15 L ABG O2 Saturation 90 L 94 ABG Base Excess -11 L -12 L VBG pH 7.12 L VBG pCO2 52 VBG pO2 45 VBG Base Excess -12 L 09/26/24 09/26/24 09/26/24 01:35 04:18 14:06 ABG pH 7.15 L* 7.24 L 7.24 L ABG pCO2 28 L 30 L 27 L ABG pO2 133 H D 125 H 288 H D ABG HCO3 10 L 13 L 12 L ABG O2 Saturation 99 H 99 H 100 H ABG Base Excess -18 L -13 L -14 L VBG pH VBG pCO2 VBG pO2 VBG Base Excess 09/26/24 18:34 ABG pH 7.25 L ABG pCO2 28 L ABG pO2 298 H ABG HCO3 12 L ABG O2 Saturation 100 H ABG Base Excess -14 L VBG pH VBG pCO2 VBG pO2 VBG Base Excess Assessment & Plan Problem List (1) Encephalopathy acute: Status: Acute Assessment and plan: Following cardiopulmonary arrest, patient has sustained hypoxic brain injury. Will follow-up with EEG and MRI brain to confirm for prognosis. Discussed with the family after the EEG and given the details about his critical condition and poor prognosis for meaningful neurological recovery (2) Cardiopulmonary arrest: Status: Acute Assessment and plan: Had cardiopulmonary arrest at home on 09/24/2024 and was coded few times afterwards. Remained intubated and on mechanical ventilatory support on pressors in comatose state (3) Acute on chronic renal insufficiency: Status: Acute Assessment and plan: Nephrology was consulted, started on hemodialysis.
[2024-09-27] VITALS (75 sets, daily range): BP systolic 24–300; BP diastolic 1–300; PULSE 0–114; RESP 0–47; TEMP 35.8–36.2; O2SAT 8–100
[2024-09-27 00:11] LABS: Base Excess -16 (-3-3); HCO3 12 mEq/L (20-26); Inspired Oxygen, FIO2 21 %; O2 Saturation 97 % (91-98); PCO2 32 mmHg (32.0-48.0); PO2 102 mmHg (83-108)
[2024-09-27 00:14] LABS: Puncture Site Arterial Line; pH, Arterial 7.17 (7.35-7.45)
[2024-09-27 01:59] LABS: Albumin, Serum 2.6 gm/dL (3.4-4.8); Albumin/Globulin Ratio 1.5 (1.2-2.2); Alkaline Phosphatase 309 U/L (46-116); Anion Gap 23 (7-16); BUN/Creatinine Ratio 13 Ratio (12-20); Blood Urea Nitrogen 19 mg/dL (9-23); Calcium 7.5 mg/dL (8.3-10.6); Calcium (Corrected) 8.6 mg/dL (8.5-10.1); Chloride 103 mMol/L (98-107); Creatinine (Component) 1.5 mg/dL (0.6-1.3); Estimated Creatinine Clearance 44.6 mL/min (>60); Globulin 1.7 gm/dL (2.3-3.5); Glucose 164 mg/dL (74-106); Osmolality,Calculated 280 (275-295); Potassium 5.6 mMol/L (3.4-5.1); Sodium 137 mMol/L (136-145); Total Protein 4.3 gm/dL (5.7-8.2); eGFR 47 See Note
[2024-09-27 02:11] LABS: Carbon Dioxide 11.2 mMol/L (20.0-31.0)
[2024-09-27 02:12] LABS: Alanine Aminotransferase > 3300 U/L (10-49); Aspartate Amino Transferase > 6000 U/L (0-34)
[2024-09-27] MEDS: VASOPRESSIN IN NS IVPB 20 UNIT/100 ML BAG 9 UNIT IV (02:25)
[2024-09-27] MEDS: Norepinephrine/NS 16mg/250ml 16 MG/250 ML BAG 48.291 MG IV (03:30)
[2024-09-27 03:42] LABS: Reflex Lactate? Y
[2024-09-27] MEDS: DEXTROSE 50% SYR 187.5 ML in DEXTROSE 10%-WATER 312.5 ML 50 ML IV (04:22)
[2024-09-27 04:56] LABS: Base Excess -23 (-3-3); HCO3 6 mEq/L (20-26); Inspired Oxygen, FIO2 50 %; O2 Saturation 96 % (91-98); PCO2 24 mmHg (32.0-48.0); PO2 105 mmHg (83-108)
[2024-09-27 05:11] LABS: pH, Arterial 7.02 (7.35-7.45)
[2024-09-27 05:12] LABS: Allen Test Not Performed; Puncture Site Arterial Line
--- NOTE | 2024-09-27 05:59 | PD.EVENT ---
Documentation for date of: 09/27/24 Event Note Event Note: Patient coded during dialysis. See code sheet for details. The patient did not tolerate dialysis, so it is currently on hold.
[2024-09-27 06:01] LABS: Base Excess -13 (-3-3); HCO3 14 mEq/L (20-26); Inspired Oxygen, FIO2 50 %; PCO2 39 mmHg (32.0-48.0); PO2 64 mmHg (83-108)
[2024-09-27 06:04] LABS: Allen Test Not Performed; Basophils # (Auto) 0.1 Thou/mm3 (0.0-0.2); Basophils % (Auto) 0 % (0-2.5); Eosinophils % (Auto) 0 % (0-10); Hematocrit 23.7 % (41.0-53.0); Immature Granulocytes % (Auto) 7 % (0-0); Immature Granulocytes Auto 2.13 Thou/mm3 (0.00-0.00); Lymphocytes # (Auto) 4.7 Thou/mm3 (1.0-4.8); Lymphocytes % (Auto) 16 % (10-50); Mean Corpuscular HGB Conc 31.2 g/dl (31.0-37.0); Mean Corpuscular Volume 106 fL (80-100); Monocytes # (Auto) 0.9 Thou/mm3 (0.0-0.8); Monocytes % (Auto) 3 % (0-12); Neutrophils % (Auto) 73 % (37-80); Nucleated Red Blood Cell # 3.33 Thou/mm3 (0.00-0.00); Nucleated Red Blood Cell % 12 /100 WBC (0); Puncture Site Arterial Line; RDW Standard Deviation 64.3 fL (35.1-43.9); Red Blood Count 2.24 Miln/mm3 (4.50-5.90); White Blood Count 28.8 Thou/mm3 (3.8-10.6); pH, Arterial 7.18 (7.35-7.45)
[2024-09-27 06:12] LABS: Hemoglobin 7.4 g/dL (13.5-16.0); Platelet Count 39 Thou/mm3 (140-440)
[2024-09-27] MEDS: HYDROCORTISONE SOD SUCC INJ 100 MG VIAL 50 MG IV (06:23)
[2024-09-27] MEDS: Sodium Bicarb Inj 8.4% SYR 50 ML SYRINGE 100 ML IV (06:24)
[2024-09-27] MEDS: metroNIDAZOLE/NS 500 MG IVPB 500 MG/100 ML BAG 200 MG IV (06:24)
[2024-09-27] MEDS: Norepinephrine/NS 16mg/250ml 16 MG/250 ML BAG 209.496 MG IV ×2 (06:24→07:21)
[2024-09-27] MEDS: HEPARIN SOD INJ 5000 UNIT/ML VIAL SC (06:24)
[2024-09-27] MEDS: HEPARIN SOD INJ 1000 UNIT/ML VIAL 10 ML 3000 UNIT INDWELLCAT (06:45)
[2024-09-27 06:55] LABS: Alanine Aminotransferase > 3300 U/L (10-49); Albumin, Serum 1.8 gm/dL (3.4-4.8); Albumin/Globulin Ratio 1.5 (1.2-2.2); Alkaline Phosphatase 277 U/L (46-116); Anion Gap 28 (7-16); Aspartate Amino Transferase > 6000 U/L (0-34); BUN/Creatinine Ratio 11 Ratio (12-20); Bilirubin,Total 1.4 mg/dL (0.3-1.2); Blood Urea Nitrogen 19 mg/dL (9-23); Calcium 8.1 mg/dL (8.3-10.6); Calcium (Corrected) 9.9 mg/dL (8.5-10.1); Chloride 105 mMol/L (98-107); Creatinine (Component) 1.8 mg/dL (0.6-1.3); Estimated Creatinine Clearance 36.4 mL/min (>60); Globulin 1.2 gm/dL (2.3-3.5); Glucose 94 mg/dL (74-106); Magnesium 2.2 mg/dL (1.6-2.6); Osmolality,Calculated 292 (275-295); Sodium 146 mMol/L (136-145); eGFR 38 See Note
[2024-09-27 06:58] LABS: Carbon Dioxide 13.4 mMol/L (20.0-31.0); Potassium 7.8 mMol/L (3.4-5.1)
[2024-09-27 07:18] LABS: Slide Review Platelets confirmed
--- NOTE | 2024-09-27 07:19 | PD.RESPRO ---
Documentation for date of: 09/27/24 Subjective Subjective Interval history: 79-year-old male with past medical history of CKD stage III, DM 2, hypertension, hyperlipidemia, A-fib, CAD status post stents, pacemaker, Watchman, and pulmonary fibrosis was admitted to the ICU on 09/24/2024 after coming to the ED as a CODE BLUE due to PEA. Most of the history was taken from chart review, prior medics, and family. Patient was in his normal state of health this morning when he went to the bathroom and when he was coming back from the bathroom he lost consciousness. At this time per family the patient's did not feel pulse and started CPR while EMS arrived. EMS arrived and the patient was found to have PEA and he was given 4 rounds of epi via left IO line and was intubated with i-gel and bagged via BVM. During the time of transport CPR was continued and when patient arrived ED physician intubated the patient and ROSC was achieved briefly at 12: 25 before patient went into an episode of V-fib and pulse was lost again therefore CPR was restarted. ROSC was achieved again around 12: 53 in ICU was consulted to admit the patient. Per patient's family patient had a fall yesterday where he hit his head on the carpet, but still was hard surface, but he was not taken to the hospital during this time. As per patient's daughter patient he did loose consciousness at this time, but woke up shortly after. Yesterday patient even went to his physical therapy with no problems afterwards. Patient is on aspirin and Plavix as well as Bumex which last dose was given yesterday. 09/25/2024: Dopamine gtt started overnight apparently for bradycardia, epinephrine and levophed majorly titrated up as well. Fentanyl gtt started. Patient's pupils are dilated and nonreactive overnight. Last normal pupillary exam charted at 0400. 09/26/2024: Patient was seen and examined at bedside this morning. Overnight patient got 3 episodes bicarb and then was placed on bicarb drip after bicarb on, she was less than 10. Patient underwent CRRT yesterday for lactic acid clearance without any fluid removal, but lactic acid increased today to 19. Overnight patient became hypothermic and he was placed on a Sea hugger. Today his pupils were nondilated and were reactive to light, even though there was a large. GCS of 6 today, but no significant neurological changes other than spontaneous eye opening, but unable to trace. Yesterday patient had a chest/abdomen/pelvis CT which did show some pneumoperitoneum for which surgery was consulted as well as GI, but patient is not a surgical candidate at this time. Spoke with senior quality assurance engineer who stated that it was okay to start heparin as patient read 48 hours of heparin drip as per [facility] protocol. Patient will go hemodialysis today with fluid removal. Patient is currently off sedation and will getting hemodialysis his Levophed had to go up to 1.5. Will get EEG and neuroconsult. 09/27/2024: Unable to clear K+ and lactate through CRRT yesterday/overnight due to overproduction. Patient coded at 0545 after CRRT started. Achieved ROSC with 3 rounds of CPR and 1mg of epinephrine. Labs significant for K+ 7.8. HyperK+ protocol started. GCS now 3T with nonresponsive pupils Exam Vital Signs Temp Pulse Resp BP Pulse Ox O2 Del Method FiO2 97.2 F 70 31 H 148/81 H 70 L Mechanical Ventilation 100 09/27/24 04:00 09/27/24 06:35 09/27/24 06:10 09/27/24 06:35 09/27/24 05:45 09/25/24 18:01 09/27/24 06:35 Narrative Exam General: Mechanically ventilated, GCS 3T Eyes: Pupils are 5mm, non reactive Ears: No visible ear discharge Nose: No nasal discharge. Mouth/Throat: Dry mucous membranes, no redness, no lesions. Neck: Neck supple, no cervical lymphadenopathy appreciated Lungs: Mechanically ventilated, diminished lung sounds bilaterally Cardio: Paced, no murmurs, JVD appreciated Abdomen: Firmer today, but distended, no palpable masses, absent bowel sounds Extremities: Symmetrical, no significant deformities, 1+ pitting edema, edema of bilateral lower extremities, ecchymosis below left knee, pedal pulses present Skin: Bilateral hands and feet cold and mildly cyanotic Neuro: absent corneal reflex, absent gag reflex, no response to painful stimuli, non reactive pupils Objective Labs 09/27/24 05:54 09/27/24 05:54 Labs: Laboratory Results - last 24 hr 09/26/24 09/26/24 09/26/24 09:30 11:20 14:06 WBC 21.2 H RBC 3.10 L Hgb 9.9 L Hct 30.8 L MCV 99 MCH 31.9 MCHC 32.1 RDW Std Deviation 58.7 H Plt Count 81 L Neut % (Auto) 83 H Lymph % (Auto) 4 L [place] % (Auto) 4 Eos % (Auto) 3 Baso % (Auto) 0 Neut # (Auto) 17.5 H Lymph # (Auto) 0.9 L [place] # (Auto) 0.8 Eos # (Auto) 0.6 H Baso # (Auto) 0.1 Immature Gran # (Auto) 1.39 H Absolute Nucleated RBC 0.16 H Immature Gran % 7 H Nucleated RBC % 1 H Smear Path Review PT 32.2 H* INR 3.2 H APTT 76.3 H D 78.0 H Fibrinogen 174 L D-Dimer 3580 H Puncture Site Left Femoral ABG pH 7.24 L ABG pCO2 27 L ABG pO2 288 H D ABG HCO3 12 L ABG O2 Saturation 100 H ABG Base Excess -14 L FiO2 100 Sodium Potassium Chloride Carbon Dioxide Anion Gap BUN Creatinine Estim Creat Clear Calc eGFR BUN/Creatinine Ratio Glucose Calculated Osmolality Lactic Acid Calcium Corrected Calcium Magnesium Total Bilirubin AST ALT Alkaline Phosphatase Total Creatine Kinase Total Protein Albumin Globulin Albumin/Globulin Ratio Mis Test Result 09/26/24 09/26/24 09/26/24 14:13 17:25 18:34 WBC 24.2 H RBC 3.09 L Hgb 9.9 L Hct 30.3 L MCV 98 MCH 32.0 MCHC 32.7 RDW Std Deviation 59.4 H Plt Count 53 L D Neut % (Auto) 83 H Lymph % (Auto) 5 L [place] % (Auto) 4 Eos % (Auto) 0 Baso % (Auto) 1 Neut # (Auto) 20.1 H Lymph # (Auto) 1.2 [place] # (Auto) 0.9 H Eos # (Auto) 0.0 Baso # (Auto) 0.1 Immature Gran # (Auto) 1.90 H Absolute Nucleated RBC 0.38 H Immature Gran % 8 H Nucleated RBC % 2 H Smear Path Review Sent to Pathologist PT INR APTT Fibrinogen D-Dimer Puncture Site Arterial Line ABG pH 7.25 L ABG pCO2 28 L ABG pO2 298 H ABG HCO3 12 L ABG O2 Saturation 100 H ABG Base Excess -14 L FiO2 100 Sodium 142 Potassium 6.5 H* D 6.4 H* Chloride 106 Carbon Dioxide 10.7 L* Anion Gap 25 H BUN 33 H Creatinine 2.3 H D Estim Creat Clear Calc 29.1 L eGFR 28 L BUN/Creatinine Ratio 14 Glucose 65 L Calculated Osmolality 288 Lactic Acid 17.0 H* 16.0 H* Calcium 7.0 L Corrected Calcium 7.8 L Magnesium Total Bilirubin 1.7 H D AST > 1000 H* ALT > 3300 H* Alkaline Phosphatase 148 H D Total Creatine Kinase 6840 H D Total Protein 4.8 L Albumin 3.0 L D Globulin 1.8 L Albumin/Globulin Ratio 1.7 Misc Test Result Platelets confirmed 09/26/24 09/27/24 09/27/24 20:20 00:02 00:34 WBC RBC Hgb Hct MCV MCH MCHC RDW Std Deviation Plt Count Neut % (Auto) Lymph % (Auto) [place] % (Auto) Eos % (Auto) Baso % (Auto) Neut # (Auto) Lymph # (Auto) [place] # (Auto) Eos # (Auto) Baso # (Auto) Immature Gran # (Auto) Absolute Nucleated RBC Immature Gran % Nucleated RBC % Smear Path Review PT INR APTT Fibrinogen D-Dimer Puncture Site Arterial Line ABG pH 7.17 L* ABG pCO2 32 ABG pO2 102 D ABG HCO3 12 L ABG O2 Saturation 97 ABG Base Excess -16 L FiO2 21 Sodium 137 Potassium 5.9 H D 5.6 H Chloride 103 Carbon Dioxide 11.2 L* Anion Gap 23 H BUN 19 Creatinine 1.5 H D Estim Creat Clear Calc 44.6 L eGFR 47 L BUN/Creatinine Ratio 13 Glucose 164 H D Calculated Osmolality 280 Lactic Acid 16.0 H* Calcium 7.5 L Corrected Calcium 8.6 Magnesium Total Bilirubin 2.0 H AST > 6000 H* ALT > 3300 H* Alkaline Phosphatase 309 H D Total Creatine Kinase Total Protein 4.3 L Albumin 2.6 L Globulin 1.7 L Albumin/Globulin Ratio 1.5 Misc Test Result 09/27/24 09/27/24 04:40 05:54 WBC 28.8 H RBC 2.24 L Hgb 7.4 L D Hct 23.7 L MCV 106 H MCH 33.0 MCHC 31.2 RDW Std Deviation 64.3 H Plt Count 39 L D Neut % (Auto) 73 Lymph % (Auto) 16 [place] % (Auto) 3 Eos % (Auto) 0 Baso % (Auto) 0 Neut # (Auto) 21.0 H Lymph # (Auto) 4.7 [place] # (Auto) 0.9 H Eos # (Auto) 0.0 Baso # (Auto) 0.1 Immature Gran # (Auto) 2.13 H Absolute Nucleated RBC 3.33 H Immature Gran % 7 H Nucleated RBC % 12 H Smear Path Review PT INR APTT Fibrinogen D-Dimer Puncture Site Arterial Line Arterial Line ABG pH 7.02 L* D 7.18 L* D ABG pCO2 24 L 39 D ABG pO2 105 64 L D ABG HCO3 6 L* 14 L ABG O2 Saturation 96 Not Performed. ABG Base Excess -23 L -13 L FiO2 50 50 Sodium 146 H Potassium 7.8 H* D Chloride 105 Carbon Dioxide 13.4 L* Anion Gap 28 H BUN 19 Creatinine 1.8 H Estim Creat Clear Calc 36.4 L eGFR 38 L BUN/Creatinine Ratio 11 L Glucose 94 D Calculated Osmolality 292 Lactic Acid 24.0 H* Calcium 8.1 L Corrected Calcium 9.9 Magnesium 2.2 Total Bilirubin 1.4 H D AST > 6000 H* ALT > 3300 H* Alkaline Phosphatase 277 H D Total Creatine Kinase Total Protein 3.0 L Albumin 1.8 L D Globulin 1.2 L Albumin/Globulin Ratio 1.5 Misc Test Result Platelets confirmed ABG Interpretation ABG results: 09/24/24 09/24/24 09/24/24 13:15 20:49 22:07 ABG pH 6.97 L* 6.98 L* 7.06 L* ABG pCO2 56 H 29 L D 42 D ABG pO2 126 H 85 D 71 L ABG HCO3 13 L 7 L* 12 L ABG O2 Saturation 97 93 91 ABG Base Excess -19 L -24 L -18 L VBG pH VBG pCO2 VBG pO2 VBG Base Excess 09/24/24 09/25/24 09/25/24 23:31 03:22 05:41 ABG pH 7.00 L* 7.06 L* 7.12 L* ABG pCO2 38 48 D 46 ABG pO2 143 H D 81 L D 137 H D ABG HCO3 9 L* 14 L 15 L ABG O2 Saturation 99 H 94 99 H ABG Base Excess -21 L -16 L -14 L VBG pH VBG pCO2 VBG pO2 VBG Base Excess 09/25/24 09/25/24 09/25/24 10:24 12:05 12:34 ABG pH 7.21 L 7.21 L ABG pCO2 41 37 ABG pO2 59 L* D 73 L ABG HCO3 16 L 15 L ABG O2 Saturation 90 L 94 ABG Base Excess -11 L -12 L VBG pH 7.12 L VBG pCO2 52 VBG pO2 45 VBG Base Excess -12 L 09/26/24 09/26/24 09/26/24 01:35 04:18 14:06 ABG pH 7.15 L* 7.24 L 7.24 L ABG pCO2 28 L 30 L 27 L ABG pO2 133 H D 125 H 288 H D ABG HCO3 10 L 13 L 12 L ABG O2 Saturation 99 H 99 H 100 H ABG Base Excess -18 L -13 L -14 L VBG pH VBG pCO2 VBG pO2 VBG Base Excess 09/26/24 09/27/24 09/27/24 18:34 00:02 04:40 ABG pH 7.25 L 7.17 L* 7.02 L* D ABG pCO2 28 L 32 24 L ABG pO2 298 H 102 D 105 ABG HCO3 12 L 12 L 6 L* ABG O2 Saturation 100 H 97 96 ABG Base Excess -14 L -16 L -23 L VBG pH VBG pCO2 VBG pO2 VBG Base Excess 09/27/24 05:54 ABG pH 7.18 L* D ABG pCO2 39 D ABG pO2 64 L D ABG HCO3 14 L ABG O2 Saturation Not Performed. ABG Base Excess -13 L VBG pH VBG pCO2 VBG pO2 VBG Base Excess Quality Measures Quality Measures none Assessment & Plan Assessment Current Active Medications: Generic Name Dose Route Start Last Admin Trade Name Freq PRN Reason Stop Dose Admin Aspirin 81 mg 09/25/24 11:30 09/26/24 11:11 Aspirin 81 Mg Chew NG 10/25/24 11:29 81 mg QDAY SUKUMAR Administration Dextrose 50 ml 09/25/24 18:30 09/26/24 23:45 Dextrose 50%-Water Inj 50 Ml Syringe IV 10/25/24 10:26 50 ml Q15MIN PRN Administration if BG below 70 give full amp Glucagon 1 mg 09/25/24 10:27 Glucagon Inj 1 Mg Vial IM Q15MIN PRN BG <70, and no IV access Heparin Sodium (Porcine) 3,000 unit 09/26/24 09:04 09/27/24 06:45 Heparin Sod Inj 1000 Unit/Ml Vial 10 Ml INDWELLCAT 10/10/24 09:03 3,000 unit PRN PRN Administration DIALYSIS Heparin Sodium (Porcine) 5,000 unit 09/26/24 22:00 09/27/24 06:24 Heparin Sod Inj 5000 Unit/Ml Vial SC 10/10/24 21:59 5,000 unit Q8HR SUKUMAR Administration Hydrocortisone Sodium Succinate 50 mg 09/25/24 12:00 09/27/24 06:23 Hydrocortisone Sod Succ Inj 100 Mg Vial IV 09/29/24 11:59 50 mg Q6HR SUKUMAR Administration Vasopressin/Sodium Chloride 20 unit in 100 mls @ 9 mls/hr 09/24/24 13:17 09/27/24 02:25 Vasostrict/Ns Ivpb IV 10/24/24 13:16 0.03 unit/min .Q11H7M PRN 9 mls/hr PER PROTOCOL Administration Protocol 0.03 UNIT/MIN Fentanyl Citrate 2,500 mcg in 250 mls @ 2.5 mls/hr 09/24/24 15:47 09/25/24 08:00 Sublimaze Inj 2,500 Mcg/250 Ml Bag IV 09/29/24 15:46 0 mcg/hr .Q24H PRN 0 mls/hr PER PROTOCOL Titration Protocol 25 MCG/HR Propofol 1,000 mg in 100 mls @ 2.273 mls/hr 09/24/24 15:48 09/24/24 18:00 Diprivan Ivpb IV 10/24/24 15:47 0 mcg/kg/min .Q24H PRN 0 mls/hr PER PROTOCOL Titration Protocol 5 MCG/KG/MIN Ceftriaxone Sodium/Dextrose 1 gm in 50 mls @ 100 mls/hr 09/24/24 16:52 09/26/24 17:19 Rocephin/D5w 1gm Iv Premix IV 10/01/24 16:51 Infused QDAY SUKUMAR Infusion Metronidazole 500 mg in 100 mls @ 200 mls/hr 09/24/24 16:52 09/27/24 06:24 Flagyl 500 Mg Iv IV 10/01/24 16:51 200 mls/hr Q8HR SUKUMAR Administration Epinephrine/Sodium Chloride 4 mg in 250 mls @ 14.203 mls/hr 09/24/24 20:21 Adrenalin/Ns 4 Mg Ivpb IV 10/24/24 20:20 .[id number] PRN per protocol Protocol 0.05 MCG/KG/MIN Norepinephrine Bitartrate 16 mg in 250 mls @ 3.551 mls/hr 09/24/24 20:23 09/27/24 06:24 Levophed In Ns 16mg/250ml IV 10/24/24 20:22 2.95 mcg/kg/min .Q24H PRN 209.496 mls/hr PER protocol Administration Protocol 0.05 MCG/KG/MIN Epinephrine HCl 16 mg/ Sodium 250 mls @ 3.551 mls/hr 09/24/24 20:46 09/26/24 03:17 Chloride IV 10/24/24 20:45 0 mcg/kg/min .Q24H PRN 0 mls/hr per protocol Titration Protocol 0.05 MCG/KG/MIN Dopamine HCl/Dextrose 400 mg in 250 mls @ 14.203 mls/hr 09/24/24 21:21 09/27/24 01:22 Intropin In D5w Ivpb IV 10/24/24 21:20 Not Given .[id number] SUKUMAR Protocol 5 MCG/KG/MIN Micafungin Sodium 100 mg/ 100 mls @ 100 mls/hr 09/26/24 11:47 09/26/24 17:19 Sodium Chloride IV 10/11/24 11:46 Infused QDAY SUKUMAR Infusion Dextrose 500 mls @ 50 mls/hr 09/26/24 13:30 09/26/24 21:14 D10w IV 09/27/24 09:00 Not Given .Q10H SUKUMAR Dextrose 187.5 ml/ Dextrose 500 mls @ 50 mls/hr 09/26/24 16:58 09/27/24 04:22 IV 09/27/24 12:57 50 mls/hr .Q10H SUKUMAR Administration Calcium Gluconate/Sodium Chloride 1,000 mg in 50 mls @ 50 mls/hr 09/27/24 07:02 Calcium Gluc/Ns 1000mg Ivpb IV 09/27/24 08:01 X1 ONE Pantoprazole Sodium 40 mg 09/24/24 19:15 09/26/24 18:18 Pantoprazole Inj 40 Mg Vial IVP 10/24/24 19:14 40 mg Q12H SUKUMAR Administration Plan 79-year-old male with past medical history of CKD stage III, DM 2, hypertension, hyperlipidemia, A-fib s/p ablation, Watchman, and pacemaker, CAD status post stents, and pulmonary fibrosis was admitted to the ICU on 09/24/2024 postcardiac arrest. Patient on high dose vasopressor and intrope therapy. Coded again 09/27/24 at 0545 with ROSC achieved after 3 rounds of CPR and 1mg epi. K+ 7.8 which continues to rise despite CRRT. Hyperkalemic treatment initiated. GCS decreased to 3T now. [employer]: #Encephalopathy 2/[address] negative GCS of 3T, no longer opening eyes EEG diffuse slowly c/w anoxic brain injury CVS: #s/p multiple cardiac arrest #s/p PEA #s/p Ventricullar fibrillation #Hx Afib #Shock Shock at this point likely distributive 2/2 ischemic bowel and bowel perforation Currently on Levophed at 2.9 and vasopressin See ID for antibiotic info #Cardiac arrest 2/2 hyperkalemia Remained hyperkalemic despite CRRT with K+ bath of 3.0. 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 Consider goal-directed medical therapy (beta-adriano, MRA, SGLT2, MELLISSA or ARB) once patient is more stable Respiratory: #Acute hypoxic respiratory failure #Mechanically ventilated Secondary to cardiac arrest Patient intubated on 09/24/2024 ABG after code pH 7.18/39/64/14 Mixed metabolic and respiratory acidosis, expected PaCO2 27-31 #Pneumonia Continue Rocephin, and Flagyl #Hx of IPF On nintedanib at home, currently holding Continue hydrocortisone 50mg q6hr Renal: #Hx of CKD stage III #High anion gap metabolic acidosis 2/2 lactic acidosis Patient came in with creatinine of 2.4 and BUN of 33 Patient has been oliguric since admission to ICU, urine output 5cc overnight Avoid nephrotoxic agent Renally dose medications Lactate and potassium remain elevated despite CRRT Unable to tolerate CRRT after cardiac arrest Will continue to trend lactic acid GI: #Shock liver #Pneumoperitoneum 2/[address] abdomen/pelvis on 09/25/2024 revealed moderate free air in abdomen Surgery was consulted, patient not a surgical candidate Gastroenterology following Flagyl, Rocephin, Micafungin Endo: #Hx DM2 #Hypoglycemia Patient severely hypoglycemic 2/2 shock liver D20 running at 50mL/hr centrally Received 2 amps of D50 along with 10U insulin for hyperkalemia Blood sugar checks every 2 hours Heme #Macrocytic normochromic anemia #Thrombocytopenia Platelets 39 Patient came in with hemoglobin of 12.4 MCV of 101 Patient is baseline hemoglobin is around 11-12 Will transfuse if hemoglobin less than 7 Blood cultures collected 09/25 ID: #Sepsis likely secondary to intra-abdominal source versus pneumonia #Pneumoperitoneum #Pneumonia Continue Flagyl and Rocephin [09/24/2024?], micafungin [09/26/2024?] Blood cultures have been negative since 09/25/2024 Sputum cultures have been negative since 09/24/2024 Hospital Maintenance: Diet: NPO DVT ppx: Heparin subcu GI ppx: Protonix IV IV lines: PIV, CIV x2, L femoral arterial line Sanders: sanders cath Code status: Full code Dispo: ICU post cardiac arrest Case/plan discussed with attending, Dr. Saldaña.
[2024-09-27] MEDS: DEXTROSE 50%-WATER INJ 50 ML SYRINGE IV (07:28)
[2024-09-27] MEDS: INSULIN HUM REGULAR 1 UNIT/0.01 ML (PER UNIT) 10 UNIT IV (07:28)
[2024-09-27] MEDS: CALCIUM GLUC/NS 1000MG IVPB 1,000 MG/50 ML BAG 50 MG IV (07:28)
[2024-09-27] MEDS: ALBUTEROL RT 2.5 MG/0.5 ML NEBU 10 MG INH (07:49)
--- NOTE | 2024-09-27 08:00 | ESPR_ITS ---
Documentation for date of: 09/27/24 Subjective Subjective Interval history: Mr. Rapp is a 79-year-old male with a medical history of CKD stage III, type 2 diabetes, hypertension, hyperlipidemia, atrial fibrillation, coronary artery disease status post stents, pacemaker, Watchman, and pulmonary fibrosis, was admitted to the ICU on 09/24/2024 following a CODE BLUE in the ED due to PEA. The patient was in his usual state of health this morning but lost consciousness after returning from the bathroom. His started CPR, and EMS arrived to find PEA. Four rounds of epinephrine were administered via left IO line, and he was intubated. CPR continued en route, and ROSC was achieved briefly at 12:25 PM, followed by V-fib and loss of pulse again. ROSC was regained at 12:53 PM upon arrival to the ICU. The patient's family reported a fall yesterday with a brief loss of consciousness but no subsequent medical evaluation. The patient had a physical therapy session yesterday with no issues. The patient is on aspirin, Plavix, and Bumex, with the last dose of Bumex given yesterday. In the ED, he received epinephrine, sodium bicarb, magnesium, and was placed on amiodarone and Versed drip. Labs showed leukocytosis, low hemoglobin, metabolic acidosis, azotemia, elevated lactic acid, and elevated troponin. The patient is sedated, mechanically ventilated, and continues on vasopressors. A CT is being done to evaluate for possible intracranial bleed. Elevated creatinine and BUN, possible acute kidney injury due to cardiac arrest. Nephrology consult was requested for evaluation and potential hemodialysis, given concerns about worsening renal function and the risk of fluid overload due to the patient?s CKD. Currently on 3 VASOPRESSORS, MAP 61. Afebrile, HR 70s, RR 31, on mechanical ventilation. Labs showing sodium 150, potassium 3.2, chloride 108, CO2 17.5, anion gap 25, BUN 42, CR 2.6, EGFR 24, GLUCOSE 78, serum osmole 307, lactic acid 15, calcium corrected 8.0, AST 5100, ALT greater than 3300, ALBUMIN 2.5. WBC 11.3, Hgb 10.6, PLT 188. aPTT greater than 139. ABG showing pH 7.21, pCO2 37, PaO2 73, bicarb 15. Head CT was negative for acute hemorrhage, mass effect or midline shift. CT Pending final read. Echo showed apical septal hypokinesis with LVEF 40-45%, among other findings. Blood cultures are pending. Nephrology was consulted for CCRT. Recommendations as below. 09/26/2024 examined at bedside, in ICU. Sedated and mechanically ventilated. Appears comfortable. No signs of agitation. Overall no significant improvement in GCS. CCRT was done yesterday. A.m. labs today showing sodium 150, potassium 4.7, CO2 12.9, gap 30, BUN 49, CR 3.0, EGFR 20, GLUCOSE 100, lactic acid 19.0, calcium 6.5, phosphorus 8.1, AST >6K, ALT >3.3K, ALBUMIN 2.4, WBC 21.2, Hgb 9.9, PLT 81. ABGs from this morning 4 AM showing pH 7.24, pCO2 30, pO2 125, bicarb 13. 24-hour blood culture no growth. 09/27/2024 patient currently seen in ICU. Intubated and sedated. On pressors. On night had trouble with potassium and acidosis this might maximal dialysis offered through CRRT. This morning again restarted CRRT for severe metabolic acidosis to dialysis patient had a cardiorespiratory arrest needing resuscitation and had a pulse. At this point I decided to hold off on dialysis as he is not doing well on dialysis and dialysis has not been helping him. Spoke to ICU physician. Apparently Dr. Pizarro came and talked to the family and finally made him DNR. Prognosis extremely poor. He has multisystem organ failure with liver failure, cardiorespiratory arrest 3 times, acute renal failure, electrolyte imbalance (intractable metabolic acidosis, refractory hyperkalemia) family seems to understand grave prognosis. Review of Systems Review of Systems ROS Unobtainable: due to endotracheal tube Exam Vital Signs Temp Pulse Resp BP Pulse Ox O2 Del Method FiO2 36.2 C 70 32 H 95/49 L 70 L Mechanical Ventilation 100 09/27/24 04:00 09/27/24 08:17 09/27/24 07:56 09/27/24 08:17 09/27/24 05:45 09/25/24 18:01 09/27/24 07:56 Narrative Exam GENERAL APPEARANCE: Patient in ICU. On the vent CARDIOVASCULAR: Heart regular, no murmurs LUNGS/CHEST: Rhonchi noted bilaterally ABDOMEN: Distended EXTREMITIES: 2+edema SKIN: Mottling noted in the lower extremities MUSCULOSKELETAL: In bed NEUROLOGICAL : Unresponsive Objective Labs 09/27/24 05:54 09/27/24 08:36 Labs: Laboratory Results - last 24 hr 09/26/24 09/26/24 09/26/24 09:30 11:20 14:06 WBC 21.2 H RBC 3.10 L Hgb 9.9 L Hct 30.8 L MCV 99 MCH 31.9 MCHC 32.1 RDW Std Deviation 58.7 H Plt Count 81 L Neut % (Auto) 83 H Lymph % (Auto) 4 L [place] % (Auto) 4 Eos % (Auto) 3 Baso % (Auto) 0 Neut # (Auto) 17.5 H Lymph # (Auto) 0.9 L [place] # (Auto) 0.8 Eos # (Auto) 0.6 H Baso # (Auto) 0.1 Immature Gran # (Auto) 1.39 H Absolute Nucleated RBC 0.16 H Immature Gran % 7 H Nucleated RBC % 1 H Smear Path Review PT 32.2 H* INR 3.2 H APTT 76.3 H D 78.0 H Fibrinogen 174 L D-Dimer 3580 H Puncture Site Left Femoral ABG pH 7.24 L ABG pCO2 27 L ABG pO2 288 H D ABG HCO3 12 L ABG O2 Saturation 100 H ABG Base Excess -14 L FiO2 100 Sodium Potassium Chloride Carbon Dioxide Anion Gap BUN Creatinine Estim Creat Clear Calc eGFR BUN/Creatinine Ratio Glucose Calculated Osmolality Lactic Acid Calcium Corrected Calcium Magnesium Total Bilirubin AST ALT Alkaline Phosphatase Total Creatine Kinase Total Protein Albumin Globulin Albumin/Globulin Ratio Misc Test Result 09/26/24 09/26/24 09/26/24 14:13 17:25 18:34 WBC 24.2 H RBC 3.09 L Hgb 9.9 L Hct 30.3 L MCV 98 MCH 32.0 MCHC 32.7 RDW Std Deviation 59.4 H Plt Count 53 L D Neut % (Auto) 83 H Lymph % (Auto) 5 L [place] % (Auto) 4 Eos % (Auto) 0 Baso % (Auto) 1 Neut # (Auto) 20.1 H Lymph # (Auto) 1.2 [place] # (Auto) 0.9 H Eos # (Auto) 0.0 Baso # (Auto) 0.1 Immature Gran # (Auto) 1.90 H Absolute Nucleated RBC 0.38 H Immature Gran % 8 H Nucleated RBC % 2 H Smear Path Review Sent to Pathologist PT INR APTT Fibrinogen D-Dimer Puncture Site Arterial Line ABG pH 7.25 L ABG pCO2 28 L ABG pO2 298 H ABG HCO3 12 L ABG O2 Saturation 100 H ABG Base Excess -14 L FiO2 100 Sodium 142 Potassium 6.5 H* D 6.4 H* Chloride 106 Carbon Dioxide 10.7 L* Anion Gap 25 H BUN 33 H Creatinine 2.3 H D Estim Creat Clear Calc 29.1 L eGFR 28 L BUN/Creatinine Ratio 14 Glucose 65 L Calculated Osmolality 288 Lactic Acid 17.0 H* 16.0 H* Calcium 7.0 L Corrected Calcium 7.8 L Magnesium Total Bilirubin 1.7 H D AST > 1000 H* ALT > 3300 H* Alkaline Phosphatase 148 H D Total Creatine Kinase 6840 H D Total Protein 4.8 L Albumin 3.0 L D Globulin 1.8 L Albumin/Globulin Ratio 1.7 Misc Test Result Platelets confirmed 09/26/24 09/27/24 09/27/24 20:20 00:02 00:34 WBC RBC Hgb Hct MCV MCH MCHC RDW Std Deviation Plt Count Neut % (Auto) Lymph % (Auto) [place] % (Auto) Eos % (Auto) Baso % (Auto) Neut # (Auto) Lymph # (Auto) [place] # (Auto) Eos # (Auto) Baso # (Auto) Immature Gran # (Auto) Absolute Nucleated RBC Immature Gran % Nucleated RBC % Smear Path Review PT INR APTT Fibrinogen D-Dimer Puncture Site Arterial Line ABG pH 7.17 L* ABG pCO2 32 ABG pO2 102 D ABG HCO3 12 L ABG O2 Saturation 97 ABG Base Excess -16 L FiO2 21 Sodium 137 Potassium 5.9 H D 5.6 H Chloride 103 Carbon Dioxide 11.2 L* Anion Gap 23 H BUN 19 Creatinine 1.5 H D Estim Creat Clear Calc 44.6 L eGFR 47 L BUN/Creatinine Ratio 13 Glucose 164 H D Calculated Osmolality 280 Lactic Acid 16.0 H* Calcium 7.5 L Corrected Calcium 8.6 Magnesium Total Bilirubin 2.0 H AST > 6000 H* ALT > 3300 H* Alkaline Phosphatase 309 H D Total Creatine Kinase Total Protein 4.3 L Albumin 2.6 L Globulin 1.7 L Albumin/Globulin Ratio 1.5 Misc Test Result 09/27/24 09/27/24 09/27/24 04:40 05:54 08:25 WBC 28.8 H RBC 2.24 L Hgb 7.4 L D Hct 23.7 L MCV 106 H MCH 33.0 MCHC 31.2 RDW Std Deviation 64.3 H Plt Count 39 L D Neut % (Auto) 73 Lymph % (Auto) 16 [place] % (Auto) 3 Eos % (Auto) 0 Baso % (Auto) 0 Neut # (Auto) 21.0 H Lymph # (Auto) 4.7 [place] # (Auto) 0.9 H Eos # (Auto) 0.0 Baso # (Auto) 0.1 Immature Gran # (Auto) 2.13 H Absolute Nucleated RBC 3.33 H Immature Gran % 7 H Nucleated RBC % 12 H Smear Path Review PT INR APTT Fibrinogen D-Dimer Puncture Site Arterial Line Arterial Line Arterial Line ABG pH 7.02 L* D 7.18 L* D 6.95 L* D ABG pCO2 24 L 39 D 20 L D ABG pO2 105 64 L D 138 H D ABG HCO3 6 L* 14 L 4 L* ABG O2 Saturation 96 Not Performed. Not Performed. ABG Base Excess -23 L -13 L -26 L FiO2 50 50 100 Sodium 146 H Potassium 7.8 H* D Chloride 105 Carbon Dioxide 13.4 L* Anion Gap 28 H BUN 19 Creatinine 1.8 H Estim Creat Clear Calc 36.4 L eGFR 38 L BUN/Creatinine Ratio 11 L Glucose 94 D Calculated Osmolality 292 Lactic Acid 24.0 H* Calcium 8.1 L Corrected Calcium 9.9 Magnesium 2.2 Total Bilirubin 1.4 H D AST > 6000 H* ALT > 3300 H* Alkaline Phosphatase 277 H D Total Creatine Kinase Total Protein 3.0 L Albumin 1.8 L D Globulin 1.2 L Albumin/Globulin Ratio 1.5 Misc Test Result Platelets confirmed 09/27/24 08:36 WBC RBC Hgb Hct MCV MCH MCHC RDW Std Deviation Plt Count Neut % (Auto) Lymph % (Auto) [place] % (Auto) Eos % (Auto) Baso % (Auto) Neut # (Auto) Lymph # (Auto) [place] # (Auto) Eos # (Auto) Baso # (Auto) Immature Gran # (Auto) Absolute Nucleated RBC Immature Gran % Nucleated RBC % Smear Path Review PT INR APTT Fibrinogen D-Dimer Puncture Site ABG pH ABG pCO2 ABG pO2 ABG HCO3 ABG O2 Saturation ABG Base Excess FiO2 Sodium 140 Potassium 9.1 H* D Chloride 104 Carbon Dioxide < 10.0 L* Anion Gap 26 H BUN 20 Creatinine 2.1 H Estim Creat Clear Calc 31.2 L eGFR 31 L BUN/Creatinine Ratio 10 L Glucose 285 H D Calculated Osmolality 292 Lactic Acid Calcium 7.0 L Corrected Calcium 9.2 Magnesium Total Bilirubin 1.1 AST > 6000 H* ALT > 3300 H* Alkaline Phosphatase 246 H D Total Creatine Kinase Total Protein 2.2 L Albumin 1.3 L D Globulin 0.9 L Albumin/Globulin Ratio 1.4 Misc Test Result ABG Interpretation ABG results: 09/24/24 09/24/24 09/24/24 13:15 20:49 22:07 ABG pH 6.97 L* 6.98 L* 7.06 L* ABG pCO2 56 H 29 L D 42 D ABG pO2 126 H 85 D 71 L ABG HCO3 13 L 7 L* 12 L ABG O2 Saturation 97 93 91 ABG Base Excess -19 L -24 L -18 L VBG pH VBG pCO2 VBG pO2 VBG Base Excess 09/24/24 09/25/24 09/25/24 23:31 03:22 05:41 ABG pH 7.00 L* 7.06 L* 7.12 L* ABG pCO2 38 48 D 46 ABG pO2 143 H D 81 L D 137 H D ABG HCO3 9 L* 14 L 15 L ABG O2 Saturation 99 H 94 99 H ABG Base Excess -21 L -16 L -14 L VBG pH VBG pCO2 VBG pO2 VBG Base Excess 09/25/24 09/25/24 09/25/24 10:24 12:05 12:34 ABG pH 7.21 L 7.21 L ABG pCO2 41 37 ABG pO2 59 L* D 73 L ABG HCO3 16 L 15 L ABG O2 Saturation 90 L 94 ABG Base Excess -11 L -12 L VBG pH 7.12 L VBG pCO2 52 VBG pO2 45 VBG Base Excess -12 L 09/26/24 09/26/24 09/26/24 01:35 04:18 14:06 ABG pH 7.15 L* 7.24 L 7.24 L ABG pCO2 28 L 30 L 27 L ABG pO2 133 H D 125 H 288 H D ABG HCO3 10 L 13 L 12 L ABG O2 Saturation 99 H 99 H 100 H ABG Base Excess -18 L -13 L -14 L VBG pH VBG pCO2 VBG pO2 VBG Base Excess 09/26/24 09/27/24 09/27/24 18:34 00:02 04:40 ABG pH 7.25 L 7.17 L* 7.02 L* D ABG pCO2 28 L 32 24 L ABG pO2 298 H 102 D 105 ABG HCO3 12 L 12 L 6 L* ABG O2 Saturation 100 H 97 96 ABG Base Excess -14 L -16 L -23 L VBG pH VBG pCO2 VBG pO2 VBG Base Excess 09/27/24 09/27/24 05:54 08:25 ABG pH 7.18 L* D 6.95 L* D ABG pCO2 39 D 20 L D ABG pO2 64 L D 138 H D ABG HCO3 14 L 4 L* ABG O2 Saturation Not Performed. Not Performed. ABG Base Excess -13 L -26 L VBG pH VBG pCO2 VBG pO2 VBG Base Excess Assessment & Plan Additional Assessment & Plan Additional Plan: 75-year-old male with PMHx of CKD stage III, DM 2, HTN, HLD, A-fib, CAD s/p stents, pacemaker, watchman, and PAF, s/p cardiac arrest on. Currently in ICU, sedated and mechanically ventilated, on multiple pressors. Nephrology was consulted for CRRT. S/p cardiac arrest PEA Anion gap metabolic acidosis Lactic acidosis CKD stage III Mulitple electrolyte abnormalities Acute encephalopathy PEA and VT arrest CHF Afib s/p ablation with PPM and watchman device Tropinemia Shock Acute Resp Failure IPF PNA Rib Fracture PAMELA A/CKD- remains anuric AG Combined Acidosis Shock liver/ischemic hepatitis Pneumoperitoneum DM Leukocytosis Anemia Sepsis ? Patient with multisystem organ failure. Received 2 days of CRRT with no improvement in electrolytes or metabolic acidosis. Acute renal failure secondary to ischemic ATN from a cardiac arrest, coronary artery disease, liver failure/shock liver, sepsis, ischemic bowel, metabolic//anoxic encephalopathy Dr. Pizarro, Dr. Saldaña and myself have been talking to the family at length. Prognosis remains extremely poor. Cannot offer dialysis as patient could not tolerate dialysis-hemodynamically unstable. Care discussed with Dr. Saldaña, Dr. Pizarro. Procedures Arterial Line Size (Gauge): 16
[2024-09-27] MEDS: EPINEPHrine in NS 4 MG IVPB 4 MG/250 ML BAG 14.203 MG IV (08:17)
[2024-09-27 08:33] LABS: Base Excess -26 (-3-3); HCO3 4 mEq/L (20-26); Inspired Oxygen, FIO2 100 %; PCO2 20 mmHg (32.0-48.0); PO2 138 mmHg (83-108)
[2024-09-27 08:35] LABS: Allen Test Not Performed; Puncture Site Arterial Line
[2024-09-27 08:38] LABS: pH, Arterial 6.95 (7.35-7.45)
[2024-09-27] MEDS: Sodium Bicarb Inj 8.4% SYR 50 ML SYRINGE IV (08:40)
[2024-09-27] MEDS: RINGERS LACTATED 1000 ML 500 ML 999 ML IV (08:40)
[2024-09-27 09:36] LABS: Alanine Aminotransferase > 3300 U/L (10-49); Albumin, Serum 1.3 gm/dL (3.4-4.8); Albumin/Globulin Ratio 1.4 (1.2-2.2); Alkaline Phosphatase 246 U/L (46-116); Anion Gap 26 (7-16); Aspartate Amino Transferase > 6000 U/L (0-34); BUN/Creatinine Ratio 10 Ratio (12-20); Bilirubin,Total 1.1 mg/dL (0.3-1.2); Blood Urea Nitrogen 20 mg/dL (9-23); Calcium (Corrected) 9.2 mg/dL (8.5-10.1); Chloride 104 mMol/L (98-107); Creatinine (Component) 2.1 mg/dL (0.6-1.3); Estimated Creatinine Clearance 31.2 mL/min (>60); Globulin 0.9 gm/dL (2.3-3.5); Glucose 285 mg/dL (74-106); Osmolality,Calculated 292 (275-295); Sodium 140 mMol/L (136-145); Total Protein 2.2 gm/dL (5.7-8.2); eGFR 31 See Note
[2024-09-27 09:39] LABS: Carbon Dioxide < 10.0 mMol/L (20.0-31.0); Potassium 9.1 mMol/L (3.4-5.1)
--- NOTE | 2024-09-27 09:54 | PC.SS ---
Addendum entered by Belgica Emanuel 09/27/24 10:40: SW met with patient's daughter, Jose and explained ICU guidelines for visitors and deaths. SW explained that ICU can only have 6 visitors at a time when patient has . Jose requested for home to be [facility]. Original Note: Gas Brazer (ANNY) [place] responded to code blue. Patient's [id number] was at bedside, and she requested that patient's son comes in. SW brought patient's son to ICU in which he met with Dr. Mathis and Dr. Saldaña. Dr. Saldaña updated patient's son and at that time, patient's , Joshua arrived. Code status and goals of care were discussed with patient's , Joshua. At the time, patient's family decided that if patient coded again, then to not resuscitate. SW provided emotional support.
--- NOTE | 2024-09-27 10:27 | DES_ITS ---
Documentation for date of: 09/27/24 Summary Date and Time Date of admission: 09/24/24 13:16 Summary Details: On morning of 09/27/2024, patient coded shortly after CRRT began. ROSC was achieved after 1mg epinephrine and 3 rounds of CPR. Patient found to be hyperkalemic with potassium 7.8. Hyperkalemic treatment initiated. Family informed of ongoing hyperkalemia which was unable to be cleared even with CRRT secondary to ongoing cell lysis in the setting of severe bowel ischemia. Patient subsequently coded again around 0830 and CPR was performed. ROSC ultimately achieved after around 5 amps of bicarbonate, 3mg epinephrine, 40U vasopressin, 1g calcium, and numerous rounds of CPR, however prognosis remained extremely poor. Family notified and decided to make patient DNR at that time. Roughly 20 minutes later, despite extreme epinephrine, levophed dosing and vasopressin continuos infusion, patient became hypotensive again and subsequently went into asystole. pronouncement performed shortly thereafter. at 09:12 on 09/27/2024 with family at bedside. Attending Note: pt seen and examined this morning. had coded at ~6am. pt with absent corneal reflex, pupils non reactive, no cough, no gag. mottled and dusky ischemic changes in fingers and feet. on 3 mcg/kg/min of levo and vaso. pH <7 and unable to tolerate CRRT. proceeded to code once more with ROSC achieved after 11min. d/w cardiology and nephrology and family. Additional CPR is futile given his multiorgan failure and refractory acidosis 2/2 mesenteric ischemia with pneumopertioneum and refractory shock. pt today with family members at bedside ~57ccmin required for exam, review, intervention and code blue. unfortuanely pt succumbed to his illness. Hospital Course: 79-year-old male with past medical history of CKD stage III, DM 2, hypertension, hyperlipidemia, A-fib, CAD status post stents, pacemaker, Watchman, and pulmonary fibrosis was admitted to the ICU on 09/24/2024 after coming to the ED as a CODE BLUE due to PEA. Most of the history was taken from chart review, prior medics, and family. Patient was in his normal state of health this morning when he went to the bathroom and when he was coming back from the bathroom he lost consciousness. At this time per family the patient's did not feel pulse and started CPR while EMS arrived. EMS arrived and the patient was found to have PEA and he was given 4 rounds of epi via left IO line and was intubated with i-gel and bagged via BVM. During the time of transport CPR was continued and when patient arrived ED physician intubated the patient and ROSC was achieved briefly at 12:25 before patient went into an episode of V-fib and pulse was lost again therefore CPR was restarted. ROSC was achieved again around 12: 53 in ICU was consulted to admit the patient. Per patient's family patient had a fall yesterday where he hit his head on the carpet, but still was hard surface, but he was not taken to the hospital during this time. As per patient's daughter patient he did loose consciousness at this time, but woke up shortly after. Yesterday patient even went to his physical therapy with no problems afterwards. Patient is on aspirin and Plavix as well as Bumex which last dose was given yesterday. 09/25/2024: Dopamine gtt started overnight apparently for bradycardia, epinephrine and levophed majorly titrated up as well. Fentanyl gtt started. Patient's pupils are dilated and nonreactive overnight. Last normal pupillary exam charted at 0400. Pneumoperitoneum noted on CT abdomen. Surgery consulted but patient is not a surgical candidate. 09/26/2024: Patient was seen and examined at bedside this morning. Overnight patient got 3 episodes bicarb and then was placed on bicarb drip after bicarb on, she was less than 10. Patient underwent CRRT yesterday for lactic acid clearance without any fluid removal, but lactic acid increased today to 19. Overnight patient became hypothermic and he was placed on a Sea hugger. Today his pupils were nondilated and were reactive to light, even though there was a large. GCS of 6, but no significant neurological changes other than spontaneous eye opening, but unable to trace. Yesterday patient had a chest/abdomen/pelvis CT which did show some pneumoperitoneum for which surgery was consulted as well as GI, but patient is not a surgical candidate at this time. Spoke with sanitation tank washer who stated that it was okay to start heparin as patient read 48 hours of heparin drip as per [facility] protocol. Patient will go hemodialysis today with fluid removal. Patient is currently off sedation and will getting hemodialysis his Levophed had to go up to 1.5. Will get EEG and neuroconsult. Additional Data Attending physician: Dr. Saldaña Visit Providers Provider Primary care physician: Amalia Pearson MD Consults: 09/25/24 13:05 Consult to Cardiology Stat Comment: Consulting Provider: Steph Mathis 09/25/24 13:06 Consult to Nephrology Stat Comment: Consulting Provider: Amalia Pearson 09/25/24 15:14 Consult to General Surgery Stat Comment: pneumoperitoneum Consulting Provider: Nayeli Yusuf 09/25/24 20:53 Consult to Gastroenterology Routine Comment: Consulting Provider: Omayra Albert 09/26/24 09:09 Consult to Neurology / Tele-Neurology Stat Comment: Consulting Provider: Gaetano Rothman Discharge Plan Plan Patient Disposition: Prescriptions/Referrals Referrals: Amalia Pearson MD [Primary Care Provider] - Patient/Caregiver Discharge Instructions Print Language: Romansh
--- NOTE | 2024-09-27 10:28 | PD.DPN ---
Documentation for date of: 09/27/24 Pronouncement Note Summary Additional details: Summary, I was called to see patient for unresponsiveness. On exam the patient was unresponsive, no spontaneous movement was observed, patient did not respond to verbal or noxious stimuli. Auscultated absent heart and breath sounds for more than 2 minutes. Peripheral pulses are absent. B/L Pupils are fixed, dilated, and corneal reflex was absent. Patient pronounced at 09:12. Attending Dr. Saldaña notified. Family at bedside during pronouncement. Details: Admitted on 09/24/2024 on 09/27/2024 at 09:12 CODE STATUS: DNR/DNI Causes of : 1.? Cardiac arrest 2.? Severe acidosis 3.? Bowel ischemia Additional Data Attending physician: Dr. Saldaña
--- NOTE | 2024-09-27 12:43 | PC.NURSE ---
AT 0819, patient MAP decreasing below 60, Dr. Saldaña notified, epi gtt started, at 0849 patient pulse lost(see code sheet) TOD called by Dr. Forbes, TOD at 0912. Patients family at the bedside.
--- NOTE | 2024-09-27 18:05 | ESPR_ITS ---
RE: ARSALAN MARCIAL : 1945 DATE OF SERVICE: 09/27/2024 TIME OF ASSESSMENT: Between 07:30 and 08:30 a.m. SUBJECTIVE: The patient is a 79-year-old male with past medical history of CAD, multivessel CAD stent placement, chronic occlusion of LAD, admitted to the hospital with [id number] cardiac arrest 3 days ago, continued to deteriorate, developed severe refractory metabolic acidosis, possibly secondary to underlying abdominal pathology, definitely had perforation of the viscous, possible duodenal perforation inoperable because of extremely unstable patient. Continued to deteriorate despite dialysis. Hemodynamically remained very unstable; though, the rhythms are normal, wide QRS complex due to hyperkalemia. The patient's blood pressure dropped to below 50 and ended up getting cardiopulmonary resuscitation pyrotechnist hours. Continued to be unstable. Again, blood pressure requiring high dose of Levophed as well as epinephrine and multiple vasopressors, despite which pressure continues to fall. The patient has wide QRS complex rhythm from hyperkalemia of 7.8. Lactic acid jumped to 24. He has severe refractory metabolic acidosis. Neurologic condition remains unchanged. The patient has no reflexes. Corneal reflexes absent. Pupils are dilated and fixed. No response to painful stimuli. Clinical brain criteria was met. The patient also had EEG that confirmed diffuse slowing slightly consistent with hypoxic encephalopathy. The patient remained critical and nonresponsive. Multiple cardiac compressions performed. The patient had another severe hypotension bout requiring cardiopulmonary resuscitation again and appears to be not responding due to severe metabolic acidosis, acute renal failure, multiorgan failure including liver function abnormalities, acute kidney injury and acute kidney failure, and severe metabolic acidosis secondary to ischemic bowel and perforation inoperable. I discussed extensive with family members including physicians in the family, who concurred that the patient probably should have comfort care at this point, but not expected to survive. PHYSICAL EXAMINATION: Essentially unchanged. He is deeply comatose, not respond to painful stimuli. Blood pressure is only 60 systolic and requiring resuscitation and multiple vasopressors. Heart rate is 70 with wide QRS complex rhythm. Examination otherwise unchanged from yesterday. IMPRESSION: 1. Status post cardiopulmonary arrest and pulseless electrical activity arrest, possibly secondary to acute abdominal pathology, perforation of viscous, possibly doodenal_, subsequently ventricular fibrillation resuscitation. 2. Hypoxic encephalopathy, deep comatose state with clinical brain . 3. Multiorgan failure. 4. Acute renal failure, unable to tolerate dialysis. 5. Hyperkalemia secondary to renal failure. The patient is not expected to survive, extensive discussion with family, spend more than 90 minutes of time in coordination of the care as well as communication with the family members. DT: 16:35:55 TT: 17:52:00 Ref: [id number] - TID: [id number] MTDD
== END 2024-09-27 09:12 | disposition expired | DRG 296 ==
LOC: SERX 13:51 → SERHOLD 14:26 → S2SX 14:34
PROVIDERS: Internal Medicine; Internal Medicine Cardiovascular Disease; Student in an Organized Health Care Education/Training Program; Admitting Provider Internal Medicine Critical Care Medicine; Emergency Provider Emergency Medicine; PCP Internal Medicine; Visit Provider Student in an Organized Health Care Education/Training Program
DX: I46.2 Cardiac arrest due to underlying cardiac condition (principal); J96.01 Acute respiratory failure with hypoxia; N17.0 Acute kidney failure with tubular necrosis; K72.00 Acute and subacute hepatic failure without coma; J18.9 Pneumonia, unspecified organism; N18.6 End stage renal disease; I50.22 Chronic systolic (congestive) heart failure; I13.2 Hypertensive heart and chronic kidney disease with heart failure and with stage 5 chronic kidney disease, or end stage renal disease; E87.0 Hyperosmolality and hypernatremia; K55.9 Vascular disorder of intestine, unspecified; D68.9 Coagulation defect, unspecified; G93.1 Anoxic brain damage, not elsewhere classified; E87.4 Mixed disorder of acid-base balance; I47.20 Ventricular tachycardia, unspecified; R57.0 Cardiogenic shock; J84.10 Pulmonary fibrosis, unspecified; I49.01 Ventricular fibrillation; I25.10 Atherosclerotic heart disease of native coronary artery without angina pectoris; I48.91 Unspecified atrial fibrillation; E78.5 Hyperlipidemia, unspecified; E11.22 Type 2 diabetes mellitus with diabetic chronic kidney disease; R79.89 Other specified abnormal findings of blood chemistry; I48.0 Paroxysmal atrial fibrillation; E83.51 Hypocalcemia; E87.5 Hyperkalemia; F03.90 Unspecified dementia, unspecified severity, without behavioral disturbance, psychotic disturbance, mood disturbance, and anxiety; E78.00 Pure hypercholesterolemia, unspecified; E88.09 Other disorders of plasma-protein metabolism, not elsewhere classified; E11.649 Type 2 diabetes mellitus with hypoglycemia without coma; I35.8 Other nonrheumatic aortic valve disorders; D63.1 Anemia in chronic kidney disease; Z79.82 Long term (current) use of aspirin; Z95.0 Presence of cardiac pacemaker; Z95.5 Presence of coronary angioplasty implant and graft; Z79.02 Long term (current) use of antithrombotics/antiplatelets; W19.XXXA Unspecified fall, initial encounter; Z66 Do not resuscitate; Z51.5 Encounter for palliative care; Z99.2 Dependence on renal dialysis; Z87.11 Personal history of peptic ulcer disease
CPT/HCPCS: 36415; 36600; 70450; 71045; 71250; 74176; 80053; 80069; 81001; 82550; 82803; 83605; 83735; 84100; 84132; 84145; 84484; 85007; 85014; 85018; 85025; 85027; 85379; 85384; 85610; 85730; 87040; 87081; 87205; 92950; 93005; 93306; 94002; 94003; 94644; 95813; 99291; J0171; J0283; J0613; J0696; J1265; J1643; J1644; J1720; J1815; J2247; J2251; J2470; J2598; J2704; J3010; J3370; J3475; J3480; J3490; J7040; J7050; J7060; J7120; P9047; A9270; J1836